=== PATIENT | male | born 1960 | race Asian ===

== ENCOUNTER 2020-01-01 06:07 | Inpatient (IN) | payer SELFPAY ==
[~2020-01-01] VITALS: Ht 177.8 cm; Wt 88.9 kg
[2020-01-01] MEDS ORDERED: cloNIDine HCL 0.1 MG TAB PO ONE (07:15)
[2020-01-01 07:32] LABS: Basophils # (auto) 0 10 ^3/uL (0-0.2); Basophils % (auto) 0.4 % (0.0-2.0); Eosinophils # (auto) 0.1 10 ^3/uL (0-0.8); Eosinophils % (auto) 0.5 % (0.0-7.0); Hematocrit 33.2 % (41.0-53.0); Hemoglobin 10.7 g/dL (13.5-17.5); Lymphocytes # (auto) 0.9 10 ^3/uL (0.4-5.4); Lymphocytes % (auto) 8.6 % (10.0-50.0); Mean Corpuscular Hemoglobin 28.6 pg (28.0-32.0); Mean Corpuscular Hgb Conc. 32.2 g/dL (32.0-36.0); Mean Corpuscular Volume 88.9 fL (80.0-100.0); Monocytes # (auto) 0.8 10 ^3/uL (0-1.3); Monocytes % (auto) 7.6 % (0.0-12.0); Neutrophils # (auto) 8.8 10 ^3/uL (1.6-8.6); Neutrophils % (auto) 82.9 % (37.0-80.0); Nucleated Red Blood Cells % 0.1 %; Platelet Count (auto) 272 10^3/uL (140-450); Red Blood Cells 3.73 10^6/uL (4.5-5.90); Red Cell Distribution Width 14.5 % (11.8-14.3); White Blood Cell 10.6 10^3/uL (4.4-10.8)
[2020-01-01 07:45] LABS: Urine Bacteria FEW /hpf (None Seen); Urine Blood 3+ /uL (Negative); Urine Specific Gravity 1.009 (1.001-1.035); Urine WBC 34 /hpf (0 - 3)
[2020-01-01 07:54] LABS: Albumin 2.9 g/dL (3.4-5.0); BUN/Creatinine Ratio 10.6; Potassium 5.5 mmol/L (3.5-5.1)
[2020-01-01 07:58] LABS: Bilirubin, Total 0.3 mg/dL (0.2-1.0); Total Protein 7.1 g/dL (6.4-8.2)
[2020-01-01] MEDS ORDERED: SODIUM BICARBONATE 8.4% INJ 50ML SYRINGE IV ONE (09:30)
[2020-01-01] MEDS ORDERED: SODIUM ZIRCONIUM CYCL 10 GM PAK PO ONE (09:30)
[2020-01-01] MEDS ORDERED: CALCIUM GLUC 4.65meq/50ml D5AE 50 ML IV ONE (09:30)
[2020-01-01] MEDS ORDERED: InsuLIN REG 1unit/0.01ml Soln (100units/ml) IV ONE (09:30)
[2020-01-01] MEDS ORDERED: DEXTROSE (50%) 50ML SYRG IV ONE (09:30)
[2020-01-01] MEDS ORDERED: FUROSEMIDE 40 MG/4 ML VIAL IV ONE (09:30)
[2020-01-01] MEDS ORDERED: ALBUTEROL SULF 2.5 MG/0.5ML(0.5%) NEB SOLN NEB ONE (09:30)
[2020-01-01] MEDS ORDERED: cefTRIAXone 1GM/50ML D5W 50 ML IV ONE (09:45)
[2020-01-01] MEDS ORDERED: HYDROcodone-ACET 5/325MG TAB PO PRN (14:00)
[2020-01-01] MEDS ORDERED: ONDANSETRON HCL 4 MG/2 ML VIAL IV PRN (14:00)
[2020-01-01] MEDS ORDERED: SODIUM CHLORIDE 0.9% 1,000 ML IV SCH (14:00)
[2020-01-01] MEDS ORDERED: MORPHINE SULF INJ 2 MG/ML SYRINGE 1ML IV PRN ×2 (14:00)
[2020-01-01] MEDS ORDERED: NITROGLYCERIN 0.4 MG SL TAB SL PRN (14:00)
[2020-01-01] MEDS ORDERED: hydrALAZINE HCL 20 MG/ML VL IV PRN (14:00)
[2020-01-01] MEDS ORDERED: BUMETANIDE 2.5mg/10ml (0.25 mg/ml) INJ IV ONE (14:00)
[2020-01-01] MEDS ORDERED: ACETAMINOPHEN 500 MG TAB PO PRN (14:00)
[2020-01-01] MEDS ORDERED: DEXTROSE (50%) 50ML SYRG IV PRN (14:00)
--- NOTE | 2020-01-01 15:28 | NUR ---
Telemetry admit from ER LATANYATIMO admitted to Telemetry unit after SBAR received. Patient oriented to KRISTINA SPANNRN primary RN, unit, room, bed, and unit policies regarding patient care and visiting hours. Patient now on continuous telemetry monitoring, tele box # 80 and telemetry reading on arrival to unit is sr 80's. Patient placed on 2lnc bedside oxygen, weighed by bedscale and encouraged to call if they need something. All questions and concerns addressed, patient verbalized understanding. Note:
[2020-01-01 15:33] VITALS: BP 144/86
[2020-01-01] MEDS ORDERED: AMLO5TAB15 PO (15:58)
[2020-01-01] MEDS ORDERED: LABE100T39 PO (16:03)
[2020-01-01] MEDS: SODIUM BICARBONATE 50ML VIAL 50 ML in SOD CHL 0.45% 1,000 ML IV SCH (16:44)
[2020-01-01] MEDS: InsuLIN REG 1unit/0.01ml Soln (100units/ml) SC SCH ×2 (16:50→21:48)
[2020-01-01] MEDS: ACCU-CHEK COMFORT CURVE STRIP VI SCH ×2 (16:50→21:40)
[2020-01-01 17:00] VITALS: BP 144/86
[2020-01-01] MEDS ORDERED: METF-372 PO (18:35)
--- NOTE | 2020-01-01 19:30 | NUR ---
Opening Shift Note Assumed care of patient, awake and alert. No S/S of distress/SOB or pain noted. Instructed on POC and to call for assist PRN. Bed is in lowest locked position with bed rails up x2 and call light is within reach of the patient.
--- NOTE | 2020-01-01 20:55 | NUR ---
Steve order: Accidently discontinued steve order via interventions. Reinputed steve order as ordered by stella.
[2020-01-01 21:33] LABS: Calcium 8.1 mg/dL (8.5-10.1); Potassium 4.3 mmol/L (3.5-5.1)
[2020-01-01 21:38] VITALS: BP 149/87
[2020-01-01 21:38] LABS: BUN/Creatinine Ratio 11.1
[2020-01-01] MEDS: DOCUSATE SOD 100 MG CAP PO SCH (21:40)
[2020-01-02] VITALS (8 sets, daily range): BP systolic 151–196; BP diastolic 78–98
--- NOTE | 2020-01-02 00:46 | NUR ---
Navas: Education patient about the use of Navas catheter and purpose of Navas catheter placement. Patient verbalized understanding. Navas catheter inserted via sterile technique. Patient tolerated well. Navas catheter is patent and draining hung below the bedside. Continue care.
[2020-01-02] MEDS: SODIUM BICARBONATE 50ML VIAL 50 ML in SOD CHL 0.45% 1,000 ML IV SCH ×3 (02:39→21:18)
--- NOTE | 2020-01-02 04:42 | NUR ---
TRANSFER Received patient from [facility] unit into room 273B via wheelchair. No distress noted during transfer. Will continue to monitor
--- NOTE | 2020-01-02 04:44 | NUR ---
Patient transferred rooms, report given to RN: Report given to Elda RN, all questions answered. Patient transferred via wheel chair with all of his belongings. Patient tolerated well. No S/S of distress SOB or pain noted.
[2020-01-02] MEDS: InsuLIN REG 1unit/0.01ml Soln (100units/ml) SC SCH ×4 (06:19→21:29)
[2020-01-02] MEDS: ACCU-CHEK COMFORT CURVE STRIP VI SCH ×4 (06:19→21:25)
[2020-01-02] MEDS: cefTRIAXone 1GM/50ML D5W 50 ML IV SCH (08:06)
[2020-01-02] MEDS: DOCUSATE SOD 100 MG CAP PO SCH ×2 (08:06→21:45)
[2020-01-02] MEDS: FAMOTIDINE 20 MG TAB PO SCH (08:06)
[2020-01-02 08:31] LABS: Hematocrit 33.5 % (41.0-53.0); Hemoglobin 11.1 g/dL (13.5-17.5); Mean Corpuscular Hgb Conc. 33.2 g/dL (32.0-36.0); Mean Corpuscular Volume 87.3 fL (80.0-100.0); Platelet Count (auto) 268 10^3/uL (140-450); Red Blood Cells 3.83 10^6/uL (4.5-5.90); Red Cell Distribution Width 14.3 % (11.8-14.3); White Blood Cell 9.7 10^3/uL (4.4-10.8)
[2020-01-02 08:47] LABS: BUN/Creatinine Ratio 10.2; Basophils % (manual) 0 (0.0-2.0); Blast Cells 0; Calcium 8.1 mg/dL (8.5-10.1); Metamyelocytes % 0; Myelocytes % 0; Potassium 4.4 mmol/L (3.5-5.1); Promyelocytes % 0; Reactive Lymphocytes 0
[2020-01-02 10:00] LABS: Band Neutrophils % (manual) 2; Eosinophils % (manual) 18 (0-7); Lymphocytes % (manual) 7 (10.0-50.0); Monocytes % (manual) 5 (0-12)
[2020-01-02] MEDS ORDERED: amLODIPine BESYLATE 5 MG TAB PO SCH (10:00)
[2020-01-02] MEDS: cloNIDine HCL 0.1 MG TAB PO PRN ×2 (11:25→17:40)
[2020-01-02] MEDS ORDERED: amLODIPine BESYLATE 5 MG TAB PO ONE (11:30)
[2020-01-02] MEDS ORDERED: AZITHROMYCIN 250 MG TAB PO ONE (11:30)
[2020-01-02] MEDS ORDERED: ALBUTEROL SULF 2.5 MG/0.5ML(0.5%) NEB SOLN NEB PRN (11:30)
--- NOTE | 2020-01-02 11:58 | NUR ---
Urologist Phone call received from Dr. Garo Hernández regarding patient. Orders received to do CT abdomen/pelvis without contrast followed by a Radiology consult with Dr. Andre for left nephrostomy tube placement.
--- NOTE | 2020-01-02 14:50 | NUR ---
Urologist Paged Left voice message for Dr. Hernández to call RN. Radiologist is not on until Thursday 01/04.
--- NOTE | 2020-01-02 19:30 | NUR ---
Opening Shift Note Assumed care of patient, awake and alert. No S/S of distress/SOB or pain. Insructed on POC and to callfor assist PRN, will continue to monitor for changes Q1hr and PRN. Fall and safety precautions in place. Call light within reach.
[2020-01-02] MEDS: METOPROLOL TARTRATE 50 MG TAB PO SCH (21:46)
--- NOTE | 2020-01-02 22:00 | NUR ---
Erica Brito at bedside for cardio consult. New orders received and verified. Will input.
[2020-01-03] MEDS: cloNIDine HCL 0.1 MG TAB PO PRN ×2 (04:27→18:54)
[2020-01-03 05:00] VITALS: BP 158/82
[2020-01-03] MEDS: ACCU-CHEK COMFORT CURVE STRIP VI SCH ×4 (06:24→22:11)
[2020-01-03] MEDS: InsuLIN REG 1unit/0.01ml Soln (100units/ml) SC SCH ×4 (06:25→22:15)
[2020-01-03] MEDS: cefTRIAXone 1GM/50ML D5W 50 ML IV SCH (08:51)
[2020-01-03] MEDS: AZITHROMYCIN 250 MG TAB PO SCH (08:52)
[2020-01-03] MEDS: amLODIPine BESYLATE 5 MG TAB PO SCH (08:52)
[2020-01-03] MEDS: FAMOTIDINE 20 MG TAB PO SCH (08:52)
[2020-01-03] MEDS: DOCUSATE SOD 100 MG CAP PO SCH ×2 (08:53→22:06)
[2020-01-03] MEDS: METOPROLOL TARTRATE 50 MG TAB PO SCH ×2 (08:53→22:06)
[2020-01-03] MEDS: SODIUM BICARBONATE 50ML VIAL 50 ML in SOD CHL 0.45% 1,000 ML IV SCH ×2 (08:54→18:30)
--- NOTE | 2020-01-03 08:59 | NUR ---
Opening Shift Note Assumed care of patient, awake and alert. No S/S of distress/SOB or pain. Instructed on POC and to call for assist PRN, will continue to monitor for changes Q1hr and PRN. Fall and safety precautions in place. Call light within reach.
[2020-01-03 09:00] VITALS: BP 156/83
[2020-01-03 11:18] LABS: BUN/Creatinine Ratio 10.5; Potassium 4.2 mmol/L (3.5-5.1)
[2020-01-03 13:00] VITALS: BP 169/87
[2020-01-03 16:36] VITALS: BP 162/91
--- NOTE | 2020-01-03 19:21 | NUR ---
Respiratory note: PT ASSESSED FOR PRN MED NEB TX. HR 78, RR 18, SPO2 94% ON RA. NO S/S OF ANY RESPIRATORY DISTRESS NOTED. ADVISED PT TO CALL IF TX IS NEEDED.
[2020-01-03 21:28] VITALS: BP 159/54
[2020-01-03] MEDS ORDERED: SOD CHL 0.45% 1,000 ML IV ONE (21:45)
[2020-01-04] MEDS: cloNIDine HCL 0.1 MG TAB PO PRN (01:33)
[2020-01-04 05:18] VITALS: BP 153/78
[2020-01-04 05:18] LABS: Hematocrit 30.2 % (41.0-53.0); Hemoglobin 9.9 g/dL (13.5-17.5); Mean Corpuscular Hemoglobin 28.8 pg (28.0-32.0); Mean Corpuscular Hgb Conc. 32.8 g/dL (32.0-36.0); Mean Corpuscular Volume 87.9 fL (80.0-100.0); Platelet Count (auto) 247 10^3/uL (140-450); Red Blood Cells 3.44 10^6/uL (4.5-5.90); Red Cell Distribution Width 14.3 % (11.8-14.3); White Blood Cell 8.5 10^3/uL (4.4-10.8)
[2020-01-04 05:22] LABS: Basophils % (manual) 0 (0.0-2.0); Blast Cells 0; Metamyelocytes % 0; Myelocytes % 0; Promyelocytes % 0; Reactive Lymphocytes 0
[2020-01-04] MEDS: ACCU-CHEK COMFORT CURVE STRIP VI SCH (05:38)
[2020-01-04] MEDS: InsuLIN REG 1unit/0.01ml Soln (100units/ml) SC SCH (05:38)
[2020-01-04 05:39] LABS: Albumin 2.2 g/dL (3.4-5.0); BUN/Creatinine Ratio 11.6; Calcium 8.1 mg/dL (8.5-10.1); Potassium 3.8 mmol/L (3.5-5.1)
[2020-01-04 05:42] LABS: Bilirubin, Total 0.3 mg/dL (0.2-1.0); Total Protein 5.7 g/dL (6.4-8.2)
[2020-01-04 06:05] LABS: Band Neutrophils % (manual) 8; Eosinophils % (manual) 23 (0-7); Lymphocytes % (manual) 11 (10.0-50.0); Monocytes % (manual) 5 (0-12)
--- NOTE | 2020-01-04 07:00 | NUR ---
Respiratory note: PT RESTING COMFORTABLY. NO RESPIRATORY DISTRESS NOTED. SPO2 95% ON RA, HR 60, RR 18, BS CLEAR/DIMINISHED BILATERALLY. PRN MEDNEB TX NOT INDICATED AT THIS TIME. WILL CONTINUE TO MONITOR PT.
--- NOTE | 2020-01-04 07:30 | NUR ---
Opening Shift Note Assumed care of patient, awake and alert. No S/S of distress/SOB or pain on room air. Instructed on POC and to call for assist PRN, will continue to monitor for changes Q1hr and PRN. Bed in low and locked position, rails up x2, no-slip socks on. Navas draining to gravity.
--- NOTE | 2020-01-04 08:15 | NUR ---
DR Linsey STEVENS AT BEDSIDE ORDERS OK TO D/C NELSON ON DISCHARGE, FOLLOW UP WITH DR CLARKE OUTPATIENT.
--- NOTE | 2020-01-04 08:25 | NUR ---
Steve catheter dc'd Order to discontinue steve catheter. Steve dc'd with clean technique following deflation of balloon. Patient tolerated well with no complaints of pain. Continue care. Out put charted in I&O.
[2020-01-04 08:30] VITALS: BP 155/85
[2020-01-04] MEDS: cefTRIAXone 1GM/50ML D5W 50 ML IV SCH (09:00)
--- NOTE | 2020-01-04 09:30 | NUR ---
PATIENT POST NELSON REMOVAL VOID PER PATIENT HE VOIDED IN THE BATHROOM ALREADY POST CATHETER REMOVAL.
[2020-01-04] MEDS: FAMOTIDINE 20 MG TAB PO SCH (09:32)
[2020-01-04] MEDS: DOCUSATE SOD 100 MG CAP PO SCH (09:33)
[2020-01-04] MEDS: amLODIPine BESYLATE 5 MG TAB PO SCH (09:33)
[2020-01-04] MEDS: AZITHROMYCIN 250 MG TAB PO SCH (09:33)
[2020-01-04] MEDS: METOPROLOL TARTRATE 50 MG TAB PO SCH (09:33)
--- NOTE | 2020-01-04 09:45 | NUR ---
DISCHARGE Discharge instructions given as ordered. Encourage to follow up with PMD as instructed. All questions and concerns addressed. Patient verbalized understanding. Medication reconciliation form completed and copy given to patient. IV removed with catheter intact, pressure dressing applied, steve catheter removed as previously charted. Telemetry unit returned to ICU. Patient taken downstairs with all personal belongings, accompanied by staff to greet family member. No distress noted at time of departure.
== END 2020-01-04 09:45 | disposition home or self-care (01) | DRG 682 ==
LOC: EDBD 06:07 → ER 06:07 → TELE 06:08 → TELE-CENTR 15:25 → TELE-WESTW 01-02 04:39
PROVIDERS: ADMIT Nurse Practitioner Acute Care; ATTEND Nurse Practitioner Acute Care
DX: N17.0 Acute kidney failure with tubular necrosis (principal); I50.43 Acute on chronic combined systolic (congestive) and diastolic (congestive) heart failure; J18.9 Pneumonia, unspecified organism; I13.0 Hypertensive heart and chronic kidney disease with heart failure and stage 1 through stage 4 chronic kidney disease, or unspecified chronic kidney disease; E11.22 Type 2 diabetes mellitus with diabetic chronic kidney disease; N13.6 Pyonephrosis; E87.5 Hyperkalemia; F17.200 Nicotine dependence, unspecified, uncomplicated; I16.0 Hypertensive urgency; K57.30 Diverticulosis of large intestine without perforation or abscess without bleeding; R06.03 Acute respiratory distress; N18.9 Chronic kidney disease, unspecified; R09.02 Hypoxemia; Z20.828 Contact with and (suspected) exposure to other viral communicable diseases; Z79.84 Long term (current) use of oral hypoglycemic drugs; Z82.49 Family history of ischemic heart disease and other diseases of the circulatory system; Z83.3 Family history of diabetes mellitus; Z87.442 Personal history of urinary calculi
CPT/HCPCS: 36415; 71045; 74176; 76775; 78582; 80048; 80053; 81001; 82962; 83036; 83880; 84484; 85007; 85025; 85027; 85379; 87086; 87426; 93306; 93970; 94644; 96365; 96368; 96375; G0378; J0610; J0696; J1815

== ENCOUNTER 2020-10-16 22:19 | Emergency (ER) | payer MEDICARE, BC ==
[~2020-10-16] VITALS: Ht 172.7 cm; Wt 90.7 kg
[~2020-10-16 22:19] MED LIST: AMLO-489 PO; LABE100T39 PO; METF-372 PO
[2020-10-16 23:05] VITALS: BP 176/86
== END 2020-10-16 23:50 | disposition left against medical advice (07) ==
LOC: EDBD 22:19 → ER 22:22
DX: R53.1 Weakness (principal); R06.02 Shortness of breath; Z53.21 Procedure and treatment not carried out due to patient leaving prior to being seen by health care provider
CPT/HCPCS: 93005

== ENCOUNTER 2022-12-03 22:02 | Inpatient (IN) | payer MEDICARE, MEDICAID ==
[~2022-12-03] VITALS: Ht 188 cm; Wt 86.3 kg
[~2022-12-03 22:02] MED LIST changes: -AMLO-489 PO; +AMLO1TAB22 PO; -LABE100T39 PO; +LABE100T5 PO
[2022-12-03 22:43] LABS: Basophils # (auto) 0.1 10 ^3/uL (0-0.2); Basophils % (auto) 0.8 % (0.0-2.0); Eosinophils # (auto) 0.5 10 ^3/uL (0-0.8); Eosinophils % (auto) 4.4 % (0.0-7.0); Hematocrit 26.4 % (41.0-53.0); Hemoglobin 8.8 g/dL (13.5-17.5); Lymphocytes # (auto) 0.8 10 ^3/uL (0.4-5.4); Lymphocytes % (auto) 7.6 % (10.0-50.0); Mean Corpuscular Hemoglobin 29.8 pg (28.0-32.0); Mean Corpuscular Hgb Conc. 33.2 g/dL (32.0-36.0); Mean Corpuscular Volume 89.7 fL (80.0-100.0); Monocytes # (auto) 0.5 10 ^3/uL (0-1.3); Neutrophils # (auto) 8.6 10 ^3/uL (1.6-8.6); Neutrophils % (auto) 82.2 % (37.0-80.0); Red Blood Cells 2.94 10^6/uL (4.5-5.90); Red Cell Distribution Width 17.1 % (11.8-14.3); White Blood Cell 10.5 10^3/uL (4.4-10.8)
[2022-12-03 22:57] LABS: INR 1.09 (0.9-1.15); Partial Thromboplastin Time 27.3 SEC (24.5-34.5); Prothrombin Time 11.4 sec (9.3-11.8)
[2022-12-03 23:07] LABS: Alanine Aminotransferase 25 U/L (7-40); Albumin 4.3 g/dL (3.2-4.8); Alkaline Phosphatase 55 U/L (46-116); Anion Gap 9 (5-15); Aspartate Aminotransferase 30 U/L (13-40); Bilirubin, Total 0.4 mg/dL (0.2-1.0); Blood Urea Nitrogen 73 mg/dL (9-23); Calcium 8.9 mg/dL (8.5-10.1); Carbon Dioxide 27 mmol/L (20-30); Chloride 96 mmol/L (98-107); Glucose 266 mg/dL (74-106); Sodium 132 mmol/L (136-145); Total Protein 7.1 g/dL (5.7-8.2)
[2022-12-03 23:19] LABS: Potassium 6.7 mmol/L (3.5-5.1)
[2022-12-03] MEDS ORDERED: ALBUTEROL MEDNEB 2.5 mg/3ml NEB ONE (23:41)
[2022-12-03] MEDS ORDERED: SODIUM BICARBONATE 8.4 % INJ 50ML VIAL IV ONE (23:45)
[2022-12-03] MEDS ORDERED: InsuLIN REG 1unit/0.01ml Soln (100units/ml) IV ONE (23:45)
[2022-12-03] MEDS ORDERED: ALBUTEROL SULF 2.5 MG/0.5ML(0.5%) NEB SOLN NEB ONE (23:45)
[2022-12-03] MEDS ORDERED: CALCIUM GLUC 1,000mg/50ml-NS 50 ML IV ONE (23:45)
[2022-12-04] VITALS: PULSE 76; RESP 21; O2SAT 100
[2022-12-04] MEDS ORDERED: DEXTROSE (50%) 50ML SYRG IV PRN
[2022-12-04] MEDS ORDERED: ONDANSETRON HCL 4 MG/2 ML VIAL IV PRN
[2022-12-04] MEDS ORDERED: MORPHINE SULFATE INJ 2 MG/ml SYRG IV PRN
[2022-12-04] MEDS ORDERED: NITROGLYCERIN 0.4 MG SL TAB SL PRN
[2022-12-04] MEDS ORDERED: ACETAMINOPHEN 325 MG TAB PO PRN
[2022-12-04] MEDS: ACCU-CHEK COMFORT CURVE STRIP VI SCH ×4 (06:41→22:00)
[2022-12-04] MEDS: InsuLIN REG 1unit/0.01ml Soln (100units/ml) SC SCH ×4 (06:41→23:25)
[2022-12-04 06:42] LABS: Basophils # (auto) 0.1 10 ^3/uL (0-0.2); Basophils % (auto) 0.6 % (0.0-2.0); Eosinophils # (auto) 0.5 10 ^3/uL (0-0.8); Hemoglobin 7.8 g/dL (13.5-17.5)
[2022-12-04 06:45] LABS: Eosinophils % (auto) 5.7 % (0.0-7.0); Hematocrit 23.6 % (41.0-53.0); Lymphocytes # (auto) 0.7 10 ^3/uL (0.4-5.4); Lymphocytes % (auto) 7.5 % (10.0-50.0); Mean Corpuscular Hemoglobin 29.6 pg (28.0-32.0); Mean Corpuscular Hgb Conc. 33.3 g/dL (32.0-36.0); Mean Corpuscular Volume 89.1 fL (80.0-100.0); Monocytes # (auto) 0.5 10 ^3/uL (0-1.3); Monocytes % (auto) 5.9 % (0.0-12.0); Neutrophils # (auto) 7.1 10 ^3/uL (1.6-8.6); Neutrophils % (auto) 80.3 % (37.0-80.0); Red Blood Cells 2.65 10^6/uL (4.5-5.90); Red Cell Distribution Width 17.2 % (11.8-14.3); White Blood Cell 8.9 10^3/uL (4.4-10.8)
[2022-12-04 07:08] LABS: Alanine Aminotransferase 22 U/L (7-40); Alkaline Phosphatase 54 U/L (46-116); Anion Gap 11 (5-15); BUN/Creatinine Ratio 8.4 (10.0-20.0); Blood Urea Nitrogen 78 mg/dL (9-23); Calcium 9.2 mg/dL (8.5-10.1); Carbon Dioxide 27 mmol/L (20-30); Chloride 97 mmol/L (98-107); Sodium 135 mmol/L (136-145)
[2022-12-04 07:10] LABS: Albumin 4.2 g/dL (3.2-4.8); Aspartate Aminotransferase 23 U/L (13-40); Bilirubin, Total 0.5 mg/dL (0.2-1.0)
[2022-12-04 07:11] LABS: Total Protein 6.9 g/dL (5.7-8.2)
[2022-12-04 07:42] LABS: Glucose 69 mg/dL (74-106)
[2022-12-04 07:46] LABS: Potassium 5.6 mmol/L (3.5-5.1)
[2022-12-04] MEDS: CALCIUM ACETATE 667 MG CAP PO SCH ×3 (08:00→18:20)
[2022-12-04] MEDS: LABETALOL HCL 200 MG TAB PO SCH ×2 (09:25→23:17)
[2022-12-04] MEDS: BUMETANIDE 1 MG TAB PO SCH (09:26)
[2022-12-04] MEDS: LOSARTAN POTASSIUM 50 MG TAB PO SCH (09:27)
[2022-12-04] MEDS: amLODIPine BESYLATE 5 MG TAB PO SCH (09:28)
[2022-12-04] MEDS ORDERED: CLOPIDOGREL BISULFATE 75 MG TAB PO SCH (10:00)
[2022-12-04 12:39] VITALS: BP 156/80; PULSE 71; RESP 20; TEMP 98.2; O2SAT 94
[2022-12-04 12:40] VITALS: BP 156/80; PULSE 71; RESP 20; TEMP 98.2; O2SAT 96
[2022-12-04 16:00] VITALS: BP 143/66; PULSE 72; RESP 20; TEMP 98.2; O2SAT 99
[2022-12-04 16:17] LABS: Triglycerides 38 mg/dL (< 150)
[2022-12-04 16:18] LABS: LDL Cholesterol 32 mg/dL (< 100)
[2022-12-04 16:19] LABS: Cholesterol 92 mg/dL (< 200); HDL Cholesterol 46 mg/dL (40-59)
[2022-12-04] MEDS ORDERED: ASPI-498 OR (16:53)
[2022-12-04] MEDS ORDERED: CLOP75TA70 PO (16:53)
[2022-12-04] MEDS ORDERED: SODIUM ZIRCONIUM CYCL 10 GM PAK PO ONE ×2 (18:45)
[2022-12-04 20:00] VITALS: PULSE 79
[2022-12-04 22:00] VITALS: BP 153/78; PULSE 78; RESP 18; TEMP 98.7; O2SAT 100
[2022-12-04] MEDS: ATORVASTATIN 20 MG TAB PO SCH (23:17)
[2022-12-05] VITALS (8 sets, daily range): BP systolic 138–155; BP diastolic 62–71; PULSE 68–83; RESP 16–18; TEMP 97.5–98.6; O2SAT 94–100
[2022-12-05] MEDS ORDERED: TEMAZEPAM 15 MG CAP PO ONE (00:45)
[2022-12-05] MEDS: InsuLIN REG 1unit/0.01ml Soln (100units/ml) SC SCH ×4 (06:00→22:00)
[2022-12-05] MEDS: ACCU-CHEK COMFORT CURVE STRIP VI SCH ×4 (06:01→22:00)
[2022-12-05 06:31] LABS: Chloride 97 mmol/L (98-107); Sodium 134 mmol/L (136-145)
[2022-12-05 06:32] LABS: Anion Gap 12 (5-15); Calcium 8.7 mg/dL (8.7-10.4); Carbon Dioxide 25 mmol/L (20-30)
[2022-12-05 06:37] LABS: BUN/Creatinine Ratio 8.8 (10.0-20.0); Glucose 62 mg/dL (74-106)
[2022-12-05 06:45] LABS: Blood Urea Nitrogen 97 mg/dL (9-23); Potassium 5.9 mmol/L (3.5-5.1)
[2022-12-05] MEDS ORDERED: SODIUM CHL 0.9% 1000 ML BAG XX ONE (07:00)
[2022-12-05 07:04] LABS: Eosinophils # (auto) 0.4 10 ^3/uL (0-0.8); Hemoglobin 7.4 g/dL (13.5-17.5); Lymphocytes # (auto) 0.5 10 ^3/uL (0.4-5.4); Neutrophils # (auto) 7.7 10 ^3/uL (1.6-8.6); Red Blood Cells 2.45 10^6/uL (4.5-5.90)
[2022-12-05 07:06] LABS: Basophils # (auto) 0.1 10 ^3/uL (0-0.2); Basophils % (auto) 0.6 % (0.0-2.0); Eosinophils % (auto) 4.4 % (0.0-7.0); Hematocrit 21.9 % (41.0-53.0); Lymphocytes % (auto) 5.6 % (10.0-50.0); Mean Corpuscular Hemoglobin 30.3 pg (28.0-32.0); Mean Corpuscular Hgb Conc. 33.8 g/dL (32.0-36.0); Mean Corpuscular Volume 89.6 fL (80.0-100.0); Monocytes # (auto) 0.6 10 ^3/uL (0-1.3); Monocytes % (auto) 6.1 % (0.0-12.0); Neutrophils % (auto) 83.3 % (37.0-80.0); Red Cell Distribution Width 16.9 % (11.8-14.3); White Blood Cell 9.2 10^3/uL (4.4-10.8)
[2022-12-05] MEDS ORDERED: SODIUM ZIRCONIUM CYCL 10 GM PAK PO ONE (07:30)
[2022-12-05] MEDS: LABETALOL HCL 200 MG TAB PO SCH ×2 (11:00→22:32)
[2022-12-05] MEDS: CALCIUM ACETATE 667 MG CAP PO SCH ×3 (11:00→17:18)
[2022-12-05] MEDS: LOSARTAN POTASSIUM 50 MG TAB PO SCH (11:00)
[2022-12-05] MEDS: amLODIPine BESYLATE 5 MG TAB PO SCH (11:00)
[2022-12-05] MEDS: BUMETANIDE 1 MG TAB PO SCH ×2 (11:00→22:35)
[2022-12-05 12:35] LABS: Chloride 99 mmol/L (98-107); Potassium 4.2 mmol/L (3.5-5.1); Sodium 140 mmol/L (136-145)
[2022-12-05 12:36] LABS: Anion Gap 9 (5-15); Carbon Dioxide 32 mmol/L (20-30)
[2022-12-05 12:37] LABS: Calcium 9.1 mg/dL (8.5-10.1)
[2022-12-05 12:41] LABS: BUN/Creatinine Ratio 7.9 (10.0-20.0); Blood Urea Nitrogen 47 mg/dL (9-23); Glucose 140 mg/dL (74-106)
[2022-12-05] MEDS ORDERED: MELATONIN 5 MG TAB PO ONE (22:00)
[2022-12-05] MEDS: ATORVASTATIN 20 MG TAB PO SCH (22:31)
[2022-12-06] VITALS (7 sets, daily range): BP systolic 131–153; BP diastolic 47–69; PULSE 69–88; RESP 17–18; TEMP 97.9–98.3; O2SAT 95–100
[2022-12-06 05:52] LABS: Basophils # (auto) 0 10 ^3/uL (0-0.2); Eosinophils # (auto) 0.5 10 ^3/uL (0-0.8); Lymphocytes # (auto) 0.9 10 ^3/uL (0.4-5.4); Monocytes # (auto) 0.5 10 ^3/uL (0-1.3); White Blood Cell 5.9 10^3/uL (4.4-10.8)
[2022-12-06 05:55] LABS: Basophils % (auto) 0.6 % (0.0-2.0); Eosinophils % (auto) 8.4 % (0.0-7.0); Hematocrit 20.3 % (41.0-53.0); Lymphocytes % (auto) 15.2 % (10.0-50.0); Mean Corpuscular Hemoglobin 30.4 pg (28.0-32.0); Mean Corpuscular Hgb Conc. 34.1 g/dL (32.0-36.0); Mean Corpuscular Volume 89.1 fL (80.0-100.0); Monocytes % (auto) 7.9 % (0.0-12.0); Neutrophils % (auto) 67.9 % (37.0-80.0); Red Blood Cells 2.29 10^6/uL (4.5-5.90); Red Cell Distribution Width 16.1 % (11.8-14.3)
[2022-12-06 06:03] LABS: Anion Gap 10 (5-15); Carbon Dioxide 28 mmol/L (20-30); Chloride 99 mmol/L (98-107); Potassium 4.7 mmol/L (3.5-5.1); Sodium 137 mmol/L (136-145)
[2022-12-06 06:04] LABS: Calcium 8.3 mg/dL (8.7-10.4)
[2022-12-06 06:09] LABS: Glucose 91 mg/dL (74-106); Hemoglobin 6.9 g/dL (13.5-17.5); Magnesium 2.3 mg/dL (1.6-2.6)
[2022-12-06 06:11] LABS: Phosphorus 7.1 mg/dL (2.4-5.1)
[2022-12-06 06:25] LABS: Blood Urea Nitrogen 66 mg/dL (9-23)
[2022-12-06] MEDS: InsuLIN REG 1unit/0.01ml Soln (100units/ml) SC SCH ×4 (06:28→22:00)
[2022-12-06] MEDS: ACCU-CHEK COMFORT CURVE STRIP VI SCH ×4 (06:28→22:10)
[2022-12-06] MEDS: CALCIUM ACETATE 667 MG CAP PO SCH ×3 (09:10→16:57)
[2022-12-06] MEDS: BUMETANIDE 1 MG TAB PO SCH ×2 (09:11→22:08)
[2022-12-06] MEDS: LOSARTAN POTASSIUM 50 MG TAB PO SCH (09:11)
[2022-12-06] MEDS: LABETALOL HCL 200 MG TAB PO SCH ×2 (09:12→22:09)
[2022-12-06] MEDS: amLODIPine BESYLATE 5 MG TAB PO SCH (09:13)
[2022-12-06] MEDS ORDERED: VANCOMYCIN PER PHARMACY 0 MG IV SCH (11:45)
[2022-12-06] MEDS ORDERED: VANCOMYCIN 1GM/250ML 250 ML IV ONE (12:30)
[2022-12-06 18:37] LABS: % Iron Saturation 25.4 % (20-55)
[2022-12-06 18:40] LABS: Folate (Folic Acid) > 24.00 ng/mL (>5.38)
[2022-12-06] MEDS: ATORVASTATIN 20 MG TAB PO SCH (22:08)
[2022-12-07] VITALS (12 sets, daily range): BP systolic 136–188; BP diastolic 62–83; PULSE 64–80; RESP 12–21; TEMP 97.7–98.3; O2SAT 95–100
[2022-12-07] MEDS: ACCU-CHEK COMFORT CURVE STRIP VI SCH ×4 (06:21→22:03)
[2022-12-07] MEDS: InsuLIN REG 1unit/0.01ml Soln (100units/ml) SC SCH ×4 (06:22→22:08)
[2022-12-07] MEDS ORDERED: SODIUM CHL 0.9% 1000 ML BAG XX ONE (07:00)
[2022-12-07 07:55] LABS: Basophils # (auto) 0 10 ^3/uL (0-0.2); Basophils % (auto) 0.7 % (0.0-2.0); Eosinophils # (auto) 0.6 10 ^3/uL (0-0.8); Hematocrit 21.1 % (41.0-53.0); Lymphocytes # (auto) 0.8 10 ^3/uL (0.4-5.4); Lymphocytes % (auto) 13.1 % (10.0-50.0); Mean Corpuscular Hemoglobin 29.7 pg (28.0-32.0); Mean Corpuscular Volume 89.9 fL (80.0-100.0); Monocytes # (auto) 0.4 10 ^3/uL (0-1.3); Monocytes % (auto) 7.5 % (0.0-12.0); Neutrophils % (auto) 68.7 % (37.0-80.0); Red Blood Cells 2.34 10^6/uL (4.5-5.90); Red Cell Distribution Width 16.5 % (11.8-14.3); White Blood Cell 5.8 10^3/uL (4.4-10.8)
[2022-12-07 07:57] LABS: Chloride 97 mmol/L (98-107); Sodium 135 mmol/L (136-145)
[2022-12-07 07:58] LABS: Anion Gap 14 (5-15); Carbon Dioxide 24 mmol/L (20-30)
[2022-12-07 07:59] LABS: Calcium 8.4 mg/dL (8.5-10.1)
[2022-12-07] MEDS: CALCIUM ACETATE 667 MG CAP PO SCH ×3 (08:00→18:17)
[2022-12-07 08:03] LABS: BUN/Creatinine Ratio 8.5 (10.0-20.0); Glucose 94 mg/dL (74-106)
[2022-12-07 08:16] LABS: Blood Urea Nitrogen 80 mg/dL (9-23)
[2022-12-07] MEDS ORDERED: SODIUM ZIRCONIUM CYCL 10 GM PAK PO ONE (08:45)
[2022-12-07] MEDS ORDERED: CEFEPIME 1GM/ 50ML 50 ML IV SCH (10:00)
[2022-12-07] MEDS: LABETALOL HCL 200 MG TAB PO SCH ×2 (10:00→22:03)
[2022-12-07] MEDS: LOSARTAN POTASSIUM 50 MG TAB PO SCH (10:00)
[2022-12-07] MEDS: BUMETANIDE 1 MG TAB PO SCH ×2 (10:00→22:02)
[2022-12-07] MEDS: amLODIPine BESYLATE 5 MG TAB PO SCH (10:14)
[2022-12-07] MEDS: hydrALAZINE HCL 20 MG/ML VL IV PRN ×2 (13:30→23:35)
[2022-12-07] MEDS ORDERED: fentaNYL CITRATE 100 MCG/2 ML VL ONE (14:25)
[2022-12-07] MEDS ORDERED: MIDAZOLAM HCL 2MG/2ML 2ml VIAL (1mg/ml) ONE (14:25)
[2022-12-07] MEDS ORDERED: LIDOCAINE VISCOUS 2% 15ML UD ONE (14:25)
[2022-12-07] MEDS ORDERED: LIDOCAINE VISCOUS 2% 15ML UD PO ONE (15:00)
[2022-12-07] MEDS ORDERED: fentaNYL CITRATE 100 MCG/2 ML VL IV ONE (15:00)
[2022-12-07] MEDS ORDERED: MIDAZOLAM HCL 2MG/2ML 2ml VIAL (1mg/ml) IV ONE (15:00)
[2022-12-07 19:49] LABS: Hemoglobin 8.1 g/dL (13.5-17.5); Lymphocytes # (auto) 0.4 10 ^3/uL (0.4-5.4); Nucleated Red Blood Cells % 0.1 %
[2022-12-07 19:51] LABS: Basophils # (auto) 0 10 ^3/uL (0-0.2); Basophils % (auto) 0.5 % (0.0-2.0); Eosinophils # (auto) 0.6 10 ^3/uL (0-0.8); Eosinophils % (auto) 10.1 % (0.0-7.0); Hematocrit 24.5 % (41.0-53.0); Lymphocytes % (auto) 6.6 % (10.0-50.0); Mean Corpuscular Hemoglobin 29.5 pg (28.0-32.0); Mean Corpuscular Hgb Conc. 33.1 g/dL (32.0-36.0); Mean Corpuscular Volume 89.2 fL (80.0-100.0); Monocytes # (auto) 0.5 10 ^3/uL (0-1.3); Monocytes % (auto) 8.3 % (0.0-12.0); Neutrophils # (auto) 4.1 10 ^3/uL (1.6-8.6); Neutrophils % (auto) 74.5 % (37.0-80.0); Red Blood Cells 2.74 10^6/uL (4.5-5.90); Red Cell Distribution Width 16.4 % (11.8-14.3); White Blood Cell 5.5 10^3/uL (4.4-10.8)
[2022-12-07 19:55] LABS: Chloride 98 mmol/L (98-107); Potassium 5.1 mmol/L (3.5-5.1); Sodium 136 mmol/L (136-145)
[2022-12-07 19:56] LABS: Anion Gap 8 (5-15); Calcium 8.7 mg/dL (8.7-10.4); Carbon Dioxide 30 mmol/L (20-30)
[2022-12-07 20:01] LABS: BUN/Creatinine Ratio 6.3 (10.0-20.0)
[2022-12-07 20:03] LABS: Blood Urea Nitrogen 45 mg/dL (9-23); Glucose 232 mg/dL (74-106)
[2022-12-07] MEDS ORDERED: EPOETIN ALFA-EPBX 10,000 UNIT/1ML VIAL SC ONE (21:00)
[2022-12-07] MEDS: ATORVASTATIN 20 MG TAB PO SCH (22:02)
[2022-12-08 05:04] VITALS: BP 137/65; PULSE 74; RESP 18; TEMP 97.8; O2SAT 98
[2022-12-08] MEDS: ACCU-CHEK COMFORT CURVE STRIP VI SCH ×4 (06:26→22:05)
[2022-12-08] MEDS: InsuLIN REG 1unit/0.01ml Soln (100units/ml) SC SCH ×4 (06:27→22:06)
[2022-12-08 06:30] LABS: Chloride 100 mmol/L (98-107); Potassium 5.2 mmol/L (3.5-5.1); Sodium 136 mmol/L (136-145)
[2022-12-08 06:31] LABS: Anion Gap 10 (5-15); Carbon Dioxide 26 mmol/L (20-30)
[2022-12-08 06:32] LABS: Calcium 8.5 mg/dL (8.7-10.4)
[2022-12-08 06:33] LABS: Basophils # (auto) 0 10 ^3/uL (0-0.2); Eosinophils # (auto) 0.6 10 ^3/uL (0-0.8); Hemoglobin 7.6 g/dL (13.5-17.5); Lymphocytes # (auto) 0.6 10 ^3/uL (0.4-5.4); Monocytes # (auto) 0.4 10 ^3/uL (0-1.3); Monocytes % (auto) 6.9 % (0.0-12.0); Red Cell Distribution Width 16.2 % (11.8-14.3)
[2022-12-08 06:36] LABS: Basophils % (auto) 0.6 % (0.0-2.0); Eosinophils % (auto) 10.1 % (0.0-7.0); Glucose 87 mg/dL (74-106); Hematocrit 22.5 % (41.0-53.0); Lymphocytes % (auto) 10.4 % (10.0-50.0); Mean Corpuscular Hemoglobin 30.2 pg (28.0-32.0); Mean Corpuscular Hgb Conc. 33.9 g/dL (32.0-36.0); Neutrophils # (auto) 4.3 10 ^3/uL (1.6-8.6); Nucleated Red Blood Cells % 0.1 %; Red Blood Cells 2.53 10^6/uL (4.5-5.90)
[2022-12-08 06:37] LABS: BUN/Creatinine Ratio 6.5 (10.0-20.0); Blood Urea Nitrogen 52 mg/dL (9-23); Magnesium 2.5 mg/dL (1.6-2.6)
[2022-12-08] MEDS ORDERED: SODIUM ZIRCONIUM CYCL 10 GM PAK PO ONE (07:45)
[2022-12-08] MEDS ORDERED: ADENOSINE 72 MG in GIVE UN-DILUTED 0 ML IV ONE (07:45)
[2022-12-08 08:00] VITALS: PULSE 83; PULSE 85; RESP 22; O2SAT 97
[2022-12-08] MEDS: CALCIUM ACETATE 667 MG CAP PO SCH ×3 (08:00→18:12)
[2022-12-08 09:00] VITALS: BP 138/65; PULSE 83; RESP 22; TEMP 97.6; O2SAT 90
[2022-12-08] MEDS: amLODIPine BESYLATE 5 MG TAB PO SCH (10:22)
[2022-12-08] MEDS: BUMETANIDE 1 MG TAB PO SCH ×2 (10:23→22:01)
[2022-12-08] MEDS: LOSARTAN POTASSIUM 50 MG TAB PO SCH (10:23)
[2022-12-08] MEDS: LABETALOL HCL 200 MG TAB PO SCH ×2 (12:00→22:01)
[2022-12-08 17:00] VITALS: BP 153/78; PULSE 85; RESP 17; TEMP 98.4; O2SAT 93
[2022-12-08 20:00] VITALS: PULSE 76; PULSE 85; RESP 18; O2SAT 94
[2022-12-08] MEDS: ATORVASTATIN 20 MG TAB PO SCH (22:01)
[2022-12-09 05:00] VITALS: BP 158/79; PULSE 73; RESP 18; TEMP 98.5; O2SAT 98
[2022-12-09] MEDS: hydrALAZINE HCL 20 MG/ML VL IV PRN (05:15)
[2022-12-09] MEDS: InsuLIN REG 1unit/0.01ml Soln (100units/ml) SC SCH (06:11)
[2022-12-09] MEDS: ACCU-CHEK COMFORT CURVE STRIP VI SCH (06:11)
[2022-12-09 06:12] LABS: Basophils # (auto) 0 10 ^3/uL (0-0.2); Basophils % (auto) 0.5 % (0.0-2.0); Eosinophils # (auto) 0.7 10 ^3/uL (0-0.8); Lymphocytes # (auto) 0.8 10 ^3/uL (0.4-5.4); Monocytes # (auto) 0.4 10 ^3/uL (0-1.3)
[2022-12-09 06:14] LABS: Eosinophils % (auto) 10.9 % (0.0-7.0); Hematocrit 23.2 % (41.0-53.0); Hemoglobin 7.8 g/dL (13.5-17.5); Mean Corpuscular Hemoglobin 30.2 pg (28.0-32.0); Mean Corpuscular Hgb Conc. 33.5 g/dL (32.0-36.0); Monocytes % (auto) 5.6 % (0.0-12.0); Neutrophils # (auto) 4.7 10 ^3/uL (1.6-8.6); Red Blood Cells 2.57 10^6/uL (4.5-5.90); Red Cell Distribution Width 15.9 % (11.8-14.3); White Blood Cell 6.6 10^3/uL (4.4-10.8)
[2022-12-09 06:24] LABS: Chloride 98 mmol/L (98-107); Potassium 4.9 mmol/L (3.5-5.1); Sodium 136 mmol/L (136-145)
[2022-12-09 06:25] LABS: Calcium 8.7 mg/dL (8.5-10.1)
[2022-12-09 06:30] LABS: BUN/Creatinine Ratio 7.8 (10.0-20.0); Glucose 116 mg/dL (74-106)
[2022-12-09] MEDS ORDERED: SODIUM CHL 0.9% 1000 ML BAG XX ONE (07:00)
[2022-12-09 07:12] LABS: Blood Urea Nitrogen 75 mg/dL (9-23)
[2022-12-09 07:21] LABS: Anion Gap 16 (5-15); Carbon Dioxide 22 mmol/L (20-30)
[2022-12-09 08:00] VITALS: PULSE 103; PULSE 78; RESP 14; O2SAT 95
[2022-12-09] MEDS ORDERED: VANCOMYCIN 1GM/250ML 250 ML IV ONE (08:45)
[2022-12-09 09:00] VITALS: BP 149/77; PULSE 76; RESP 14; TEMP 98.4; O2SAT 97
[2022-12-09] MEDS: CALCIUM ACETATE 667 MG CAP PO SCH (10:24)
[2022-12-09 13:00] VITALS: BP 133/89; PULSE 77; RESP 14; TEMP 98.7; O2SAT 98
[2022-12-09] MEDS ORDERED: DOXY1CAP57 PO (15:56)
[2022-12-09] MEDS ORDERED: CLIN300C70 PO (15:56)
[2022-12-09 16:04] VITALS: BP 158/79; PULSE 81; TEMP 37.1
[2022-12-09 16:30] VITALS: BP 156/71; PULSE 79; RESP 14; TEMP 97.7; O2SAT 98
[2022-12-09] MEDS ORDERED: EPOETIN ALFA-EPBX 10,000 UNIT/1ML VIAL SC ONE (21:00)
== END 2022-12-09 17:53 | disposition home or self-care (01) | DRG 280 ==
LOC: ER 22:02 → EDBD 22:02 → TELE 12-04 00:03 → TELE-EAST 12-04 12:21
PROVIDERS: ADMIT Internal Medicine Geriatric Medicine; ATTEND Student in an Organized Health Care Education/Training Program
PROC: 5A1D70Z Performance of Urinary Filtration, Intermittent, Less than 6 Hours Per Day (ICD-10-PCS; 2022-12-05)
PROC: 5A1D70Z Performance of Urinary Filtration, Intermittent, Less than 6 Hours Per Day (ICD-10-PCS; 2022-12-06)
PROC: B24BZZ4 Ultrasonography of Heart with Aorta, Transesophageal (ICD-10-PCS; principal; 2022-12-07)
PROC: 5A1D70Z Performance of Urinary Filtration, Intermittent, Less than 6 Hours Per Day (ICD-10-PCS; 2022-12-08)
DX: I13.2 Hypertensive heart and chronic kidney disease with heart failure and with stage 5 chronic kidney disease, or end stage renal disease (principal); N18.6 End stage renal disease; I21.A1 Myocardial infarction type 2; K61.0 Anal abscess; I50.30 Unspecified diastolic (congestive) heart failure; E87.5 Hyperkalemia; D63.8 Anemia in other chronic diseases classified elsewhere; E11.22 Type 2 diabetes mellitus with diabetic chronic kidney disease; R09.02 Hypoxemia; I08.1 Rheumatic disorders of both mitral and tricuspid valves; E78.5 Hyperlipidemia, unspecified; I25.10 Atherosclerotic heart disease of native coronary artery without angina pectoris; Z82.49 Family history of ischemic heart disease and other diseases of the circulatory system; Z83.3 Family history of diabetes mellitus; Z88.0 Allergy status to penicillin; Z99.2 Dependence on renal dialysis; Z91.040 Latex allergy status
CPT/HCPCS: 36415; 71045; 76881; 78452; 80048; 80053; 80061; 80202; 82607; 82728; 82746; 82962; 83036; 83540; 83550; 83605; 83615; 83735; 83880; 84100; 84443; 84484; 85025; 85045; 85610; 85730; 86850; 86900; 86901; 87081; 87205; 87340; 90935; 93005; 93017; 93306; 93312; 94640; 99152; 99291; G0378; J0153; J1815; J2250; J2405

== ENCOUNTER 2023-09-16 20:22 | Inpatient (IN) | payer OTHER, MEDICAID ==
[~2023-09-16] VITALS: Ht 177.8 cm; Wt 85.6 kg
[~2023-09-16 20:22] MED LIST changes: +ASPI-498 OR; +CLIN1CAP70 PO; +CLOP75TA70 PO; +DOXY1CAP57 PO; -LABE100T5 PO; +LABE100T8 PO
[2023-09-16 21:01] LABS: Basophils # (auto) 0.1 10 ^3/uL (0-0.2); Basophils % (auto) 0.8 % (0.0-2.0); Eosinophils # (auto) 0.2 10 ^3/uL (0-0.8); Eosinophils % (auto) 2.4 % (0.0-7.0); Hematocrit 30.8 % (41.0-53.0); Hemoglobin 10.1 g/dL (13.5-17.5); Lymphocytes # (auto) 0.4 10 ^3/uL (0.4-5.4); Lymphocytes % (auto) 6.1 % (10.0-50.0); Mean Corpuscular Hemoglobin 31.8 pg (28.0-32.0); Mean Corpuscular Hgb Conc. 32.8 g/dL (32.0-36.0); Mean Corpuscular Volume 96.7 fL (80.0-100.0); Monocytes # (auto) 0.7 10 ^3/uL (0-1.3); Monocytes % (auto) 9.9 % (0.0-12.0); Neutrophils # (auto) 5.5 10 ^3/uL (1.6-8.6); Neutrophils % (auto) 80.8 % (37.0-80.0); Platelet Count (auto) 172 10^3/uL (140-450); Red Blood Cells 3.18 10^6/uL (4.5-5.90); White Blood Cell 6.9 10^3/uL (4.4-10.8)
[2023-09-16 21:10] LABS: Chloride 95 mmol/L (98-107); Sodium 131 mmol/L (136-145)
[2023-09-16 21:12] LABS: Anion Gap 10 (5-15); Calcium 8.9 mg/dL (8.7-10.4); Carbon Dioxide 26 mmol/L (20-30)
[2023-09-16 21:17] LABS: BUN/Creatinine Ratio 6.8 (10.0-20.0); Blood Urea Nitrogen 79 mg/dL (9-23); Glucose 266 mg/dL (74-106)
[2023-09-16 21:29] LABS: Potassium 7.2 mmol/L (3.5-5.1)
[2023-09-17] VITALS (8 sets, daily range): BP systolic 168–203; BP diastolic 80–94; PULSE 85–144; RESP 16–29; TEMP 98.6; O2SAT 90–100
[2023-09-17] MEDS: SODIUM ZIRCONIUM CYCL 10 GM PAK PO ONE ×3 (00:05→17:30)
[2023-09-17] MEDS: DEXTROSE (50%) 50ML SYRG IV ONE ×2 (00:07→04:39)
[2023-09-17] MEDS: SODIUM BICARB 8.4% 50Meq/50ml SYR INJ IV ONE ×2 (00:09→04:40)
[2023-09-17] MEDS: InsuLIN REG 1unit/0.01ml Soln (100units/ml) IV ONE ×2 (00:09→04:44)
[2023-09-17] MEDS: CALCIUM GLUC 1,000mg/50ml-NS 50 ML IV ONE ×2 (00:17→05:12)
[2023-09-17] MEDS: LORazepam 2MG/ML-1ML VIAL IV ONE (00:38)
[2023-09-17] MEDS: ALBUTEROL SULF 2.5 MG/0.5ML(0.5%) NEB SOLN NEB ONE (00:47)
[2023-09-17] MEDS ORDERED: DEXTROSE (50%) 50ML SYRG IV PRN (03:45)
[2023-09-17] MEDS ORDERED: ACETAMINOPHEN 325 MG TAB PO PRN ×2 (03:45→04:15)
[2023-09-17] MEDS ORDERED: ALBUTEROL SULF 2.5 MG/0.5ML(0.5%) NEB SOLN NEB PRN (03:45)
[2023-09-17] MEDS ORDERED: ONDANSETRON HCL 4 MG/2 ML VIAL IV PRN (03:45)
[2023-09-17] MEDS ORDERED: MORPHINE SULFATE INJ 2 MG/ml SYRG IV PRN (03:45)
[2023-09-17] MEDS ORDERED: NITROGLYCERIN 0.4 MG SL TAB SL PRN (03:45)
[2023-09-17] MEDS: hydrALAZINE HCL 20 MG/ML VL IV PRN ×2 (04:40→22:59)
[2023-09-17] MEDS: FUROSEMIDE 100 MG/10ML VIAL IV ONE (04:42)
[2023-09-17] MEDS: hydrALAZINE HCL 20 MG/ML VL ONE (04:42)
[2023-09-17] MEDS: FUROSEMIDE 40 MG/4 ML VIAL ONE (04:43)
[2023-09-17] MEDS: levoFLOXacin 250MG 50 ML IV SCH (05:35)
[2023-09-17] MEDS: levoFLOXacin 250MG 50 ML IV ONE (06:16)
[2023-09-17] MEDS: ACCU-CHEK COMFORT CURVE STRIP VI SCH (06:41)
[2023-09-17] MEDS: InsuLIN REG 1unit/0.01ml Soln (100units/ml) SC SCH ×2 (06:42→22:58)
[2023-09-17] MEDS: SEVELAMER 800 MG TAB PO SCH (08:00)
[2023-09-17] MEDS: ASPirin 81 mg TAB PO SCH (10:00)
[2023-09-17] MEDS: CLOPIDOGREL BISULFATE 75 MG TAB PO SCH (10:00)
[2023-09-17] MEDS: SODIUM CHL 0.9% 1000 ML BAG XX ONE (10:00)
[2023-09-17 11:12] LABS: Basophils # (auto) 0 10 ^3/uL (0-0.2); Basophils % (auto) 0.6 % (0.0-2.0); Eosinophils # (auto) 0 10 ^3/uL (0-0.8); Eosinophils % (auto) 0.3 % (0.0-7.0); Hematocrit 31.6 % (41.0-53.0); Hemoglobin 10.9 g/dL (13.5-17.5); Lymphocytes # (auto) 0.4 10 ^3/uL (0.4-5.4); Lymphocytes % (auto) 5.5 % (10.0-50.0); Mean Corpuscular Hemoglobin 32.7 pg (28.0-32.0); Mean Corpuscular Hgb Conc. 34.5 g/dL (32.0-36.0); Mean Corpuscular Volume 94.9 fL (80.0-100.0); Monocytes # (auto) 0.4 10 ^3/uL (0-1.3); Monocytes % (auto) 5.6 % (0.0-12.0); Neutrophils # (auto) 6.3 10 ^3/uL (1.6-8.6); Platelet Count (auto) 156 10^3/uL (140-450); Red Blood Cells 3.33 10^6/uL (4.5-5.90); Red Cell Distribution Width 16.8 % (11.8-14.3); White Blood Cell 7.1 10^3/uL (4.4-10.8)
[2023-09-17 11:34] LABS: % Iron Saturation 10.6 % (20-55)
[2023-09-17] MEDS: hydrALAZINE HCL 20 MG/ML VL IV ONE (12:31)
[2023-09-17 15:39] LABS: Alanine Aminotransferase 32 U/L (7-40); Alkaline Phosphatase 80 U/L (46-116); Calcium 9.9 mg/dL (8.7-10.4); Carbon Dioxide 32 mmol/L (20-30); Chloride 94 mmol/L (98-107); Potassium 5.4 mmol/L (3.5-5.1)
[2023-09-17 15:40] LABS: Albumin 4.8 g/dL (3.2-4.8); Anion Gap 8 (5-15); Aspartate Aminotransferase 29 U/L (13-40); Bilirubin, Total 0.8 mg/dL (0.2-1.0); Magnesium 2.4 mg/dL (1.6-2.6); Sodium 134 mmol/L (136-145); Total Protein 7.6 g/dL (5.7-8.2)
[2023-09-17 15:41] LABS: Blood Urea Nitrogen 51 mg/dL (9-23); Glucose 132 mg/dL (74-106)
[2023-09-17] MEDS: CARVEDILOL 3.125 MG TAB PO ONE (15:44)
[2023-09-17] MEDS: NIFEdipine ER 30 MG TAB PO ONE (15:44)
[2023-09-17] MEDS: FUROSEMIDE 40 MG/4 ML VIAL IV SCH (18:10)
[2023-09-17 19:04] LABS: Rapid Influenza A Negative (Negative); Rapid Influenza B Negative (Negative)
[2023-09-17 19:05] LABS: COVID19 ANTIGEN SOFIA FIA NEGATIVE (NEGATIVE)
[2023-09-17] MEDS ORDERED: InsuLIN REG 1unit/0.01ml Soln (100units/ml) SC SCH (22:00)
[2023-09-17] MEDS ORDERED: ATORVASTATIN 20 MG TAB PO SCH (22:00)
[2023-09-17] MEDS: ATORVASTATIN 20 MG TAB PO SCH (22:57)
[2023-09-17] MEDS: CARVEDILOL 3.125 MG TAB PO SCH (22:57)
[2023-09-18 06:01] LABS: Alanine Aminotransferase 30 U/L (7-40); Albumin 4.2 g/dL (3.2-4.8); Alkaline Phosphatase 68 U/L (46-116); Anion Gap 11 (5-15); Aspartate Aminotransferase 25 U/L (13-40); Calcium 9.2 mg/dL (8.7-10.4); Carbon Dioxide 30 mmol/L (20-30); Chloride 93 mmol/L (98-107); Glucose 118 mg/dL (74-106); Sodium 134 mmol/L (136-145)
[2023-09-18 06:02] LABS: Bilirubin, Total 0.7 mg/dL (0.2-1.0)
[2023-09-18 06:08] LABS: Basophils # (auto) 0 10 ^3/uL (0-0.2); Basophils % (auto) 0.8 % (0.0-2.0); Eosinophils # (auto) 0 10 ^3/uL (0-0.8); Eosinophils % (auto) 0.1 % (0.0-7.0); Hematocrit 30.4 % (41.0-53.0); Hemoglobin 10.4 g/dL (13.5-17.5); Lymphocytes # (auto) 0.6 10 ^3/uL (0.4-5.4); Mean Corpuscular Hemoglobin 32.4 pg (28.0-32.0); Mean Corpuscular Hgb Conc. 34.1 g/dL (32.0-36.0); Mean Corpuscular Volume 95.1 fL (80.0-100.0); Monocytes # (auto) 0.6 10 ^3/uL (0-1.3); Monocytes % (auto) 15.2 % (0.0-12.0); Neutrophils # (auto) 2.8 10 ^3/uL (1.6-8.6); Neutrophils % (auto) 69.9 % (37.0-80.0); Nucleated Red Blood Cells % 0.1 %; Platelet Count (auto) 153 10^3/uL (140-450); Red Cell Distribution Width 16.7 % (11.8-14.3); White Blood Cell 3.9 10^3/uL (4.4-10.8)
[2023-09-18 06:15] VITALS: O2SAT 99
[2023-09-18 06:19] LABS: Blood Urea Nitrogen 66 mg/dL (9-23)
[2023-09-18] MEDS: InsuLIN REG 1unit/0.01ml Soln (100units/ml) SC SCH (06:53)
[2023-09-18] MEDS: hydrALAZINE HCL 10 MG TAB PO ONE (07:07)
[2023-09-18 07:30] VITALS: O2SAT 97
[2023-09-18 10:13] VITALS: BP 154/78; PULSE 79; RESP 16; TEMP 98.3; O2SAT 94
[2023-09-18] MEDS: ENOXAPARIN SOD 30 MG/0.3 ML SYRINGE SC SCH (10:29)
[2023-09-18] MEDS: NIFEdipine ER 30 MG TAB PO SCH (10:31)
[2023-09-18 12:37] VITALS: BP 166/67; PULSE 74; RESP 16; TEMP 98.3; O2SAT 97
[2023-09-18] MEDS: hydrALAZINE HCL 10 MG TAB PO SCH (13:05)
[2023-09-18 16:27] VITALS: BP 132/60; PULSE 75; RESP 16; TEMP 97.9; O2SAT 97
[2023-09-18] MEDS ORDERED: NIFE1TAB31 PO (18:12)
[2023-09-18] MEDS ORDERED: CARV-214 PO (18:12)
[2023-09-18] MEDS ORDERED: HYDR-2792 PO (18:12)
[2023-09-20 15:47] LABS: Hepatitis B Surface Antigen Negative (Negative)
[2023-09-20 16:07] LABS: Hepatitis A Ab IgM Negative
[2023-09-20 16:08] LABS: Hepatitis B Core IgM Negative
[2023-09-20 16:09] LABS: Hepatitis C Antibody Negative (Negative)
== END 2023-09-18 18:48 | disposition home or self-care (01) | DRG 640 ==
LOC: EDBD 20:22 → ER 20:22 → TELE 09-17 03:38 → TELE-EAST 09-18 10:02
PROVIDERS: ADMIT Internal Medicine Pulmonary Disease; ATTEND Internal Medicine Pulmonary Disease
PROC: 5A09357 Assistance with Respiratory Ventilation, Less than 24 Consecutive Hours, Continuous Positive Airway Pressure (ICD-10-PCS; principal; 2023-09-17)
PROC: 05H933Z Insertion of Infusion Device into Right Brachial Vein, Percutaneous Approach (ICD-10-PCS; 2023-09-17)
PROC: B54MZZA Ultrasonography of Right Upper Extremity Veins, Guidance (ICD-10-PCS; 2023-09-17)
PROC: 5A1D70Z Performance of Urinary Filtration, Intermittent, Less than 6 Hours Per Day (ICD-10-PCS; 2023-09-17)
DX: E87.70 Fluid overload, unspecified (principal); I21.A1 Myocardial infarction type 2; J96.01 Acute respiratory failure with hypoxia; N18.6 End stage renal disease; I12.0 Hypertensive chronic kidney disease with stage 5 chronic kidney disease or end stage renal disease; N25.81 Secondary hyperparathyroidism of renal origin; E87.1 Hypo-osmolality and hyponatremia; D63.1 Anemia in chronic kidney disease; E11.22 Type 2 diabetes mellitus with diabetic chronic kidney disease; E87.5 Hyperkalemia; I16.0 Hypertensive urgency; Z99.2 Dependence on renal dialysis; Z88.0 Allergy status to penicillin; Z82.49 Family history of ischemic heart disease and other diseases of the circulatory system; Z83.3 Family history of diabetes mellitus; Z79.899 Other long term (current) drug therapy; Z79.4 Long term (current) use of insulin
CPT/HCPCS: 36415; 36600; 71045; 80048; 80053; 80074; 82805; 82962; 83036; 83540; 83550; 83735; 83880; 84132; 84484; 85025; 87081; 87340; 87426; 87804; 90935; 93005; 93306; 94640; 94660; G0378; J1815

== ENCOUNTER 2024-06-03 18:09 | Inpatient (IN) | payer OTHER, MEDICAID, MEDICARE ==
[~2024-06-03] VITALS: Ht 177.8 cm; Wt 73.0 kg
[~2024-06-03 18:09] MED LIST changes: -AMLO1TAB22 PO; +CARV-214 PO; -CLIN1CAP70 PO; -DOXY1CAP57 PO; +HYDR-2792 PO; -LABE100T8 PO; +NIFE1TAB31 PO; +SODI650T PO
[2024-06-03 19:08] LABS: Basophils # (auto) 0 10 ^3/uL (0-0.2); Basophils % (auto) 0.7 % (0.0-2.0); Eosinophils # (auto) 0.1 10 ^3/uL (0-0.8); Eosinophils % (auto) 1.9 % (0.0-7.0); Hematocrit 30.1 % (41.0-53.0); Hemoglobin 9.9 g/dL (13.5-17.5); Lymphocytes # (auto) 1.2 10 ^3/uL (0.4-5.4); Lymphocytes % (auto) 16.6 % (10.0-50.0); Mean Corpuscular Hemoglobin 31.5 pg (28.0-32.0); Mean Corpuscular Hgb Conc. 32.9 g/dL (32.0-36.0); Mean Corpuscular Volume 95.5 fL (80.0-100.0); Monocytes # (auto) 0.4 10 ^3/uL (0-1.3); Monocytes % (auto) 5.6 % (0.0-12.0); Neutrophils # (auto) 5.5 10 ^3/uL (1.6-8.6); Neutrophils % (auto) 75.2 % (37.0-80.0); Platelet Count (auto) 300 10^3/uL (140-450); Red Blood Cells 3.15 10^6/uL (4.5-5.90); Red Cell Distribution Width 16.9 % (11.8-14.3); White Blood Cell 7.3 10^3/uL (4.4-10.8)
[2024-06-03 19:11] LABS: Anion Gap 20 (5-15)
[2024-06-03 19:16] LABS: BUN/Creatinine Ratio 11.6 (10.0-20.0); Glucose 105 mg/dL (74-106)
[2024-06-03 19:30] VITALS: PULSE 80; RESP 26; O2SAT 95
--- NOTE | 2024-06-03 19:32 | ED.PDOC ---
History of Present Illness HPI Comments 63-year-old male brought in by EMS presents with a chief compliant of chest pain x 1 month. Patient also appears to be SOB. Patient is currently on 3L [place] which is patients home O2. Patient is a dialysis patient as well (M, W, F). Fistula noted to his left arm. Patient mentions that he has been compliant with his medical treatments. Chief Complaint: Chest Pain Time Seen by MD: 19:19 Primary Care Provider: Jona / Hanane Rose Reviewed Notes: Medications, Allergies Allergies: Coded Allergies: Latex (Verified Allergy, Unknown, 01/01/20) Penicillins (Verified Allergy, Unknown, 01/01/20) Sulfa Antibiotics (Verified Allergy, Unknown, 09/16/23) Home Meds Active Scripts Nifedipine (Nifedipine Er) 30 Mg Tab, 60 MG PO DAILY for 30 Days, #60 TAB Prov:PATO UNGER [facility] 09/18/23 Hydralazine Hcl (Hydralazine Hcl) 10 Mg Tab, 10 MG PO Q6HR for 30 Days, #120 TAB Prov:PATO UNGER [facility] 09/18/23 Carvedilol (COREG) 3.125 Mg Tab, 6.25 MG PO Q12HR for 30 Days, #120 TAB Prov:PATO UNGER RESIDENT 09/18/23 Reported Medications Clopidogrel Bisulfate (CLOPIDOGREL) 75 Mg Tab, 1 TAB PO DAILY, #90 TAB 1 Refill 12/04/22 Aspirin (ASPIRIN 81) 81 Mg Tab, 81 MG OR, TAB 12/04/22 Metformin Hydrochloride (Metformin Hcl) 1,000 Mg Tab, 1 TAB PO BID, #60 TAB 5 Refills 01/01/20 Information Source: Patient, Emergency Med Personnel Mode of Arrival: EMS Severity: Moderate Timing: Weeks Duration: Since onset Prehospital treatment: 12 Lead EKG, Database Report Writer, Oxygen Past Medical History PAST MEDICAL HISTORY: DM, ESRD, HTN Family History Family History: Reviewed,noncontributory to illness Social History Smoker: Non-Smoker Alcohol: Denies ETOH Use Drugs: Denies Drug Use Lives In: Home Constitutional: denies: chills, diaphoresis, fatigue, fever, malaise, sweats, weakness, others EENTM: denies: blurred vision, double vision, ear bleeding, ear discharge, ear drainage, ear pain, ear ringing, eye pain, eye redness, hearing loss, mouth pain, mouth swelling, nasal discharge, nose bleeding, nose congestion, nose pain, photophobia, tearing, throat pain, throat swelling, voice changes, others Respiratory: reports: shortness of breath; denies: cough, hemoptysis, orthopnea, SOB at rest, SOB with excertion, stridor, wheezing, others Cardiovascular: reports: chest pain; denies: dizzy spells, diaphoresis, Dyspnea on exertion, edema, irregular heart beat, left arm pain, lightheadedness, palpitations, PND, syncope, others Gastrointestinal: denies: abdomen distended, abdominal pain, blood streaked bowels, constipated, diarrhea, dysphagia, difficulty swallowing, hematemesis, melena, nausea, poor appetite, poor fluid intake, rectal bleeding, rectal pain, vomiting, others Genitourinary: denies: burning, dysuria, flank pain, frequency, hematuria, incontinence, penile discharge, penile sore, pain, testicle pain, testicle swelling, urgency, others Neurological: denies: dizziness, fainting, headache, left sided numbness, left sided weakness, numbness, paresthesia, pre-existing deficit, right sided nu mbness, right sided weakness, seizure, speech problems, tingling, tremors, weakness, others Musculoskeletal: denies: back pain, gout, joint pain, joint swelling, muscle pain, muscle stiffness, neck pain, others Integumetry: denies: bruises, change in color, change in hair/nails, dryness, laceration, lesions, lumps, rash, wounds, others Allergic/Immunocompromised: denies: Difficulty Healing, Frequent Infections, Hives, Itching, others Hematologic/Lymphatic: denies: anemia, blood clots, easy bleeding, easy bruising, swollen glands, others Endocrine: denies: excessive hunger, excessive sweating, excessive thirst, excessive urination, flushing, intolerance to cold, intolerance to heat, unexplained weight gain, unexplained weight loss, others Psychiatric: denies: anxiety, bipolar disorder, depression, hopeless, panic disorder, schizophrenia, sleepless, suicidal, others All Other Systems: Reviewed and Negative Physical Exam General Appearance: No Apparent Distress, Normal, Other (Chronically Ill Appearing) HEENT: Normal ENT Inspection, Pharynx Normal, TMs Normal Neck: Full Range of Motion, Non-Tender, Normal, Normal Inspection Respiratory: Chest Non-Tender, Lungs Clear, No Accessory Muscle Use, No Respiratory Distress, Normal Breath Sounds Cardiovascular: No Edema, No JVD, No Murmur, No Gallop, Normal Peripheral Pulses, Regular Rate/Rhythm Breast Exam: Deferred Gastrointestinal: No Organomegaly, Non Tender, No Pulsatile Mass, Normal Bowel Sounds, Soft Genitalia: Deferred Pelvic: Deferred Rectal: Deferred Extremities: No calf tenderness, Normal capillary refill, Normal inspection, Normal range of motion, Non-tender, No pedal edema Musculoskeletal : Apperance: Normal Neurologic: Alert, mailing section clerk II-XII nml as Tested, No Motor Deficits, Normal Affect, Normal Mood, No Sensory Deficits Cerebellar Function: Normal Reflexes: Normal Skin: Dry, Normal Color, Warm Lymphatic: No Adenopathy Was a procedure done? Was a procedure done?: No Differential Dx Considerations may include: ACS, CVA, electrolyte abnormality X-Ray, Labs, Meds, VS Vital Signs Date Time Temp Pulse Resp B/P (MAP) Pulse Ox O2 Delivery O2 Flow Rate FiO2 06/03/24 20:51 76 27 169/80 06/03/24 19:30 80 26 95 Nasal Cannula* 2 28 06/03/24 19:30 97.9 80 26 167/75 (105) 95 97.9 06/03/24 19:14 77 06/03/24 18:15 98.4 73 24 181/84 (116) 96 98.4 06/03/24 18:12 72 Lab Test 06/03/24 19:22 06/03/24 18:38 Range/Units Troponin I High Sensitivity 133 *H 150 *H </=54 ng/L White Blood Count 7.3 4.4-10.8 10^3/uL Red Blood Count 3.15 L 4.5-5.90 10^6/uL Hemoglobin 9.9 L 13.5-17.5 g/dL Hematocrit 30.1 L 41.0-53.0 % Mean Corpuscular Volume 95.5 80.0-100.0 fL Mean Corpuscular Hemoglobin 31.5 28.0-32.0 pg Mean Corpuscular Hemoglobin Concent 32.9 32.0-36.0 g/dL Red Cell Distribution Width 16.9 H 11.8-14.3 % Platelet Count 300 140-450 10^3/uL Mean Platelet Volume 8.1 6.9-10.8 fL Neutrophils (%) (Auto) 75.2 37.0-80.0 % Lymphocytes (%) (Auto) 16.6 10.0-50.0 % Monocytes (%) (Auto) 5.6 0.0-12.0 % Eosinophils (%) (Auto) 1.9 0.0-7.0 % Basophils (%) (Auto) 0.7 0.0-2.0 % Neutrophils # (Auto) 5.5 1.6-8.6 10 ^3/uL Lymphocytes # (Auto) 1.2 0.4-5.4 10 ^3/uL Monocytes # (Auto) 0.4 0-1.3 10 ^3/uL Eosinophils # (Auto) 0.1 0-0.8 10 ^3/uL Basophils # (Auto) 0 0-0.2 10 ^3/uL Nucleated Red Blood Cells 0.0 % Sodium Level 133 L 136-145 mmol/L Potassium Level 6.2 *H 3.5-5.1 mmol/L Chloride Level 94 L 98-107 mmol/L Carbon Dioxide Level 19 L 20-31 mmol/L Anion Gap 20 H 5-15 Blood Urea Nitrogen 85 *H 9-23 mg/dL Creatinine 7.31 H 0.700-1.30 mg/dL Glomerular Filtration Rate Calc 8 >90 mL/min BUN/Creatinine Ratio 11.6 10.0-20.0 Serum Glucose 105 74-106 mg/dL Calcium Level 11.0 H 8.7-10.4 mg/dL Current Medications Medications (Trade) Dose Ordered Sig/Herson Route Start Time Stop Time Status Last Admin Morphine Sulfate 4 mg ONCE ONCE IV 06/03/24 20:30 06/03/24 20:40 DC 06/03/24 20:51 Ondansetron HCl (Zofran) 4 mg ONCE ONCE IV 06/03/24 20:30 06/03/24 20:40 DC 06/03/24 20:50 Time of 1ST Reevaluation: 19:49 Reevaluation 1ST: Unchanged Patient Education/Counseling: Diagnosis, Treatment Family Education/Counseling: Diagnosis, Treatment Departure 1 Departure Time of Disposition: 20:56 (Patient presented with chest pain that was concerning for possible STEMI, ACS, PE, Pneumonia, Muscle Strain, COPD, Dissection. Data: 1. I ordered and reviewed the result of at least 3 labs including a CBC, BMP, and Troponin. 2. I independently interpreted the following tests: EKG which shows sinus arrhythmia and Chest X-ray which shows vascular congestion.Risk:This patient has a high risk of morbidity due to further diagnostic testing or treatment and may suffer from an acute cardiac or respiratory disorder. Workup reveals acute chest pain hyperkalemia and patient should be admitted for further workup and possible expert consultation. ) Impression: Primary Impression: Acute chest pain Additional Impressions: Hyperkalemia ESRD on dialysis Disposition: ADMITTED INPATIENT Admit to: Tele Condition: Guarded Critical Care Note Critical Care Time?: Yes Critical care comment: Acute chest pain Authorized and Performed by: Chele Head MD Total critical care time: Approximately 53 minutes Due to a high probability of clinically significant, life threatening deteriorat ion, the patient required my highest level of preparedness to intervene emergently and I personally spent this critical care time directly and personally managing the patient. This critical care time included obtaining a history; examining the patient; pulse oximetry; ordering and review of studies; arranging urgent treatment with development of a management plan; evaluation of patient's response to treatment; frequent reassessment; and, discussions with other providers. This critical care time was performed to assess and manage the high probability of imminent, life-threatening deterioration that could result in multi-organ failure. It was exclusive of separately billable procedures and treating other patients and teaching time. Please see my other sections and the rest of the note for further information on patient assessment and treatment. Stability Stability form required: No Heart Score Heart Score: Heart Score Response (Comments) Value History Moderate Suspicious 1 EKG Repolarization Disturb 1 Age 45-64 1 Risk Factors >3 or Hx ASHD 2 Troponin >3 x's Normal limit 2 Total 7 I personally scribed for CHELE HEAD MD ([email or web address]) on 06/03/24 at 19:32. Electronically submitted by Trevin Gonzalez ([email or web address]). CHELE HEAD MD Jun 03, 2024 19:32
[2024-06-03 19:35] LABS: Carbon Dioxide 19 mmol/L (20-31); Chloride 94 mmol/L (98-107); Sodium 133 mmol/L (136-145)
[2024-06-03 19:40] LABS: Blood Urea Nitrogen 85 mg/dL (9-23); Potassium 6.2 mmol/L (3.5-5.1)
[2024-06-03 20:00] VITALS: PULSE 69; RESP 18; O2SAT 99
--- NOTE | 2024-06-03 20:01 | DVH ---
CHEST RADIOGRAPH Indication: chest pain Technique: Single frontal view of the chest was obtained Comparison: XY CHEST PORTABLE on DOS: 09/16/23, XY CHEST PORTABLE on DOS: 12/03/22, CHEST PORTABLE on DOS: 01/01/20 FINDINGS: Lines and Tubes: None Lungs: Diffuse interstitial prominence with perihilar fullness. Pleura: No effusion. No pneumothorax. Cardiomediastinal contours: Mild cardiomegaly with mild atherosclerotic calcification and uncoiling o f the aorta. Bones: No acute osseous abnormality. IMPRESSION: Mild cardiomegaly with suggestive of mild congestive heart failure. Underlying infectious process ca n not be excluded.
[2024-06-03] MEDS: ONDANSETRON HCL 4 MG/2 ML VIAL IV ONE (20:50)
[2024-06-03] MEDS: MORPHINE SULFATE 4 MG/ML SYR/VIAL IV ONE (20:51)
[2024-06-03] MEDS: SODIUM BICARB 8.4% 50Meq/50ml SYR Vial IV ONE (21:06)
[2024-06-03] MEDS: DEXTROSE (50%) 50ML SYRG IV ONE (21:12)
[2024-06-03] MEDS: InsuLIN REG 1unit/0.01ml Soln (100units/ml) IV ONE (21:19)
[2024-06-03] MEDS: CALCIUM GLUC 1,000mg/50ml-NS 50 ML IV SCH (22:00)
[2024-06-03] MEDS: SODIUM ZIRCONIUM CYCL 10 GM PAK PO ONE (22:07)
[2024-06-03] MEDS ORDERED: NITROGLYCERIN 0.4 MG SL TAB SL PRN (22:15)
[2024-06-03] MEDS ORDERED: MORPHINE SULFATE INJ 2 MG/ml SYRG IV PRN (22:15)
[2024-06-03] MEDS ORDERED: DEXTROSE (50%) 50ML SYRG IV PRN (22:15)
[2024-06-03] MEDS ORDERED: ONDANSETRON HCL 4 MG/2 ML VIAL IV PRN (22:15)
[2024-06-03] MEDS ORDERED: ACETAMINOPHEN 325 MG TAB PO PRN (22:15)
[2024-06-03] MEDS: FUROSEMIDE 40 MG/4 ML VIAL IV ONE (22:48)
--- NOTE | 2024-06-04 02:03 | ECG ---
[facility] Test Date: 2024-06-03 Test Time: 19:14:08 Pat Name: TIMO PELAEZ Department: ED Room: [address] [place] [address] Gender: M [employer] Curer: YVONNE : 1960 Requested By: HEIDI CHASE Order Number: [id number] Reading MD: Andrew Ring Measurements Intervals [place] Rate: 77 P: 17 NE: 149 QRS: -15 QRSD: 102 T: 163 QT: 432 QTc: 489 Interpretive Statements Sinus rhythm Left atrial enlargement LVH with secondary repolarization abnormality Borderline prolonged QT interval Electronically Signed On 06-04-2024 17:10:14 PDT by Andrew Ring Please click the below link to view image of tracing.
--- NOTE | 2024-06-04 02:04 | ECG ---
[facility] Test Date: 2024-06-03 Test Time: 21:19:34 Pat Name: TIMO PELAEZ Department: ED Room: [address] [place] [address] A Gender: M Property Officer: YVONNE : 1960 Requested By: HEIDI CHASE Order Number: [id number] Reading MD: Andrew Ring Measurements Intervals [place] Rate: 75 P: 31 [place]: 150 QRS: -21 QRSD: 107 T: 188 QT: 451 QTc: 504 Interpretive Statements Sinus rhythm Probable left atrial enlargement LVH with secondary repolarization abnormality Prolonged QT interval Electronically Signed On 06-04-2024 17:10:40 PDT by Andrew Ring Please click the below link to view image of tracing.
--- NOTE | 2024-06-04 03:15 | DVHHP2 ---
History of Present Illness Reason for Visit: Shortness for breath History of Present Illness 63-year-old male presents for evaluation of shortness for breath. Patient presents with complaints of worsening shortness for breath. He also reports having substernal chest pain. Patient is dialysis dependent and was last dialyzed two days ago. He also uses oxygen at home currently at 3 L per nasal cannula. Denies cough or fever. No abdominal pain. No other acute complaints reported. Past Medical History Hypertension, end-stage renal disease, diabetes mellitus Past Surgical History AV fistula Family History noncontributory Smoke: No ALCOHOL: none Drugs: None Lives: with Family Review of Systems Review of Systems Review of systems are currently negative otherwise addressed in HPI. Allergies: Coded Allergies: Latex (Verified Allergy, Unknown, 01/01/20) Penicillins (Verified Allergy, Unknown, 01/01/20) Sulfa Antibiotics (Verified Allergy, Unknown, 09/16/23) Medications Current Medications Medications Dose Ordered Sig/Herson Route Start Time Stop Time Status Last Admin Dose Admin Empaglifozin 10 mg DAILY PO 06/04/24 10:00 Aspirin 162 mg DAILY PO 06/04/24 10:00 Carvedilol 6.25 mg Q12HR PO 06/04/24 10:00 Clopidogrel Bisulfate 75 mg DAILY PO 06/04/24 10:00 Nifedipine 60 mg DAILY PO 06/04/24 10:00 Multivit/Ca Carb/ B Cmplx/FA/Prenat 1 tab DAILY PO 06/04/24 10:00 Atorvastatin Calcium 40 mg HS PO 06/04/24 22:00 Diagnostic Test (Pha) 1 strip ACHS 06/04/24 07:00 Insulin Human Regular ACHS SC 06/04/24 07:00 Dextrose 50 ml UD PRN IV 06/03/24 22:15 Ondansetron HCl 4 mg Q4HP PRN IV 06/03/24 22:15 Acetaminophen 650 mg Q6HP PRN PO 06/03/24 22:15 Nitroglycerin 0.4 mg Q5MINP PRN SL 06/03/24 22:15 Morphine Sulfate 2 mg Q30M PRN IV 06/03/24 22:15 Exam Vital Signs Vital Signs Date Time Temp Pulse Resp B/P (MAP) Pulse Ox O2 Delivery O2 Flow Rate FiO2 06/04/24 02:00 71 16 118/54 (75) 95 06/03/24 23:15 97.9 97.9 06/03/24 19:30 Nasal Cannula* 2 28 Exam Gen: 63-year-old male in moderate distress Skin: Warm, dry, normal color and texture, no rash. HEENT: Normocephalic atraumatic, mucous membranes moist and pink. Neck: Cervical and supraclavicular nodes normal without enlargement, trachea is midline, thyroid gland is normal without masses. Pulmonary: diminished breath sounds bilat Cardiac: Regular rate and rhythm. No murmur Abdomen: Soft, nontender, nondistended, bowel sounds present all 4 quadrants, no guarding, no rigidity, no organomegaly. Extremities: No cyanosis, clubbing, no edema Neuro: Cranial nerves II through XII grossly intact, normal affect and speech, no focal motor deficits. Labs/Xrays ORDERING PHYSICIAN: JHONNIE LYNN NP PROCEDURE(s): ECIDC - ECHO 2D MODE CARDIAC DOP REASON: ef ORDER NUMBER(s): [id number], ACCESSION NUMBER(s): [id number] APPROVED REPORT EXAM: LIMITED Two-dimensional and M-mode echocardiogram with Doppler and color Doppler. Blood Pressure: 199/81 mmHg INDICATION EF RISK FACTORS Height: 5'10, Weight: 185 DIMENSIONS LVDd 5.9 (3.8-5.7cm) LA (2D) 4.3 (1.9-4.0cm) Aortic Root 3.6 (2.0- 3.7cm) LVDs 3.9 (2.5-4.0cm) LA (MM) (1.9-4.0cm) Aortic Cusp Exc 1.2 (1.5- 2.0cm) EF (%) 60.0 (55-70%) Rt. Atrium 3.7 (1.9-4.0cm) Asc. Aorta cm IVSd 1.2 (0.7-1.1cm) RV (D) (1.8-2.4cm) PWd 1.3 (0.7-1.1cm) Mitral Valve Mitral Mitral Stenosis E wave 1.08m/s MV Mean GR. mmHg A wave 1.65m/s MV Peak GR. 88mmHg E/A ratio 0.7 2D MVA cm2 DECEL Time 180ms PRESS 1/2 Time ms Aortic Valve Aortic Valve Aortic Stenosis V1 1.23m/s AO Mean GR. 6mmHg V2 1.73m/s AO Peak GR. 12mmHg LVOT Diameter 2.2 (1.8-2.4cm) Doppler CHRISTOPHER 2.70cm2 Other Information Quality : Limited Rhythm : Technically limited study due to Pt had beast implants, patient position.body habitus. Conclusion Normal left ventricular size and dimension. Normal left ventricular systolic function estimated ejection fraction 55%. There is a grade 1 diastolic dysfunction. Normal right ventricular size and dimension. Normal right ventricular systolic function. Normal biatrial size and dimension. Normal aortic valve structure and function. Normal mitral valve structure and function. Normal tricuspid valve structure and function. The pulmonary valve is grossly normal. No pericardial effusion. New SIGNED BY: VIVIANE PRAKASH MD SIGNED DATE/TIME: 09/18/23 1322 CC: ORDERING PHYSICIAN: CHELE SARAH MD PROCEDURE(s): CXRP - CHEST PORTABLE REASON: chest pain ORDER NUMBER(s): [id number], ACCESSION NUMBER(s): [id number] CHEST RADIOGRAPH Indication: chest pain Technique: Single frontal view of the chest was obtained Comparison: XY CHEST PORTABLE on DOS: 09/16/23, XY CHEST PORTABLE on DOS: 12/03/22, CHEST PORTABLE on DOS: 01/01/20 FINDINGS: Lines and Tubes: None Lungs: Diffuse interstitial prominence with perihilar fullness. Pleura: No effusion. No pneumothorax. Cardiomediastinal contours: Mild cardiomegaly with mild atherosclerotic calcification and uncoiling of the aorta. Bones: No acute osseous abnormality. IMPRESSION: Mild cardiomegaly with suggestive of mild congestive heart failure. Underlying infectious process can not be excluded. Labs Test 06/03/24 23:05 06/03/24 21:15 06/03/24 21:05 06/03/24 18:38 Range/Units Potassium Level 5.2 H 3.5-5.1 mmol/L D-Dimer, Quantitative 0.32 0.0-0.49 mg/L FEU Troponin I High Sensitivity 132 *H </=54 ng/L POC Glucose 98 70-106 mg/dl White Blood Count 7.3 4.4-10.8 10^3/uL Red Blood Count 3.15 L 4.5-5.90 10^6/uL Hemoglobin 9.9 L 13.5-17.5 g/dL Hematocrit 30.1 L 41.0-53.0 % Mean Corpuscular Volume 95.5 80.0-100.0 fL Mean Corpuscular Hemoglobin 31.5 28.0-32.0 pg Mean Corpuscular Hemoglobin Concent 32.9 32.0-36.0 g/dL Red Cell Distribution Width 16.9 H 11.8-14.3 % Platelet Count 300 140-450 10^3/uL Mean Platelet Volume 8.1 6.9-10.8 fL Neutrophils (%) (Auto) 75.2 37.0-80.0 % Lymphocytes (%) (Auto) 16.6 10.0-50.0 % Monocytes (%) (Auto) 5.6 0.0-12.0 % Eosinophils (%) (Auto) 1.9 0.0-7.0 % Basophils (%) (Auto) 0.7 0.0-2.0 % Neutrophils # (Auto) 5.5 1.6-8.6 10 ^3/uL Lymphocytes # (Auto) 1.2 0.4-5.4 10 ^3/uL Monocytes # (Auto) 0.4 0-1.3 10 ^3/uL Eosinophils # (Auto) 0.1 0-0.8 10 ^3/uL Basophils # (Auto) 0 0-0.2 10 ^3/uL Nucleated Red Blood Cells 0.0 % Sodium Level 133 L 136-145 mmol/L Chloride Level 94 L 98-107 mmol/L Carbon Dioxide Level 19 L 20-31 mmol/L Anion Gap 20 H 5-15 Blood Urea Nitrogen 85 *H 9-23 mg/dL Creatinine 7.31 H 0.700-1.30 mg/dL Glomerular Filtration Rate Calc 8 >90 mL/min BUN/Creatinine Ratio 11.6 10.0-20.0 Serum Glucose 105 74-106 mg/dL Calcium Level 11.0 H 8.7-10.4 mg/dL B-Type Natriuretic Peptide > 5000.00 0-100 pg/mL Assessment/Plan Assessment/Plan Assessment Acute on chronic congestive heart failure Elevated troponin, possible demand ischemia Possible fluid overload Diabetes mellitus End-stage renal disease, dialysis dependent Plan Admit the patient to telemetry to the hospitalist Nephrology consultation Resume home medications Continue treatment per orders Plan discussed with: Patient My Orders Orders - JOHNNIE LYNN AGACNP Procedure Category Date Status Time Empagliflozin PHA 06/04/24 In Process (Jardiance) 10:00 Aspirin Tablet PHA 06/04/24 In Process 10:00 Carvedilol Tablet PHA 06/04/24 In Process (Coreg Tablet) 10:00 Clopidogrel Bisulfate PHA 06/04/24 In Process (Plavix) 10:00 Nifedipine Er PHA 06/04/24 In Process (Procardia Xl 10:00 B-Complex W/ C & PHA 06/04/24 In Process Folic Tablet 10:00 *Dr. Rose Campos -Da CONS 06/03/24 Transmitted Jessi 22:01 Atorvastatin (Lipitor) PHA 06/04/24 In Process 22:00 Glucose Blood PHA 06/04/24 In Process (Accu-Chek Comfort 07:00 Insulin R (Human) PHA 06/04/24 In Process (Insulin R) 07:00 Dextrose 50% Syringe PHA 06/03/24 In Process 22:15 Admit ADMIT 06/03/24 Transmitted 22:01 Renal DIET 06/04/24 Transmitted Standard(2gna,3gk,Lopho) Breakfast Ondansetron Hcl PHA 06/03/24 In Process (Zofran) 22:15 Condition: Fair ABELARDO 06/03/24 In Process 22:01 Acetaminophen Tablet PHA 06/03/24 In Process (Tylenol Tablet) 22:15 Bedrest With Bathroom ABELARDO 06/03/24 In Process Privileg 22:01 Nitroglycerin PHA 06/03/24 In Process Sublingual (Ntrostat 22:15 Morphine Sulfate PHA 06/03/24 In Process Injection 22:15 Stat Ekg For Chest ABELARDO 06/03/24 In Process Pain 22:01 Notify Of Changes ABELARDO 06/03/24 In Process From Base 22:01 Line Closer For ABELARDO 06/03/24 In Process 24 Hours 22:01 Emergency Dysrhythmia ABELARDO 06/03/24 In Process Protocol 22:01 Rhythm Strips Once ABELARDO 06/03/24 In Process Every Shift 22:01 Oxygen By Nasal RT 06/03/24 Transmitted Cannula 22:01 Date of Service: Jun 03, 2024 Billing Provider: JOHNNIE LYNN Common Visit Codes: [id number] INP/OBS CARE (HIGH) JOHNNIE LYNN Jun 04, 2024 03:15
[2024-06-04] MEDS: ACCU-CHEK COMFORT CURVE STRIP VI SCH (06:40)
[2024-06-04] MEDS: InsuLIN REG 1unit/0.01ml Soln (100units/ml) SC SCH (06:41)
--- NOTE | 2024-06-04 07:28 | ECG ---
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
[2024-06-04 07:30] VITALS: PULSE 65; RESP 15; O2SAT 94
[2024-06-04 08:34] LABS: Basophils # (auto) 0 10 ^3/uL (0-0.2); Basophils % (auto) 0.7 % (0.0-2.0); Eosinophils # (auto) 0 10 ^3/uL (0-0.8); Eosinophils % (auto) 0.6 % (0.0-7.0); Hematocrit 27.4 % (41.0-53.0); Hemoglobin 9.3 g/dL (13.5-17.5); Lymphocytes # (auto) 1.1 10 ^3/uL (0.4-5.4); Lymphocytes % (auto) 15.8 % (10.0-50.0); Mean Corpuscular Hemoglobin 32.4 pg (28.0-32.0); Mean Corpuscular Volume 95.2 fL (80.0-100.0); Monocytes # (auto) 0.5 10 ^3/uL (0-1.3); Neutrophils # (auto) 5.1 10 ^3/uL (1.6-8.6); Neutrophils % (auto) 74.9 % (37.0-80.0); Platelet Count (auto) 243 10^3/uL (140-450); Red Blood Cells 2.88 10^6/uL (4.5-5.90); Red Cell Distribution Width 16.8 % (11.8-14.3); White Blood Cell 6.8 10^3/uL (4.4-10.8)
[2024-06-04 08:58] LABS: Anion Gap 19 (5-15); Carbon Dioxide 21 mmol/L (20-31)
[2024-06-04 09:03] LABS: BUN/Creatinine Ratio 12.9 (10.0-20.0)
[2024-06-04] MEDS: SODIUM BICARB 8.4% 50Meq/50ml SYR INJ IV ONE (09:05)
[2024-06-04] MEDS: DEXTROSE (50%) 50ML SYRG IV ONE (09:06)
[2024-06-04] MEDS: FUROSEMIDE 20 MG/2 ML VIAL IV ONE (09:07)
[2024-06-04] MEDS: InsuLIN REG 1unit/0.01ml Soln (100units/ml) IV ONE (09:08)
[2024-06-04 09:15] LABS: Chloride 95 mmol/L (98-107); Glucose 68 mg/dL (74-106); Sodium 135 mmol/L (136-145)
[2024-06-04 09:16] LABS: Calcium 10.7 mg/dL (8.7-10.4)
[2024-06-04 09:17] LABS: Blood Urea Nitrogen 107 mg/dL (9-23); Potassium 6.1 mmol/L (3.5-5.1)
[2024-06-04 09:24] LABS: % Iron Saturation 28.1 % (20-55)
--- NOTE | 2024-06-04 09:59 | DVHPNRES ---
Progress Note Date Seen: Jun 04, 2024 Resident Creating Document: ONELIA ROBERTSON RESIDENT Has the PT tested + for MRSA If YES, has PT been informed?: No Medical Necessity Reason Pt with a Central, PICC or Fol: No Subjective Review of Systems This is a 63-year-old male with past medical history of hypertension, type 2 diabetes mellitus, end-stage renal disease on hemodialysis (Sunday, Sunday, Sunday) in [place]. The patient presented to the ED with chief complaint of shortness of breaths associated with chest tightness. Patient described the chest discomfort in the substernal area with no specific pattern of radiation associated with shortness of breaths. Last dialysis was performed on Sunday of this week (two days ago). Patient is currently on 3 L of oxygen through nasal cannula which is currently his baseline. The patient denies fever/chills, abdominal tenderness, lower extremity swelling, or any other symptoms. Upon admission, CBC showed a hemoglobin of 9.9, BNP showed a hyperkalemia at 6.2 for which he received hyperkalemia protocol treatment and initially went to 5.7 and then back to 6.1. Creatinine was 7.31 and BUN 85. Troponins also came back elevated and BNP was significantly elevated at more than 5000. Calcium is also elevated at 11.0. Upon my examination the patient is having might shortness of breath with mild chest discomfort. EKG was reviewed showing sinus rhythm with a slight ST-depression in V4-V6 and nonspecific T-wave abnormalities. There are bilateral crackles on both lung robbins but no lower extremity swelling. Nephrology was consulted due to possible need of dialysis. Patient was admitted for further assessment and management. Patient seen and examined at bedside. Patient is alert and oriented in person, place and time. Patient is a non pechanga Austrian-speaking so need to speaks low for him to understand. Patient has mild respiratory distress on 3 L of oxygen through nasal cannula. There is no lower extremity or peripheral edema but chest x-ray is showing pulmonary vascular congestion and BNP significantly elevated greater than 5000. In the setting of a previous normal echocardiogram performed in 2023, might be more due to volume overload and needing hemodialysis. Patient is currently on atorvastatin, nifedipine 60 mg daily, clopidogrel 75 mg daily, empagliflozin 10 mg daily. Nephrology was consulted. ROS: Constitutional: Denies weight loss, fever and chills. HEENT: Denies changes in vision and hearing. Respiratory: Denies shortness of breath and cough Cardiovascular: Denies chest discomfort or palpitations GI: Denies abdominal pain, nausea, vomiting and diarrhea. : Denies dysuria and urinary frequency. Musculoskeletal: Denies myalgias and joint pain Skin: Denies rash and pruritus. Neurological: Denies dizziness, headache, vision or hearing problems Objective vital signs Vital Sign Date Time Temp Pulse Resp B/P (MAP) Pulse Ox O2 Delivery O2 Flow Rate FiO2 06/04/24 08:01 67 06/04/24 07:30 97.8 15 142/66 (91) 94 97.8 06/04/24 07:30 Nasal Cannula* 2 28 Total Intake and Output 06/03/24 06/03/24 06/04/24 15:00 23:00 07:00 Intake Total 50 ml 50 ml Balance 50 ml 50 ml medications Current Medications Medications Dose Ordered Sig/Herson Route Start Time Stop Time Status Last Admin Dose Admin Empaglifozin 10 mg DAILY PO 06/04/24 10:00 Carvedilol 6.25 mg Q12HR PO 06/04/24 10:00 Clopidogrel Bisulfate 75 mg DAILY PO 06/04/24 10:00 Nifedipine 60 mg DAILY PO 06/04/24 10:00 Multivit/Ca Carb/ B Cmplx/FA/Prenat 1 tab DAILY PO 06/04/24 10:00 Atorvastatin Calcium 40 mg HS PO 06/04/24 22:00 Diagnostic Test (Pha) 1 strip ACHS 06/04/24 07:00 06/04/24 06:40 1 STRIP Insulin Human Regular ACHS SC 06/04/24 07:00 Dextrose 50 ml UD PRN IV 06/03/24 22:15 Ondansetron HCl 4 mg Q4HP PRN IV 06/03/24 22:15 Acetaminophen 650 mg Q6HP PRN PO 06/03/24 22:15 Nitroglycerin 0.4 mg Q5MINP PRN SL 06/03/24 22:15 Morphine Sulfate 2 mg Q30M PRN IV 06/03/24 22:15 Aspirin 81 mg DAILY PO 06/04/24 10:00 Examination Physical Examination General: Patient alert and oriented in person, place and time. Patient following commands. HEENT: Normocephalic, atraumatic, moist mucous membranes Respiratory/pulmonary: There are bilateral lung crackles on both lung robbins, no wheezes at this time. Cardiovascular: Normal heart sounds S1 and S2 with no associated murmurs Abdomen: Abdomen nondistended, there is no pain to palpation in any of the abdominal quadrants, no palpable masses. Extremities: There is no peripheral edema present at the lower extremities. Left upper extremity AV fistula with good bruit/thrill Peripheral Pulses: 3+ Radial (R). 3+ Radial (L). 3+ Dorsalis pedis (R). 3+ Dorsalis pedis(L) Skin: No rashes or pruritus, there is no sacral edema present at this time. Neurological: Intact cranial nerves with no focal neurologic deficits laboratory and microbiology Laboratory Tests 06/04/24 08:26 Test 06/04/24 08:26 Range/Units Serum Glucose 68 L 74-106 mg/dL Labs and/or images reviewed: Labs reviewed by me, Image(s) reviewed by me Problem List/Assessment/Plan Problem List/Assessment/Plan Assessment/plan Acute hypoxic respiratory failure likely due to volume overload in the setting of end-stage renal disease End-stage renal disease requiring hemodialysis (Sun/Sun/Sun) R/O Acute diastolic/systolic heart failure -Patient is currently requiring 3 L/min of oxygen through nasal cannula -initial chest x-ray showed pulmonary vascular congestion diffusely in bilateral lungs, no evidence of consolidations at this time -BNP was significantly elevated greater than 5000 -troponins came back elevated 150-133 -EKG showed sinus rhythm with a slight ST-depression in V4-V6 with nonspecific T-waves abnormalities -ordered echocardiogram -consulted nephrology for hemodialysis -last creatinine was 7.31 and BUN 85 Acute hyperkalemia in the setting of end-stage renal disease -initial potassium was 6.2 -hyperkalemia protocol including 10 units of insulin, sodium bicarb, furosemide 20, calcium gluconate and dextrose were given -potassium went down to 5.2 and went back up to 6.1 -patient needs hemodialysis Hypercalcemia likely in the setting of end-stage renal disease -calcium 11.0 -repeat calcium levels and order PTH, vitamin-D levels Primary hypertension -start carvedilol 6.25 b.i.d. -start nifedipine 60 mg daily -monitor blood pressure Type 2 diabetes mellitus -order hemoglobin A1c -monitor blood glucose Goals of care discussed with the patient and at bedside for 20min, FULL CODE Plan discussed with Dr. Flores Plan discussed with: Patient, Spouse, Other (Nurse) My Orders My Orders Orders - ONELIA ROBERTSON RESIDENT Procedure Category Date Status Time Ferritin LAB 06/04/24 In Process 08:13 Stool Occult Blood LAB 06/04/24 Logged 08:13 Aspirin Tablet PHA 06/04/24 In Process 10:00 Addendum Addendum Addendum I was physically present for the jara portions of the service provided to patient by THE RESIDENT. I have reviewed the documentation, discussed the case with resident and agree with the resident's documentation except as noted. Also the patient's clinical case was discussed with the patient's nurse. This medical document was created using an electronic medical record system with computerized dictation system. Although this document has been carefully reviewed, there might still be some phonetic and typographical errors. These areas are purely typographical due to imperfections of the software programs, and do not reflect any compromise in the patient's medical care. Late signature. Date of Service: Jun 04, 2024 Billing Provider: JAQUELINE FLORES MD Common Visit Codes: [id number] INP/OBS CARE(HIGH) Secondary Visit Codes: [id number] CARE PLAN 30 MINUTES (20 minutes) ONELIA ROBERTSON RESIDENT Jun 04, 2024 09:59 JAQUELINE FLORES MD June 06, 2024 04:19
[2024-06-04] MEDS ORDERED: ASPirin 81 mg TAB PO SCH (10:00)
[2024-06-04] MEDS: CLOPIDOGREL BISULFATE 75 MG TAB PO SCH (10:29)
[2024-06-04] MEDS: NIFEdipine ER 30 MG TAB PO SCH (10:30)
[2024-06-04] MEDS: EMPAGLIFLOZIN 10 MG TAB PO SCH (10:30)
[2024-06-04] MEDS: B-COMPLEX W/ C & FOLIC ACID(NEPHROVITE TAB) PO SCH (10:31)
[2024-06-04] MEDS: CARVEDILOL 3.125 MG TAB PO SCH (10:31)
[2024-06-04] MEDS: ASPirin 81 mg TAB PO SCH (10:32)
[2024-06-04 10:53] LABS: Triglycerides 106 mg/dL (< 150)
[2024-06-04 10:54] LABS: LDL Cholesterol 48 mg/dL (< 100)
[2024-06-04 10:55] LABS: Cholesterol 119 mg/dL (< 200); HDL Cholesterol 46 mg/dL (40-59)
--- NOTE | 2024-06-04 13:26 | DVHINCON2 ---
Date Seen: Jun 04, 2024 Referring Physician MD Anna Reason for Consultation NSTEMI History of Present Illness This is a 63-year-old male patient who presents to the emergency room with chief complaint of shortness of breath and chest pain. The patient reports symptoms began yesterday at approximately 10:00 a.m.. The patient is primarily English speaking and a poor historian. Patient's two sons at bedside able to assist with past medical history. He describes the chest pain as unprovoked, intermittent, "heavy" in nature, right-sided and nonradiating. Associated symptoms include shortness of breath. Initial twelve lead electrocardiogram reveals sinus rhythm with PAC, nonspecific ST segment changes to lateral leads and left ventricular hypertrophy. Initial troponin level of 150ng/L with down trend thereafter. Significant past medical history includes hypertension, dyslipidemia, end-stage renal disease on hemodialysis, type 2 diabetes mellitus, home oxygen use as needed, and previous tobacco use. Patient sees product responsibility liaison in the outpatient setting. He reports having a recent coronary angiogram approximately 3-[address] Moya and states that no stents were placed. Medication reconciliation reviewed and noted that patient takes Plavix. Patient denies any history of stroke but also denies any previous coronary artery disease with stent placement. Patient was a poor historian, patient's sons at bedside also not sure why patient is on Plavix. Past Medical History Past medical history reviewed. No other significant than mentioned above. Past Surgical History Denies all previous surgeries Family History: Cervical cancer G8 MOTHER, Onset:50's - 60 Diabetes mellitus G8 MOTHER G8 FATHER Hypertension G8 MOTHER Family History Family history reviewed. Social History Patient has a 40 pack-year history, quit smoking approximately two years ago Patient denies any alcohol use Patient denies any drug use Allergies: Coded Allergies: Latex (Verified Allergy, Unknown, 01/01/20) Penicillins (Verified Allergy, Unknown, 01/01/20) Sulfa Antibiotics (Verified Allergy, Unknown, 09/16/23) Home Meds Active Scripts Nifedipine (Nifedipine Er) 30 Mg Tab, 60 MG PO DAILY for 30 Days, #60 TAB Prov:PATO UNGER RESIDENT 09/18/23 Hydralazine Hcl (Hydralazine Hcl) 10 Mg Tab, 10 MG PO Q6HR for 30 Days, #120 TAB Prov:PATO UNGER RESIDENT 09/18/23 Carvedilol (COREG) 3.125 Mg Tab, 6.25 MG PO Q12HR for 30 Days, #120 TAB Prov:PATO UNGER RESIDENT 09/18/23 Reported Medications Atorvastatin Calcium (ATORVASTATIN CALCIUM) 40 Mg Tab, 1 TAB PO DAILY 06/04/24 Bumetanide (Bumetanide) 2 Mg Tab, 1 TAB PO BID 06/04/24 Losartan Potassium (Losartan Potassium) 100 Mg Tab, 1 TAB PO DAILY 06/04/24 Amlodipine Besylate (Amlodipine Besylate) 10 Mg Tab, 1 TAB PO DAILY 06/04/24 Metformin Hydrochloride (Metformin Hcl) 500 Mg Tab, 1 TAB PO BID 06/04/24 Metoprolol Succinate (Metoprolol Succinate Er) 100 Mg Tab, 1 TAB PO BID 06/04/24 Ergocalciferol (Vitamin D) 50,000 Unit Cap, 1 CAP PO QWEEKLY 06/04/24 B-Complex W/ C & Folic Acid (Ani-Jaxson Rx) Tab, 1 TAB PO DAILY 06/04/24 Patiromer Sorbitex Calcium (Veltassa) 8.4 Gm Pow, 1 PKT PO DAILY 06/04/24 Sodium Bicarbonate (Sodium Bicarbonate) 650 Mg Tab, PO 06/04/24 Empagliflozin (Jardiance) 10 Mg Tab, 1 TAB PO DAILY 06/04/24 Clopidogrel Bisulfate (CLOPIDOGREL) 75 Mg Tab, 1 TAB PO DAILY, #90 TAB 1 Refill 12/04/22 Aspirin (ASPIRIN 81) 81 Mg Tab, 81 MG OR, TAB 12/04/22 Home Meds Home medications reviewed. Current Medications Current Medications Medications (Trade) Dose Ordered Sig/Herson Route PRN Reason Start Time Stop Time Status Last Admin Calcium Gluconate/ Sodium Chloride 50 ml @ 100 mls/hr Q30M IV 06/03/24 20:30 06/03/24 21:29 DC 06/03/24 22:51 Empaglifozin (Jardiance) 10 mg DAILY PO 06/04/24 10:00 06/04/24 10:30 Aspirin 162 mg DAILY PO 06/04/24 10:00 06/04/24 08:18 DC Carvedilol (Coreg Tablet) 6.25 mg Q12HR PO 06/04/24 10:00 06/04/24 10:31 Clopidogrel Bisulfate (Plavix) 75 mg DAILY PO 06/04/24 10:00 06/04/24 10:29 Nifedipine (Procardia Xl (Time-Release)) 60 mg DAILY PO 06/04/24 10:00 06/04/24 10:30 Multivit/Ca Carb/ B Cmplx/FA/Prenat (Nephro-Jaxson Tablet) 1 tab DAILY PO 06/04/24 10:00 06/04/24 10:31 Atorvastatin Calcium (Lipitor) 40 mg HS PO 06/04/24 22:00 Diagnostic Test (Pha) (Accu-Chek Comfort Curve T) 1 strip ACHS 06/04/24 07:00 06/04/24 11:30 Insulin Human Regular (InsuLIN R) ACHS SC 06/04/24 07:00 Dextrose 50 ml UD PRN IV Blood Sugar LESS THAN 60 06/03/24 22:15 Ondansetron HCl (Zofran) 4 mg Q4HP PRN IV NAUSEA / VOMITING 06/03/24 22:15 Acetaminophen (Tylenol Tablet) 650 mg Q6HP PRN PO PAIN SCALE 1-3 OR TEMP>100.4 06/03/24 22:15 Nitroglycerin (Ntrostat Sublingual) 0.4 mg Q5MINP PRN SL FOR CHEST PAIN 06/03/24 22:15 Morphine Sulfate 2 mg Q30M PRN IV FOR CHEST PAIN 06/03/24 22:15 Aspirin 81 mg DAILY PO 06/04/24 10:00 06/04/24 10:32 Review of Systems Constitutional: No symptom reported Ears, Nose, & Throat: No symptom reported Eyes: No symptom reported Neurological: No symptoms reported Pulmonary/Respiratory: Shortness of breath Cardiovascular: Chest pain Gastrointestinal: No symptom reported Genitourinary: No symptom reported Musculoskeletal: No symptom reported Skin: No symptom reported Psychiatric: No symptom reported Endocrine: No symptom reported Hematologic/Lymphatic: No symptom reported Vital Signs Vital Signs Date Time Temp Pulse Resp B/P (MAP) Pulse Ox O2 Delivery O2 Flow Rate FiO2 06/04/24 11:30 70 137/62 06/04/24 11:00 16 94 06/04/24 07:30 97.8 97.8 06/04/24 07:30 Nasal Cannula* 2 28 Physical Exam General Appearance: Cooperative. Well-developed. Well-nourished. No acute distress. Pulmonary/Respiratory: Diminished bilateral lower lobes Cardiovascular/Chest: Regular rate and rhythm. Peripheral Pulses: 2+ Radial (R). 2+ Radial (L). 2+ Pedal (R). 2+ Pedal (L) Abdominal Exam: Normal bowel sounds. Ankle Exam: Trace ankle edema Lower extremities: Negative lower extremity edema Neuro/Mental Status: A/OX4, coherent. Thoughts/Psych: Normal thought pattern. Appropriate mood and affect. Good ju dgment and insight. Appearance: No acute distress. Skin Exam: Normal inspection. Normal color. Warm and dry. Labs/Diagnostic Data Labs Test 06/04/24 11:30 06/04/24 10:47 06/04/24 10:03 06/04/24 08:26 Range/Units POC Glucose 94 70-106 mg/dl Calcium Level 10.9 H 8.7-10.4 mg/dL Parathyroid Hormone (Intact) 21.6 18.4-80.1 pg/mL White Blood Count 6.8 4.4-10.8 10^3/uL Red Blood Count 2.88 L 4.5-5.90 10^6/uL Hemoglobin 9.3 L 13.5-17.5 g/dL Hematocrit 27.4 L 41.0-53.0 % Mean Corpuscular Volume 95.2 80.0-100.0 fL Mean Corpuscular Hemoglobin 32.4 H 28.0-32.0 pg Mean Corpuscular Hemoglobin Concent 34.0 32.0-36.0 g/dL Red Cell Distribution Width 16.8 H 11.8-14.3 % Platelet Count 243 140-450 10^3/uL Mean Platelet Volume 7.7 6.9-10.8 fL Neutrophils (%) (Auto) 74.9 37.0-80.0 % Lymphocytes (%) (Auto) 15.8 10.0-50.0 % Monocytes (%) (Auto) 8.0 0.0-12.0 % Eosinophils (%) (Auto) 0.6 0.0-7.0 % Basophils (%) (Auto) 0.7 0.0-2.0 % Neutrophils # (Auto) 5.1 1.6-8.6 10 ^3/uL Lymphocytes # (Auto) 1.1 0.4-5.4 10 ^3/uL Monocytes # (Auto) 0.5 0-1.3 10 ^3/uL Eosinophils # (Auto) 0 0-0.8 10 ^3/uL Basophils # (Auto) 0 0-0.2 10 ^3/uL Nucleated Red Blood Cells 0.0 % Sodium Level 135 L 136-145 mmol/L Potassium Level 6.1 *H 3.5-5.1 mmol/L Chloride Level 95 L 98-107 mmol/L Carbon Dioxide Level 21 20-31 mmol/L Anion Gap 19 H 5-15 Blood Urea Nitrogen 107 #*H 9-23 mg/dL Creatinine 8.29 H 0.700-1.30 mg/dL Glomerular Filtration Rate Calc 7 >90 mL/min BUN/Creatinine Ratio 12.9 10.0-20.0 Serum Glucose 68 L 74-106 mg/dL Hemoglobin A1c 6.1 H <5.7 % A1C Iron Level 66 65-175 ug/dL Total Iron Binding Capacity 235 L 250-425 ug/dL Percent Iron Saturation 28.1 20-55 % Ferritin 1193.6 H 22-322 ng/mL Triglycerides Level 106 < 150 mg/dL Cholesterol Level 119 < 200 mg/dL LDL Cholesterol 48 < 100 mg/dL HDL Cholesterol 46 40-59 mg/dL Vitamin D 25-Hydroxy 113.5 H 30.0-100 ng/mL Test 06/03/24 21:15 06/03/24 18:38 Range/Units D-Dimer, Quantitative 0.32 0.0-0.49 mg/L FEU Troponin I High Sensitivity 132 *H </=54 ng/L B-Type Natriuretic Peptide > 5000.00 0-100 pg/mL Assessment Hypertensive urgency Hyperkalemia Acute hypoxic respiratory failure secondary to fluid volume overload NSTEMI, likely type II secondary to above Rule out structural heart disease Dyslipidemia Moderate mitral valve regurgitation End-stage renal disease on hemodialysis Acute on chronic anemia Type 2 diabetes mellitus History of tobacco use Plan/Recommendation We will continue with the following plan/recommendations (Dr. Ring): * Transthoracic echocardiogram to evaluate cardiac function * Chest pain protocol * HEART score: 5 points * GREGORIA score: 2 points * Continue single antiplatelet therapy and lipid-lowering agent * Aggressive blood pressure control as tolerated * Nephrology consult and recommendations * Close Cardiac surveillance Case discussed with . At this time, patient will need to be treated medically given hyperkalemia and fluid overload. Nephrology consult pending for dialysis. NSTEMI, possibly type II in the setting of fluid volume overload and hyperkalemia. Patient reports a recent coronary angiogram without catheter based intervention with his primary product responsibility liaison Dr. Moya. It was noted that the mental health social worker spoke with the patient regarding hospice care. If patient will be going home on hospice care, we will continue with conservative medical management. Thank you for allowing us to care for this patient. Please call with any questions or concerns. Critical care time spent: 44 minutes This medical document was created using an electronic medical record system with voice recognition software and computerized dictation system. Although this document has been carefully reviewed, there might still be some phonetic and typographical errors. Occasional wrong-word or ``sound-alike�� substitutions may have occurred due to the inherent limitations of voice recognition software. These areas are purely typographical due to imperfections of the software programs and do not reflect any compromise in the patient's medical care. Please read the chart carefully and recognize, using context, where these substitutions have occurred. Plan discussed with: Patient NYHA Physical activity limitations: NA Date of Service: Jun 04, 2024 Billing Provider: BRUCE LAFLEUR Cardiology Common Codes: [id number] INP/OBS CARE (High) Cardiology Consultation Codes: [id number] CONSULT <45MIN BRUCE LAFLEUR Jun 04, 2024 13:26
[2024-06-04] MEDS ORDERED: SODIUM CHL 0.9% 1000 ML BAG XX ONE (13:30)
--- NOTE | 2024-06-04 16:45 | DVHINCON2 ---
Date of service: Jun 04, [address] Smith Reason for Consultation Dialysis History of Present Illness 63 Y/O M with history of ESRD on HD via AVF,DM,HTN, and anemia presented with chief complaint of chest pain, non-radiating. He is admitted for NSTEMI. labs showed K: 6.2 mmol/l. CXR shows pulmonary congestion. Nephrology consulted for dialysis Past Medical History ESRD,DM,HTN, and anemia Past Surgical History AVF Creation Allergies: Coded Allergies: Latex (Verified Allergy, Unknown, 01/01/20) Penicillins (Verified Allergy, Unknown, 01/01/20) Sulfa Antibiotics (Verified Allergy, Unknown, 09/16/23) Home Meds Active Scripts Nifedipine (Nifedipine Er) 30 Mg Tab, 60 MG PO DAILY for 30 Days, #60 TAB Prov:PATO UNGER RESIDENT 09/18/23 Hydralazine Hcl (Hydralazine Hcl) 10 Mg Tab, 10 MG PO Q6HR for 30 Days, #120 TAB Prov:PATO UNGER RESIDENT 09/18/23 Carvedilol (COREG) 3.125 Mg Tab, 6.25 MG PO Q12HR for 30 Days, #120 TAB Prov:PATO UNGER RESIDENT 09/18/23 Reported Medications Clopidogrel Bisulfate (CLOPIDOGREL) 75 Mg Tab, 1 TAB PO DAILY, #90 TAB 1 Refill 12/04/22 Aspirin (ASPIRIN 81) 81 Mg Tab, 81 MG OR, TAB 12/04/22 Metformin Hydrochloride (Metformin Hcl) 1,000 Mg Tab, 1 TAB PO BID, #60 TAB 5 Refills 01/01/20 Current Medications Current Medications Medications (Trade) Dose Ordered Sig/Herson Route PRN Reason Start Time Stop Time Status Last Admin Calcium Gluconate/ Sodium Chloride 50 ml @ 100 mls/hr Q30M IV 06/03/24 20:30 06/03/24 21:29 DC 06/03/24 22:51 Empaglifozin (Jardiance) 10 mg DAILY PO 06/04/24 10:00 06/04/24 10:30 Aspirin 162 mg DAILY PO 06/04/24 10:00 06/04/24 08:18 DC Carvedilol (Coreg Tablet) 6.25 mg Q12HR PO 06/04/24 10:00 06/04/24 10:31 Clopidogrel Bisulfate (Plavix) 75 mg DAILY PO 06/04/24 10:00 06/04/24 10:29 Nifedipine (Procardia Xl (Time-Release)) 60 mg DAILY PO 06/04/24 10:00 06/04/24 10:30 Multivit/Ca Carb/ B Cmplx/FA/Prenat (Nephro-Jaxson Tablet) 1 tab DAILY PO 06/04/24 10:00 06/04/24 10:31 Atorvastatin Calcium (Lipitor) 40 mg HS PO 06/04/24 22:00 Diagnostic Test (Pha) (Accu-Chek Comfort Curve T) 1 strip ACHS 06/04/24 07:00 06/04/24 11:30 Insulin Human Regular (InsuLIN R) ACHS SC 06/04/24 07:00 Dextrose 50 ml UD PRN IV Blood Sugar LESS THAN 60 06/03/24 22:15 Ondansetron HCl (Zofran) 4 mg Q4HP PRN IV NAUSEA / VOMITING 06/03/24 22:15 Acetaminophen (Tylenol Tablet) 650 mg Q6HP PRN PO PAIN SCALE 1-3 OR TEMP>100.4 06/03/24 22:15 Nitroglycerin (Ntrostat Sublingual) 0.4 mg Q5MINP PRN SL FOR CHEST PAIN 06/03/24 22:15 Morphine Sulfate 2 mg Q30M PRN IV FOR CHEST PAIN 06/03/24 22:15 Aspirin 81 mg DAILY PO 06/04/24 10:00 06/04/24 10:32 Family History: Cervical cancer G8 MOTHER, Onset:50's - 60 Diabetes mellitus G8 MOTHER G8 FATHER Hypertension G8 MOTHER Review of Systems as per HPI, all other systems were reviewed and are negative H&P Exam Vital Signs/I&O Vital Sign Date Time Temp Pulse Resp B/P (MAP) Pulse Ox O2 Delivery O2 Flow Rate FiO2 06/04/24 14:15 68 13 145/62 (89) 97 06/04/24 13:00 98.1 98.1 06/04/24 07:30 Nasal Cannula* 2 28 Intake and Output 06/03/24 06/04/24 19:00 07:00 Intake Total 100 ml Balance 100 ml Intake IV Total 100 ml Physical Exam Gen: NAD HEENT: NC,AT Lungs: crackles lung bases Cardiac: RRR, no murmur Abd: soft, no tenderness Ext: no edema + AVF Labs/Diagnostic Data Labs/Diagnostic Data Laboratory Tests Test 06/04/24 11:30 06/04/24 10:47 06/04/24 10:03 06/04/24 09:01 Range/Units POC Glucose 94 77 70-106 mg/dl Calcium Level 10.9 H 8.7-10.4 mg/dL Parathyroid Hormone (Intact) 21.6 18.4-80.1 pg/mL Test 06/04/24 08:26 06/04/24 06:27 06/03/24 23:05 06/03/24 21:15 Range/Units White Blood Count 6.8 4.4-10.8 10^3/uL Red Blood Count 2.88 L 4.5-5.90 10^6/uL Hemoglobin 9.3 L 13.5-17.5 g/dL Hematocrit 27.4 L 41.0-53.0 % Mean Corpuscular Volume 95.2 80.0-100.0 fL Mean Corpuscular Hemoglobin 32.4 H 28.0-32.0 pg Mean Corpuscular Hemoglobin Concent 34.0 32.0-36.0 g/dL Red Cell Distribution Width 16.8 H 11.8-14.3 % Platelet Count 243 140-450 10^3/uL Mean Platelet Volume 7.7 6.9-10.8 fL Neutrophils (%) (Auto) 74.9 37.0-80.0 % Lymphocytes (%) (Auto) 15.8 10.0-50.0 % Monocytes (%) (Auto) 8.0 0.0-12.0 % Eosinophils (%) (Auto) 0.6 0.0-7.0 % Basophils (%) (Auto) 0.7 0.0-2.0 % Neutrophils # (Auto) 5.1 1.6-8.6 10 ^3/uL Lymphocytes # (Auto) 1.1 0.4-5.4 10 ^3/uL Monocytes # (Auto) 0.5 0-1.3 10 ^3/uL Eosinophils # (Auto) 0 0-0.8 10 ^3/uL Basophils # (Auto) 0 0-0.2 10 ^3/uL Nucleated Red Blood Cells 0.0 % Sodium Level 135 L 136-145 mmol/L Potassium Level 6.1 *H 5.2 H 3.5-5.1 mmol/L Chloride Level 95 L 98-107 mmol/L Carbon Dioxide Level 21 20-31 mmol/L Anion Gap 19 H 5-15 Blood Urea Nitrogen 107 #*H 9-23 mg/dL Creatinine 8.29 H 0.700-1.30 mg/dL Glomerular Filtration Rate Calc 7 >90 mL/min BUN/Creatinine Ratio 12.9 10.0-20.0 Serum Glucose 68 L 74-106 mg/dL Hemoglobin A1c 6.1 H <5.7 % A1C Calcium Level 10.7 H 8.7-10.4 mg/dL Iron Level 66 65-175 ug/dL Total Iron Binding Capacity 235 L 250-425 ug/dL Percent Iron Saturation 28.1 20-55 % Ferritin 1193.6 H 22-322 ng/mL Triglycerides Level 106 < 150 mg/dL Cholesterol Level 119 < 200 mg/dL LDL Cholesterol 48 < 100 mg/dL HDL Cholesterol 46 40-59 mg/dL Vitamin D 25-Hydroxy 113.5 H 30.0-100 ng/mL POC Glucose 69 L 70-106 mg/dl D-Dimer, Quantitative 0.32 0.0-0.49 mg/L FEU Troponin I High Sensitivity 132 *H </=54 ng/L Test 06/03/24 21:05 06/03/24 19:22 06/03/24 18:38 Range/Units POC Glucose 98 70-106 mg/dl Troponin I High Sensitivity 133 *H 150 *H </=54 ng/L White Blood Count 7.3 4.4-10.8 10^3/uL Red Blood Count 3.15 L 4.5-5.90 10^6/uL Hemoglobin 9.9 L 13.5-17.5 g/dL Hematocrit 30.1 L 41.0-53.0 % Mean Corpuscular Volume 95.5 80.0-100.0 fL Mean Corpuscular Hemoglobin 31.5 28.0-32.0 pg Mean Corpuscular Hemoglobin Concent 32.9 32.0-36.0 g/dL Red Cell Distribution Width 16.9 H 11.8-14.3 % Platelet Count 300 140-450 10^3/uL Mean Platelet Volume 8.1 6.9-10.8 fL Neutrophils (%) (Auto) 75.2 37.0-80.0 % Lymphocytes (%) (Auto) 16.6 10.0-50.0 % Monocytes (%) (Auto) 5.6 0.0-12.0 % Eosinophils (%) (Auto) 1.9 0.0-7.0 % Basophils (%) (Auto) 0.7 0.0-2.0 % Neutrophils # (Auto) 5.5 1.6-8.6 10 ^3/uL Lymphocytes # (Auto) 1.2 0.4-5.4 10 ^3/uL Monocytes # (Auto) 0.4 0-1.3 10 ^3/uL Eosinophils # (Auto) 0.1 0-0.8 10 ^3/uL Basophils # (Auto) 0 0-0.2 10 ^3/uL Nucleated Red Blood Cells 0.0 % Sodium Level 133 L 136-145 mmol/L Potassium Level 6.2 *H 3.5-5.1 mmol/L Chloride Level 94 L 98-107 mmol/L Carbon Dioxide Level 19 L 20-31 mmol/L Anion Gap 20 H 5-15 Blood Urea Nitrogen 85 *H 9-23 mg/dL Creatinine 7.31 H 0.700-1.30 mg/dL Glomerular Filtration Rate Calc 8 >90 mL/min BUN/Creatinine Ratio 11.6 10.0-20.0 Serum Glucose 105 74-106 mg/dL Calcium Level 11.0 H 8.7-10.4 mg/dL B-Type Natriuretic Peptide > 5000.00 0-100 pg/mL Assessment Assessment: ESRD on HD via AVF Hyperkalemia NSTEMI DM HTN anemia Hypercalcemia, from high vitamin D intake Secondary hyperparathyroidism Hyperphosphatemia Metabolic acidosis Plan: stat HD. 1 K bath, 2.5 L UF BECKY post HD as needed. goal Hb: 10-11 g/dl aspirin , lipitor Coreg and Nifedipine Echo pending Cardiology consult Plan discussed with: Patient ABDELRAHMAN STATON MD Jun 04, 2024 16:45
[2024-06-04] MEDS ORDERED: ERGO1CAP12 PO (17:57)
[2024-06-04] MEDS ORDERED: PATI1POW PO (17:57)
[2024-06-04] MEDS ORDERED: BUME2TAB5 PO (17:57)
[2024-06-04] MEDS ORDERED: ATOR40TA52 PO (17:57)
[2024-06-04] MEDS ORDERED: METF-370 PO (17:57)
[2024-06-04] MEDS ORDERED: EMPA1TAB PO (17:57)
[2024-06-04] MEDS ORDERED: LOSA-535 PO (17:57)
[2024-06-04] MEDS ORDERED: AMLO1TAB23 PO (17:57)
[2024-06-04] MEDS ORDERED: METO1TAB9 PO (17:57)
[2024-06-04 20:00] VITALS: PULSE 69; PULSE 73; RESP 18; O2SAT 99
[2024-06-04 21:00] VITALS: BP 119/74; PULSE 69; RESP 18; TEMP 98.2; O2SAT 99
[2024-06-04] MEDS: ATORVASTATIN 20 MG TAB PO SCH (22:11)
[2024-06-05] VITALS (8 sets, daily range): BP systolic 114–146; BP diastolic 53–73; PULSE 64–91; RESP 16–18; TEMP 97.3–98.5; O2SAT 95–100
[2024-06-05] MEDS: MELATONIN 5 MG TAB PO ONE (04:13)
--- NOTE | 2024-06-05 07:40 | DVHPNRES ---
Progress Note Date Seen: June 05, 2024 Resident Creating Document: ONELIA ROBERTSON RESIDENT Has the PT tested + for MRSA If YES, has PT been informed?: No Medical Necessity Reason Pt with a Central, PICC or Fol: No Subjective Review of Systems This is a 63-year-old male with past medical history of hypertension, type 2 diabetes mellitus, end-stage renal disease on hemodialysis (Sunday, Sunday, Sunday) in [place]. The patient presented to the ED with chief complaint of shortness of breaths associated with chest tightness. Patient described the chest discomfort in the substernal area with no specific pattern of radiation associated with shortness of breaths. Last dialysis was performed on Sunday of this week (two days ago). Patient is currently on 3 L of oxygen through nasal cannula which is currently his baseline. The patient denies fever/chills, abdominal tenderness, lower extremity swelling, or any other symptoms. Upon admission, CBC showed a hemoglobin of 9.9, BNP showed a hyperkalemia at 6.2 for which he received hyperkalemia protocol treatment and initially went to 5.7 and then back to 6.1. Creatinine was 7.31 and BUN 85. Troponins also came back elevated and BNP was significantly elevated at more than 5000. Calcium is also elevated at 11.0. Upon my examination the patient is having might shortness of breath with mild chest discomfort. EKG was reviewed showing sinus rhythm with a slight ST-depression in V4-V6 and nonspecific T-wave abnormalities. There are bilateral crackles on both lung robbins but no lower extremity swelling. Nephrology was consulted due to possible need of dialysis. Patient was admitted for further assessment and management. Patient seen and examined at bedside. Patient is alert and oriented in person, place and time. Patient is ambulating with help of the . Patient still feels weak but states that feels better compared to admission. Yesterday, patient underwent hemodialysis and 2.5 L of fluids were removed. We will continue current medical management, patient might benefit of hemodialysis tomorrow once again. Patient has no significant complaints or symptoms at this time. ROS: Constitutional: Reports generalized weakness and fatigue. fever and chills. HEENT: Denies changes in vision and hearing. Respiratory: Denies shortness of breath and cough Cardiovascular: Denies chest discomfort or palpitations GI: Denies abdominal pain, nausea, vomiting and diarrhea. : Denies dysuria and urinary frequency. Musculoskeletal: Denies myalgias and joint pain Skin: Denies rash and pruritus. Neurological: Denies dizziness, headache, vision or hearing problems Objective vital signs Vital Sign Date Time Temp Pulse Resp B/P (MAP) Pulse Ox O2 Delivery O2 Flow Rate FiO2 06/05/24 05:00 98.5 70 18 128/61 (83) 96 98.5 06/04/24 20:00 Nasal Cannula* 2 28 Total Intake and Output 06/04/24 06/04/24 06/05/24 15:00 23:00 07:00 Intake Total 300 ml Balance 300 ml medications Current Medications Medications Dose Ordered Sig/Herson Route Start Time Stop Time Status Last Admin Dose Admin Empaglifozin 10 mg DAILY PO 06/04/24 10:00 06/04/24 10:30 10 MG Carvedilol 6.25 mg Q12HR PO 06/04/24 10:00 06/04/24 22:12 6.25 MG Clopidogrel Bisulfate 75 mg DAILY PO 06/04/24 10:00 06/04/24 10:29 75 MG Nifedipine 60 mg DAILY PO 06/04/24 10:00 06/04/24 10:30 60 MG Multivit/Ca Carb/ B Cmplx/FA/Prenat 1 tab DAILY PO 06/04/24 10:00 06/04/24 10:31 1 TAB Atorvastatin Calcium 40 mg HS PO 06/04/24 22:00 06/04/24 22:11 40 MG Diagnostic Test (Pha) 1 strip ACHS 06/04/24 07:00 06/05/24 06:14 1 STRIP Insulin Human Regular ACHS SC 06/04/24 07:00 06/04/24 22:29 6 UNITS Dextrose 50 ml UD PRN IV 06/03/24 22:15 Ondansetron HCl 4 mg Q4HP PRN IV 06/03/24 22:15 Acetaminophen 650 mg Q6HP PRN PO 06/03/24 22:15 Nitroglycerin 0.4 mg Q5MINP PRN SL 06/03/24 22:15 Morphine Sulfate 2 mg Q30M PRN IV 06/03/24 22:15 Aspirin 81 mg DAILY PO 06/04/24 10:00 06/04/24 10:32 81 MG Examination Physical Examination General: Patient alert and oriented in person, place and time. Patient following commands. HEENT: Normocephalic, atraumatic, moist mucous membranes Respiratory/pulmonary: There are bilateral lung crackles on both lung robbins, no wheezes at this time. Cardiovascular: Normal heart sounds S1 and S2 with no associated murmurs Abdomen: Abdomen nondistended, there is no pain to palpation in any of the abdominal quadrants, no palpable masses. Extremities: There is no peripheral edema present at the lower extremities. Left upper extremity AV fistula with good thrill/bruit Peripheral Pulses: 3+ Radial (R). 3+ Radial (L). 3+ Dorsalis pedis (R). 3+ Dorsalis pedis(L) Skin: No rashes or pruritus, there is no sacral edema present at this time. Neurological: Intact cranial nerves with no focal neurologic deficits laboratory and microbiology Laboratory Tests 06/04/24 08:26 Test 06/04/24 08:26 Range/Units Serum Glucose 68 L 74-106 mg/dL Labs and/or images reviewed: Labs reviewed by me, Image(s) reviewed by me Problem List/Assessment/Plan Problem List/Assessment/Plan Assessment/plan Acute hypoxic respiratory failure likely due to volume overload in the setting of end-stage renal disease End-stage renal disease requiring hemodialysis (Sun/Sun/Sun) R/O Acute diastolic/systolic heart failure -Patient is currently requiring 3 L of oxygen through nasal cannula -initial chest x-ray showed pulmonary vascular congestion diffusely in bilateral lungs, no evidence of consolidations at this time -BNP was significantly elevated greater than 5000 -troponins came back elevated 150-133 -EKG showed sinus rhythm with a slight ST-depression in V4-V6 with nonspecific T-waves abnormalities -ordered echocardiogram -consulted nephrology for hemodialysis -last creatinine was 7.31 and BUN 85 -hemodialysis was performed yesterday and 2.5 L of fluid were removed, patient states he is feeling much better Acute hyperkalemia in the setting of end-stage renal disease -initial potassium was 6.2 -hyperkalemia protocol including 10 units of insulin, sodium bicarb, furosemide 20, calcium gluconate and dextrose were given -potassium went down to 5.2 and went back up to 6.1 -patient underwent hemodialysis yesterday and 2.5 L of fluid were removed. Hypercalcemia likely in the setting of end-stage renal disease -calcium 11.0 -repeat calcium levels and order PTH, vitamin-D levels Primary hypertension -continue carvedilol 6.25 b.i.d. -continue nifedipine 60 mg daily -monitor blood pressure Type 2 diabetes mellitus in prediabetes range -order hemoglobin A1c 6.1% -monitor blood glucose Plan discussed with Dr. Flores Plan discussed with: Patient, Spouse, Other (RN) My Orders My Orders Orders - ONELIA ROBERTSON Procedure Category Date Status Time Stool Occult Blood LAB 06/04/24 Logged 08:13 Aspirin Tablet PHA 06/04/24 In Process 10:00 * Cardiology Consult CONS 06/04/24 Transmitted 11:04 Initiate Vte ABELARDO 06/05/24 In Process Prophylaxis 01:02 Complete Blood Count LAB 06/05/24 Logged 05:33 Basic Metabolic Panel LAB 06/05/24 Logged 05:33 Addendum Addendum Addendum I was physically present for the jara portions of the service provided to patient by THE RESIDENT. I have reviewed the documentation, discussed the case with resident and agree with the resident's documentation except as noted. Also the patient's clinical case was discussed with the patient's nurse. This medical document was created using an electronic medical record system with computerized dictation system. Although this document has been carefully reviewed, there might still be some phonetic and typographical errors. These areas are purely typographical due to imperfections of the software programs, and do not reflect any compromise in the patient's medical care. Late signature. Date of Service: June 05, 2024 Billing Provider: JAQUELINE FLORES MD Common Visit Codes: [id number] INP/OBS CARE(HIGH) ONELIA ROBERTSON RESIDENT June 05, 2024 07:40 JAQUELINE FLORES MD June 06, 2024 04:21
[2024-06-05] MEDS: Ensure HIGH Protein Chocolate 8oz Bottle PO SCH (08:00)
--- NOTE | 2024-06-05 11:23 | DVHPN2 ---
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 Patient denies any cardiac symptoms at time of assessment Objective vital signs Vital Sign Date Time Temp Pulse Resp B/P (MAP) Pulse Ox O2 Delivery O2 Flow Rate FiO2 06/05/24 09:20 138/64 06/05/24 09:20 77 06/05/24 09:16 97.5 17 95 97.5 06/04/24 20:00 Nasal Cannula* 2 28 Total Intake and Output 06/04/24 06/04/24 06/05/24 15:00 23:00 07:00 Intake Total 300 ml Balance 300 ml medications Current Medications Medications Dose Ordered Sig/Herson Route Start Time Stop Time Status Last Admin Dose Admin Empaglifozin 10 mg DAILY PO 06/04/24 10:00 06/05/24 09:19 10 MG Carvedilol 6.25 mg Q12HR PO 06/04/24 10:00 06/05/24 09:20 6.25 MG Clopidogrel Bisulfate 75 mg DAILY PO 06/04/24 10:00 06/05/24 09:22 75 MG Nifedipine 60 mg DAILY PO 06/04/24 10:00 06/05/24 09:20 60 MG Multivit/Ca Carb/ B Cmplx/FA/Prenat 1 tab DAILY PO 06/04/24 10:00 06/05/24 09:18 1 TAB Atorvastatin Calcium 40 mg HS PO 06/04/24 22:00 06/04/24 22:11 40 MG Diagnostic Test (Pha) 1 strip ACHS 06/04/24 07:00 06/05/24 06:14 1 STRIP Insulin Human Regular ACHS SC 06/04/24 07:00 06/04/24 22:29 6 UNITS Dextrose 50 ml UD PRN IV 06/03/24 22:15 Ondansetron HCl 4 mg Q4HP PRN IV 06/03/24 22:15 Acetaminophen 650 mg Q6HP PRN PO 06/03/24 22:15 Nitroglycerin 0.4 mg Q5MINP PRN SL 06/03/24 22:15 Morphine Sulfate 2 mg Q30M PRN IV 06/03/24 22:15 Aspirin 81 mg DAILY PO 06/04/24 10:00 06/05/24 09:19 81 MG Enteral Nutritional Formula 240 ml TIDWM PO 06/05/24 08:00 06/05/24 08:00 240 ML Examination: GENERAL:Normal, LUNGS:Normal, CVS:Normal, NEURO:Normal laboratory and microbiology Laboratory Tests 06/04/24 08:26 Test 06/04/24 08:26 Range/Units Serum Glucose 68 L 74-106 mg/dL Problem List/Assessment/Plan Problem List/Assessment/Plan Hypertensive urgency, resolved Hyperkalemia, resolved Acute hypoxic respiratory failure secondary to fluid volume overload NSTEMI, likely type II secondary to above Chronic HFmerEF, NYHA class III Dyslipidemia Moderate mitral valve regurgitation End-stage renal disease on hemodialysis Acute on chronic anemia Type 2 diabetes mellitus History of tobacco use Plan/Recommendations (Dr. Ring): * Transthoracic echocardiogram reveals EF 45-50% with global hypokinesis * Initiate guideline directed medical therapy for CHF as tolerated as per renal function * Continue single antiplatelet therapy and lipid-lowering agent * Aggressive blood pressure control as tolerated * Nephrology consult and recommendations * Close Cardiac surveillance Case discussed with . NSTEMI, possibly type II in the setting of fluid volume overload and hyperkalemia. Patient reports a recent coronary angiogram without catheter based intervention with his primary planting material carrier Dr. Moya. It was noted that the licensed master social worker spoke with the patient regarding hospice care. We will proceed with treating with conservative medical management. There is no further inpatient cardiac workup indicated at this time. Patient states he will follow up with his primary planting material carrier in the outpatient setting. Thank you for allowing us to care for this patient. Please call with any questions or concerns. This medical document was created using an electronic medical record system with voice recognition software and computerized dictation system. Although this document has been carefully reviewed, there might still be some phonetic and typographical errors. Occasional wrong-word or ``sound-alike�� substitutions may have occurred due to the inherent limitations of voice recognition software. These areas are purely typographical due to imperfections of the software programs and do not reflect any compromise in the patient's medical care. Please read the chart carefully and recognize, using context, where these substitutions have occurred. Plan discussed with: Patient Date of Service: June 05, 2024 Billing Provider: BRUCE LAFLEUR Common Visit Codes: [id number] INP/OBS CARE(HIGH) BRUCE LAFLEUR June 05, 2024 11:23
[2024-06-05 11:33] LABS: Basophils # (auto) 0 10 ^3/uL (0-0.2); Eosinophils # (auto) 0.1 10 ^3/uL (0-0.8); Lymphocytes # (auto) 0.5 10 ^3/uL (0.4-5.4); Monocytes # (auto) 0.4 10 ^3/uL (0-1.3); Platelet Count (auto) 208 10^3/uL (140-450)
[2024-06-05 11:35] LABS: Basophils % (auto) 0.6 % (0.0-2.0); Eosinophils % (auto) 1.8 % (0.0-7.0); Hematocrit 23.4 % (41.0-53.0); Lymphocytes % (auto) 10.6 % (10.0-50.0); Mean Corpuscular Hemoglobin 31.8 pg (28.0-32.0); Mean Corpuscular Hgb Conc. 34.1 g/dL (32.0-36.0); Mean Corpuscular Volume 93.2 fL (80.0-100.0); Monocytes % (auto) 8.5 % (0.0-12.0); Neutrophils # (auto) 3.6 10 ^3/uL (1.6-8.6); Neutrophils % (auto) 78.5 % (37.0-80.0); Red Blood Cells 2.51 10^6/uL (4.5-5.90); Red Cell Distribution Width 16.1 % (11.8-14.3); White Blood Cell 4.6 10^3/uL (4.4-10.8)
[2024-06-05 11:39] LABS: Potassium 4.8 mmol/L (3.5-5.1)
[2024-06-05 11:40] LABS: Chloride 96 mmol/L (98-107); Sodium 135 mmol/L (136-145)
[2024-06-05 11:41] LABS: Anion Gap 11 (5-15); Calcium 10.2 mg/dL (8.7-10.4); Carbon Dioxide 28 mmol/L (20-31)
[2024-06-05 11:46] LABS: BUN/Creatinine Ratio 9.5 (10.0-20.0); Blood Urea Nitrogen 67 mg/dL (9-23); Glucose 264 mg/dL (74-106)
[2024-06-05] MEDS: POLYETHYLENE GLYCOL 17 GM PWDR PO ONE (12:12)
--- NOTE | 2024-06-05 13:13 | DVHSR ---
APPROVED REPORT EXAM: Two-dimensional and M-mode echocardiogram with Doppler and color Doppler. Blood Pressure: 145/62 mmHg INDICATION Pulmonary Edema RISK FACTORS Height: 5'10", Weight: 165 DIMENSIONS LVDd5.5 (3.8-5.7cm)LA (2D)4.2 (1.9-4.0cm)Aortic Root3.5 (2.0-3.7cm) LVDs3.8 (2.5-4.0cm)LA (MM) (1.9-4.0cm)Aortic Cusp Exc1.8 (1.5-2.0cm) EF (%) 58.0 (55-70%)Rt. Atrium4.0 (1.9-4.0cm)Asc. Aorta cm IVSd1.4 (0.7-1.1cm)RV (D) (1.8-2.4cm) PWd1.4 (0.7-1.1cm) Mitral Valve MitralMitral Stenosis E wave1.60m/sMV Mean GR.mmHg A wave0.80m/sMV Peak GR.mmHg E/A ratio2.02D MVAcm2 Aortic Valve Aortic ValveAortic Stenosis V11.00m/Tristen Mean GR.5mmHg V21.60m/Tristen Peak GR.10mmHg LVOT Diameter2.2 (1.8-2.4cm)Doppler AVA2.37cm2 Pulmonic Valve V20.80m/s Conclusion Sinus rhythm. Concentric LVH. Left atrial enlargement. Right atrial enlargement. Mild mitral annular calcification. Mild aortic sclerosis. Left ventricular systolic performance is mildly diminished. EF is about 45-50% with global hypokines is and significantly impaired diastolic relaxation secondary to significant hypertrophy. Right ventricular function is preserved. There is impaired diastolic relaxation on Doppler. Trace mitral and tricuspid regurgitation. No pericardial effusion masses or vegetations discernible.
--- NOTE | 2024-06-05 16:19 | DVHPN2 ---
Progress Note - Dictate Date Seen: June 05, 2024 Has the PT tested + for MRSA If YES, has PT been informed?: No Medical Necessity Reason Pt with a Central, PICC or Fol: No Subjective no new symptoms vital signs Vital Sign Date Time Temp Pulse Resp B/P (MAP) Pulse Ox O2 Delivery O2 Flow Rate FiO2 06/05/24 13:22 97.3 67 17 146/73 (97) 100 97.3 06/05/24 07:30 Nasal Cannula* 2 28 Total Intake and Output 06/04/24 06/04/24 06/05/24 15:00 23:00 07:00 Intake Total 300 ml Balance 300 ml medications Current Medications Medications Dose Ordered Sig/Herson Route Start Time Stop Time Status Last Admin Dose Admin Empaglifozin 10 mg DAILY PO 06/04/24 10:00 06/05/24 09:19 10 MG Carvedilol 6.25 mg Q12HR PO 06/04/24 10:00 06/05/24 09:20 6.25 MG Clopidogrel Bisulfate 75 mg DAILY PO 06/04/24 10:00 06/05/24 09:22 75 MG Nifedipine 60 mg DAILY PO 06/04/24 10:00 06/05/24 09:20 60 MG Multivit/Ca Carb/ B Cmplx/FA/Prenat 1 tab DAILY PO 06/04/24 10:00 06/05/24 09:18 1 TAB Atorvastatin Calcium 40 mg HS PO 06/04/24 22:00 06/04/24 22:11 40 MG Diagnostic Test (Pha) 1 strip ACHS 06/04/24 07:00 06/05/24 12:17 1 STRIP Insulin Human Regular ACHS SC 06/04/24 07:00 06/05/24 12:17 6 UNITS Dextrose 50 ml UD PRN IV 06/03/24 22:15 Ondansetron HCl 4 mg Q4HP PRN IV 06/03/24 22:15 Acetaminophen 650 mg Q6HP PRN PO 06/03/24 22:15 Nitroglycerin 0.4 mg Q5MINP PRN SL 06/03/24 22:15 Morphine Sulfate 2 mg Q30M PRN IV 06/03/24 22:15 Aspirin 81 mg DAILY PO 06/04/24 10:00 06/05/24 09:19 81 MG Enteral Nutritional Formula 240 ml TIDWM PO 06/05/24 08:00 06/05/24 12:08 240 ML Docusate Sodium 100 mg BID PO 06/05/24 22:00 objective Gen: NAD HEENT: NC,AT Lungs: crackles lung bases Cardiac: RRR, no murmur Abd: soft, no tenderness Ext: no edema + AVF laboratory and microbiology Laboratory Tests 06/05/24 11:16 Test 06/05/24 11:16 Range/Units Serum Glucose 264 #H 74-106 mg/dL Assessment/Plan Assessment: ESRD on HD via AVF Hyperkalemia, resolved post HD NSTEMI DM HTN anemia Hypercalcemia, from high vitamin D intake Secondary hyperparathyroidism Hyperphosphatemia Metabolic acidosis Plan: s/p HD yesterday HD again today will continue HD on TTS schedule while in house BECKY post HD as needed. goal Hb: 10-11 g/dl aspirin , lipitor Coreg and Nifedipine Echo pending Cardiology consult Plan discussed with: Patient ABDELRAHMAN STATON MD June 05, 2024 16:19
[2024-06-05] MEDS ORDERED: SODIUM CHL 0.9% 1000 ML BAG XX ONE (17:45)
[2024-06-05] MEDS ORDERED: EPOETIN ALFA-EPBX 10,000 UNIT/1ML VIAL SC ONE (21:00)
[2024-06-05] MEDS: DOCUSATE SOD 100 MG CAP PO SCH (22:39)
[2024-06-06 01:00] VITALS: BP 115/57; PULSE 72; RESP 18; TEMP 97.7; O2SAT 99
[2024-06-06 05:00] VITALS: BP 136/71; PULSE 78; RESP 18; TEMP 99.8; O2SAT 100
[2024-06-06 06:16] LABS: Basophils # (auto) 0 10 ^3/uL (0-0.2); Eosinophils # (auto) 0.2 10 ^3/uL (0-0.8); Lymphocytes # (auto) 0.7 10 ^3/uL (0.4-5.4); Lymphocytes % (auto) 14.7 % (10.0-50.0); Monocytes # (auto) 0.4 10 ^3/uL (0-1.3); Red Cell Distribution Width 16.6 % (11.8-14.3)
[2024-06-06 06:18] LABS: Basophils % (auto) 0.3 % (0.0-2.0); Eosinophils % (auto) 4.6 % (0.0-7.0); Hematocrit 22.1 % (41.0-53.0); Hemoglobin 7.6 g/dL (13.5-17.5); Mean Corpuscular Hgb Conc. 34.5 g/dL (32.0-36.0); Mean Corpuscular Volume 92.8 fL (80.0-100.0); Monocytes % (auto) 8.9 % (0.0-12.0); Neutrophils # (auto) 3.4 10 ^3/uL (1.6-8.6); Neutrophils % (auto) 71.5 % (37.0-80.0); Platelet Count (auto) 195 10^3/uL (140-450); Red Blood Cells 2.38 10^6/uL (4.5-5.90); White Blood Cell 4.8 10^3/uL (4.4-10.8)
[2024-06-06 06:27] LABS: Anion Gap 9 (5-15); Carbon Dioxide 30 mmol/L (20-31); Chloride 99 mmol/L (98-107); Potassium 4.3 mmol/L (3.5-5.1); Sodium 138 mmol/L (136-145)
[2024-06-06 06:29] LABS: Calcium 9.8 mg/dL (8.7-10.4)
[2024-06-06 06:33] LABS: BUN/Creatinine Ratio 8.4 (10.0-20.0)
[2024-06-06 06:40] LABS: Blood Urea Nitrogen 42 mg/dL (9-23); Glucose 160 mg/dL (74-106)
--- NOTE | 2024-06-06 06:44 | DVHPN2 ---
Progress Note - Dictate Date Seen: June 06, 2024 Has the PT tested + for MRSA If YES, has PT been informed?: No Medical Necessity Reason Pt with a Central, PICC or Fol: No Subjective no new symptoms vital signs Vital Sign Date Time Temp Pulse Resp B/P (MAP) Pulse Ox O2 Delivery O2 Flow Rate FiO2 06/06/24 05:00 99.8 78 18 136/71 (92) 100 99.8 06/05/24 20:00 Nasal Cannula* 2 28 Total Intake and Output 06/05/24 06/05/24 06/06/24 15:00 23:00 07:00 Intake Total 400 ml 400 ml Balance 400 ml 400 ml medications Current Medications Medications Dose Ordered Sig/Herson Route Start Time Stop Time Status Last Admin Dose Admin Carvedilol 6.25 mg Q12HR PO 06/04/24 10:00 06/05/24 22:40 6.25 MG Clopidogrel Bisulfate 75 mg DAILY PO 06/04/24 10:00 06/05/24 09:22 75 MG Nifedipine 60 mg DAILY PO 06/04/24 10:00 06/05/24 09:20 60 MG Multivit/Ca Carb/ B Cmplx/FA/Prenat 1 tab DAILY PO 06/04/24 10:00 06/05/24 09:18 1 TAB Atorvastatin Calcium 40 mg HS PO 06/04/24 22:00 06/05/24 22:40 40 MG Diagnostic Test (Pha) 1 strip ACHS 06/04/24 07:00 06/06/24 06:19 1 STRIP Insulin Human Regular ACHS SC 06/04/24 07:00 06/06/24 06:19 2 UNITS Dextrose 50 ml UD PRN IV 06/03/24 22:15 Ondansetron HCl 4 mg Q4HP PRN IV 06/03/24 22:15 Acetaminophen 650 mg Q6HP PRN PO 06/03/24 22:15 Nitroglycerin 0.4 mg Q5MINP PRN SL 06/03/24 22:15 Morphine Sulfate 2 mg Q30M PRN IV 06/03/24 22:15 Aspirin 81 mg DAILY PO 06/04/24 10:00 06/05/24 09:19 81 MG Enteral Nutritional Formula 240 ml TIDWM PO 06/05/24 08:00 06/05/24 12:08 240 ML Docusate Sodium 100 mg BID PO 06/05/24 22:00 06/05/24 22:39 100 MG objective Gen: NAD HEENT: NC,AT Lungs: crackles lung bases Cardiac: RRR, no murmur Abd: soft, no tenderness Ext: no edema + AVF laboratory and microbiology Laboratory Tests 06/06/24 04:54 Test 06/06/24 04:54 Range/Units Serum Glucose 160 #H 74-106 mg/dL Assessment/Plan Assessment: ESRD on HD via AVF Hyperkalemia, resolved post HD NSTEMI DM HTN anemia Hypercalcemia, from high vitamin D intake Secondary hyperparathyroidism Hyperphosphatemia Metabolic acidosis Plan: s/p HD and Sunday Next HD on Sunday BECKY post HD as needed. goal Hb: 10-11 g/dl aspirin , lipitor Coreg and Nifedipine Echo pending Cardiology consult Plan discussed with: Patient ABDELRAHMAN STATON MD June 06, 2024 06:44
[2024-06-06 08:00] VITALS: PULSE 73
[2024-06-06] MEDS ORDERED: NIFE1TAB30 PO (08:26)
[2024-06-06] MEDS ORDERED: CARV6.2551 PO (08:26)
--- NOTE | 2024-06-06 08:35 | DVHDSRES ---
Discharge Summary Date of Admission Resident Creating Document: ONELIA ROBERTSON RESIDENT Jun 03, 2024 at 22:01 Date of Discharge: June 06, 2024 Admitting Diagnosis Shortness of breath associated with chest tightness so was diagnosed as Acute hypoxic respiratory failure Wounds: No wounds present at this time. Labs/Diagnostic Data: Laboratory Results Test 06/06/24 04:54 06/05/24 22:28 06/05/24 11:16 06/04/24 10:03 White Blood Count 4.8 10^3/uL (4.4-10.8) Red Blood Count 2.38 10^6/uL (4.5-5.90) Hemoglobin 7.6 g/dL (13.5-17.5) Hematocrit 22.1 % (41.0-53.0) Mean Corpuscular Volume 92.8 fL (80.0-100.0) Mean Corpuscular Hemoglobin 32.0 pg (28.0-32.0) Mean Corpuscular Hemoglobin Concent 34.5 g/dL (32.0-36.0) Red Cell Distribution Width 16.6 % (11.8-14.3) Platelet Count 195 10^3/uL (140-450) Mean Platelet Volume 7.7 fL (6.9-10.8) Neutrophils (%) (Auto) 71.5 % (37.0-80.0) Lymphocytes (%) (Auto) 14.7 % (10.0-50.0) Monocytes (%) (Auto) 8.9 % (0.0-12.0) Eosinophils (%) (Auto) 4.6 % (0.0-7.0) Basophils (%) (Auto) 0.3 % (0.0-2.0) Neutrophils # (Auto) 3.4 10 ^3/uL (1.6-8.6) Lymphocytes # (Auto) 0.7 10 ^3/uL (0.4-5.4) Monocytes # (Auto) 0.4 10 ^3/uL (0-1.3) Eosinophils # (Auto) 0.2 10 ^3/uL (0-0.8) Basophils # (Auto) 0 10 ^3/uL (0-0.2) Nucleated Red Blood Cells 0.0 % Sodium Level 138 mmol/L (136-145) Potassium Level 4.3 mmol/L (3.5-5.1) Chloride Level 99 mmol/L (98-107) Carbon Dioxide Level 30 mmol/L (20-31) Anion Gap 9 (5-15) Blood Urea Nitrogen 42 mg/dL (9-23) Creatinine 5.02 mg/dL (0.700-1.30) Glomerular Filtration Rate Calc 12 mL/min (>90) BUN/Creatinine Ratio 8.4 (10.0-20.0) Serum Glucose 160 mg/dL (74-106) Calcium Level 9.8 mg/dL (8.7-10.4) POC Glucose 234 mg/dl (70-106) Parathyroid Hormone (Intact) 21.6 pg/mL (18.4-80.1) Test 06/04/24 08:26 06/03/24 21:15 06/03/24 18:38 Hemoglobin A1c 6.1 % A1C (<5.7) Iron Level 66 ug/dL (65-175) Total Iron Binding Capacity 235 ug/dL (250-425) Percent Iron Saturation 28.1 % (20-55) Ferritin 1193.6 ng/mL (22-322) Triglycerides Level 106 mg/dL (< 150) Cholesterol Level 119 mg/dL (< 200) LDL Cholesterol 48 mg/dL (< 100) HDL Cholesterol 46 mg/dL (40-59) Vitamin D 25-Hydroxy 113.5 ng/mL (30.0-100) D-Dimer, Quantitative 0.32 mg/L FEU (0.0-0.49) Troponin I High Sensitivity 132 ng/L (</=54) B-Type Natriuretic Peptide > 5000.00 pg/mL (0-100) Other Laboratory Tests 06/06/24 04:54 Brief Hx & Hospital Course: This is a 63-year-old male with past medical history of hypertension, type 2 diabetes mellitus, end-stage renal disease on hemodialysis (Sunday, Sunday, Sunday) in [place]. The patient presented to the ED with chief complaint of shortness of breath associated with chest tightness. Patient described the chest discomfort in the substernal area with no specific pattern of radiation associated with shortness of breaths. Last dialysis was performed on Sunday of this week (two days ago). Patient is currently on 3 L of oxygen through nasal cannula which is currently his baseline. The patient denies fever/chills, abdominal tenderness, lower extremity swelling, or any other symptoms. Upon admission, CBC showed a hemoglobin of 9.9, BNP showed a hyperkalemia at 6.2 for which he received hyperkalemia protocol treatment and initially went to 5.7 and then back to 6.1. Creatinine was 7.31 and BUN 85. Troponins also came back elevated and BNP was significantly elevated at more than 5000. Calcium is also elevated at 11.0. Upon my examination the patient is having might shortness of breath with mild chest discomfort. EKG was reviewed showing sinus rhythm with a slight ST-depression in V4-V6 and nonspecific T-wave abnormalities. There are bilateral crackles on both lung robbins but no lower extremity swelling. Nephrology was consulted due to possible need of dialysis. Patient underwent hemodialysis on Sunday and 2.5 L of fluid were removed then on patient had 2nd session of hemodialysis as well. Today, patient was seen and examined at bedside. Patient is currently on 3 L of oxygen through nasal cannula which is currently his baseline. Patient states that he is feeling well overall and is able to ambulate without difficulties. We explained to the patient and the importance of Ativan two hemodialysis sessions and preventions keep any session at this point. Patient and family agrees with the plan. We will discontinue losartan due to increased risk of hyperkalemia in the setting of end-stage renal disease and we will start the patient on nifedipine 60 mg daily. We will also continue the patient on carvedilol 6.25 mg b.i.d. we sent new prescriptions to the pharmacy and indicated which medications to stopped to the patient. Patient and family agrees and understands the plan. Patient will be discharged home. ROS: Constitutional: Denies weight loss, fever and chills. HEENT: Denies changes in vision and hearing. Respiratory: Denies shortness of breath and cough Cardiovascular: Denies chest discomfort or palpitations GI: Denies abdominal pain, nausea, vomiting and diarrhea. : Denies dysuria and urinary frequency. Musculoskeletal: Denies myalgias and joint pain Skin: Denies rash and pruritus. Neurological: Denies dizziness, headache, vision or hearing problems Physical Examination on discharge: General: Patient alert and oriented in person, place and time. Patient following commands. HEENT: Normocephalic, atraumatic, moist mucous membranes Respiratory/pulmonary: Clear lungs bilaterally, no associated crackles or wheezes. Cardiovascular: Normal heart sounds S1 and S2 with no associated murmurs Abdomen: Abdomen nondistended, there is no pain to palpation in any of the abdominal quadrants, no palpable masses. Extremities: There is no peripheral edema present at the lower extremities. Left upper extremity AV fistula with good thrill/bruit Peripheral Pulses: 3+ Radial (R). 3+ Radial (L). 3+ Dorsalis pedis (R). 3+ Dorsalis pedis(L) Skin: No rashes or pruritus, there is no sacral edema present at this time. Neurological: Intact cranial nerves with no focal neurologic deficits Discussed with Dr. Flores Consults/Reason for consult Nephrology for HD; cardiology for chest tightness Operations or Procedures CHEST RADIOGRAPH Indication: chest pain Technique: Single frontal view of the chest was obtained Comparison: XY CHEST PORTABLE on DOS: 09/16/23, XY CHEST PORTABLE on DOS: 12/03/22, CHEST PORTABLE on DOS: 01/01/20 FINDINGS: Lines and Tubes: None Lungs: Diffuse interstitial prominence with perihilar fullness. Pleura: No effusion. No pneumothorax. Cardiomediastinal contours: Mild cardiomegaly with mild atherosclerotic calcification and uncoiling of the aorta. Bones: No acute osseous abnormality. IMPRESSION: Mild cardiomegaly with suggestive of mild congestive heart failure. Underlying infectious process can not be excluded. Condition at Discharge: Stable Final Diagnosis/Problems List Acute hypoxic respiratory failure likely due to volume overload in the setting of end-stage renal disease End-stage renal disease requiring hemodialysis (Sun/Sun/Sun) R/O Acute diastolic/systolic heart failure Acute hyperkalemia in the setting of end-stage renal disease Hypercalcemia likely in the setting of end-stage renal disease Primary hypertension Type 2 diabetes mellitus in prediabetes range Discharge Disposition: Home Discharge Instruct/Medications Diet: Renal Activity: No Restrictions, As Tolerated Follow Up/Referral: F/U with his PCP/discharge clinic in 1 week; to do hemodialysis as scheduled Medications: Stopped amlodipine 10 mg daily, stopped empagliflozin 10 mg daily, stopped losartan 100 mg daily, stopped metoprolol succinate 100 mg daily. Start carvedilol 6.25 mg be p.o. b.i.d., start nifedipine 60 mg daily Discharge Statement: "Patient was advised to return to the ER or call 911 if any headaches, dizziness, shortness of breath, chest pain, abdominal pain, bleeding, fevers, or worsening of medical condition. Patient was counseled about treatment plan, medications, possible side effects, patient�verbalized understanding. All questions were answered to the best of my ability. This discharge took greater then 30 minutes in planning, reviewing documentation, counseling the patient, and discussing with other team members." ASSESSMENT ASSESSMENT Assessment Acute hypoxic respiratory failure likely due to volume overload in the setting of end-stage renal disease End-stage renal disease requiring hemodialysis (Sun/Sun/Sun) R/O Acute diastolic/systolic heart failure Acute hyperkalemia in the setting of end-stage renal disease Hypercalcemia likely in the setting of end-stage renal disease Primary hypertension Type 2 diabetes mellitus in prediabetes range Addendum Addendum Addendum I was physically present for the jara portions of the service provided to patient by THE RESIDENT. I have reviewed the documentation, discussed the case with resident and agree with the resident's documentation except as noted. Also the patient's clinical case was discussed with the patient's nurse. This medical document was created using an electronic medical record system with computerized dictation system. Although this document has been carefully reviewed, there might still be some phonetic and typographical errors. These areas are purely typographical due to imperfections of the software programs, and do not reflect any compromise in the patient's medical care. Late signature. Date of Service: June 06, 2024 Billing Provider: JAQUELINE FLORES MD Common Visit Codes: 62368-ZPJ/OBS DISCH DAY >30min ONELIA ROBERTSON RESIDENT June 06, 2024 08:35 JAQUELINE FLORES MD June 07, 2024 04:37
[2024-06-06 09:30] VITALS: BP 136/65; PULSE 76; RESP 16; TEMP 98.2; O2SAT 100
[2024-06-06 09:37] VITALS: BP 136/65; PULSE 83; RESP 16; TEMP 98.2; O2SAT 100
[2024-06-06 10:11] LABS: Hepatitis B Surface Antigen Negative (Negative)
[2024-06-06 10:35] LABS: Hepatitis A Ab IgM Negative; Hepatitis B Core IgM Negative (Negative); Hepatitis C Antibody Negative (Negative)
[2024-06-07] MEDS ORDERED: B-CO-6 PO (17:57)
== END 2024-06-06 10:33 | disposition home or self-care (01) | DRG 280 ==
LOC: EDBD 18:09 → ER 18:18 → OVERFLOW 22:01 → TELE-CENTR 06-04 17:21
PROVIDERS: ADMIT Internal Medicine; ATTEND Emergency Medicine
PROC: 5A1D70Z Performance of Urinary Filtration, Intermittent, Less than 6 Hours Per Day (ICD-10-PCS; principal; 2024-06-04)
PROC: 5A1D70Z Performance of Urinary Filtration, Intermittent, Less than 6 Hours Per Day (ICD-10-PCS; 2024-06-05)
DX: I13.2 Hypertensive heart and chronic kidney disease with heart failure and with stage 5 chronic kidney disease, or end stage renal disease (principal); I50.43 Acute on chronic combined systolic (congestive) and diastolic (congestive) heart failure; I21.A1 Myocardial infarction type 2; J96.01 Acute respiratory failure with hypoxia; N18.6 End stage renal disease; E87.20 Acidosis, unspecified; E11.22 Type 2 diabetes mellitus with diabetic chronic kidney disease; I34.0 Nonrheumatic mitral (valve) insufficiency; I16.0 Hypertensive urgency; E87.5 Hyperkalemia; E83.52 Hypercalcemia; E78.5 Hyperlipidemia, unspecified; D64.9 Anemia, unspecified; E83.39 Other disorders of phosphorus metabolism; Z99.2 Dependence on renal dialysis; Z88.0 Allergy status to penicillin; Z88.2 Allergy status to sulfonamides; Z91.040 Latex allergy status; Z79.899 Other long term (current) drug therapy; Z79.82 Long term (current) use of aspirin; Z79.84 Long term (current) use of oral hypoglycemic drugs; Z79.02 Long term (current) use of antithrombotics/antiplatelets; Z87.891 Personal history of nicotine dependence; Z83.3 Family history of diabetes mellitus; Z82.49 Family history of ischemic heart disease and other diseases of the circulatory system; Z51.5 Encounter for palliative care
CPT/HCPCS: 36415; 71045; 80048; 80061; 80074; 82306; 82310; 82728; 82962; 83036; 83540; 83550; 83880; 83970; 84132; 84484; 85025; 85379; 90935; 93005; 93306; 96374; 96375; 97163; 99291; G0378; J1815; J2405

== ENCOUNTER 2024-06-07 01:02 | Inpatient (IN) | payer MEDICARE, MEDICAID ==
[~2024-06-07] VITALS: Ht 177.8 cm; Wt 71.6 kg
[~2024-06-07 01:02] MED LIST changes: +ATOR40TA52 PO; +BUME2TAB5 PO; -CARV-214 PO; +CARV6.2551 PO; +ERGO1CAP12 PO; +METF-370 PO; -METF-372 PO; +NIFE1TAB30 PO; -NIFE1TAB31 PO; +PATI1POW PO
--- NOTE | 2024-06-07 01:38 | ED.PDOC ---
SOB-HPI HPI Comments 63-year-old male who came to emergency room via EMS for shortness of breath. Patient discharged here yesterday, diagnosed with hypertension, diabetes, congestive heart failure, end-stage renal disease dialysis every Sunday. Patient was at home, sitting on the couch, when he started coughing with chest discomfort and became short of breath with wheezing. Patient is saturating 81% at 2 L/min. Patient given breathing paramedics while EN route to the ER. Chief Complaint: Shortness of Breath Time Seen by MD: 01:37 Primary Care Provider: Jona Rose Reviewed notes: Nurses Notes Information Source: Patient Mode of Arrival: EMS Severity: Moderate Timing: Hours Duration: Since onset Context: At Rest History of: CHF Prehospital treatment: Breathing Tx, Oxygen Associated Signs and Symptoms: Wheeze, Cough, Chest Pain Quality: Aching Radiation: No Radiation If cough with SOB: Non-Productive Past Medical History PAST MEDICAL HISTORY: CHF, DM, ESRD, HTN Surgical History: Denies all surgeries Surgical History (Other): Dialysis Sunday Family History Family History: Reviewed,noncontributory to illness Social History Smoker: Non-Smoker Alcohol: Denies ETOH Use Drugs: Denies Drug Use Lives In: Home Constitutional: denies: chills, diaphoresis, fatigue, fever, malaise, sweats, weakness, others EENTM: denies: blurred vision, double vision, ear bleeding, ear discharge, ear drainage, ear pain, ear ringing, eye pain, eye redness, hearing loss, mouth pain, mouth swelling, nasal discharge, nose bleeding, nose congestion, nose pain, photophobia, tearing, throat pain, throat swelling, voice changes, others Respiratory: reports: cough, SOB at rest, shortness of breath, SOB with excertion, wheezing; denies: hemoptysis, orthopnea, stridor, others Cardiovascular: reports: chest pain; denies: dizzy spells, diaphoresis, Dyspnea on exertion, edema, irregular heart beat, left arm pain, lightheadedness, palpitations, PND, syncope, others Gastrointestinal: denies: abdomen distended, abdominal pain, blood streaked bowels, constipated, diarrhea, dysphagia, difficulty swallowing, hematemesis, melena, nausea, poor appetite, poor fluid intake, rectal bleeding, rectal pain, vomiting, others Genitourinary: denies: burning, dysuria, flank pain, frequency, hematuria, incontinence, penile discharge, penile sore, pain, testicle pain, testicle swelling, urgency, others Neurological: denies: dizziness, fainting, headache, left sided numbness, left sided weakness, numbness, paresthesia, pre-existing deficit, right sided numbness, right sided weakness, seizure, speech problems, tingling, tremors, weakness, others Musculoskeletal: denies: back pain, gout, joint pain, joint swelling, muscle pain, muscle stiffness, neck pain, others Integumetry: denies: bruises, change in color, change in hair/nails, dryness, laceration, lesions, lumps, rash, wounds, others Allergic/Immunocompromised: denies: Difficulty Healing, Frequent Infections, Hives, Itching, others Hematologic/Lymphatic: denies: anemia, blood clots, easy bleeding, easy bruising, swollen glands, others Endocrine: denies: excessive hunger, excessive sweating, excessive thirst, excessive urination, flushing, intolerance to cold, intolerance to heat, unexplained weight gain, unexplained weight loss, others Psychiatric: denies: anxiety, bipolar disorder, depression, hopeless, panic disorder, schizophrenia, sleepless, suicidal, others Physical Exam General Appearance: No Apparent Distress, Normal HEENT: Normal ENT Inspection, Pharynx Normal, TMs Normal Neck: Full Range of Motion, Non-Tender, Normal, Normal Inspection Respiratory: Chest Non-Tender, No Accessory Muscle Use, Respiratory Distress, Wheezing Cardiovascular: No Edema, No JVD, No Murmur, No Gallop, Normal Peripheral Pulses, Regular Rate/Rhythm Breast Exam: Deferred Gastrointestinal: No Organomegaly, Non Tender, No Pulsatile Mass, Normal Bowel Sounds, Soft Genitalia: Deferred Pelvic: Deferred Rectal: Deferred Extremities: No calf tenderness, Normal capillary refill, Normal inspection, Normal range of motion, Non-tender, No pedal edema Musculoskeletal : Apperance: Normal Neurologic: Alert, integrated logistics support manager II-XII nml as Tested, No Motor Deficits, Normal Affect, Normal Mood, No Sensory Deficits Cerebellar Function: Normal Reflexes: Normal Skin: Dry, Normal Color, Warm Lymphatic: No Adenopathy EKG EKG : Pulse Rate (adult): 105 Cardiac Rhythm: ST Hypertrophy: LAE, LVH Was a procedure done? Was a procedure done?: No Differential Dx Differential Diagnosis: Asthma, Bronchitis, CHF, COPD, Myocardial infarction, Pneumonia, Respiratory Distress X-Ray, Labs, Meds, VS Vital Signs Date Time Temp Pulse Resp B/P (MAP) Pulse Ox O2 Delivery O2 Flow Rate FiO2 06/07/24 02:17 104 95 Bi-Pap+ 30 30 06/07/24 02:14 98.2 104 23 176/87 (116) 95 98.2 06/07/24 02:11 123 199/95 Facial BiPAP Mask 30 06/07/24 01:40 98.2 136 29 199/95 (129) 93 98.2 06/07/24 01:38 105 06/07/24 01:02 98.4 105 24 178/81 (113) 89 98.4 Lab Test 06/07/24 01:47 Range/Units White Blood Count 8.2 # 4.4-10.8 10^3/uL Red Blood Count 3.10 L 4.5-5.90 10^6/uL Hemoglobin 9.8 #L 13.5-17.5 g/dL Hematocrit 29.3 #L 41.0-53.0 % Mean Corpuscular Volume 94.5 80.0-100.0 fL Mean Corpuscular Hemoglobin 31.5 28.0-32.0 pg Mean Corpuscular Hemoglobin Concent 33.3 32.0-36.0 g/dL Red Cell Distribution Width 16.7 H 11.8-14.3 % Platelet Count 287 140-450 10^3/uL Mean Platelet Volume 7.8 6.9-10.8 fL Neutrophils (%) (Auto) 64.9 37.0-80.0 % Lymphocytes (%) (Auto) 23.7 10.0-50.0 % Monocytes (%) (Auto) 6.4 0.0-12.0 % Eosinophils (%) (Auto) 4.3 0.0-7.0 % Basophils (%) (Auto) 0.7 0.0-2.0 % Neutrophils # (Auto) 5.3 1.6-8.6 10 ^3/uL Lymphocytes # (Auto) 1.9 0.4-5.4 10 ^3/uL Monocytes # (Auto) 0.5 0-1.3 10 ^3/uL Eosinophils # (Auto) 0.4 0-0.8 10 ^3/uL Basophils # (Auto) 0.1 0-0.2 10 ^3/uL Nucleated Red Blood Cells 0.0 % Sodium Level 137 136-145 mmol/L Potassium Level 4.8 3.5-5.1 mmol/L Chloride Level 98 98-107 mmol/L Carbon Dioxide Level 26 20-31 mmol/L Anion Gap 13 5-15 Blood Urea Nitrogen 61 #H 9-23 mg/dL Creatinine 7.29 #H 0.700-1.30 mg/dL Glomerular Filtration Rate Calc 8 >90 mL/min BUN/Creatinine Ratio 8.4 L 10.0-20.0 Serum Glucose 245 H 74-106 mg/dL Calcium Level 11.2 H 8.7-10.4 mg/dL Troponin I High Sensitivity 143 *H </=54 ng/L B-Type Natriuretic Peptide 4689.90 0-100 pg/mL Time of 1ST Reevaluation: 01:29 Reevaluation 1ST: Unchanged Patient Education/Counseling: Diagnosis, Treatment Family Education/Counseling: No Family Present Departure 1 Departure Time of Disposition: 02:39 (Patient with a worsening shortness of breath. We will admit patient for further workup) Impression: Primary Impression: Acute dyspnea Additional Impression: Generalized weakness Disposition: 09 ADMITTED INPATIENT Admit to: Med Surg Condition: Serious Critical Care Note Critical Care Time?: Yes (45 min-critical care time only) Critical care comment: Shortness of breath Authorized and Performed by: Chele Sarah MD Total critical care time: Approximately 38 minutes Due to a high probability of clinically significant, life threatening deterioration, the patient required my highest level of preparedness to intervene emergently and I personally spent this critical care time directly and personally managing the patient. This critical care time included obtaining a history; examining the patient; pulse oximetry; ordering and review of studies; arranging urgent treatment with development of a management plan; evaluation of patient's response to treatment; frequent reassessment; and, discussions with ot her providers. This critical care time was performed to assess and manage the high probability of imminent, life-threatening deterioration that could result in multi-organ failure. It was exclusive of separately billable procedures and treating other patients and teaching time. Please see my other sections and the rest of the note for further information on patient assessment and treatment. Stability Stability form required: No Heart Score Heart Score: Heart Score Response (Comments) Value History Moderate Suspicious 1 EKG Repolarization Disturb 1 Age 45-64 1 Risk Factors >3 or Hx ASHD 2 Troponin Normal limit 0 Total 5 I personally scribed for CHELE SARAH MD ([email or web address]) on 06/07/24 at 01:38. Electronically submitted by Lane Raza ([email or web address]). CHELE SARAH MD June 07, 2024 01:38
[2024-06-07 02:02] LABS: Basophils # (auto) 0.1 10 ^3/uL (0-0.2); Basophils % (auto) 0.7 % (0.0-2.0); Eosinophils # (auto) 0.4 10 ^3/uL (0-0.8); Eosinophils % (auto) 4.3 % (0.0-7.0); Hematocrit 29.3 % (41.0-53.0); Hemoglobin 9.8 g/dL (13.5-17.5); Lymphocytes # (auto) 1.9 10 ^3/uL (0.4-5.4); Lymphocytes % (auto) 23.7 % (10.0-50.0); Mean Corpuscular Hemoglobin 31.5 pg (28.0-32.0); Mean Corpuscular Hgb Conc. 33.3 g/dL (32.0-36.0); Mean Corpuscular Volume 94.5 fL (80.0-100.0); Monocytes # (auto) 0.5 10 ^3/uL (0-1.3); Monocytes % (auto) 6.4 % (0.0-12.0); Neutrophils # (auto) 5.3 10 ^3/uL (1.6-8.6); Neutrophils % (auto) 64.9 % (37.0-80.0); Platelet Count (auto) 287 10^3/uL (140-450); Red Cell Distribution Width 16.7 % (11.8-14.3); White Blood Cell 8.2 10^3/uL (4.4-10.8)
--- NOTE | 2024-06-07 02:07 | DVH ---
CHEST RADIOGRAPH Indication: sob Technique: Single frontal view of the chest was obtained COMPARISON: XY CHEST PORTABLE on DOS: 06/03/24, XY CHEST PORTABLE on DOS: 09/16/23, XY CHEST PORTABLE o n DOS: 12/03/22, CHEST PORTABLE on DOS: 01/01/20 FINDINGS: Lines and Tubes: None Lungs: No evidence of focal consolidation. Chronic appearing bilateral interstitial pulmonary markin gs noted throughout all lung zones. Pleura: No effusion. No pneumothorax. Cardiomediastinal contours: Unremarkable Bones: Unremarkable IMPRESSION: 1. No acute disease. Chronic appearing bilateral interstitial pulmonary markings.
[2024-06-07 02:09] LABS: Potassium 4.8 mmol/L (3.5-5.1); Sodium 137 mmol/L (136-145)
[2024-06-07 02:10] LABS: Anion Gap 13 (5-15); Carbon Dioxide 26 mmol/L (20-31)
[2024-06-07 02:12] LABS: Calcium 11.2 mg/dL (8.7-10.4); Chloride 98 mmol/L (98-107)
[2024-06-07 02:16] LABS: BUN/Creatinine Ratio 8.4 (10.0-20.0); Blood Urea Nitrogen 61 mg/dL (9-23); Glucose 245 mg/dL (74-106)
[2024-06-07 02:17] VITALS: PULSE 104; O2SAT 95
[2024-06-07] MEDS ORDERED: ONDANSETRON HCL 4 MG/2 ML VIAL IV PRN (03:00)
[2024-06-07] MEDS ORDERED: DEXTROSE (50%) 50ML SYRG IV PRN (03:00)
[2024-06-07] MEDS: amLODIPine BESYLATE 5 MG TAB PO ONE (03:00)
[2024-06-07] MEDS ORDERED: ACETAMINOPHEN 325 MG TAB PO PRN (03:00)
[2024-06-07] MEDS ORDERED: HYDROcodone-ACET 5/325MG TAB PO PRN (03:00)
--- NOTE | 2024-06-07 03:27 | DVHHP2 ---
History of Present Illness Reason for Visit: Acute exacerbation of congestive heart failure History of Present Illness The patient is a 63-year-old male with past medical history of DM, CHF, end- stage renal disease on hemodialysis, and hypertension who presented to [facility] ED with complaint of shortness of breaths. Patient reports symptoms progressively get worse with cough, wheezing, chest discomfort, increased work of breathing, desaturating on oxygen 2 L/min at 81%, getting worse that prompted this visit. Patient was seen and evaluated in the ED, la boratory data shows WBC 8.2, hemoglobin 9.8, hematocrit 29.3, platelets 287, sodium 137, potassium 4.8, BUN 61, creatinine 7.29, glucose 245, troponin 143, BNP 4689.90, blood pressure 199/95 trending down to 176/87, heart rate 104, temperature 98.2� F, O2 saturation 95% on BiPAP. Please see medication orders section in the computer. On my assessment, patient denied chest pain, no h eadache, no dizziness, no diaphoresis, currently on oxygen, no nausea, no vomiting, no fever, no chills. Patient was admitted for further evaluation and medical management. Past Medical History CHF, DM, ESRD, HTN Past Surgical History Dialysis access; Dialysis Sunday Family History Reviewed, noncontributory to the management of this case. Past Social History The patient lives at home, denies smoking, alcohol or illicit drugs abuse. Review of Systems Constitutional: No: Fever, Chills, Sweats, Weakness, Malaise, Other Eyes: No: Pain, Vision change, Conjunctivae inflammation, Eyelid inflammation, Other, Redness ENT: No: Ear pain, Ear discharge, Nose pain, Nose discharge, Nose congestion, Mouth pain, Mouth swelling, Throat pain, Throat swelling, Other Respiratory: Cough, Shortness of breath, SOB with excertion, Wheezing; No: Dry, Hemoptysis, Pleuritic Pain, Sputum, Wheezing, Other Cardiovascular: Chest Pain; No: Palpitations, Orthopnea, Paroxysmal Noc. Dyspnea, Edema, Lt Headedness, Other Gastrointestinal: No: Nausea, Vomiting, Abdominal Pain, Diarrhea, Constipation, Melena, Hematochezia, Other Genitourinary: No Dysuria, No Frequency, No Incontinence, No Hematuria, No Retention, No Other Musculoskeletal: No: other, neck pain, shoulder pain, arm pain, back pain, hand pain, leg pain, foot pain Skin: No: Rash, Lesions, Jaundice, Bruising, Other Neurological: No: Weakness, Numbness, Incoordination, Change in speech, Confusion, Seizures, Other Allergies: Coded Allergies: Latex (Verified Allergy, Unknown, 01/01/20) Penicillins (Verified Allergy, Unknown, 01/01/20) Sulfa Antibiotics (Verified Allergy, Unknown, 09/16/23) Medications Current Medications Medications Dose Ordered Sig/Herson Route Start Time Stop Time Status Last Admin Dose Admin Aspirin 81 mg DAILY PO 06/07/24 10:00 Atorvastatin Calcium 20 mg HS PO 06/07/24 22:00 Hydralazine HCl 10 mg Q6HP PRN IV 06/07/24 03:00 Carvedilol 12.5 mg Q12HR PO 06/07/24 10:00 Amlodipine Besylate 5 mg DAILY PO 06/07/24 10:00 Diagnostic Test (Pha) 1 strip ACHS 06/07/24 07:00 Insulin Human Regular HS SC 06/07/24 22:00 Insulin Human Regular AC SC 06/07/24 07:00 Dextrose 50 ml UD PRN IV 06/07/24 03:00 Sodium Chloride 10 ml Q8HR IV 06/07/24 06:00 Acetaminophen/ Hydrocodone Bitart 1 tab Q4HP PRN PO 06/07/24 03:00 Ondansetron HCl 4 mg Q4HP PRN IV 06/07/24 03:00 Docusate Sodium 100 mg BIDPRN PRN PO 06/07/24 03:00 Acetaminophen 650 mg Q6HP PRN PO 06/07/24 03:00 Exam Vital Signs Vital Signs Date Time Temp Pulse Resp B/P (MAP) Pulse Ox O2 Delivery O2 Flow Rate FiO2 06/07/24 02:17 104 95 Bi-Pap+ 30 30 06/07/24 02:14 98.2 23 176/87 (116) 98.2 General Appearance: Alert, Oriented X3, Cooperative, No acute distress HEENT: Atraumatic, PERRLA, EOMI, Mucous membr. moist/pink Respiratory: Normal air movement, Other (Diminished breath sounds) Cardiovascular: Regular rate, Normal S1, Normal S2, No murmurs Abdominal: Normal bowel sounds, Soft, No tenderness, No hepatospenomegaly, No masses Extremities: No clubbing, No cyanosis, No edema, Normal pulses, No tenderness/swelling Skin: No rashes, No breakdown, No significant lesion Neuro: Normal gait, Normal speech, Strength at 5/5 X4 ext, Normal tone, Sensation intact, Cranial nerves 3-12 NL, Reflexes 2+ Psych/Mental Status: Mental status NL, Mood NL Labs/Xrays Labs Test 06/07/24 02:46 06/07/24 01:47 Range/Units White Blood Count 8.2 # 4.4-10.8 10^3/uL Red Blood Count 3.10 L 4.5-5.90 10^6/uL Hemoglobin 9.8 #L 13.5-17.5 g/dL Hematocrit 29.3 #L 41.0-53.0 % Mean Corpuscular Volume 94.5 80.0-100.0 fL Mean Corpuscular Hemoglobin 31.5 28.0-32.0 pg Mean Corpuscular Hemoglobin Concent 33.3 32.0-36.0 g/dL Red Cell Distribution Width 16.7 H 11.8-14.3 % Platelet Count 287 140-450 10^3/uL Mean Platelet Volume 7.8 6.9-10.8 fL Neutrophils (%) (Auto) 64.9 37.0-80.0 % Lymphocytes (%) (Auto) 23.7 10.0-50.0 % Monocytes (%) (Auto) 6.4 0.0-12.0 % Eosinophils (%) (Auto) 4.3 0.0-7.0 % Basophils (%) (Auto) 0.7 0.0-2.0 % Neutrophils # (Auto) 5.3 1.6-8.6 10 ^3/uL Lymphocytes # (Auto) 1.9 0.4-5.4 10 ^3/uL Monocytes # (Auto) 0.5 0-1.3 10 ^3/uL Eosinophils # (Auto) 0.4 0-0.8 10 ^3/uL Basophils # (Auto) 0.1 0-0.2 10 ^3/uL Nucleated Red Blood Cells 0.0 % Sodium Level 137 136-145 mmol/L Potassium Level 4.8 3.5-5.1 mmol/L Chloride Level 98 98-107 mmol/L Carbon Dioxide Level 26 20-31 mmol/L Anion Gap 13 5-15 Blood Urea Nitrogen 61 #H 9-23 mg/dL Creatinine 7.29 #H 0.700-1.30 mg/dL Glomerular Filtration Rate Calc 8 >90 mL/min BUN/Creatinine Ratio 8.4 L 10.0-20.0 Serum Glucose 245 H 74-106 mg/dL Calcium Level 11.2 H 8.7-10.4 mg/dL B-Type Natriuretic Peptide 4689.90 0-100 pg/mL PATIENT: TIMO PELAEZ ACCT: [id number] UNIT: [id number] : 1960 LOC: ER ROOM / BED: / AGE / SEX: 63 / M ADM STATUS: REG ER SERVICE 0131 ORDERING PHYSICIAN: CHELE SARAH MD PROCEDURE(s): CXRP - CHEST PORTABLE REASON: sob ORDER NUMBER(s): [id number], ACCESSION NUMBER(s): [id number] CHEST RADIOGRAPH Indication: sob Technique: Single frontal view of the chest was obtained COMPARISON: XY CHEST PORTABLE on DOS: 06/03/24, XY CHEST PORTABLE on DOS: 09/16/23, XY CHEST PORTABLE on DOS: 12/03/22, CHEST PORTABLE on DOS: 01/01/20 FINDINGS: Lines and Tubes: None Lungs: No evidence of focal consolidation. Chronic appearing bilateral interstitial pulmonary markings noted throughout all lung zones. Pleura: No effusion. No pneumothorax. Cardiomediastinal contours: Unremarkable Bones: Unremarkable IMPRESSION: 1. No acute disease. Chronic appearing bilateral interstitial pulmonary markings. Assessment/Plan Assessment/Plan Generalized weakness Acute dyspnea Hypertensive urgency End-stage renal disease on hemodialysis Acute exacerbation of congestive heart failure Plan 1. Admit to telemetry unit 2. Breathing treatment 3. Pain control management 4. Management of fluids and electrolytes 5. Consultation for nephrology 6. Diagnostic tests chest x-ray 7. DVT prophylaxis-on aspirin 8. Repeat labs CBC, CMP in a.m. 9. Continue with current medical management 10. Treatment plan discussed with patient and RN. Patient verbalized understanding. Plan discussed with: Patient, Other (RN) My Orders Orders - VINITA MOHAMUD DNP Procedure Category Date Status Time Complete Blood Count LAB 06/07/24 Logged 04:00 Comprehensive LAB 06/07/24 Logged Metabolic Panel 04:00 Aspirin Tablet PHA 06/07/24 In Process 10:00 Atorvastatin (Lipitor) PHA 06/07/24 In Process 22:00 Hydralazine Injection PHA 06/07/24 In Process (Apresoline Inject 03:00 Carvedilol Tablet PHA 06/07/24 In Process (Coreg Tablet) 10:00 *Dr. Izquierdo [facility] CONS 06/07/24 Transmitted -[place] 02:52 Consistent DIET 06/07/24 Transmitted Carb(Ccho)Diabetes Breakfast Amlodipine Tablet PHA 06/07/24 In Process (Norvasc Tablet) 10:00 Glucose Blood PHA 06/07/24 In Process (Accu-Chek Comfort 07:00 Insulin R (Human) PHA 06/07/24 In Process (Insulin R) 22:00 Insulin R (Human) PHA 06/07/24 In Process (Insulin R) 07:00 Dextrose 50% Syringe PHA 06/07/24 In Process 03:00 Allergies ABELARDO 06/07/24 In Process 02:52 Code Status CODE 06/07/24 Transmitted 02:52 Renal DIET 06/07/24 Transmitted Standard(2gna,3gk,Lopho) Breakfast Sodium Chloride Lock PHA 06/07/24 In Process (Saline Lock Ns) 06:00 Oxygen Per Hour RT 06/07/24 Transmitted 02:52 Hydrocodone-Acet PHA 06/07/24 In Process 5/325mg Tab ([place] 03:00 Ondansetron Hcl PHA 06/07/24 In Process (Zofran) 03:00 Docusate Sodium PHA 06/07/24 In Process Capsule (Colace 03:00 Complete Blood Count LAB 06/08/24 Verified 04:00 Comprehensive LAB 06/08/24 Verified Metabolic Panel 04:00 Condition: Serious ABELARDO 06/07/24 In Process 02:52 Acetaminophen Tablet PHA 06/07/24 In Process (Tylenol Tablet) 03:00 Bedrest With Bathroom ABELARDO 06/07/24 In Process Privileg 02:52 Sequential ABELARDO 06/07/24 In Process Compression Device Admit ADMIT 06/07/24 Transmitted 03:26 Nitroglycerin PHA 06/07/24 Transmitted Sublingual (Ntrostat 03:30 Morphine Sulfate PHA 06/07/24 Transmitted Injection 03:30 Notify Of Changes ABELARDO 06/07/24 Transmitted From Base 03:26 [employer] Shoe [employer] For ABELARDO 06/07/24 Transmitted 24 Hours 03:26 Emergency Dysrhythmia ABELARDO 06/07/24 Transmitted Protocol 03:26 Rhythm Strips Once [facility] 06/07/24 Transmitted Every Shift 03:26 Oxygen By Nasal RT 06/07/24 Transmitted Cannula 03:26 Problem List: (1) Generalized weakness (2) Acute dyspnea (3) ESRD (end stage renal disease) (4) Hypertensive urgency (5) Acute exacerbation of congestive heart failure Date of Service: June 07, 2024 Billing Provider: VINITA MOHAMUD DNP Common Visit Codes: [id number] INP/OBS CARE (HIGH) VINITA MOHAMUD DNP June 07, 2024 03:27
[2024-06-07] MEDS ORDERED: NITROGLYCERIN 0.4 MG SL TAB SL PRN (03:30)
[2024-06-07] MEDS ORDERED: MORPHINE SULFATE INJ 2 MG/ml SYRG IV PRN (03:30)
[2024-06-07 04:40] VITALS: BP 165/82; PULSE 104; RESP 23; TEMP 98.2; O2SAT 95
[2024-06-07 04:55] LABS: Basophils # (auto) 0 10 ^3/uL (0-0.2); Basophils % (auto) 0.3 % (0.0-2.0); Eosinophils # (auto) 0.2 10 ^3/uL (0-0.8); Eosinophils % (auto) 2.1 % (0.0-7.0); Hematocrit 25.4 % (41.0-53.0); Hemoglobin 8.5 g/dL (13.5-17.5); Lymphocytes # (auto) 0.4 10 ^3/uL (0.4-5.4); Mean Corpuscular Hemoglobin 31.6 pg (28.0-32.0); Mean Corpuscular Hgb Conc. 33.5 g/dL (32.0-36.0); Mean Corpuscular Volume 94.3 fL (80.0-100.0); Monocytes # (auto) 0.4 10 ^3/uL (0-1.3); Monocytes % (auto) 5.7 % (0.0-12.0); Neutrophils # (auto) 6.3 10 ^3/uL (1.6-8.6); Neutrophils % (auto) 85.9 % (37.0-80.0); Nucleated Red Blood Cells % 0.1 %; Platelet Count (auto) 223 10^3/uL (140-450); Red Blood Cells 2.69 10^6/uL (4.5-5.90); Red Cell Distribution Width 16.5 % (11.8-14.3); White Blood Cell 7.4 10^3/uL (4.4-10.8)
[2024-06-07 05:14] LABS: Alanine Aminotransferase 37 U/L (7-40); Albumin 4.3 g/dL (3.2-4.8); Alkaline Phosphatase 56 U/L (46-116); Anion Gap 12 (5-15); Aspartate Aminotransferase 35 U/L (13-40); BUN/Creatinine Ratio 8.9 (10.0-20.0); Carbon Dioxide 27 mmol/L (20-31); Chloride 98 mmol/L (98-107); Sodium 137 mmol/L (136-145); Total Protein 6.9 g/dL (5.7-8.2)
[2024-06-07 05:15] LABS: Bilirubin, Total 0.4 mg/dL (0.2-1.0); Blood Urea Nitrogen 66 mg/dL (9-23); Calcium 10.6 mg/dL (8.7-10.4); Glucose 246 mg/dL (74-106)
[2024-06-07] MEDS: SODIUM CHLOR 0.9% PF (SALINE LOCK) 10ML VIAL/SYR IV SCH (05:27)
[2024-06-07 06:55] VITALS: BP 161/80; PULSE 106; O2SAT 99
[2024-06-07] MEDS: ACCU-CHEK COMFORT CURVE STRIP VI SCH (07:08)
[2024-06-07] MEDS: InsuLIN REG 1unit/0.01ml Soln (100units/ml) SC SCH ×2 (07:08→22:00)
--- NOTE | 2024-06-07 07:12 | ECG ---
[facility] Test Date: 2024-06-07 Test Time: 01:23:21 Pat Name: TIMO PELAEZ Department: ED Room: 0207T Gender: M Prospecting Observer: : 1960 Requested By: CHELE SARAH Order Number: [id number] Reading MD: Andrew Ring Measurements Intervals [place] Rate: 105 P: 49 [place]: 142 QRS: 31 QRSD: 97 T: 193 QT: 360 QTc: 476 Interpretive Statements Sinus tachycardia Probable left atrial enlargement RSR' in V1 or V2, probably normal variant LVH with secondary repolarization abnormality Borderline prolonged QT interval Electronically Signed On 06-12-2024 20:26:22 PDT by Andrew Ring Please click the below link to view image of tracing.
[2024-06-07 07:36] LABS: Base Excess 2.6 mmol/L (-2.0-3.0)
[2024-06-07] MEDS: ASPirin 81 mg TAB PO SCH (10:16)
[2024-06-07] MEDS: amLODIPine BESYLATE 5 MG TAB PO SCH (10:18)
[2024-06-07] MEDS: CARVEDILOL 12.5 MG TAB PO SCH (10:18)
--- NOTE | 2024-06-07 14:29 | DVHINCON2 ---
Date of service: June 07, 2024 Referring Physician Isidro Cruz Reason for Consultation Dialysis History of Present Illness 63 Y/O M with history of ESRD on HD via AVF,DM,HTN, and anemia presented with chief complaint of SOB. He was recently hospitalized here for chest pain and discharged yesterday. He had dialysis done in house and Sunday. labs showed K: 5.0 mmol/l. CXR shows pulmonary congestion. Nephrology consulted for dialysis Past Medical History ESRD,DM,HTN, and anemia Past Surgical History AVF creation Allergies: Coded Allergies: Latex (Verified Allergy, Unknown, 01/01/20) Penicillins (Verified Allergy, Unknown, 01/01/20) Sulfa Antibiotics (Verified Allergy, Unknown, 09/16/23) Home Meds Active Scripts Nifedipine (Nifedipine Er) 60 Mg Tab, 1 TAB PO DAILY for 30 Days, #30 TAB 5 Refills Prov:ONELIA ROBERTSON RESIDENT 06/06/24 Carvedilol (Carvedilol) 6.25 Mg Tab, 1 TAB PO BID for 30 Days, #60 TAB 1 Refill Prov:ONELIA ORBERTSON RESIDENT 06/06/24 Hydralazine Hcl (Hydralazine Hcl) 10 Mg Tab, 10 MG PO Q6HR for 30 Days, #120 TAB Prov:PATO UNGER RESIDENT 09/18/23 Reported Medications Atorvastatin Calcium (ATORVASTATIN CALCIUM) 40 Mg Tab, 1 TAB PO DAILY 06/04/24 Bumetanide (Bumetanide) 2 Mg Tab, 1 TAB PO BID 06/04/24 Metformin Hydrochloride (Metformin Hcl) 500 Mg Tab, 1 TAB PO BID 06/04/24 Ergocalciferol (Vitamin D) 50,000 Unit Cap, 1 CAP PO QWEEKLY 06/04/24 B-Complex W/ C & Folic Acid (Ani-Jaxson Rx) Tab, 1 TAB PO DAILY 06/04/24 Patiromer Sorbitex Calcium ([place]) 8.4 Gm Pow, 1 PKT PO DAILY 06/04/24 Sodium Bicarbonate (Sodium Bicarbonate) 650 Mg Tab, 1 TAB PO TID for 30 Days, #90 06/04/24 Clopidogrel Bisulfate (CLOPIDOGREL) 75 Mg Tab, 1 TAB PO DAILY for 90 Days, #90 12/04/22 Aspirin (ASPIRIN 81) 81 Mg Tab, 81 MG OR, TAB 10/30/23 Discontinued Reported Medications Losartan Potassium (Losartan Potassium) 100 Mg Tab, 1 TAB PO DAILY 06/04/24 Amlodipine Besylate (Amlodipine Besylate) 10 Mg Tab, 1 TAB PO DAILY 06/04/24 Metoprolol Succinate (Metoprolol Succinate Er) 100 Mg Tab, 1 TAB PO BID 06/04/24 Empagliflozin (Jardiance) 10 Mg Tab, 1 TAB PO DAILY 06/04/24 Discontinued Scripts Nifedipine (Nifedipine Er) 30 Mg Tab, 60 MG PO DAILY for 30 Days, #60 TAB Prov:PATO UNGER RESIDENT 09/18/23 Carvedilol (COREG) 3.125 Mg Tab, 6.25 MG PO Q12HR for 30 Days, #120 TAB Prov:PATO UNGER RESIDENT 09/18/23 Current Medications Current Medications Medications (Trade) Dose Ordered Sig/Herson Route PRN Reason Start Time Stop Time Status Last Admin Aspirin 81 mg DAILY PO 06/07/24 10:00 06/07/24 10:16 Atorvastatin Calcium (Lipitor) 20 mg HS PO 06/07/24 22:00 Hydralazine HCl (Apresoline Injection) 10 mg Q6HP PRN IV SBP>150 06/07/24 03:00 06/07/24 14:55 Carvedilol (Coreg Tablet) 12.5 mg Q12HR PO 06/07/24 10:00 06/07/24 10:18 Amlodipine Besylate (Norvasc Tablet) 5 mg DAILY PO 06/07/24 10:00 06/07/24 10:18 Diagnostic Test (Pha) (Accu-Chek Comfort Curve T) 1 strip ACHS 06/07/24 07:00 06/07/24 11:51 Insulin Human Regular (InsuLIN R) HS SC 06/07/24 22:00 Insulin Human Regular (InsuLIN R) AC SC 06/07/24 07:00 06/07/24 07:08 Dextrose 50 ml UD PRN IV Blood Sugar LESS THAN 60 06/07/24 03:00 Sodium Chloride (Saline Lock Ns) 10 ml Q8HR IV 06/07/24 06:00 06/07/24 14:24 Acetaminophen/ Hydrocodone Bitart ([place] 5/325MG Tab) 1 tab Q4HP PRN PO MODERATE PAIN (4-6 PAIN SCALE) 06/07/24 03:00 Ondansetron HCl (Zofran) 4 mg Q4HP PRN IV NAUSEA / VOMITING 06/07/24 03:00 Docusate Sodium (Colace Capsule) 100 mg BIDPRN PRN PO FOR CONSTIPATION 06/07/24 03:00 Acetaminophen (Tylenol Tablet) 650 mg Q6HP PRN PO PAIN SCALE 1-3 OR TEMP>100.4 06/07/24 03:00 Nitroglycerin (Ntrostat Sublingual) 0.4 mg Q5MINP PRN SL FOR CHEST PAIN 06/07/24 03:30 Morphine Sulfate 2 mg Q30M PRN IV FOR CHEST PAIN 06/07/24 03:30 Family History: Cervical cancer G8 MOTHER, Onset:50's - 60 Diabetes mellitus G8 MOTHER G8 FATHER Hypertension G8 MOTHER Review of Systems as per HPI, all other systems were reviewed and are negative H&P Exam Vital Signs/I&O Vital Sign Date Time Temp Pulse Resp B/P (MAP) Pulse Ox O2 Delivery O2 Flow Rate FiO2 06/07/24 14:55 206/62 06/07/24 12:00 79 13 98 06/07/24 07:37 Bi-Pap+ 30 30 06/07/24 07:37 97.7 97.7 Physical Exam Gen: NAD, AAOx3 HEENT: NC,AT Lungs: Crackles lung bases Cardiac: RRR, no murmur Abd: soft, no tenderness Ext: no edema + AVF Labs/Diagnostic Data Labs/Diagnostic Data Laboratory Tests Test 06/07/24 11:38 06/07/24 07:30 06/07/24 07:07 06/07/24 04:11 Range/Units POC Glucose 80 189 H 70-106 mg/dl Blood Gas Specimen Type Arterial Blood Gas Sample Site Right radial Blood Gas Patient Temperature 37.0 Arterial Blood Date Drawn [id number] Arterial Blood pH 7.492 H 7.350-7.450 Arterial Blood Partial Pressure CO2 34.7 L 35.0-48.0 mmHg Arterial Blood Partial Pressure O2 104.9 83.0-108.0 mmHg Arterial Blood HCO3 26.0 21.0-28.0 mmol/L Arterial Blood Oxygen Saturation 96.8 94.0-98.0 % Arterial Blood Base Excess 2.6 -2.0-3.0 mmol/L Arterial Blood Oxyhemoglobin 95.5 94.0-98.0 % Arterial Blood Carboxyhemoglobin 1.0 0.5-1.5 % Arterial Blood Methemoglobin 0.3 0.0-1.5 % Pablo Test Yes Blood Gas Total Hemoglobin 7.80 L 13.5-17.5 g/dL Blood Gas Modality Mask - bipap FiO2 % 30.0 White Blood Count 7.4 4.4-10.8 10^3/uL Red Blood Count 2.69 L 4.5-5.90 10^6/uL Hemoglobin 8.5 L 13.5-17.5 g/dL Hematocrit 25.4 #L 41.0-53.0 % Mean Corpuscular Volume 94.3 80.0-100.0 fL Mean Corpuscular Hemoglobin 31.6 28.0-32.0 pg Mean Corpuscular Hemoglobin Concent 33.5 32.0-36.0 g/dL Red Cell Distribution Width 16.5 H 11.8-14.3 % Platelet Count 223 140-450 10^3/uL Mean Platelet Volume 7.7 6.9-10.8 fL Neutrophils (%) (Auto) 85.9 H 37.0-80.0 % Lymphocytes (%) (Auto) 6.0 L 10.0-50.0 % Monocytes (%) (Auto) 5.7 0.0-12.0 % Eosinophils (%) (Auto) 2.1 0.0-7.0 % Basophils (%) (Auto) 0.3 0.0-2.0 % Neutrophils # (Auto) 6.3 1.6-8.6 10 ^3/uL Lymphocytes # (Auto) 0.4 0.4-5.4 10 ^3/uL Monocytes # (Auto) 0.4 0-1.3 10 ^3/uL Eosinophils # (Auto) 0.2 0-0.8 10 ^3/uL Basophils # (Auto) 0 0-0.2 10 ^3/uL Nucleated Red Blood Cells 0.1 % Sodium Level 137 136-145 mmol/L Potassium Level 5.0 3.5-5.1 mmol/L Chloride Level 98 98-107 mmol/L Carbon Dioxide Level 27 20-31 mmol/L Anion Gap 12 5-15 Blood Urea Nitrogen 66 H 9-23 mg/dL Creatinine 7.45 H 0.700-1.30 mg/dL Glomerular Filtration Rate Calc 8 >90 mL/min BUN/Creatinine Ratio 8.9 L 10.0-20.0 Serum Glucose 246 H 74-106 mg/dL Calcium Level 10.6 H 8.7-10.4 mg/dL Total Bilirubin 0.4 0.2-1.0 mg/dL Aspartate Amino Transferase (AST) 35 13-40 U/L Alanine Aminotransferase (ALT) 37 7-40 U/L Alkaline Phosphatase 56 46-116 U/L Troponin I High Sensitivity 151 *H </=54 ng/L Total Protein 6.9 5.7-8.2 g/dL Albumin 4.3 3.2-4.8 g/dL Test 06/07/24 02:46 06/07/24 01:47 Range/Units Troponin I High Sensitivity 118 *H 143 *H </=54 ng/L White Blood Count 8.2 # 4.4-10.8 10^3/uL Red Blood Count 3.10 L 4.5-5.90 10^6/uL Hemoglobin 9.8 #L 13.5-17.5 g/dL Hematocrit 29.3 #L 41.0-53.0 % Mean Corpuscular Volume 94.5 80.0-100.0 fL Mean Corpuscular Hemoglobin 31.5 28.0-32.0 pg Mean Corpuscular Hemoglobin Concent 33.3 32.0-36.0 g/dL Red Cell Distribution Width 16.7 H 11.8-14.3 % Platelet Count 287 140-450 10^3/uL Mean Platelet Volume 7.8 6.9-10.8 fL Neutrophils (%) (Auto) 64.9 37.0-80.0 % Lymphocytes (%) (Auto) 23.7 10.0-50.0 % Monocytes (%) (Auto) 6.4 0.0-12.0 % Eosinophils (%) (Auto) 4.3 0.0-7.0 % Basophils (%) (Auto) 0.7 0.0-2.0 % Neutrophils # (Auto) 5.3 1.6-8.6 10 ^3/uL Lymphocytes # (Auto) 1.9 0.4-5.4 10 ^3/uL Monocytes # (Auto) 0.5 0-1.3 10 ^3/uL Eosinophils # (Auto) 0.4 0-0.8 10 ^3/uL Basophils # (Auto) 0.1 0-0.2 10 ^3/uL Nucleated Red Blood Cells 0.0 % Sodium Level 137 136-145 mmol/L Potassium Level 4.8 3.5-5.1 mmol/L Chloride Level 98 98-107 mmol/L Carbon Dioxide Level 26 20-31 mmol/L Anion Gap 13 5-15 Blood Urea Nitrogen 61 #H 9-23 mg/dL Creatinine 7.29 #H 0.700-1.30 mg/dL Glomerular Filtration Rate Calc 8 >90 mL/min BUN/Creatinine Ratio 8.4 L 10.0-20.0 Serum Glucose 245 H 74-106 mg/dL Calcium Level 11.2 H 8.7-10.4 mg/dL B-Type Natriuretic Peptide 4689.90 0-100 pg/mL Assessment ESRD on HD via AVF Acute on chronic diastolic CHF DM HTN anemia of CKD CAD Hyperphosphatemia Secondary hyperparathyroidism Metabolic acidosis Plan: s/p Hd and Sunday (here at [facility]) Next HD tomorrow (Sunday) fluid restriction BECKY post HD as needed; goal Hb: 10-11 g/dl continue phosphate binders with meals continue coreg and Amlodipine Plan discussed with: Patient ABDELRAHMAN STATON MD June 07, 2024 14:29
--- NOTE | 2024-06-07 14:33 | DVHPN2 ---
Reviewed: Care Plan, H&P, Labs, Medications, Previous Orders, Radiology Changes from previous H/P or p: No Changes Eyes: No Pain, No Vision change, No Conjunctivae inflammation, No Eyelid inflammation, No Other, No Redness ENT: No Ear pain, No Ear discharge, No Nose pain, No Nose discharge, No Nose congestion, No Mouth pain, No Mouth swelling, No Throat pain, No Throat swelling, No Other Cardiovascular: Chest Pain; No Palpitations, No Orthopnea, No Paroxysmal Noc. Dyspnea, No Edema, No Lt Headedness, No Other Respiratory: Cough; No Dry; Shortness of breath, SOB with excertion, Wheezing; No Hemoptysis, No Pleuritic Pain, No Sputum, No Other Gastrointestinal: No Nausea, No Vomiting, No Abdominal Pain, No Diarrhea, No Constipation, No Melena, No Hematochezia, No Other Genitourinary: No Dysuria, No Frequency, No Incontinence, No Hematuria, No Retention, No Other Musculoskeletal: No other, No neck pain, No shoulder pain, No arm pain, No back pain, No hand pain, No leg pain, No foot pain Skin: No Rash, No Lesions, No Jaundice, No Bruising, No Other Objective Vitals Vital Signs Date Time Temp Pulse Resp B/P (MAP) Pulse Ox O2 Delivery O2 Flow Rate FiO2 06/07/24 12:00 79 13 187/95 (125) 98 06/07/24 07:37 Bi-Pap+ 30 30 06/07/24 07:37 97.7 97.7 Medications Current Medications Medications Dose Ordered Sig/Herson Route Start Time Stop Time Status Last Admin Dose Admin Aspirin 81 mg DAILY PO 06/07/24 10:00 06/07/24 10:16 81 MG Atorvastatin Calcium 20 mg HS PO 06/07/24 22:00 Hydralazine HCl 10 mg Q6HP PRN IV 06/07/24 03:00 Carvedilol 12.5 mg Q12HR PO 06/07/24 10:00 06/07/24 10:18 12.5 MG Amlodipine Besylate 5 mg DAILY PO 06/07/24 10:00 06/07/24 10:18 5 MG Diagnostic Test (Pha) 1 strip ACHS 06/07/24 07:00 06/07/24 11:51 1 STRIP Insulin Human Regular HS SC 06/07/24 22:00 Insulin Human Regular AC SC 06/07/24 07:00 06/07/24 07:08 3 UNITS Dextrose 50 ml UD PRN IV 06/07/24 03:00 Sodium Chloride 10 ml Q8HR IV 06/07/24 06:00 06/07/24 14:24 10 ML Acetaminophen/ Hydrocodone Bitart 1 tab Q4HP PRN PO 06/07/24 03:00 Ondansetron HCl 4 mg Q4HP PRN IV 06/07/24 03:00 Docusate Sodium 100 mg BIDPRN PRN PO 06/07/24 03:00 Acetaminophen 650 mg Q6HP PRN PO 06/07/24 03:00 Nitroglycerin 0.4 mg Q5MINP PRN SL 06/07/24 03:30 Morphine Sulfate 2 mg Q30M PRN IV 06/07/24 03:30 Laboratory Results Laboratory Tests 06/07/24 04:11 Chemistry Test 06/07/24 01:47 06/07/24 04:11 Calcium Level 11.2 mg/dL (8.7-10.4) H 10.6 mg/dL (8.7-10.4) H Albumin 4.3 g/dL (3.2-4.8) Total Protein 6.9 g/dL (5.7-8.2) Cardiac Markers Test 06/07/24 01:47 B-Type Natriuretic Peptide 4689.90 pg/mL (0-100) LFT Test 06/07/24 04:11 Alanine Aminotransferase (ALT) 37 U/L (7-40) Alkaline Phosphatase 56 U/L (46-116) Aspartate Amino Transferase (AST) 35 U/L (13-40) Total Bilirubin 0.4 mg/dL (0.2-1.0) Blood Gas Results Test 06/07/24 07:30 Arterial Blood pH 7.492 (7.350-7.450) FiO2 % 30.0 Labs and/or images reviewed: Labs reviewed by me, Image(s) reviewed by me Assessment/Plan Assessment/Plan Acute hypoxic respiratory failure likely due to volume overload in the setting of end-stage renal disease, consult for Dr. Rodrigues on 30 % by BiPAP End-stage renal disease requiring hemodialysis (Mon/Wed/Fri): Consult by Dr. Rose R/O Acute diastolic/systolic heart failure: Consult for Dr. Moya Acute hyperkalemia in the setting of end-stage renal disease Hypercalcemia likely in the setting of end-stage renal disease Hypotension Pre Diabetes Time Spent 70 minutes Advanced care planning time 20 minutes Patient is full code Patient was Discharged from this hospital yesterday 06/06/2024 Plan discussed with: Patient Date of Service: June 07, 2024 Billing Provider: JUANITO STEVENS MD Common Visit Codes: [id number] CARE 30-74 MIN JUANITO STEVENS MD June 07, 2024 14:33
[2024-06-07] MEDS: hydrALAZINE HCL 20 MG/ML VL IV PRN (14:55)
--- NOTE | 2024-06-07 15:15 | DVHINCON2 ---
Date of service: June 07, [address] Linsey Rucker Reason for Consultation Acute respiratory failure History of Present Illness History Source: Patient Exam Limitations: No limitations HPI Patient is a 63-year old gentleman with a history of diabetes, hypertension, ESRD on HD and home oxygen who presented with shortness of breath and cough. Was seen in the emergency room chest x0ray demonstrated pulmonary edema and the patient was admitted for IV diuresis. Pulmonology was consulted to assist in management. Home Meds Active Scripts Nifedipine (Nifedipine Er) 60 Mg Tab, 1 TAB PO DAILY for 30 Days, #30 TAB 5 Refills Prov:ONELIA ROBERTSON RESIDENT 06/06/24 Carvedilol (Carvedilol) 6.25 Mg Tab, 1 TAB PO BID for 30 Days, #60 TAB 1 Refill Prov:ONELIA ROBERTSON RESIDENT 06/06/24 Hydralazine Hcl (Hydralazine Hcl) 10 Mg Tab, 10 MG PO Q6HR for 30 Days, #120 TAB Prov:PATO UNGER RESIDENT 09/18/23 Reported Medications Atorvastatin Calcium (ATORVASTATIN CALCIUM) 40 Mg Tab, 1 TAB PO DAILY 06/04/24 Bumetanide (Bumetanide) 2 Mg Tab, 1 TAB PO BID 06/04/24 Metformin Hydrochloride (Metformin Hcl) 500 Mg Tab, 1 TAB PO BID 06/04/24 Ergocalciferol (Vitamin D) 50,000 Unit Cap, 1 CAP PO QWEEKLY 06/04/24 B-Complex W/ C & Folic Acid (Ani-Jaxson Rx) Tab, 1 TAB PO DAILY 06/04/24 Patiromer Sorbitex Calcium (Veltassa) 8.4 Gm Pow, 1 PKT PO DAILY 06/04/24 Sodium Bicarbonate (Sodium Bicarbonate) 650 Mg Tab, 1 TAB PO TID for 30 Days, #90 06/04/24 Clopidogrel Bisulfate (CLOPIDOGREL) 75 Mg Tab, 1 TAB PO DAILY for 90 Days, #90 12/04/22 Aspirin (ASPIRIN 81) 81 Mg Tab, 81 MG OR, TAB 12/04/22 Discontinued Reported Medications Losartan Potassium (Losartan Potassium) 100 Mg Tab, 1 TAB PO DAILY 06/04/24 Amlodipine Besylate (Amlodipine Besylate) 10 Mg Tab, 1 TAB PO DAILY 06/04/24 Metoprolol Succinate (Metoprolol Succinate Er) 100 Mg Tab, 1 TAB PO BID 06/04/24 Empagliflozin (Jardiance) 10 Mg Tab, 1 TAB PO DAILY 06/04/24 Discontinued Scripts Nifedipine (Nifedipine Er) 30 Mg Tab, 60 MG PO DAILY for 30 Days, #60 TAB Prov:PATO UNGER RESIDENT 09/18/23 Carvedilol (COREG) 3.125 Mg Tab, 6.25 MG PO Q12HR for 30 Days, #120 TAB Prov:PATO UNGER RESIDENT 09/18/23 Past Medical History Cardiac: HTN Pulmonary: No pertinent Hx Central Nervous System: No pertinent Hx GI: No pertinent Hx Hemotology/Oncology: No pertinent Hx Hepatobiliary: No pertinent Hx Psychiatric: No pertinent Hx Musculoskeletal: No pertinent Hx Rheumotologic: No pertinent Hx Infectious Disease: No peritnent Hx ENT: No pertinent Hx Renal/: ESRD HD/PD Endocrine: NIDDM Dermatology: No pertinent Hx Past Surgical History: No pertinent Hx Family History: Cancer, DM, Hypertension Patient Family History: Cervical cancer G8 MOTHER, Onset:50's - 60 Diabetes mellitus G8 MOTHER G8 FATHER Hypertension G8 MOTHER Smoker: No Hx (Negative) Alocohol: None Drugs: None Lives with: With family Domestic Violence: Neg Review of Systems Constitutional: No symptom reported Ears, Nose, & Throat: No symptom reported Eyes: No symptom reported Pulmonary/Respiratory: Dyspnea, Cough Cardiovascular: No symptom reported Gastrointestinal: No symptom reported Genitourinary: No symptom reported Musculoskeletal: No symptom reported Skin: No symptom reported Psychiatric: No symptom reported Endocrine: No symptom reported Hemotologic/Lymphatic: No symptom reported H&P Exam Vital Signs Vital Signs Date Time Temp Pulse Resp B/P (MAP) Pulse Ox O2 Delivery O2 Flow Rate FiO2 06/07/24 14:55 206/62 06/07/24 12:00 79 13 98 06/07/24 07:37 Bi-Pap+ 30 30 06/07/24 07:37 97.7 97.7 General Appeara: Well developed, Well nourished, Normal Appearance Head Exam: Normal inspection Neck Exam: Normal inspection, Non-tender, Normal alignment Eye Exam: bilateral eye Normal inspection, bilateral eye PERRL, bilateral eye EOMI Ear Exam: bilateral ear Auricle normal, bilateral ear Canal normal, bilateral ear TM normal Nasal Exam: Normal inspection Mouth: Normal Inspection Pulmonary/Respiratory: Decreased breath sounds Cardiovascular/Chest: Normal inspection Peripheral Pulses: 4+ Radial (R), 4+ Radial (L), 4+ Brachial (R), 4+ Brachial (L) Abdominal Exam: Normal bowel sounds Labs/Xrays Labs Test 06/07/24 11:38 06/07/24 07:30 06/07/24 04:11 06/07/24 01:47 Range/Units POC Glucose 80 70-106 mg/dl Blood Gas Specimen Type Arterial Blood Gas Sample Site Right radial Blood Gas Patient Temperature 37.0 Arterial Blood Date Drawn [id number] Arterial Blood pH 7.492 H 7.350-7.450 Arterial Blood Partial Pressure CO2 34.7 L 35.0-48.0 mmHg Arterial Blood Partial Pressure O2 104.9 83.0-108.0 mmHg Arterial Blood HCO3 26.0 21.0-28.0 mmol/L Arterial Blood Oxygen Saturation 96.8 94.0-98.0 % Arterial Blood Base Excess 2.6 -2.0-3.0 mmol/L Arterial Blood Oxyhemoglobin 95.5 94.0-98.0 % Arterial Blood Carboxyhemoglobin 1.0 0.5-1.5 % Arterial Blood Methemoglobin 0.3 0.0-1.5 % Pablo Test Yes Blood Gas Total Hemoglobin 7.80 L 13.5-17.5 g/dL Blood Gas Modality Mask - bipap FiO2 % 30.0 White Blood Count 7.4 4.4-10.8 10^3/uL Red Blood Count 2.69 L 4.5-5.90 10^6/uL Hemoglobin 8.5 L 13.5-17.5 g/dL Hematocrit 25.4 #L 41.0-53.0 % Mean Corpuscular Volume 94.3 80.0-100.0 fL Mean Corpuscular Hemoglobin 31.6 28.0-32.0 pg Mean Corpuscular Hemoglobin Concent 33.5 32.0-36.0 g/dL Red Cell Distribution Width 16.5 H 11.8-14.3 % Platelet Count 223 140-450 10^3/uL Mean Platelet Volume 7.7 6.9-10.8 fL Neutrophils (%) (Auto) 85.9 H 37.0-80.0 % Lymphocytes (%) (Auto) 6.0 L 10.0-50.0 % Monocytes (%) (Auto) 5.7 0.0-12.0 % Eosinophils (%) (Auto) 2.1 0.0-7.0 % Basophils (%) (Auto) 0.3 0.0-2.0 % Neutrophils # (Auto) 6.3 1.6-8.6 10 ^3/uL Lymphocytes # (Auto) 0.4 0.4-5.4 10 ^3/uL Monocytes # (Auto) 0.4 0-1.3 10 ^3/uL Eosinophils # (Auto) 0.2 0-0.8 10 ^3/uL Basophils # (Auto) 0 0-0.2 10 ^3/uL Nucleated Red Blood Cells 0.1 % Sodium Level 137 136-145 mmol/L Potassium Level 5.0 3.5-5.1 mmol/L Chloride Level 98 98-107 mmol/L Carbon Dioxide Level 27 20-31 mmol/L Anion Gap 12 5-15 Blood Urea Nitrogen 66 H 9-23 mg/dL Creatinine 7.45 H 0.700-1.30 mg/dL Glomerular Filtration Rate Calc 8 >90 mL/min BUN/Creatinine Ratio 8.9 L 10.0-20.0 Serum Glucose 246 H 74-106 mg/dL Calcium Level 10.6 H 8.7-10.4 mg/dL Total Bilirubin 0.4 0.2-1.0 mg/dL Aspartate Amino Transferase (AST) 35 13-40 U/L Alanine Aminotransferase (ALT) 37 7-40 U/L Alkaline Phosphatase 56 46-116 U/L Troponin I High Sensitivity 151 *H </=54 ng/L Total Protein 6.9 5.7-8.2 g/dL Albumin 4.3 3.2-4.8 g/dL B-Type Natriuretic Peptide 4689.90 0-100 pg/mL Assessment/Plan Plan Impression Acute on chronic respiratory failure Pulmonary edema ESRD on HD Fluid overload Patient seen and examined Events Low oxygen requirements On 2 liters nasal cannula Vital signs stable Labs and imaging reviewed Management Supplemental oxygen Titrate to maintain sats 90% or above Incentive spirometry Okay to withhold antibiotics Bronchodilators Diurese Monitor renal function HD as per nephrology Management deferred Monitor electrolytes Supplement as needed DVT prophylaxis Plan discussed with: Patient HIRAL DASILVA MD June 07, 2024 15:15
[2024-06-07] MEDS ORDERED: B-CO-6 PO (17:57)
[2024-06-07 19:30] VITALS: PULSE 91; RESP 24; O2SAT 97
[2024-06-07 22:14] VITALS: BP 157/70; PULSE 86; RESP 17; TEMP 97.5; O2SAT 97
[2024-06-07] MEDS: ATORVASTATIN 20 MG TAB PO SCH (23:04)
[2024-06-07 23:09] VITALS: PULSE 81; RESP 18; O2SAT 96
[2024-06-08] VITALS (10 sets, daily range): BP systolic 148–164; BP diastolic 70–79; PULSE 67–86; RESP 17–20; TEMP 97.2–98.4; O2SAT 92–100
[2024-06-08 06:05] LABS: Basophils # (auto) 0.1 10 ^3/uL (0-0.2); Basophils % (auto) 0.7 % (0.0-2.0); Eosinophils # (auto) 0.2 10 ^3/uL (0-0.8); Eosinophils % (auto) 2.6 % (0.0-7.0); Hematocrit 24.8 % (41.0-53.0); Hemoglobin 8.5 g/dL (13.5-17.5); Lymphocytes # (auto) 0.9 10 ^3/uL (0.4-5.4); Lymphocytes % (auto) 11.6 % (10.0-50.0); Mean Corpuscular Hemoglobin 31.7 pg (28.0-32.0); Mean Corpuscular Hgb Conc. 34.4 g/dL (32.0-36.0); Mean Corpuscular Volume 91.9 fL (80.0-100.0); Monocytes # (auto) 0.5 10 ^3/uL (0-1.3); Monocytes % (auto) 6.9 % (0.0-12.0); Neutrophils # (auto) 5.8 10 ^3/uL (1.6-8.6); Neutrophils % (auto) 78.2 % (37.0-80.0); Nucleated Red Blood Cells % 0.1 %; Platelet Count (auto) 220 10^3/uL (140-450); Red Cell Distribution Width 16.6 % (11.8-14.3); White Blood Cell 7.4 10^3/uL (4.4-10.8)
[2024-06-08 06:18] LABS: Alanine Aminotransferase 28 U/L (7-40); Alkaline Phosphatase 49 U/L (46-116); Anion Gap 15 (5-15); Aspartate Aminotransferase 36 U/L (13-40); BUN/Creatinine Ratio 8.8 (10.0-20.0); Bilirubin, Total 0.4 mg/dL (0.2-1.0); Calcium 10.3 mg/dL (8.7-10.4); Carbon Dioxide 22 mmol/L (20-31); Chloride 99 mmol/L (98-107); Total Protein 6.5 g/dL (5.7-8.2)
[2024-06-08 06:33] LABS: Blood Urea Nitrogen 78 mg/dL (9-23); Glucose 114 mg/dL (74-106); Sodium 136 mmol/L (136-145)
[2024-06-08 06:38] LABS: Potassium 5.6 mmol/L (3.5-5.1)
[2024-06-08] MEDS ORDERED: SODIUM CHL 0.9% 1000 ML BAG XX ONE (07:00)
--- NOTE | 2024-06-08 08:37 | DVHINCON2 ---
[facility] 06/08/24 0837: Date Seen: June 08, [address] Linsey Rucker Reason for Consultation Elevated troponin History of Present Illness This 63-year-old male presents in the ED via EMS with a chief complaint of shortness of breath with hypoxemia. Upon assessment, the patient reports was just discharged from this facility when shortness of breath and hypoxemia prompted him to return to the hospital. 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 In the emergency department the patient undergone a 12 lead ECG revealing normal sinus rhythm with probable left atrial enlargement, and borderline prolonged QT interval, serial troponins flat in 100s. Upon reviewing medical record, noted to the patient undergone a left heart catheterization with no catheter based intervention. The patient is currently on dual antiplatelet aspirin and Plavix. The patient denies dizziness, diaphoresis, chest pain, dyspnea, or edema. Other past medical history includes hypertension, dyslipidemia, end-stage renal disease on hemodialysis, type 2 diabetes, and ex tobacco use Past Medical History As stated in HPI Past Surgical History PCI Family History: Cervical cancer G8 MOTHER, Onset:50's - 60 Diabetes mellitus G8 MOTHER G8 FATHER Hypertension G8 MOTHER Family History Reviewed, non-contributory to the management of this case. Social History The patient lives at home, denies smoking, alcohol or illicit drugs abuse. Allergies: Coded Allergies: Latex (Verified Allergy, Unknown, 01/01/20) Penicillins (Verified Allergy, Unknown, 01/01/20) Sulfa Antibiotics (Verified Allergy, Unknown, 09/16/23) Home Meds Active Scripts Nifedipine (Nifedipine Er) 60 Mg Tab, 1 TAB PO DAILY for 30 Days, #30 TAB 5 Refills Prov:ONELIA ROBERTSON RESIDENT 06/06/24 Carvedilol (Carvedilol) 6.25 Mg Tab, 1 TAB PO BID for 30 Days, #60 TAB 1 Refill Prov:ONELIA ROBERTSON RESIDENT 06/06/24 Hydralazine Hcl (Hydralazine Hcl) 10 Mg Tab, 10 MG PO Q6HR for 30 Days, #120 TAB Prov:PATO UNGER RESIDENT 09/18/23 Reported Medications Atorvastatin Calcium (ATORVASTATIN CALCIUM) 40 Mg Tab, 1 TAB PO DAILY 06/04/24 Bumetanide (Bumetanide) 2 Mg Tab, 1 TAB PO BID 06/04/24 Metformin Hydrochloride (Metformin Hcl) 500 Mg Tab, 1 TAB PO BID 06/04/24 Ergocalciferol (Vitamin D) 50,000 Unit Cap, 1 CAP PO QWEEKLY 06/04/24 B-Complex W/ C & Folic Acid (Ani-Jaxson Rx) Tab, 1 TAB PO DAILY 06/04/24 Patiromer Sorbitex Calcium (Veltassa) 8.4 Gm Pow, 1 PKT PO DAILY 06/04/24 Sodium Bicarbonate (Sodium Bicarbonate) 650 Mg Tab, 1 TAB PO TID for 30 Days, #90 06/04/24 Clopidogrel Bisulfate (CLOPIDOGREL) 75 Mg Tab, 1 TAB PO DAILY for 90 Days, #90 12/04/22 Aspirin (ASPIRIN 81) 81 Mg Tab, 81 MG OR, TAB 12/04/22 Discontinued Reported Medications Losartan Potassium (Losartan Potassium) 100 Mg Tab, 1 TAB PO DAILY 06/04/24 Amlodipine Besylate (Amlodipine Besylate) 10 Mg Tab, 1 TAB PO DAILY 06/04/24 Metoprolol Succinate (Metoprolol Succinate Er) 100 Mg Tab, 1 TAB PO BID 06/04/24 Empagliflozin (Jardiance) 10 Mg Tab, 1 TAB PO DAILY 06/04/24 Discontinued Scripts Nifedipine (Nifedipine Er) 30 Mg Tab, 60 MG PO DAILY for 30 Days, #60 TAB Prov:PATO UNGER RESIDENT 09/18/23 Carvedilol (COREG) 3.125 Mg Tab, 6.25 MG PO Q12HR for 30 Days, #120 TAB Prov:PATO UNGER RESIDENT 09/18/23 Current Medications Current Medications Medications (Trade) Dose Ordered Sig/Herson Route PRN Reason Start Time Stop Time Status Last Admin Aspirin 81 mg DAILY PO 06/07/24 10:00 06/08/24 08:16 Atorvastatin Calcium (Lipitor) 20 mg HS PO 06/07/24 22:00 06/07/24 23:04 Carvedilol (Coreg Tablet) 12.5 mg Q12HR PO 06/07/24 10:00 06/08/24 08:17 Amlodipine Besylate (Norvasc Tablet) 5 mg DAILY PO 06/07/24 10:00 06/08/24 08:17 Insulin Human Regular (InsuLIN R) HS SC 06/07/24 22:00 Review of Systems Constitutional: No symptom reported Ears, Nose, & Throat: No symptom reported Eyes: No symptom reported Neurological: No symptoms reported Pulmonary/Respiratory: Shortness of breath Cardiovascular: No symptom reported Gastrointestinal: No symptom reported Genitourinary: No symptom reported Musculoskeletal: No symptom reported Skin: No symptom reported Psychiatric: No symptom reported Endocrine: No symptom reported Hematologic/Lymphatic: No symptom Vital Signs Vital Signs Date Time Temp Pulse Resp B/P (MAP) Pulse Ox O2 Delivery O2 Flow Rate FiO2 06/08/24 08:17 155/70 06/08/24 08:17 82 06/08/24 05:00 97.4 17 92 97.4 06/07/24 23:09 Nasal Cannula* 3 32 Physical Exam INITIAL VITAL SIGNS: Reviewed by me GENERAL: Alert and interactive. No acute distress. HEAD: Head is normocephalic and atraumatic. EYES: EOMI, PERRL. No scleral icterus. No conjunctival injection. ENT: Moist mucous membranes. NECK: Supple, No masses, Full range of motion. RESPIRATORY: Clear lung sounds. O2 supplement CV: Regular rate and rhythm. No dyspnea. No edema. GI/: Active bowel sounds, soft, nondistended, nontender. No guarding. No rebound. No masses. No CVA tenderness. INTEGUMENTARY: Warm and dry. No obvious rashes. NEUROLOGIC: Alert and oriented. Face is symmetric. Speech is normal. Moves all extremities equally. Labs/Diagnostic Data Labs Test 06/08/24 06:05 06/08/24 04:40 06/07/24 07:30 06/07/24 04:11 Range/Units POC Glucose 128 H 70-106 mg/dl White Blood Count 7.4 4.4-10.8 10^3/uL Red Blood Count 2.70 L 4.5-5.90 10^6/uL Hemoglobin 8.5 L 13.5-17.5 g/dL Hematocrit 24.8 L 41.0-53.0 % Mean Corpuscular Volume 91.9 80.0-100.0 fL Mean Corpuscular Hemoglobin 31.7 28.0-32.0 pg Mean Corpuscular Hemoglobin Concent 34.4 32.0-36.0 g/dL Red Cell Distribution Width 16.6 H 11.8-14.3 % Platelet Count 220 140-450 10^3/uL Mean Platelet Volume 8.4 6.9-10.8 fL Neutrophils (%) (Auto) 78.2 37.0-80.0 % Lymphocytes (%) (Auto) 11.6 10.0-50.0 % Monocytes (%) (Auto) 6.9 0.0-12.0 % Eosinophils (%) (Auto) 2.6 0.0-7.0 % Basophils (%) (Auto) 0.7 0.0-2.0 % Neutrophils # (Auto) 5.8 1.6-8.6 10 ^3/uL Lymphocytes # (Auto) 0.9 0.4-5.4 10 ^3/uL Monocytes # (Auto) 0.5 0-1.3 10 ^3/uL Eosinophils # (Auto) 0.2 0-0.8 10 ^3/uL Basophils # (Auto) 0.1 0-0.2 10 ^3/uL Nucleated Red Blood Cells 0.1 % Sodium Level 136 136-145 mmol/L Potassium Level 5.6 *H 3.5-5.1 mmol/L Chloride Level 99 98-107 mmol/L Carbon Dioxide Level 22 20-31 mmol/L Anion Gap 15 5-15 Blood Urea Nitrogen 78 #H 9-23 mg/dL Creatinine 8.85 H 0.700-1.30 mg/dL Glomerular Filtration Rate Calc 6 >90 mL/min BUN/Creatinine Ratio 8.8 L 10.0-20.0 Serum Glucose 114 #H 74-106 mg/dL Calcium Level 10.3 8.7-10.4 mg/dL Total Bilirubin 0.4 0.2-1.0 mg/dL Aspartate Amino Transferase (AST) 36 13-40 U/L Alanine Aminotransferase (ALT) 28 7-40 U/L Alkaline Phosphatase 49 46-116 U/L Total Protein 6.5 5.7-8.2 g/dL Albumin 4.0 3.2-4.8 g/dL Blood Gas Specimen Type Arterial Blood Gas Sample Site Right radial Blood Gas Patient Temperature 37.0 Arterial Blood Date Drawn [id number] Arterial Blood pH 7.492 H 7.350-7.450 Arterial Blood Partial Pressure CO2 34.7 L 35.0-48.0 mmHg Arterial Blood Partial Pressure O2 104.9 83.0-108.0 mmHg Arterial Blood HCO3 26.0 21.0-28.0 mmol/L Arterial Blood Oxygen Saturation 96.8 94.0-98.0 % Arterial Blood Base Excess 2.6 -2.0-3.0 mmol/L Arterial Blood Oxyhemoglobin 95.5 94.0-98.0 % Arterial Blood Carboxyhemoglobin 1.0 0.5-1.5 % Arterial Blood Methemoglobin 0.3 0.0-1.5 % Pablo Test Yes Blood Gas Total Hemoglobin 7.80 L 13.5-17.5 g/dL Blood Gas Modality Mask - bipap FiO2 % 30.0 Troponin I High Sensitivity 151 *H </=54 ng/L Test 06/07/24 01:47 Range/Units B-Type Natriuretic Peptide 4689.90 0-100 pg/mL PROCEDURE(s): CXRP - CHEST PORTABLE REASON: sob ORDER NUMBER(s): [id number], ACCESSION NUMBER(s): [id number] CHEST RADIOGRAPH Indication: sob Technique: Single frontal view of the chest was obtained COMPARISON: XY CHEST PORTABLE on DOS: 06/03/24, XY CHEST PORTABLE on DOS: 09/16/23, XY CHEST PORTABLE on DOS: 12/03/22, CHEST PORTABLE on DOS: 01/01/20 FINDINGS: Lines and Tubes: None Lungs: No evidence of focal consolidation. Chronic appearing bilateral interstitial pulmonary markings noted throughout all lung zones. Pleura: No effusion. No pneumothorax. Cardiomediastinal contours: Unremarkable Bones: Unremarkable IMPRESSION: 1. No acute disease. Chronic appearing bilateral interstitial pulmonary markings. 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 Ring): Elevated troponin likely secondary to fluid overload due to ESRD. Recent coronary angiogram without catheter based intervention. Echocardiogram revealed EF 45-50%. Continue with current treatment. Recommends medical management and follow-up with his Cardiology in outpatient setting. Plan discussed with: Patient NYHA Physical activity limitations: Class2(Slight)fatigue,sob Date of Service: June 08, 2024 Billing Provider: SOLANGE MESSINA MD Cardiology Common Codes: NOT BILLABLE Cardiology Consultation Codes: [id number] CONSULT <45MIN SOLANGE MESSINA MD 06/08/24 1038: Family History: Cervical cancer G8 MOTHER, Onset:50's - 60 Diabetes mellitus G8 MOTHER G8 FATHER Hypertension G8 MOTHER Allergies: Coded Allergies: Latex (Verified Allergy, Unknown, 01/01/20) Penicillins (Verified Allergy, Unknown, 01/01/20) Sulfa Antibiotics (Verified Allergy, Unknown, 09/16/23) Home Meds Active Scripts Nifedipine (Nifedipine Er) 60 Mg Tab, 1 TAB PO DAILY for 30 Days, #30 TAB 5 Refills Prov:ONELIA ROBERTSON RESIDENT 06/06/24 Carvedilol (Carvedilol) 6.25 Mg Tab, 1 TAB PO BID for 30 Days, #60 TAB 1 Refill Prov:ONELIA ROBERTSON RESIDENT 06/06/24 Hydralazine Hcl (Hydralazine Hcl) 10 Mg Tab, 10 MG PO Q6HR for 30 Days, #120 TAB Prov:PATO UNGER RESIDENT 09/18/23 Reported Medications Atorvastatin Calcium (ATORVASTATIN CALCIUM) 40 Mg Tab, 1 TAB PO DAILY 06/04/24 Bumetanide (Bumetanide) 2 Mg Tab, 1 TAB PO BID 06/04/24 Metformin Hydrochloride (Metformin Hcl) 500 Mg Tab, 1 TAB PO BID 06/04/24 Ergocalciferol (Vitamin D) 50,000 Unit Cap, 1 CAP PO QWEEKLY 06/04/24 B-Complex W/ C & Folic Acid (Ani-Jaxson Rx) Tab, 1 TAB PO DAILY 06/04/24 Patiromer Sorbitex Calcium (Veltassa) 8.4 Gm Pow, 1 PKT PO DAILY 06/04/24 Sodium Bicarbonate (Sodium Bicarbonate) 650 Mg Tab, 1 TAB PO TID for 30 Days, #90 06/04/24 Clopidogrel Bisulfate (CLOPIDOGREL) 75 Mg Tab, 1 TAB PO DAILY for 90 Days, #90 12/04/22 Aspirin (ASPIRIN 81) 81 Mg Tab, 81 MG OR, TAB 12/04/22 Discontinued Reported Medications Losartan Potassium (Losartan Potassium) 100 Mg Tab, 1 TAB PO DAILY 06/04/24 Amlodipine Besylate (Amlodipine Besylate) 10 Mg Tab, 1 TAB PO DAILY 06/04/24 Metoprolol Succinate (Metoprolol Succinate Er) 100 Mg Tab, 1 TAB PO BID 06/04/24 Empagliflozin (Jardiance) 10 Mg Tab, 1 TAB PO DAILY 06/04/24 Discontinued Scripts Nifedipine (Nifedipine Er) 30 Mg Tab, 60 MG PO DAILY for 30 Days, #60 TAB Prov:PATO UNGER RESIDENT 09/18/23 Carvedilol (COREG) 3.125 Mg Tab, 6.25 MG PO Q12HR for 30 Days, #120 TAB Prov:PATO UNGER RESIDENT 09/18/23 Plan/Recommendation ongoing sob stress mpi on sunday pt sees me in [facility] Plan discussed with: Patient MARIO URENA June 08, 2024 08:37 SOLANGE MESSINA MD June 08, 2024 10:38
--- NOTE | 2024-06-08 09:15 | DVHPN2 ---
Reviewed: Care Plan, H&P, Labs, Medications, Previous Orders, Radiology Changes from previous H/P or p: No Changes Eyes: No Pain, No Vision change, No Conjunctivae inflammation, No Eyelid inflammation, No Other, No Redness ENT: No Ear pain, No Ear discharge, No Nose pain, No Nose discharge, No Nose congestion, No Mouth pain, No Mouth swelling, No Throat pain, No Throat swelling, No Other Cardiovascular: Chest Pain; No Palpitations, No Orthopnea, No Paroxysmal Noc. Dyspnea, No Edema, No Lt Headedness, No Other Respiratory: Cough; No Dry; Shortness of breath, SOB with excertion, Wheezing; No Hemoptysis, No Pleuritic Pain, No Sputum, No Other Gastrointestinal: No Nausea, No Vomiting, No Abdominal Pain, No Diarrhea, No Constipation, No Melena, No Hematochezia, No Other Genitourinary: No Dysuria, No Frequency, No Incontinence, No Hematuria, No Retention, No Other Musculoskeletal: No other, No neck pain, No shoulder pain, No arm pain, No back pain, No hand pain, No leg pain, No foot pain Skin: No Rash, No Lesions, No Jaundice, No Bruising, No Other Objective Vitals Vital Signs Date Time Temp Pulse Resp B/P (MAP) Pulse Ox O2 Delivery O2 Flow Rate FiO2 06/08/24 08:17 155/70 06/08/24 08:17 82 06/08/24 05:00 97.4 17 92 97.4 06/07/24 23:09 Nasal Cannula* 3 32 Intake/Output Intake and Output 06/08/24 07:00 Intake Total 280 ml Balance 280 ml Intake Oral 280 ml # Voids 1 # Bowel Movements 1 Medications Current Medications Medications Dose Ordered Sig/Herson Route Start Time Stop Time Status Last Admin Dose Admin Aspirin 81 mg DAILY PO 06/07/24 10:00 06/08/24 08:16 81 MG Atorvastatin Calcium 20 mg HS PO 06/07/24 22:00 06/07/24 23:04 20 MG Hydralazine HCl 10 mg Q6HP PRN IV 06/07/24 03:00 06/08/24 06:11 10 MG Carvedilol 12.5 mg Q12HR PO 06/07/24 10:00 06/08/24 08:17 12.5 MG Amlodipine Besylate 5 mg DAILY PO 06/07/24 10:00 06/08/24 08:17 5 MG Diagnostic Test (Pha) 1 strip ACHS 06/07/24 07:00 06/08/24 06:03 1 STRIP Insulin Human Regular HS SC 06/07/24 22:00 Insulin Human Regular AC SC 06/07/24 07:00 06/07/24 17:25 6 UNITS Dextrose 50 ml UD PRN IV 06/07/24 03:00 Sodium Chloride 10 ml Q8HR IV 06/07/24 06:00 06/08/24 05:58 10 ML Acetaminophen/ Hydrocodone Bitart 1 tab Q4HP PRN PO 06/07/24 03:00 Ondansetron HCl 4 mg Q4HP PRN IV 06/07/24 03:00 Docusate Sodium 100 mg BIDPRN PRN PO 06/07/24 03:00 Acetaminophen 650 mg Q6HP PRN PO 06/07/24 03:00 Nitroglycerin 0.4 mg Q5MINP PRN SL 06/07/24 03:30 Morphine Sulfate 2 mg Q30M PRN IV 06/07/24 03:30 Laboratory Results Laboratory Tests 06/08/24 04:40 Chemistry Test 06/08/24 04:40 Albumin 4.0 g/dL (3.2-4.8) Calcium Level 10.3 mg/dL (8.7-10.4) Total Protein 6.5 g/dL (5.7-8.2) LFT Test 06/08/24 04:40 Alanine Aminotransferase (ALT) 28 U/L (7-40) Alkaline Phosphatase 49 U/L (46-116) Aspartate Amino Transferase (AST) 36 U/L (13-40) Total Bilirubin 0.4 mg/dL (0.2-1.0) Labs and/or images reviewed: Labs reviewed by me, Image(s) reviewed by me Assessment/Plan Assessment/Plan Acute hypoxic respiratory failure likely due to volume overload in the setting of end-stage renal disease, consult for Dr. Rodrigues appreciated, patient is now on 2 L of oxygen by nasal cannula End-stage renal disease requiring hemodialysis (Mon/Wed/Fri): Consult by Dr. Rose R/O Acute diastolic/systolic heart failure: Consult for Dr. Moya appreciated, patient getting dialysis today Recent left heart catheterization normal Acute hyperkalemia in the setting of end-stage renal disease Hypercalcemia likely in the setting of end-stage renal disease Hypertension NSTEMI type 2 Hypercholesterolemia Anemia of chronic disease Type 2 diabetes Pre Diabetes Time Spent 50 minutes Advanced care planning time 20 minutes Patient is full code Patient was Discharged from this hospital on 06/06/2024 Plan discussed with: Patient My Orders Orders - JUANITO STEVENS MD Procedure Category Date Status Time *Consult CONS 06/07/24 Transmitted / 14:33 * Cardiology Consult CONS 06/07/24 Transmitted 14:34 Cleanse Wound With ABELARDO 06/07/24 In Process Mild Soap A 16:56 Date of Service: June 08, 2024 Billing Provider: JUANITO STEVENS MD Common Visit Codes: [id number] INP/OBS CARE(HIGH) JUANITO STEVENS MD June 08, 2024 09:15
--- NOTE | 2024-06-08 12:58 | DVHPN2 ---
Progress Note - Dictate Date Seen: June 08, 2024 Medical Necessity Reason Pt with a Central, PICC or Fol: No Subjective no new symptoms vital signs Vital Sign Date Time Temp Pulse Resp B/P (MAP) Pulse Ox O2 Delivery O2 Flow Rate FiO2 06/08/24 10:28 97 Nasal Cannula* 2 28 06/08/24 09:17 74 151/74 06/08/24 09:00 97.3 20 97.3 Total Intake and Output 06/07/24 06/07/24 06/08/24 15:00 23:00 07:00 Intake Total 280 ml Balance 280 ml medications Current Medications Medications Dose Ordered Sig/Herson Route Start Time Stop Time Status Last Admin Dose Admin Aspirin 81 mg DAILY PO 06/07/24 10:00 06/08/24 08:16 81 MG Atorvastatin Calcium 20 mg HS PO 06/07/24 22:00 06/07/24 23:04 20 MG Hydralazine HCl 10 mg Q6HP PRN IV 06/07/24 03:00 06/08/24 06:11 10 MG Carvedilol 12.5 mg Q12HR PO 06/07/24 10:00 06/08/24 08:17 12.5 MG Amlodipine Besylate 5 mg DAILY PO 06/07/24 10:00 06/08/24 08:17 5 MG Diagnostic Test (Pha) 1 strip ACHS 06/07/24 07:00 06/08/24 11:30 1 STRIP Insulin Human Regular HS SC 06/07/24 22:00 Insulin Human Regular AC SC 06/07/24 07:00 06/08/24 11:30 2 UNITS Dextrose 50 ml UD PRN IV 06/07/24 03:00 Sodium Chloride 10 ml Q8HR IV 06/07/24 06:00 06/08/24 05:58 10 ML Acetaminophen/ Hydrocodone Bitart 1 tab Q4HP PRN PO 06/07/24 03:00 Ondansetron HCl 4 mg Q4HP PRN IV 06/07/24 03:00 Docusate Sodium 100 mg BIDPRN PRN PO 06/07/24 03:00 Acetaminophen 650 mg Q6HP PRN PO 06/07/24 03:00 Nitroglycerin 0.4 mg Q5MINP PRN SL 06/07/24 03:30 Morphine Sulfate 2 mg Q30M PRN IV 06/07/24 03:30 objective Gen: NAD, AAOx3 HEENT: NC,AT Lungs: Crackles lung bases Cardiac: RRR, no murmur Abd: soft, no tenderness Ext: no edema + AVF laboratory and microbiology Laboratory Tests 06/08/24 04:40 Test 06/08/24 04:40 Range/Units Serum Glucose 114 #H 74-106 mg/dL Assessment/Plan ESRD on HD via AVF Hyperkalemia, mild Acute on chronic diastolic CHF DM HTN anemia of CKD CAD Hyperphosphatemia Secondary hyperparathyroidism Metabolic acidosis Plan: Scheduled for HD today (Sunday) s/p Hd and Sunday (here at [facility] prior to getting discharged) fluid restriction BECKY post HD as needed; goal Hb: 10-11 g/dl continue phosphate binders with meals low K diet continue coreg and Amlodipine Dietary Evaluation Review Comments: 1) Encourage optimal PO intake. If < 50%, initiate Nepro bid 2) Consider Nephro-Jaxson @ 1 tb qd 3) Collect renal panel and HbA1c 4) Follow-up with cardiology and nephrology 5) Continue to monitor I&O, labs, and skin integrity Expected Outcomes/Goals: 1) appetite and labs to improve 2) wound to improve 2) f/u in 3-5 days Plan discussed with: Patient ABDELRAHMAN STATON MD June 08, 2024 12:57
--- NOTE | 2024-06-08 15:39 | DVHPN2 ---
Progress Note - Dictate Date Seen: June 08, 2024 Medical Necessity Reason Pt with a Central, PICC or Fol: No vital signs Vital Sign Date Time Temp Pulse Resp B/P (MAP) Pulse Ox O2 Delivery O2 Flow Rate FiO2 06/08/24 12:30 98.3 82 18 150/71 (97) 99 98.3 06/08/24 10:28 Nasal Cannula* 2 28 Total Intake and Output 06/07/24 06/07/24 06/08/24 15:00 23:00 07:00 Intake Total 280 ml Balance 280 ml medications Current Medications Medications Dose Ordered Sig/Herson Route Start Time Stop Time Status Last Admin Dose Admin Aspirin 81 mg DAILY PO 06/07/24 10:00 06/08/24 08:16 81 MG Atorvastatin Calcium 20 mg HS PO 06/07/24 22:00 06/07/24 23:04 20 MG Hydralazine HCl 10 mg Q6HP PRN IV 06/07/24 03:00 06/08/24 06:11 10 MG Carvedilol 12.5 mg Q12HR PO 06/07/24 10:00 06/08/24 08:17 12.5 MG Amlodipine Besylate 5 mg DAILY PO 06/07/24 10:00 06/08/24 08:17 5 MG Diagnostic Test (Pha) 1 strip ACHS 06/07/24 07:00 06/08/24 11:30 1 STRIP Insulin Human Regular HS SC 06/07/24 22:00 Insulin Human Regular AC SC 06/07/24 07:00 06/08/24 11:30 2 UNITS Dextrose 50 ml UD PRN IV 06/07/24 03:00 Sodium Chloride 10 ml Q8HR IV 06/07/24 06:00 06/08/24 14:00 10 ML Acetaminophen/ Hydrocodone Bitart 1 tab Q4HP PRN PO 06/07/24 03:00 Ondansetron HCl 4 mg Q4HP PRN IV 06/07/24 03:00 Docusate Sodium 100 mg BIDPRN PRN PO 06/07/24 03:00 Acetaminophen 650 mg Q6HP PRN PO 06/07/24 03:00 Nitroglycerin 0.4 mg Q5MINP PRN SL 06/07/24 03:30 Morphine Sulfate 2 mg Q30M PRN IV 06/07/24 03:30 laboratory and microbiology Laboratory Tests 06/08/24 04:40 Test 06/08/24 04:40 Range/Units Serum Glucose 114 #H 74-106 mg/dL Assessment/Plan Impression Acute on chronic respiratory failure Pulmonary edema ESRD on HD Fluid overload Patient seen and examined Events Low oxygen requirements On 2 liters nasal cannula No acute events Labs and imaging reviewed Management Supplemental oxygen Titrate to maintain sats 90% or above Incentive spirometry Okay to withhold antibiotics Bronchodilators Diurese Monitor renal function HD as per nephrology Management deferred Monitor electrolytes Supplement as needed DVT prophylaxis Dietary Evaluation Review Comments: 1) Encourage optimal PO intake. If < 50%, initiate Nepro bid 2) Consider Nephro-Jaxson @ 1 tb qd 3) Collect renal panel and HbA1c 4) Follow-up with cardiology and nephrology 5) Continue to monitor I&O, labs, and skin integrity Expected Outcomes/Goals: 1) appetite and labs to improve 2) wound to improve 2) f/u in 3-5 days Plan discussed with: Patient HIRAL DASILVA MD June 08, 2024 15:39
[2024-06-09] VITALS (9 sets, daily range): BP systolic 142–181; BP diastolic 58–75; PULSE 72–88; RESP 17–20; TEMP 97.4–98.4; O2SAT 94–100
[2024-06-09 06:29] LABS: Chloride 101 mmol/L (98-107); Potassium 4.6 mmol/L (3.5-5.1); Sodium 142 mmol/L (136-145)
[2024-06-09 06:30] LABS: Anion Gap 12 (5-15); Carbon Dioxide 29 mmol/L (20-31)
[2024-06-09 06:31] LABS: Calcium 10.1 mg/dL (8.7-10.4)
[2024-06-09 06:36] LABS: BUN/Creatinine Ratio 7.8 (10.0-20.0)
[2024-06-09 06:37] LABS: Blood Urea Nitrogen 47 mg/dL (9-23); Glucose 134 mg/dL (74-106)
--- NOTE | 2024-06-09 08:45 | DVHPN2 ---
Reviewed: Care Plan, H&P, Labs, Medications, Previous Orders, Radiology Changes from previous H/P or p: No Changes Eyes: No Pain, No Vision change, No Conjunctivae inflammation, No Eyelid inflammation, No Other, No Redness ENT: No Ear pain, No Ear discharge, No Nose pain, No Nose discharge, No Nose congestion, No Mouth pain, No Mouth swelling, No Throat pain, No Throat swelling, No Other Cardiovascular: Chest Pain; No Palpitations, No Orthopnea, No Paroxysmal Noc. Dyspnea, No Edema, No Lt Headedness, No Other Respiratory: Cough; No Dry; Shortness of breath, SOB with excertion, Wheezing; No Hemoptysis, No Pleuritic Pain, No Sputum, No Other Gastrointestinal: No Nausea, No Vomiting, No Abdominal Pain, No Diarrhea, No Constipation, No Melena, No Hematochezia, No Other Genitourinary: No Dysuria, No Frequency, No Incontinence, No Hematuria, No Retention, No Other Musculoskeletal: No other, No neck pain, No shoulder pain, No arm pain, No back pain, No hand pain, No leg pain, No foot pain Skin: No Rash, No Lesions, No Jaundice, No Bruising, No Other Objective Vitals Vital Signs Date Time Temp Pulse Resp B/P (MAP) Pulse Ox O2 Delivery O2 Flow Rate FiO2 06/09/24 05:00 98.3 81 17 142/70 (94) 97 98.3 06/08/24 20:00 Nasal Cannula* 2 28 Intake/Output Intake and Output 06/09/24 07:00 Intake Total 1118 ml Balance 1118 ml Intake Oral 1118 ml # Voids 2 # Bowel Movements 1 Medications Current Medications Medications Dose Ordered Sig/Herson Route Start Time Stop Time Status Last Admin Dose Admin Aspirin 81 mg DAILY PO 06/07/24 10:00 06/08/24 08:16 81 MG Atorvastatin Calcium 20 mg HS PO 06/07/24 22:00 06/07/24 23:04 20 MG Hydralazine HCl 10 mg Q6HP PRN IV 06/07/24 03:00 06/08/24 22:14 10 MG Carvedilol 12.5 mg Q12HR PO 06/07/24 10:00 06/08/24 08:17 12.5 MG Amlodipine Besylate 5 mg DAILY PO 06/07/24 10:00 06/08/24 08:17 5 MG Diagnostic Test (Pha) 1 strip ACHS 06/07/24 07:00 06/09/24 06:07 1 STRIP Insulin Human Regular HS SC 06/07/24 22:00 Insulin Human Regular AC SC 06/07/24 07:00 06/09/24 06:20 2 UNITS Dextrose 50 ml UD PRN IV 06/07/24 03:00 Sodium Chloride 10 ml Q8HR IV 06/07/24 06:00 06/09/24 06:06 10 ML Acetaminophen/ Hydrocodone Bitart 1 tab Q4HP PRN PO 06/07/24 03:00 Ondansetron HCl 4 mg Q4HP PRN IV 06/07/24 03:00 Docusate Sodium 100 mg BIDPRN PRN PO 06/07/24 03:00 Acetaminophen 650 mg Q6HP PRN PO 06/07/24 03:00 Nitroglycerin 0.4 mg Q5MINP PRN SL 06/07/24 03:30 Morphine Sulfate 2 mg Q30M PRN IV 06/07/24 03:30 Mupirocin 1 applic BID EACHNOSTRI 06/09/24 10:00 06/14/24 09:59 UNV Laboratory Results Laboratory Tests 06/08/24 04:40 06/09/24 05:20 Chemistry Test 06/09/24 05:20 Calcium Level 10.1 mg/dL (8.7-10.4) Microbiology Microbiology Date/Time Source Procedure Growth Status 06/08/24 00:10 Nose MRSA Screen - Final Methicillin Resistant S.aureus Complete Labs and/or images reviewed: Labs reviewed by me, Image(s) reviewed by me Assessment/Plan Assessment/Plan Acute hypoxic respiratory failure likely due to volume overload in the setting of end-stage renal disease, consult for Dr. Rodrigues appreciated, patient is now on 2 L of oxygen by nasal cannula End-stage renal disease requiring hemodialysis (Sun/Sun/Sun): Consult by Dr. Rose appreciated R/O Acute diastolic/systolic heart failure: Consult for Dr. Moya appreciated, patient getting dialysis Recent left heart catheterization normal, cardiology consult appreciated Acute hyperkalemia in the setting of end-stage renal disease Hypercalcemia likely in the setting of end-stage renal disease Hypertension NSTEMI type 2 Hypercholesterolemia Anemia of chronic disease Type 2 diabetes Time Spent 50 minutes Had family conference with the patient's and son at bed side [facility] [phone] Plan discussed with: Patient My Orders Orders - JUANITO STEVENS MD Procedure Category Date Status Time Communication Order ORDERS 06/08/24 Transmitted 09:48 Mupirocin 2% Oint PHA 06/09/24 Logged Mrsa Nares (Bactroban 10:00 Date of Service: June 09, 2024 Billing Provider: JUANITO STEVENS MD Common Visit Codes: [id number] INP/OBS CARE(HIGH) JUANITO STEVENS MD June 09, 2024 08:45
--- NOTE | 2024-06-09 09:17 | DVHPN2 ---
Progress Note Date Seen: June 09, 2024 Medical Necessity Reason Pt with a Central, PICC or Fol: No Subjective Other Systems: getting HD done over weekend Objective vital signs Vital Sign Date Time Temp Pulse Resp B/P (MAP) Pulse Ox O2 Delivery O2 Flow Rate FiO2 06/09/24 05:00 98.3 81 17 142/70 (94) 97 98.3 06/08/24 20:00 Nasal Cannula* 2 28 Total Intake and Output 06/08/24 06/08/24 06/09/24 15:00 23:00 07:00 Intake Total 118 ml 800 ml 200 ml Balance 118 ml 800 ml 200 ml medications Current Medications Medications Dose Ordered Sig/Herson Route Start Time Stop Time Status Last Admin Dose Admin Aspirin 81 mg DAILY PO 06/07/24 10:00 06/08/24 08:16 81 MG Atorvastatin Calcium 20 mg HS PO 06/07/24 22:00 06/07/24 23:04 20 MG Hydralazine HCl 10 mg Q6HP PRN IV 06/07/24 03:00 06/08/24 22:14 10 MG Carvedilol 12.5 mg Q12HR PO 06/07/24 10:00 06/08/24 08:17 12.5 MG Amlodipine Besylate 5 mg DAILY PO 06/07/24 10:00 06/08/24 08:17 5 MG Diagnostic Test (Pha) 1 strip ACHS 06/07/24 07:00 06/09/24 06:07 1 STRIP Insulin Human Regular HS SC 06/07/24 22:00 Insulin Human Regular AC SC 06/07/24 07:00 06/09/24 06:20 2 UNITS Dextrose 50 ml UD PRN IV 06/07/24 03:00 Sodium Chloride 10 ml Q8HR IV 06/07/24 06:00 06/09/24 06:06 10 ML Acetaminophen/ Hydrocodone Bitart 1 tab Q4HP PRN PO 06/07/24 03:00 Ondansetron HCl 4 mg Q4HP PRN IV 06/07/24 03:00 Docusate Sodium 100 mg BIDPRN PRN PO 06/07/24 03:00 Acetaminophen 650 mg Q6HP PRN PO 06/07/24 03:00 Nitroglycerin 0.4 mg Q5MINP PRN SL 06/07/24 03:30 Morphine Sulfate 2 mg Q30M PRN IV 06/07/24 03:30 Mupirocin 1 applic BID EACHNOSTRI 06/09/24 10:00 06/14/24 09:59 Bumetanide 2 mg DAILY PO 06/09/24 10:00 UNV Hydralazine HCl 50 mg Q12HR PO 06/09/24 10:00 UNV Clopidogrel Bisulfate 75 mg DAILY PO 06/09/24 10:00 UNV Sevelamer HCl 800 mg TIDWM PO 06/09/24 12:00 UNV Nifedipine 60 mg DAILY PO 06/09/24 10:00 UNV Examination: GENERAL:Abnormal, HEENT:Abnormal, LUNGS:Abnormal, CVS:Abnormal, ABDOMEN:Abnormal laboratory and microbiology Laboratory Tests 06/09/24 05:20 06/08/24 04:40 Test 06/09/24 05:20 Range/Units Serum Glucose 134 H 74-106 mg/dL Microbiology Date/Time Source Procedure Growth Status 06/08/24 00:10 Nose MRSA Screen - Final Methicillin Resistant S.aureus Complete Problem List/Assessment/Plan Problem List/Assessment/Plan mild LV dysfunction esrd on hd htn elevated bnp anemia chronic outpt fu and stress as stress test broken today if ongoing symptoms, will need to consider LHC( reviewed his results at [facility] and here no cath done ) fluid management per renal severe diastolic HF---cont BB, CCB, Plan discussed with: Patient My Orders My Orders Orders - SOLANGE MESSINA MD Procedure Category Date Status Time Cardiolite Multiple NM 06/08/24 Logged 10:41 Dietary Evaluation Review Comments: 1) Encourage optimal PO intake. If < 50%, initiate Nepro bid 2) Consider Nephro-Jaxson @ 1 tb qd 3) Collect renal panel and HbA1c 4) Follow-up with cardiology and nephrology 5) Continue to monitor I&O, labs, and skin integrity Expected Outcomes/Goals: 1) appetite and labs to improve 2) wound to improve 2) f/u in 3-5 days Date of Service: June 09, 2024 Billing Provider: SOLANGE MESSINA MD Common Visit Codes: NOT BILLABLE SOLANGE MESSINA MD June 09, 2024 09:17
[2024-06-09] MEDS: MUPIROCIN 2% OINT 15gm or 22gm FOR MRSA NARES EACHNOSTRI SCH (10:00)
[2024-06-09] MEDS: SEVELAMER 800 MG TAB PO SCH (11:19)
[2024-06-09] MEDS: hydrALAZINE HCL 25 MG TAB PO SCH (11:20)
[2024-06-09] MEDS: CLOPIDOGREL BISULFATE 75 MG TAB PO SCH (11:21)
[2024-06-09] MEDS ORDERED: REGADENOSON 0.4 MG/5 ML SYRG IV ONE (13:10)
[2024-06-09] MEDS: REGADENOSON 0.4 MG/5 ML SYRG IV ONE (13:43)
[2024-06-09] MEDS: BUMETANIDE 1 MG TAB PO SCH (14:52)
[2024-06-09] MEDS: NIFEdipine ER 30 MG TAB PO SCH (14:52)
--- NOTE | 2024-06-09 15:24 | DVHPN2 ---
Progress Note - Dictate Date Seen: June 09, 2024 Medical Necessity Reason Pt with a Central, PICC or Fol: No Subjective Patient feeling tired, short of breath and leg edema vital signs Vital Sign Date Time Temp Pulse Resp B/P (MAP) Pulse Ox O2 Delivery O2 Flow Rate FiO2 06/09/24 14:52 151/65 06/09/24 13:00 98.3 87 18 97 98.3 06/09/24 08:00 Nasal Cannula* 2 28 Total Intake and Output 06/08/24 06/08/24 06/09/24 15:00 23:00 07:00 Intake Total 118 ml 800 ml 200 ml Balance 118 ml 800 ml 200 ml medications Current Medications Medications Dose Ordered Sig/Herson Route Start Time Stop Time Status Last Admin Dose Admin Aspirin 81 mg DAILY PO 06/07/24 10:00 06/09/24 11:21 81 MG Atorvastatin Calcium 20 mg HS PO 06/07/24 22:00 06/07/24 23:04 20 MG Hydralazine HCl 10 mg Q6HP PRN IV 06/07/24 03:00 06/08/24 22:14 10 MG Carvedilol 12.5 mg Q12HR PO 06/07/24 10:00 06/09/24 11:20 12.5 MG Amlodipine Besylate 5 mg DAILY PO 06/07/24 10:00 Hold 06/09/24 11:21 5 MG Diagnostic Test (Pha) 1 strip ACHS 06/07/24 07:00 06/09/24 11:22 1 STRIP Insulin Human Regular HS SC 06/07/24 22:00 Insulin Human Regular AC SC 06/07/24 07:00 06/09/24 15:02 9 UNITS Dextrose 50 ml UD PRN IV 06/07/24 03:00 Sodium Chloride 10 ml Q8HR IV 06/07/24 06:00 06/09/24 14:00 10 ML Acetaminophen/ Hydrocodone Bitart 1 tab Q4HP PRN PO 06/07/24 03:00 Ondansetron HCl 4 mg Q4HP PRN IV 06/07/24 03:00 Docusate Sodium 100 mg BIDPRN PRN PO 06/07/24 03:00 Acetaminophen 650 mg Q6HP PRN PO 06/07/24 03:00 Nitroglycerin 0.4 mg Q5MINP PRN SL 06/07/24 03:30 Morphine Sulfate 2 mg Q30M PRN IV 06/07/24 03:30 Mupirocin 1 applic BID EACHNOSTRI 06/09/24 10:00 06/14/24 09:59 06/09/24 10:00 1 APPLIC Bumetanide 2 mg DAILY PO 06/09/24 10:00 06/09/24 14:52 2 MG Hydralazine HCl 50 mg Q12HR PO 06/09/24 10:00 06/09/24 11:20 50 MG Clopidogrel Bisulfate 75 mg DAILY PO 06/09/24 10:00 06/09/24 11:21 75 MG Sevelamer HCl 800 mg TIDWM PO 06/09/24 12:00 06/09/24 11:19 800 MG Nifedipine 60 mg DAILY PO 06/09/24 10:00 06/09/24 14:52 60 MG objective HEENT: No evidence of JVD, no oral ulcers. Pulmonary: Crackles bibasilarly on auscultation bilaterally Cardiovascular S1-S2, no S3 or S4 Abdomen: Bowel sounds positive, soft no rebound tenderness Extremities: 1+ pitting edema in the ankles and feet Skin: No rash Neurological: Alert, oriented, no focal weakness Hemodialysis access positive bruit and thrill laboratory and microbiology Laboratory Tests 06/09/24 05:20 06/08/24 04:40 Test 06/09/24 05:20 Range/Units Serum Glucose 134 H 74-106 mg/dL Assessment/Plan Assessment: ESRD on HD via AVF Hyperkalemia, mild Fluid overload Acute on chronic diastolic CHF DM HTN anemia of CKD CAD Hyperphosphatemia Secondary hyperparathyroidism Metabolic acidosis Plan: Hemodialysis yesterday's, Sunday. We will attempt to do extra session today then TTS inpatient Fluid restriction less than 1 L per day Continue phosphate binders BECKY post HD as needed; goal Hb: 10-11 g/dl Continue antihypertensive meds Renal diet Thank you very much for allowing us to participate in the care of this patient Dietary Evaluation Review Comments: 1) Encourage optimal PO intake. If < 50%, initiate Nepro bid 2) Consider Nephro-Jaxson @ 1 tb qd 3) Collect renal panel and HbA1c 4) Follow-up with cardiology and nephrology 5) Continue to monitor I&O, labs, and skin integrity Expected Outcomes/Goals: 1) appetite and labs to improve 2) wound to improve 2) f/u in 3-5 days Plan discussed with: Patient, Spouse MONAE MAGAÑA MD June 09, 2024 15:24
[2024-06-09] MEDS ORDERED: SODIUM CHL 0.9% 1000 ML BAG XX ONE (15:30)
[2024-06-09] MEDS ORDERED: EPOETIN ALFA-EPBX 4,000 UNIT/ML VIAL SC ONE (21:00)
--- NOTE | 2024-06-09 22:53 | DVHPN2 ---
Progress Note - Dictate Date Seen: June 09, 2024 Medical Necessity Reason Pt with a Central, PICC or Fol: No Subjective Patient seen and examined at bedside. Remains on supplemental oxygen Overnight events reviewed. vital signs Vital Sign Date Time Temp Pulse Resp B/P (MAP) Pulse Ox O2 Delivery O2 Flow Rate FiO2 06/09/24 21:26 152/70 06/09/24 21:26 85 06/09/24 21:00 98.3 18 94 98.3 06/09/24 08:00 Nasal Cannula* 2 28 Total Intake and Output 06/08/24 06/08/24 06/09/24 15:00 23:00 07:00 Intake Total 118 ml 800 ml 200 ml Balance 118 ml 800 ml 200 ml medications Current Medications Medications Dose Ordered Sig/Herson Route Start Time Stop Time Status Last Admin Dose Admin Aspirin 81 mg DAILY PO 06/07/24 10:00 06/09/24 11:21 81 MG Atorvastatin Calcium 20 mg HS PO 06/07/24 22:00 06/09/24 21:25 20 MG Hydralazine HCl 10 mg Q6HP PRN IV 06/07/24 03:00 06/08/24 22:14 10 MG Carvedilol 12.5 mg Q12HR PO 06/07/24 10:00 06/09/24 21:26 12.5 MG Amlodipine Besylate 5 mg DAILY PO 06/07/24 10:00 Hold 06/09/24 11:21 5 MG Diagnostic Test (Pha) 1 strip ACHS 06/07/24 07:00 06/09/24 21:13 1 STRIP Insulin Human Regular HS SC 06/07/24 22:00 06/09/24 21:34 3 UNITS Insulin Human Regular AC SC 06/07/24 07:00 06/09/24 15:02 9 UNITS Dextrose 50 ml UD PRN IV 06/07/24 03:00 Sodium Chloride 10 ml Q8HR IV 06/07/24 06:00 06/09/24 21:12 10 ML Acetaminophen/ Hydrocodone Bitart 1 tab Q4HP PRN PO 06/07/24 03:00 Ondansetron HCl 4 mg Q4HP PRN IV 06/07/24 03:00 Docusate Sodium 100 mg BIDPRN PRN PO 06/07/24 03:00 Acetaminophen 650 mg Q6HP PRN PO 06/07/24 03:00 Nitroglycerin 0.4 mg Q5MINP PRN SL 06/07/24 03:30 Morphine Sulfate 2 mg Q30M PRN IV 06/07/24 03:30 Mupirocin 1 applic BID EACHNOSTRI 06/09/24 10:00 06/14/24 09:59 06/09/24 21:27 1 APPLIC Bumetanide 2 mg DAILY PO 06/09/24 10:00 06/09/24 14:52 2 MG Hydralazine HCl 50 mg Q12HR PO 06/09/24 10:00 06/09/24 21:26 50 MG Clopidogrel Bisulfate 75 mg DAILY PO 06/09/24 10:00 06/09/24 11:21 75 MG Sevelamer HCl 800 mg TIDWM PO 06/09/24 12:00 06/09/24 18:44 800 MG Nifedipine 60 mg DAILY PO 06/09/24 10:00 06/09/24 14:52 60 MG objective Gen.: Patient lying in bed in no apparent distress. On supplemental oxygen. Head: Normocephalic, atraumatic. Eyes: EOMI/PERRLA. Ears: Normal hearing. Normal anatomy. Neck/trachea: Trachea midline, supple. Nose: Normal external anatomy. Mouth: Moist mucous membranes. Chest: Decreased air entry bilaterally. No wheezing or rhonchi. Cardiovascular: Positive S1, positive S2. Regular rate and rhythm. Abdomen: Positive bowel sounds in all 4 quadrants. Soft, non-tender, non- distended. : Deferred. Rectal: Deferred. Skin: Warm, dry. Intact. Extremities: 2+ radial pulses bilaterally. No lower extremity edema. Neuro: Awake, alert, oriented x3. No gross motor or sensory deficits. Cranial nerves II through XII intact. Gait not assessed. laboratory and microbiology Laboratory Tests 06/09/24 05:20 06/08/24 04:40 Test 06/09/24 05:20 Range/Units Serum Glucose 134 H 74-106 mg/dL Assessment/Plan Impression Acute on chronic respiratory failure Dependence on supplemental oxygen Pulmonary edema ESRD on HD Fluid overload Events: Low oxygen requirements On 2 liters nasal cannula Taper O2 as tolerated No acute events Accu-Cheks, ISS Bumex for diuresis HD per Nephrology Nephrology recs appreciated. Monitor renal function Monitor electrolytes. Supplement as needed Monitor ins and outs CXR shows no acute opacities, significant for chronic interstitial opacities. Labs and imaging reviewed Plan: Supplemental oxygen Titrate to maintain sats 90% or above Incentive spirometry Okay to withhold antibiotics Bronchodilators Diurese Monitor renal function HD as per nephrology Management deferred Monitor electrolytes Supplement as needed DVT prophylaxis Prognosis: Poor given patient's multiple co-morbidities. Rest of plan per hospitalist and other consultants. Thank you Dr. Rucker for allowing me to participate in this patient's care. Further recommendations will depend on the patient's clinical course. Please do not hesitate to contact me if you have any questions or concerns. This medical document was created using an electronic medical record system with [employer] dictation system. Although these documentations are being carefully reviewed, there may still be some phonetic and typographical changes. The errors are purely typographical, due to imperfection on the software program, and do not reflect any compromise in the patient's medical care. Dietary Evaluation Review Comments: 1) Encourage optimal PO intake. If < 50%, initiate Nepro bid 2) Consider Nephro-Jaxson @ 1 tb qd 3) Collect renal panel and HbA1c 4) Follow-up with cardiology and nephrology 5) Continue to monitor I&O, labs, and skin integrity Expected Outcomes/Goals: 1) appetite and labs to improve 2) wound to improve 2) f/u in 3-5 days Is there a minimum of two crit: Yes Plan discussed with: Patient, Other (DEREK Gonzalez) VERÓNICA ROBISON MD June 09, 2024 22:53
[2024-06-10] VITALS (8 sets, daily range): BP systolic 142–163; BP diastolic 60–79; PULSE 71–100; RESP 17–22; TEMP 97.4–98; O2SAT 96–100
[2024-06-10] MEDS ORDERED: SODIUM CHL 0.9% 1000 ML BAG XX ONE (07:00)
--- NOTE | 2024-06-10 07:42 | DVHSR ---
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 Reason for pharmacologic stress test: CAD, NTEMI II R/T ESRD W/ FLUID OVERLOAD. HR Resting HR: 74 bpmMax Heart Rate (APMHR): 156.034630 bpm Max HR Achieved: 90 bpmTarget HR (85% APMHR): 132.093014 bpm % of APMHR: 57.69 Recovery HR: 84 bpm BP Resting BP: 142/61 mmHg Recovery BP: 121/55 mmHg ECG Resting ECG: SEE BASELINE EKG Clinical Reason for Termination: Completed protocol Nurse Comments Received patient from Nuclear Medicine. Patient is A&O x4 and on RA. FOR VS please refer back to st ress test assessment documentation. Patient is connected to head of data. See cardio-neuro proce dural notes for addtional details. PIV flushes well. Reviewed POC and patient verbalizes understand ing and consents to test. Lexiscan stress test performed per protocol. picking tech administered the Cardiolite. Pat ient tolerated well and vitals returned to baseline. Transferred to Nuclear Medicine via wheelchair with tech in stable condition. Stress ECG Conclusion ecg shows SR, LVh with repol changes and diffuse TWI lvef 40% c/w moderate systolic HF no severe ischemia noted homeogenous perfusion noted NM EXAM: Myocardial Perfusion REST/STRESS Imaging Protocol: Rest Tc-99m/Stress Tc-99m 1 day Resting Data Rest SPECT myocardial perfusion imaging was performed in supine position 60 minutes following the int ravenous injection of 10 mCi of Tc-99m Sestamibi. Time of rest injection: 09:00 Date: 06/09/2024 Time of rest imagin:00 Date: 06/09/2024 Administration Route: IV Administration Site: Right Arm Pharmacologic Stress Pharmacologic stress test was performed by injecting Regadenoson 0.4 mg IV push followed by the intra venous injection of 32.5 mCi of Tc-99m Sestamibi. Time of stress injection: 1350 Date: 06/09/2024 Time of stress imagin Date: 06/09/2024 Administration Route: IV Administration Site: Right Arm Gated Stress SPECT was performed 45 minutes after stress injection. The images were gated to evaluate regional wall motion and calculate left ventricular ejection fracti on. Stress only was performed in the Supine position. Nuclear Conclusion Nuclear Findings: negative for ischemia ecg shows SR, LVh with repol changes and diffuse TWI lvef 40% c/w moderate systolic HF no severe ischemia noted homeogenous perfusion noted
--- NOTE | 2024-06-10 07:49 | DVHPN2 ---
Reviewed: Care Plan, H&P, Labs, Medications, Previous Orders, Radiology Changes from previous H/P or p: No Changes Eyes: No Pain, No Vision change, No Conjunctivae inflammation, No Eyelid inflammation, No Other, No Redness ENT: No Ear pain, No Ear discharge, No Nose pain, No Nose discharge, No Nose congestion, No Mouth pain, No Mouth swelling, No Throat pain, No Throat swelling, No Other Cardiovascular: Chest Pain; No Palpitations, No Orthopnea, No Paroxysmal Noc. Dyspnea, No Edema, No Lt Headedness, No Other Respiratory: Cough; No Dry; Shortness of breath, SOB with excertion, Wheezing; No Hemoptysis, No Pleuritic Pain, No Sputum, No Other Gastrointestinal: No Nausea, No Vomiting, No Abdominal Pain, No Diarrhea, No Constipation, No Melena, No Hematochezia, No Other Genitourinary: No Dysuria, No Frequency, No Incontinence, No Hematuria, No Retention, No Other Musculoskeletal: No other, No neck pain, No shoulder pain, No arm pain, No back pain, No hand pain, No leg pain, No foot pain Skin: No Rash, No Lesions, No Jaundice, No Bruising, No Other Objective Vitals Vital Signs Date Time Temp Pulse Resp B/P (MAP) Pulse Ox O2 Delivery O2 Flow Rate FiO2 06/10/24 05:00 97.7 97 19 163/75 (104) 99 97.7 06/09/24 20:00 Nasal Cannula* 2 28 Intake/Output Intake and Output 06/10/24 07:00 Intake Total 1360 ml Balance 1360 ml Intake Oral 1360 ml # Voids 4 Medications Current Medications Medications Dose Ordered Sig/Herson Route Start Time Stop Time Status Last Admin Dose Admin Aspirin 81 mg DAILY PO 06/07/24 10:00 06/09/24 11:21 81 MG Atorvastatin Calcium 20 mg HS PO 06/07/24 22:00 06/09/24 21:25 20 MG Hydralazine HCl 10 mg Q6HP PRN IV 06/07/24 03:00 06/08/24 22:14 10 MG Carvedilol 12.5 mg Q12HR PO 06/07/24 10:00 06/09/24 21:26 12.5 MG Amlodipine Besylate 5 mg DAILY PO 06/07/24 10:00 Hold 06/09/24 11:21 5 MG Diagnostic Test (Pha) 1 strip ACHS 06/07/24 07:00 06/10/24 06:01 1 STRIP Insulin Human Regular HS SC 06/07/24 22:00 06/09/24 21:34 3 UNITS Insulin Human Regular AC SC 06/07/24 07:00 06/09/24 15:02 9 UNITS Dextrose 50 ml UD PRN IV 06/07/24 03:00 Sodium Chloride 10 ml Q8HR IV 06/07/24 06:00 06/10/24 06:02 10 ML Acetaminophen/ Hydrocodone Bitart 1 tab Q4HP PRN PO 06/07/24 03:00 Ondansetron HCl 4 mg Q4HP PRN IV 06/07/24 03:00 Docusate Sodium 100 mg BIDPRN PRN PO 06/07/24 03:00 Acetaminophen 650 mg Q6HP PRN PO 06/07/24 03:00 Nitroglycerin 0.4 mg Q5MINP PRN SL 06/07/24 03:30 Morphine Sulfate 2 mg Q30M PRN IV 06/07/24 03:30 Mupirocin 1 applic BID EACHNOSTRI 06/09/24 10:00 06/14/24 09:59 06/09/24 21:27 1 APPLIC Bumetanide 2 mg DAILY PO 06/09/24 10:00 06/09/24 14:52 2 MG Hydralazine HCl 50 mg Q12HR PO 06/09/24 10:00 06/09/24 21:26 50 MG Clopidogrel Bisulfate 75 mg DAILY PO 06/09/24 10:00 06/09/24 11:21 75 MG Sevelamer HCl 800 mg TIDWM PO 06/09/24 12:00 06/09/24 18:44 800 MG Nifedipine 60 mg DAILY PO 06/09/24 10:00 06/09/24 14:52 60 MG Laboratory Results Laboratory Tests 06/08/24 04:40 06/09/24 05:20 Microbiology Microbiology Date/Time Source Procedure Growth Status 06/08/24 00:10 Nose MRSA Screen - Final Methicillin Resistant S.aureus Complete Labs and/or images reviewed: Labs reviewed by me, Image(s) reviewed by me Assessment/Plan Assessment/Plan Acute hypoxic respiratory failure likely due to volume overload in the setting of end-stage renal disease, consult for Dr. Rodrigues appreciated, patient is now on 2 L of oxygen by nasal cannula End-stage renal disease requiring hemodialysis (Sun/Sun/Sun): Consult by Dr. Rose appreciated Severe Acute diastolic heart failure: Consult for Dr. Moya appreciated, to continue calcium channel yanet and beta-yanet, echo 45% ejection fraction Recent left heart catheterization normal, cardiology consult appreciated Acute hyperkalemia in the setting of end-stage renal disease Hypercalcemia likely in the setting of end-stage renal disease Hypertension NSTEMI type 2 Hypercholesterolemia Anemia of chronic disease Type 2 diabetes Time Spent 50 minutes Had family conference with the patient's and son at bed side [facility] [phone] at bedside Plan discussed with: Patient My Orders Orders - JUANITO STEVENS MD Procedure Category Date Status Time Mupirocin 2% Oint PHA 06/09/24 In Process Mrsa Nares (Bactroban 10:00 Bumetanide Tablet PHA 06/09/24 In Process (Bumex Tablet) 10:00 Hydralazine Hcl PHA 06/09/24 In Process Tablet (Apresoline 10:00 Clopidogrel Bisulfate PHA 06/09/24 In Process (Plavix) 10:00 Sevelamer (Renagel) PHA 06/09/24 In Process 12:00 Nifedipine Er PHA 06/09/24 In Process (Procardia Xl 10:00 Date of Service: June 10, 2024 Billing Provider: JUANITO STEVENS MD Common Visit Codes: [id number] CARE 30-74 MIN JUANITO STEVENS MD June 10, 2024 07:49
--- NOTE | 2024-06-10 15:08 | DVHPN2 ---
Progress Note - Dictate Date Seen: June 10, 2024 Medical Necessity Reason Pt with a Central, PICC or Fol: No Subjective Patient feeling tired, short of breath and leg edema vital signs Vital Sign Date Time Temp Pulse Resp B/P (MAP) Pulse Ox O2 Delivery O2 Flow Rate FiO2 06/10/24 11:03 163/72 06/10/24 09:22 88 06/10/24 09:00 98.0 17 99 98.0 06/09/24 20:00 Nasal Cannula* 2 28 Total Intake and Output 06/09/24 06/09/24 06/10/24 15:00 23:00 07:00 Intake Total 460 ml 900 ml Balance 460 ml 900 ml medications Current Medications Medications Dose Ordered Sig/Herson Route Start Time Stop Time Status Last Admin Dose Admin Aspirin 81 mg DAILY PO 06/07/24 10:00 06/10/24 09:20 81 MG Atorvastatin Calcium 20 mg HS PO 06/07/24 22:00 06/09/24 21:25 20 MG Hydralazine HCl 10 mg Q6HP PRN IV 06/07/24 03:00 06/10/24 11:03 10 MG Carvedilol 12.5 mg Q12HR PO 06/07/24 10:00 06/10/24 09:22 12.5 MG Amlodipine Besylate 5 mg DAILY PO 06/07/24 10:00 Hold 06/09/24 11:21 5 MG Diagnostic Test (Pha) 1 strip ACHS 06/07/24 07:00 06/10/24 11:00 1 STRIP Insulin Human Regular HS SC 06/07/24 22:00 06/09/24 21:34 3 UNITS Insulin Human Regular AC SC 06/07/24 07:00 06/10/24 11:00 6 UNITS Dextrose 50 ml UD PRN IV 06/07/24 03:00 Sodium Chloride 10 ml Q8HR IV 06/07/24 06:00 06/10/24 11:01 10 ML Acetaminophen/ Hydrocodone Bitart 1 tab Q4HP PRN PO 06/07/24 03:00 Ondansetron HCl 4 mg Q4HP PRN IV 06/07/24 03:00 Docusate Sodium 100 mg BIDPRN PRN PO 06/07/24 03:00 Acetaminophen 650 mg Q6HP PRN PO 06/07/24 03:00 Nitroglycerin 0.4 mg Q5MINP PRN SL 06/07/24 03:30 Morphine Sulfate 2 mg Q30M PRN IV 06/07/24 03:30 Mupirocin 1 applic BID EACHNOSTRI 06/09/24 10:00 06/14/24 09:59 06/10/24 09:21 1 APPLIC Bumetanide 2 mg DAILY PO 06/09/24 10:00 06/10/24 09:24 2 MG Hydralazine HCl 50 mg Q12HR PO 06/09/24 10:00 06/10/24 09:21 50 MG Clopidogrel Bisulfate 75 mg DAILY PO 06/09/24 10:00 06/10/24 09:20 75 MG Sevelamer HCl 800 mg TIDWM PO 06/09/24 12:00 06/10/24 10:50 800 MG Nifedipine 60 mg DAILY PO 06/09/24 10:00 06/10/24 09:23 60 MG objective HEENT: No evidence of JVD, no oral ulcers. Pulmonary: Crackles bibasilarly on auscultation bilaterally Cardiovascular S1-S2, no S3 or S4 Abdomen: Bowel sounds positive, soft no rebound tenderness Extremities: 1+ pitting edema in the ankles and feet Skin: No rash Neurological: Alert, oriented, no focal weakness Hemodialysis access positive bruit and thrill laboratory and microbiology Laboratory Tests 06/09/24 05:20 06/08/24 04:40 Test 06/09/24 05:20 Range/Units Serum Glucose 134 H 74-106 mg/dL Assessment/Plan Assessment: ESRD on HD via AVF Hyperkalemia, mild Fluid overload Acute on chronic diastolic CHF DM HTN anemia of CKD CAD Hyperphosphatemia Secondary hyperparathyroidism Metabolic acidosis Plan: Hemodialysis Today aim for 3-4 L UF, repeat tomorrow for additional ultrafiltration Fluid restriction less than 1 L per day Continue phosphate binders BECKY post HD as needed; goal Hb: 10-11 g/dl Continue antihypertensive meds Renal diet hopefully discharge tomorrow post dialysis Thank you very much for allowing us to participate in the care of this patient Dietary Evaluation Review Comments: 1) Encourage optimal PO intake. If < 50%, initiate Nepro bid 2) Consider Nephro-Jaxson @ 1 tb qd 3) Collect renal panel and HbA1c 4) Follow-up with cardiology and nephrology 5) Continue to monitor I&O, labs, and skin integrity Expected Outcomes/Goals: 1) appetite and labs to improve 2) wound to improve 2) f/u in 3-5 days Is there a minimum of two crit: Yes Plan discussed with: Patient, Spouse MONAE MAGAÑA MD June 10, 2024 15:08
[2024-06-10] MEDS: DOCUSATE SOD 100 MG CAP PO PRN (20:08)
--- NOTE | 2024-06-10 22:27 | DVHPN2 ---
Progress Note - Dictate Date Seen: June 10, 2024 Medical Necessity Reason Pt with a Central, PICC or Fol: No Subjective Patient seen and examined at bedside. Remains on supplemental oxygen Overnight events reviewed. vital signs Vital Sign Date Time Temp Pulse Resp B/P (MAP) Pulse Ox O2 Delivery O2 Flow Rate FiO2 06/10/24 21:30 142/60 06/10/24 21:30 78 06/10/24 17:00 17 06/10/24 13:00 97.9 100 97.9 06/10/24 08:30 Nasal Cannula* 4 36 Total Intake and Output 06/09/24 06/09/24 06/10/24 15:00 23:00 07:00 Intake Total 460 ml 900 ml Balance 460 ml 900 ml medications Current Medications Medications Dose Ordered Sig/Herson Route Start Time Stop Time Status Last Admin Dose Admin Aspirin 81 mg DAILY PO 06/07/24 10:00 06/10/24 09:20 81 MG Atorvastatin Calcium 20 mg HS PO 06/07/24 22:00 06/10/24 21:30 20 MG Hydralazine HCl 10 mg Q6HP PRN IV 06/07/24 03:00 06/10/24 11:03 10 MG Carvedilol 12.5 mg Q12HR PO 06/07/24 10:00 06/10/24 21:30 12.5 MG Amlodipine Besylate 5 mg DAILY PO 06/07/24 10:00 Hold 06/09/24 11:21 5 MG Diagnostic Test (Pha) 1 strip ACHS 06/07/24 07:00 06/10/24 22:00 1 STRIP Insulin Human Regular HS SC 06/07/24 22:00 06/10/24 22:07 4 UNITS Insulin Human Regular AC SC 06/07/24 07:00 06/10/24 11:00 6 UNITS Dextrose 50 ml UD PRN IV 06/07/24 03:00 Sodium Chloride 10 ml Q8HR IV 06/07/24 06:00 06/10/24 22:00 10 ML Acetaminophen/ Hydrocodone Bitart 1 tab Q4HP PRN PO 06/07/24 03:00 Ondansetron HCl 4 mg Q4HP PRN IV 06/07/24 03:00 Docusate Sodium 100 mg BIDPRN PRN PO 06/07/24 03:00 06/10/24 20:08 100 MG Acetaminophen 650 mg Q6HP PRN PO 06/07/24 03:00 Nitroglycerin 0.4 mg Q5MINP PRN SL 06/07/24 03:30 Morphine Sulfate 2 mg Q30M PRN IV 06/07/24 03:30 Mupirocin 1 applic BID EACHNOSTRI 06/09/24 10:00 06/14/24 09:59 06/10/24 21:59 1 APPLIC Bumetanide 2 mg DAILY PO 06/09/24 10:00 06/10/24 09:24 2 MG Hydralazine HCl 50 mg Q12HR PO 06/09/24 10:00 06/10/24 21:30 50 MG Clopidogrel Bisulfate 75 mg DAILY PO 06/09/24 10:00 06/10/24 09:20 75 MG Sevelamer HCl 800 mg TIDWM PO 06/09/24 12:00 06/10/24 18:45 800 MG Nifedipine 60 mg DAILY PO 06/09/24 10:00 06/10/24 09:23 60 MG objective Gen.: Patient lying in bed in no apparent distress. On supplemental oxygen. Head: Normocephalic, atraumatic. Eyes: EOMI/PERRLA. Ears: Normal hearing. Normal anatomy. Neck/trachea: Trachea midline, supple. Nose: Normal external anatomy. Mouth: Moist mucous membranes. Chest: Decreased air entry bilaterally. No wheezing or rhonchi. Cardiovascular: Positive S1, positive S2. Regular rate and rhythm. Abdomen: Positive bowel sounds in all 4 quadrants. Soft, non-tender, non- distended. : Deferred. Rectal: Deferred. Skin: Warm, dry. Intact. Extremities: 2+ radial pulses bilaterally. No lower extremity edema. Neuro: Awake, alert, oriented x3. No gross motor or sensory deficits. Cranial nerves II through XII intact. Gait not assessed. laboratory and microbiology Laboratory Tests 06/09/24 05:20 06/08/24 04:40 Test 06/09/24 05:20 Range/Units Serum Glucose 134 H 74-106 mg/dL Assessment/Plan Impression Acute on chronic respiratory failure Dependence on supplemental oxygen Pulmonary edema ESRD on HD Fluid overload Events: Remains on supplemental oxygen On 4 liters nasal cannula Taper O2 as tolerated No acute events Accu-Cheks, ISS Bumex for diuresis HD per Nephrology Nephrology recs appreciated. Monitor renal function Monitor electrolytes. Supplement as needed Monitor ins and outs CXR shows no acute opacities, significant for chronic interstitial opacities. Labs and imaging reviewed Plan: Supplemental oxygen Titrate to keep O2 sats above 92%. Incentive spirometry Okay to withhold antibiotics Bronchodilators Diurese Monitor renal function HD as per nephrology Management deferred Monitor electrolytes Supplement as needed DVT prophylaxis Prognosis: Poor given patient's multiple co-morbidities. Rest of plan per hospitalist and other consultants. Thank you Dr. Rucker for allowing me to participate in this patient's care. Further recommendations will depend on the patient's clinical course. Please do not hesitate to contact me if you have any questions or concerns. This medical document was created using an electronic medical record system with [employer] dictation system. Although these documentations are being carefully reviewed, there may still be some phonetic and typographical changes. The errors are purely typographical, due to imperfection on the software program, and do not reflect any compromise in the patient's medical care. Dietary Evaluation Review Comments: 1) Encourage optimal PO intake. If < 50%, initiate Nepro bid 2) Consider Nephro-Jaxson @ 1 tb qd 3) Collect renal panel and HbA1c 4) Follow-up with cardiology and nephrology 5) Continue to monitor I&O, labs, and skin integrity Expected Outcomes/Goals: 1) appetite and labs to improve 2) wound to improve 2) f/u in 3-5 days Is there a minimum of two crit: Yes Plan discussed with: Patient, Other (DEREK Jessica) VERÓNICA ROBISON MD June 10, 2024 22:27
[2024-06-11] VITALS (8 sets, daily range): BP systolic 131–182; BP diastolic 58–82; PULSE 68–86; RESP 12–18; TEMP 97.8–99.6; O2SAT 94–100
[2024-06-11] MEDS ORDERED: SODIUM CHL 0.9% 1000 ML BAG XX ONE (07:00)
--- NOTE | 2024-06-11 08:13 | DVHPN2 ---
Reviewed: Care Plan, H&P, Labs, Medications, Previous Orders, Radiology Changes from previous H/P or p: No Changes Eyes: No Pain, No Vision change, No Conjunctivae inflammation, No Eyelid inflammation, No Other, No Redness ENT: No Ear pain, No Ear discharge, No Nose pain, No Nose discharge, No Nose congestion, No Mouth pain, No Mouth swelling, No Throat pain, No Throat swelling, No Other Cardiovascular: Chest Pain; No Palpitations, No Orthopnea, No Paroxysmal Noc. Dyspnea, No Edema, No Lt Headedness, No Other Respiratory: Cough; No Dry; Shortness of breath, SOB with excertion, Wheezing; No Hemoptysis, No Pleuritic Pain, No Sputum, No Other Gastrointestinal: No Nausea, No Vomiting, No Abdominal Pain, No Diarrhea, No Constipation, No Melena, No Hematochezia, No Other Genitourinary: No Dysuria, No Frequency, No Incontinence, No Hematuria, No Retention, No Other Musculoskeletal: No other, No neck pain, No shoulder pain, No arm pain, No back pain, No hand pain, No leg pain, No foot pain Skin: No Rash, No Lesions, No Jaundice, No Bruising, No Other Objective Vitals Vital Signs Date Time Temp Pulse Resp B/P (MAP) Pulse Ox O2 Delivery O2 Flow Rate FiO2 06/11/24 04:56 97.8 83 16 150/70 (96) 99 97.8 06/10/24 20:00 Nasal Cannula* 4 36 Intake/Output Intake and Output 06/11/24 07:00 Intake Total 1100 ml Balance 1100 ml Intake Oral 1100 ml # Voids 4 Medications Current Medications Medications Dose Ordered Sig/Herson Route Start Time Stop Time Status Last Admin Dose Admin Aspirin 81 mg DAILY PO 06/07/24 10:00 06/10/24 09:20 81 MG Atorvastatin Calcium 20 mg HS PO 06/07/24 22:00 06/10/24 21:30 20 MG Hydralazine HCl 10 mg Q6HP PRN IV 06/07/24 03:00 06/10/24 11:03 10 MG Carvedilol 12.5 mg Q12HR PO 06/07/24 10:00 06/10/24 21:30 12.5 MG Amlodipine Besylate 5 mg DAILY PO 06/07/24 10:00 Hold 06/09/24 11:21 5 MG Diagnostic Test (Pha) 1 strip ACHS 06/07/24 07:00 06/11/24 06:09 1 STRIP Insulin Human Regular HS SC 06/07/24 22:00 06/10/24 22:07 4 UNITS Insulin Human Regular AC SC 06/07/24 07:00 06/11/24 06:09 2 UNITS Dextrose 50 ml UD PRN IV 06/07/24 03:00 Sodium Chloride 10 ml Q8HR IV 06/07/24 06:00 06/11/24 06:09 10 ML Acetaminophen/ Hydrocodone Bitart 1 tab Q4HP PRN PO 06/07/24 03:00 Ondansetron HCl 4 mg Q4HP PRN IV 06/07/24 03:00 Docusate Sodium 100 mg BIDPRN PRN PO 06/07/24 03:00 06/10/24 20:08 100 MG Acetaminophen 650 mg Q6HP PRN PO 06/07/24 03:00 Nitroglycerin 0.4 mg Q5MINP PRN SL 06/07/24 03:30 Morphine Sulfate 2 mg Q30M PRN IV 06/07/24 03:30 Mupirocin 1 applic BID EACHNOSTRI 06/09/24 10:00 06/14/24 09:59 06/10/24 21:59 1 APPLIC Bumetanide 2 mg DAILY PO 06/09/24 10:00 06/10/24 09:24 2 MG Hydralazine HCl 50 mg Q12HR PO 06/09/24 10:00 06/10/24 21:30 50 MG Clopidogrel Bisulfate 75 mg DAILY PO 06/09/24 10:00 06/10/24 09:20 75 MG Sevelamer HCl 800 mg TIDWM PO 06/09/24 12:00 06/10/24 18:45 800 MG Nifedipine 60 mg DAILY PO 06/09/24 10:00 06/10/24 09:23 60 MG Laboratory Results Laboratory Tests 06/08/24 04:40 06/09/24 05:20 Microbiology Microbiology Date/Time Source Procedure Growth Status 06/08/24 00:10 Nose MRSA Screen - Final Methicillin Resistant S.aureus Complete Labs and/or images reviewed: Labs reviewed by me, Image(s) reviewed by me Assessment/Plan Assessment/Plan Acute hypoxic respiratory failure likely due to volume overload in the setting of end-stage renal disease, consult for Dr. Rodrigues appreciated, patient is now on 2 L of oxygen by nasal cannula End-stage renal disease requiring hemodialysis (Sun/Sun/Sun): Consult by Dr. Rose appreciated Severe Acute diastolic heart failure: Consult for Dr. Moya appreciated, to continue calcium channel yanet and beta-yanet, echo 45% ejection fraction Recent left heart catheterization normal, cardiology consult appreciated Acute hyperkalemia in the setting of end-stage renal disease Hypercalcemia likely in the setting of end-stage renal disease Hypertension Moderate bipedal edema secondary to CHF NSTEMI type 2, stress test negative ejection fraction 40 % Hypercholesterolemia Anemia of chronic disease Type 2 diabetes Time Spent 50 minutes Had family conference with the patient's and son at bed side [facility] [phone] at bedside Plan discussed with: Patient Date of Service: June 11, 2024 Billing Provider: JUANITO STEVENS MD Common Visit Codes: [id number] INP/OBS CARE(HIGH) JUANITO STEVENS MD June 11, 2024 08:13
[2024-06-11] MEDS: LACTULOSE 20Gm/30ML SOLN PO ONE (11:59)
--- NOTE | 2024-06-11 15:22 | DVHPN2 ---
Progress Note - Dictate Date Seen: June 11, 2024 Medical Necessity Reason Pt with a Central, PICC or Fol: No Subjective Mild shortness of breath and leg edema slightly improved vital signs Vital Sign Date Time Temp Pulse Resp B/P (MAP) Pulse Ox O2 Delivery O2 Flow Rate FiO2 06/11/24 13:00 98.1 68 14 167/74 (105) 98 98.1 06/11/24 08:30 Nasal Cannula* 4 36 Total Intake and Output 06/10/24 06/10/24 06/11/24 15:00 23:00 07:00 Intake Total 500 ml 600 ml Balance 500 ml 600 ml medications Current Medications Medications Dose Ordered Sig/Herson Route Start Time Stop Time Status Last Admin Dose Admin Aspirin 81 mg DAILY PO 06/07/24 10:00 06/11/24 12:01 81 MG Atorvastatin Calcium 20 mg HS PO 06/07/24 22:00 06/10/24 21:30 20 MG Hydralazine HCl 10 mg Q6HP PRN IV 06/07/24 03:00 06/10/24 11:03 10 MG Carvedilol 12.5 mg Q12HR PO 06/07/24 10:00 06/11/24 12:17 12.5 MG Amlodipine Besylate 5 mg DAILY PO 06/07/24 10:00 Hold 06/09/24 11:21 5 MG Diagnostic Test (Pha) 1 strip ACHS 06/07/24 07:00 06/11/24 11:30 1 STRIP Insulin Human Regular HS SC 06/07/24 22:00 06/10/24 22:07 4 UNITS Insulin Human Regular AC SC 06/07/24 07:00 06/11/24 11:30 2 UNITS Dextrose 50 ml UD PRN IV 06/07/24 03:00 Sodium Chloride 10 ml Q8HR IV 06/07/24 06:00 06/11/24 12:18 10 ML Acetaminophen/ Hydrocodone Bitart 1 tab Q4HP PRN PO 06/07/24 03:00 Ondansetron HCl 4 mg Q4HP PRN IV 06/07/24 03:00 Docusate Sodium 100 mg BIDPRN PRN PO 06/07/24 03:00 06/10/24 20:08 100 MG Acetaminophen 650 mg Q6HP PRN PO 06/07/24 03:00 Nitroglycerin 0.4 mg Q5MINP PRN SL 06/07/24 03:30 Morphine Sulfate 2 mg Q30M PRN IV 06/07/24 03:30 Mupirocin 1 applic BID EACHNOSTRI 06/09/24 10:00 06/14/24 09:59 06/11/24 12:02 1 APPLIC Bumetanide 2 mg DAILY PO 06/09/24 10:00 06/11/24 12:02 2 MG Hydralazine HCl 50 mg Q12HR PO 06/09/24 10:00 06/11/24 12:18 50 MG Clopidogrel Bisulfate 75 mg DAILY PO 06/09/24 10:00 06/11/24 12:00 75 MG Sevelamer HCl 800 mg TIDWM PO 06/09/24 12:00 06/11/24 12:00 800 MG Nifedipine 60 mg DAILY PO 06/09/24 10:00 06/11/24 12:00 60 MG objective HEENT: No evidence of JVD, no oral ulcers. Pulmonary: Crackles bibasilarly on auscultation bilaterally Cardiovascular S1-S2, no S3 or S4 Abdomen: Bowel sounds positive, soft no rebound tenderness Extremities: 1+ pitting edema in the ankles and feet Skin: No rash Neurological: Alert, oriented, no focal weakness Hemodialysis access positive bruit and thrill laboratory and microbiology Laboratory Tests 06/09/24 05:20 06/08/24 04:40 Test 06/09/24 05:20 Range/Units Serum Glucose 134 H 74-106 mg/dL Assessment/Plan Assessment: ESRD on HD via AVF Hyperkalemia, mild Fluid overload Acute on chronic diastolic CHF DM HTN anemia of CKD CAD Hyperphosphatemia Secondary hyperparathyroidism Metabolic acidosis Plan: Hemodialysis today Fluid restriction less than 1 L per day Continue phosphate binders BECKY post HD as needed; goal Hb: 10-11 g/dl Continue antihypertensive meds Renal diet Post dialysis today patient could be discharged home if he remains inpatient we will do HD if staffing allows Thank you very much for allowing us to participate in the care of this patient Dietary Evaluation Review Comments: 1) Encourage optimal PO intake. If < 50%, initiate Nepro bid 2) Consider Nephro-Jaxson @ 1 tb qd 3) Collect renal panel and HbA1c 4) Follow-up with cardiology and nephrology 5) Continue to monitor I&O, labs, and skin integrity Expected Outcomes/Goals: 1) appetite and labs to improve 2) wound to improve 2) f/u in 3-5 days Is there a minimum of two crit: Yes Plan discussed with: Patient, Spouse MONAE MAGAÑA MD June 11, 2024 15:22
[2024-06-11] MEDS: EPOETIN ALFA-EPBX 10,000 UNIT/1ML VIAL SC ONE (21:48)
--- NOTE | 2024-06-11 23:03 | DVHPN2 ---
Progress Note - Dictate Date Seen: June 11, 2024 Medical Necessity Reason Pt with a Central, PICC or Fol: No Subjective Patient seen and examined at bedside. Remains on supplemental oxygen Overnight events reviewed. vital signs Vital Sign Date Time Temp Pulse Resp B/P (MAP) Pulse Ox O2 Delivery O2 Flow Rate FiO2 06/11/24 21:45 80 131/58 06/11/24 17:00 98.1 12 98 98.1 06/11/24 08:30 Nasal Cannula* 4 36 Total Intake and Output 06/10/24 06/10/24 06/11/24 15:00 23:00 07:00 Intake Total 500 ml 600 ml Balance 500 ml 600 ml medications Current Medications Medications Dose Ordered Sig/Herson Route Start Time Stop Time Status Last Admin Dose Admin Aspirin 81 mg DAILY PO 06/07/24 10:00 06/11/24 12:01 81 MG Atorvastatin Calcium 20 mg HS PO 06/07/24 22:00 06/11/24 21:45 20 MG Hydralazine HCl 10 mg Q6HP PRN IV 06/07/24 03:00 06/11/24 19:01 10 MG Carvedilol 12.5 mg Q12HR PO 06/07/24 10:00 06/11/24 21:45 12.5 MG Amlodipine Besylate 5 mg DAILY PO 06/07/24 10:00 Hold 06/09/24 11:21 5 MG Diagnostic Test (Pha) 1 strip ACHS 06/07/24 07:00 06/11/24 11:30 1 STRIP Insulin Human Regular HS SC 06/07/24 22:00 06/10/24 22:07 4 UNITS Insulin Human Regular AC SC 06/07/24 07:00 06/11/24 11:30 2 UNITS Dextrose 50 ml UD PRN IV 06/07/24 03:00 Sodium Chloride 10 ml Q8HR IV 06/07/24 06:00 06/11/24 12:18 10 ML Acetaminophen/ Hydrocodone Bitart 1 tab Q4HP PRN PO 06/07/24 03:00 Ondansetron HCl 4 mg Q4HP PRN IV 06/07/24 03:00 Docusate Sodium 100 mg BIDPRN PRN PO 06/07/24 03:00 06/10/24 20:08 100 MG Acetaminophen 650 mg Q6HP PRN PO 06/07/24 03:00 Nitroglycerin 0.4 mg Q5MINP PRN SL 06/07/24 03:30 Morphine Sulfate 2 mg Q30M PRN IV 06/07/24 03:30 Mupirocin 1 applic BID EACHNOSTRI 06/09/24 10:00 06/14/24 09:59 06/11/24 12:02 1 APPLIC Bumetanide 2 mg DAILY PO 06/09/24 10:00 06/11/24 12:02 2 MG Hydralazine HCl 50 mg Q12HR PO 06/09/24 10:00 06/11/24 21:44 50 MG Clopidogrel Bisulfate 75 mg DAILY PO 06/09/24 10:00 06/11/24 12:00 75 MG Sevelamer HCl 800 mg TIDWM PO 06/09/24 12:00 06/11/24 19:00 800 MG Nifedipine 60 mg DAILY PO 06/09/24 10:00 06/11/24 12:00 60 MG objective Gen.: Patient lying in bed in no apparent distress. On supplemental oxygen. Head: Normocephalic, atraumatic. Eyes: EOMI/PERRLA. Ears: Normal hearing. Normal anatomy. Neck/trachea: Trachea midline, supple. Nose: Normal external anatomy. Mouth: Moist mucous membranes. Chest: Decreased air entry bilaterally. No wheezing or rhonchi. Cardiovascular: Positive S1, positive S2. Regular rate and rhythm. Abdomen: Positive bowel sounds in all 4 quadrants. Soft, non-tender, non- distended. : Deferred. Rectal: Deferred. Skin: Warm, dry. Intact. Extremities: 2+ radial pulses bilaterally. No lower extremity edema. Neuro: Awake, alert, oriented x3. No gross motor or sensory deficits. Cranial nerves II through XII intact. Gait not assessed. laboratory and microbiology Laboratory Tests 06/09/24 05:20 06/08/24 04:40 Test 06/09/24 05:20 Range/Units Serum Glucose 134 H 74-106 mg/dL Assessment/Plan Impression Acute on chronic respiratory failure Dependence on supplemental oxygen Pulmonary edema ESRD on HD Fluid overload Events: Remains on supplemental oxygen On 4 liters nasal cannula Taper O2 as tolerated Antihypertensive medication Accu-Cheks, ISS Bumex for diuresis HD per Nephrology Nephrology recs appreciated. Monitor renal function Monitor electrolytes. Supplement as needed Monitor ins and outs Monitor hemoglobin Check chest x-ray in AM to assess for interval changes. Labs and imaging reviewed Plan: Supplemental oxygen Titrate to keep O2 sats above 92%. Incentive spirometry Okay to withhold antibiotics Bronchodilators PRN Antihypertensives - monitor BP On Plavix Diurese Monitor renal function HD as per nephrology Management deferred Monitor electrolytes Supplement as needed DVT prophylaxis Prognosis: Poor given patient's multiple co-morbidities. Rest of plan per hospitalist and other consultants. Thank you Dr. Rucker for allowing me to participate in this patient's care. Further recommendations will depend on the patient's clinical course. Please do not hesitate to contact me if you have any questions or concerns. This medical document was created using an electronic medical record system with [employer] dictation system. Although these documentations are being carefully reviewed, there may still be some phonetic and typographical changes. The errors are purely typographical, due to imperfection on the software program, and do not reflect any compromise in the patient's medical care. Dietary Evaluation Review Comments: 1) Encourage optimal PO intake. If < 50%, initiate Nepro bid 2) Consider Nephro-Jaxson @ 1 tb qd 3) Collect renal panel and HbA1c 4) Follow-up with cardiology and nephrology 5) Continue to monitor I&O, labs, and skin integrity Expected Outcomes/Goals: 1) appetite and labs to improve 2) wound to improve 2) f/u in 3-5 days Is there a minimum of two crit: Yes Plan discussed with: Patient, Other (DEREK Jessica) VERÓNICA ROBISON MD June 11, 2024 23:03
[2024-06-12 00:44] LABS: COVID19 ANTIGEN SOFIA FIA NEGATIVE (NEGATIVE)
[2024-06-12 01:00] VITALS: BP 152/59; PULSE 76; RESP 18; TEMP 98.9; O2SAT 100
[2024-06-12 05:46] VITALS: BP 175/76; PULSE 73; RESP 18; TEMP 98.7; O2SAT 94
[2024-06-12] MEDS ORDERED: SODIUM CHL 0.9% 1000 ML BAG XX ONE (07:00)
[2024-06-12 08:00] VITALS: PULSE 67; PULSE 76; RESP 18; O2SAT 96
--- NOTE | 2024-06-12 08:42 | DVHPN2 ---
Reviewed: Care Plan, H&P, Labs, Medications, Previous Orders, Radiology Changes from previous H/P or p: No Changes Eyes: No Pain, No Vision change, No Conjunctivae inflammation, No Eyelid inflammation, No Other, No Redness ENT: No Ear pain, No Ear discharge, No Nose pain, No Nose discharge, No Nose congestion, No Mouth pain, No Mouth swelling, No Throat pain, No Throat swelling, No Other Cardiovascular: Chest Pain; No Palpitations, No Orthopnea, No Paroxysmal Noc. Dyspnea, No Edema, No Lt Headedness, No Other Respiratory: Cough; No Dry; Shortness of breath, SOB with excertion, Wheezing; No Hemoptysis, No Pleuritic Pain, No Sputum, No Other Gastrointestinal: No Nausea, No Vomiting, No Abdominal Pain, No Diarrhea, No Constipation, No Melena, No Hematochezia, No Other Genitourinary: No Dysuria, No Frequency, No Incontinence, No Hematuria, No Retention, No Other Musculoskeletal: No other, No neck pain, No shoulder pain, No arm pain, No back pain, No hand pain, No leg pain, No foot pain Skin: No Rash, No Lesions, No Jaundice, No Bruising, No Other Objective Vitals Vital Signs Date Time Temp Pulse Resp B/P (MAP) Pulse Ox O2 Delivery O2 Flow Rate FiO2 06/12/24 05:46 98.7 73 18 175/76 (109) 94 98.7 06/11/24 20:00 Room Air* 0 21 Intake/Output Intake and Output 06/12/24 07:00 Intake Total 840 ml Balance 840 ml Intake Oral 840 ml # Voids 4 # Bowel Movements 3 Medications Current Medications Medications Dose Ordered Sig/Herson Route Start Time Stop Time Status Last Admin Dose Admin Aspirin 81 mg DAILY PO 06/07/24 10:00 06/11/24 12:01 81 MG Atorvastatin Calcium 20 mg HS PO 06/07/24 22:00 06/11/24 21:45 20 MG Hydralazine HCl 10 mg Q6HP PRN IV 06/07/24 03:00 06/12/24 05:39 10 MG Carvedilol 12.5 mg Q12HR PO 06/07/24 10:00 06/11/24 21:45 12.5 MG Amlodipine Besylate 5 mg DAILY PO 06/07/24 10:00 Hold 06/09/24 11:21 5 MG Diagnostic Test (Pha) 1 strip ACHS 06/07/24 07:00 06/12/24 06:00 1 STRIP Insulin Human Regular HS SC 06/07/24 22:00 06/11/24 22:00 4 UNITS Insulin Human Regular AC SC 06/07/24 07:00 06/12/24 06:26 2 UNITS Dextrose 50 ml UD PRN IV 06/07/24 03:00 Sodium Chloride 10 ml Q8HR IV 06/07/24 06:00 06/12/24 06:00 10 ML Acetaminophen/ Hydrocodone Bitart 1 tab Q4HP PRN PO 06/07/24 03:00 Ondansetron HCl 4 mg Q4HP PRN IV 06/07/24 03:00 Docusate Sodium 100 mg BIDPRN PRN PO 06/07/24 03:00 06/10/24 20:08 100 MG Acetaminophen 650 mg Q6HP PRN PO 06/07/24 03:00 Nitroglycerin 0.4 mg Q5MINP PRN SL 06/07/24 03:30 Morphine Sulfate 2 mg Q30M PRN IV 06/07/24 03:30 Mupirocin 1 applic BID EACHNOSTRI 06/09/24 10:00 06/14/24 09:59 06/11/24 22:00 1 APPLIC Bumetanide 2 mg DAILY PO 06/09/24 10:00 06/11/24 12:02 2 MG Hydralazine HCl 50 mg Q12HR PO 06/09/24 10:00 06/11/24 21:44 50 MG Clopidogrel Bisulfate 75 mg DAILY PO 06/09/24 10:00 06/11/24 12:00 75 MG Sevelamer HCl 800 mg TIDWM PO 06/09/24 12:00 06/11/24 19:00 800 MG Nifedipine 60 mg DAILY PO 06/09/24 10:00 06/11/24 12:00 60 MG Laboratory Results Laboratory Tests 06/08/24 04:40 06/09/24 05:20 Microbiology Microbiology Date/Time Source Procedure Growth Status 06/08/24 00:10 Nose MRSA Screen - Final Methicillin Resistant S.aureus Complete Labs and/or images reviewed: Labs reviewed by me, Image(s) reviewed by me Assessment/Plan Assessment/Plan Acute hypoxic respiratory failure likely due to volume overload in the setting of end-stage renal disease, consult for Dr. Rodrigues appreciated, patient is now on 2 L of oxygen by nasal cannula End-stage renal disease requiring hemodialysis (Sun/Sun/Sun): Consult by Dr. Rose appreciated Severe Acute diastolic heart failure: Consult for Dr. Moya appreciated, to continue calcium channel yanet and beta-yanet, echo 45% ejection fraction Recent left heart catheterization normal, cardiology consult appreciated Acute hyperkalemia in the setting of end-stage renal disease Hypercalcemia likely in the setting of end-stage renal disease Hypertension Moderate bipedal edema secondary to CHF NSTEMI type 2, stress test negative ejection fraction 40 % Hypercholesterolemia Anemia of chronic disease Type 2 diabetes Time Spent 45 minutes Had family conference with the patient's and son at bed side [facility] [phone] Physical therapy recommended assisted facility placement for rehab Patient will be discharged today either home or group home Plan discussed with: Patient My Orders Orders - JUANITO STEVENS MD Procedure Category Date Status Time Comprehensive LAB 06/12/24 Logged Metabolic Panel 08:21 Date of Service: June 12, 2024 Billing Provider: JUANITO STEVENS MD Common Visit Codes: [id number] INP/OBS CARE(HIGH) JUANITO STEVENS MD June 12, 2024 08:42
--- NOTE | 2024-06-12 08:43 | DVH ---
INDICATION: SOB TECHNIQUE: Frontal view of the chest. COMPARISON: XY CHEST PORTABLE on DOS: 06/07/24, XY CHEST PORTABLE on DOS: 06/03/24, XY CHEST PORTABLE on DOS: 09/16/23, XY CHEST PORTABLE on DOS: 12/03/22, CHEST PORTABLE on DOS: 01/01/20 FINDINGS: The heart and mediastinal contours are grossly unremarkable. There is no evidence of pleural diseas e. The lungs are clear. The bony structures of the chest are intact without fracture. IMPRESSION: 1. No evidence of acute disease.
[2024-06-12 09:00] VITALS: BP 125/58; PULSE 73; RESP 20; TEMP 98.4; O2SAT 100
[2024-06-12 09:20] LABS: Basophils # (auto) 0 10 ^3/uL (0-0.2); Eosinophils # (auto) 0.2 10 ^3/uL (0-0.8); Monocytes # (auto) 0.5 10 ^3/uL (0-1.3)
[2024-06-12 09:21] LABS: Basophils % (auto) 0.8 % (0.0-2.0); Eosinophils % (auto) 3.6 % (0.0-7.0); Hematocrit 23.8 % (41.0-53.0); Hemoglobin 8.1 g/dL (13.5-17.5); Lymphocytes # (auto) 0.7 10 ^3/uL (0.4-5.4); Lymphocytes % (auto) 12.6 % (10.0-50.0); Mean Corpuscular Hemoglobin 31.7 pg (28.0-32.0); Mean Corpuscular Volume 93.2 fL (80.0-100.0); Monocytes % (auto) 8.4 % (0.0-12.0); Neutrophils % (auto) 74.6 % (37.0-80.0); Platelet Count (auto) 241 10^3/uL (140-450); Red Blood Cells 2.56 10^6/uL (4.5-5.90); Red Cell Distribution Width 16.5 % (11.8-14.3); White Blood Cell 5.4 10^3/uL (4.4-10.8)
[2024-06-12] MEDS ORDERED: AZIT500T66 PO (11:07)
--- NOTE | 2024-06-12 11:17 | DVHDS2 ---
Discharge Summary Date of Admission June 07, 2024 at 03:26 Date of Discharge: June 12, 2024 Admitting Diagnosis Shortness of breath Wounds: none Labs/Diagnostic Data: Laboratory Results Test 06/12/24 09:12 06/12/24 05:57 06/12/24 00:10 06/07/24 07:30 White Blood Count 5.4 10^3/uL (4.4-10.8) Red Blood Count 2.56 10^6/uL (4.5-5.90) Hemoglobin 8.1 g/dL (13.5-17.5) Hematocrit 23.8 % (41.0-53.0) Mean Corpuscular Volume 93.2 fL (80.0-100.0) Mean Corpuscular Hemoglobin 31.7 pg (28.0-32.0) Mean Corpuscular Hemoglobin Concent 34.0 g/dL (32.0-36.0) Red Cell Distribution Width 16.5 % (11.8-14.3) Platelet Count 241 10^3/uL (140-450) Mean Platelet Volume 6.9 fL (6.9-10.8) Neutrophils (%) (Auto) 74.6 % (37.0-80.0) Lymphocytes (%) (Auto) 12.6 % (10.0-50.0) Monocytes (%) (Auto) 8.4 % (0.0-12.0) Eosinophils (%) (Auto) 3.6 % (0.0-7.0) Basophils (%) (Auto) 0.8 % (0.0-2.0) Neutrophils # (Auto) 4.0 10 ^3/uL (1.6-8.6) Lymphocytes # (Auto) 0.7 10 ^3/uL (0.4-5.4) Monocytes # (Auto) 0.5 10 ^3/uL (0-1.3) Eosinophils # (Auto) 0.2 10 ^3/uL (0-0.8) Basophils # (Auto) 0 10 ^3/uL (0-0.2) Nucleated Red Blood Cells 0.0 % POC Glucose 143 mg/dl (70-106) SARS-CoV-2 Antigen (Rapid) Negative (NEGATIVE) Blood Gas Specimen Type Arterial Blood Gas Sample Site Right radial Blood Gas Patient Temperature 37.0 Arterial Blood Date Drawn [id number] Arterial Blood pH 7.492 (7.350-7.450) Arterial Blood Partial Pressure CO2 34.7 mmHg (35.0-48.0) Arterial Blood Partial Pressure O2 104.9 mmHg (83.0-108.0) Arterial Blood HCO3 26.0 mmol/L (21.0-28.0) Arterial Blood Oxygen Saturation 96.8 % (94.0-98.0) Arterial Blood Base Excess 2.6 mmol/L (-2.0-3.0) Arterial Blood Oxyhemoglobin 95.5 % (94.0-98.0) Arterial Blood Carboxyhemoglobin 1.0 % (0.5-1.5) Arterial Blood Methemoglobin 0.3 % (0.0-1.5) Pablo Test Yes Blood Gas Total Hemoglobin 7.80 g/dL (13.5-17.5) Blood Gas Modality Mask - bipap FiO2 % 30.0 Test 06/07/24 04:11 06/07/24 01:47 Troponin I High Sensitivity 151 ng/L (</=54) B-Type Natriuretic Peptide 4689.90 pg/mL (0-100) Other Laboratory Tests 06/12/24 09:12 Brief Hx & Hospital Course: Recently seen and discharged and the patient was brought back next day by the family for shortness of breath history of end-stage renal disease on hemodialysis diastolic heart failure hypotension and moderate bipedal edema hypercholesterolemia anemia of chronic disease and type 2 diabetes. Patient came in for shortness of breaths baby found to be secondary to fluid overload pulmonology Dr. Bailey and was consulted at the time of discharge patient is on 2 L of oxygen which is his usual home requirement patient received hemodialysis by Dr. Rose with which GI significantly improved acute diastolic heart failure exacerbation seen by Cardiology Dr. Moya 45 percent ejection fraction advised to continue calcium channel yanet and beta yanet recent heart catheterization was negative no further cardiac workup patient had hypercalcemia likely to secondary to ESRD which has improved Physical therapist recommended [facility] facility placement for rehab but the patient refused. Spoke with the patient's son Victorino on the phone and the at the bedside patient being discharged home on home health Azithromycin transmitted to the pharmacy for possible pneumonia He will continue all other home medications follow up with his primary Dr and jitney driver for dialysis Consults/Reason for consult Cardiology Dr. Moya Nephrology Dr. Rose Operations or Procedures Hemodialysis Condition at Discharge: Poor Final Diagnosis/Problems List Acute hypoxic respiratory failure likely due to volume overload in the setting of end-stage renal disease, consult for Dr. Rodrigues appreciated, patient is now on 2 L of oxygen by nasal cannula End-stage renal disease requiring hemodialysis (Sun/Sun/Sun): Consult by Dr. Rose appreciated Severe Acute diastolic heart failure: Consult for Dr. Moya appreciated, to continue calcium channel yanet and beta-yanet, echo 45% ejection fraction Recent left heart catheterization normal, cardiology consult appreciated Acute hyperkalemia in the setting of end-stage renal disease Hypercalcemia likely in the setting of end-stage renal disease Hypertension Moderate bipedal edema secondary to CHF NSTEMI type 2, stress test negative ejection fraction 40 % Hypercholesterolemia Anemia of chronic disease Type 2 diabetes Discharge Disposition: Home Discharge Instruct/Medications Diet: Renal Activity: Light activity Follow Up/Referral: Resume all previous home medications Follow up with your jitney driver for regular dialysis Follow up with the primary dr Medications: Azithromycin Transmitted to pharmacy 39 (Time taken for discharge summary 39 minutes) Discharge Statement: "Patient was advised to return to the ER or call 911 if any headaches, dizziness, shortness of breath, chest pain, abdominal pain, bleeding, fevers, or worsening of medical condition. Patient was counseled about treatment plan, medications, possible side effects, patient�verbalized understanding. All questions were answered to the best of my ability. This discharge took greater then 30 minutes in planning, reviewing documentation, counseling the patient, and discussing with other team members." ASSESSMENT ASSESSMENT Hospital Course Marginally improved Assessment Acute hypoxic respiratory failure likely due to volume overload in the setting of end-stage renal disease, consult for Dr. Rodrigues appreciated, patient is now on 2 L of oxygen by nasal cannula End-stage renal disease requiring hemodialysis (Sun/Sun/Sun): Consult by Dr. Rose appreciated Severe Acute diastolic heart failure: Consult for Dr. Moya appreciated, to continue calcium channel yanet and beta-yanet, echo 45% ejection fraction Recent left heart catheterization normal, cardiology consult appreciated Acute hyperkalemia in the setting of end-stage renal disease Hypercalcemia likely in the setting of end-stage renal disease Hypertension Moderate bipedal edema secondary to CHF NSTEMI type 2, stress test negative ejection fraction 40 % Hypercholesterolemia Anemia of chronic disease Type 2 diabetes Date of Service: June 12, 2024 Billing Provider: JUANITO STEVENS MD Common Visit Codes: 37798-BEI/OBS DISCH DAY >30min JUANITO STEVENS MD June 12, 2024 11:16
[2024-06-12 11:49] LABS: Alanine Aminotransferase 27 U/L (7-40); Albumin 4.2 g/dL (3.2-4.8); Alkaline Phosphatase 52 U/L (46-116); Anion Gap 11 (5-15); Aspartate Aminotransferase 21 U/L (13-40); BUN/Creatinine Ratio 7.4 (10.0-20.0); Calcium 10.2 mg/dL (8.7-10.4); Potassium 3.9 mmol/L (3.5-5.1); Sodium 138 mmol/L (136-145); Total Protein 6.6 g/dL (5.7-8.2)
[2024-06-12 11:50] LABS: Bilirubin, Total 0.5 mg/dL (0.2-1.0); Carbon Dioxide 31 mmol/L (20-31); Chloride 96 mmol/L (98-107)
[2024-06-12 11:51] LABS: Blood Urea Nitrogen 40 mg/dL (9-23); Glucose 205 mg/dL (74-106)
[2024-06-12 13:00] VITALS: BP 143/77; PULSE 64; RESP 18; TEMP 98.1; O2SAT 100
[2024-06-12] MEDS ORDERED: EPOETIN ALFA-EPBX 10,000 UNIT/1ML VIAL SC ONE (21:00)
--- NOTE | 2024-06-12 23:50 | DVHPN2 ---
Progress Note - Dictate Date Seen: June 12, 2024 Medical Necessity Reason Pt with a Central, PICC or Fol: No Subjective Patient seen and examined at bedside. Remains on supplemental oxygen Overnight events reviewed. vital signs Vital Sign Date Time Temp Pulse Resp B/P (MAP) Pulse Ox O2 Delivery O2 Flow Rate FiO2 06/12/24 13:00 98.1 64 18 143/77 (99) 100 98.1 06/12/24 08:00 Room Air* 0 21 Total Intake and Output 06/11/24 06/11/24 06/12/24 15:00 23:00 07:00 Intake Total 840 ml Balance 840 ml objective Gen.: Patient lying in bed in no apparent distress. On supplemental oxygen. Head: Normocephalic, atraumatic. Eyes: EOMI/PERRLA. Ears: Normal hearing. Normal anatomy. Neck/trachea: Trachea midline, supple. Nose: Normal external anatomy. Mouth: Moist mucous membranes. Chest: Decreased air entry bilaterally. No wheezing or rhonchi. Cardiovascular: Positive S1, positive S2. Regular rate and rhythm. Abdomen: Positive bowel sounds in all 4 quadrants. Soft, non-tender, non- distended. : Deferred. Rectal: Deferred. Skin: Warm, dry. Intact. Extremities: 2+ radial pulses bilaterally. No lower extremity edema. Neuro: Awake, alert, oriented x3. No gross motor or sensory deficits. Cranial nerves II through XII intact. Gait not assessed. laboratory and microbiology Laboratory Tests 06/12/24 09:12 Test 06/12/24 09:12 Range/Units Serum Glucose 205 H 74-106 mg/dL Assessment/Plan Impression Acute on chronic respiratory failure Dependence on supplemental oxygen Pulmonary edema ESRD on HD Fluid overload Events: Remains on supplemental oxygen On 3 liters nasal cannula Taper O2 as tolerated No new complaints Antihypertensive medication Accu-Cheks, ISS Bumex for diuresis HD per Nephrology Nephrology recs appreciated. Monitor renal function Monitor electrolytes. Supplement as needed Monitor ins and outs Monitor hemoglobin Chest x-ray shows no evidence of acute disease. Labs and imaging reviewed Plan: Supplemental oxygen Titrate to keep O2 sats above 92%. Incentive spirometry Okay to withhold antibiotics Bronchodilators PRN Antihypertensives - monitor BP On Plavix Diurese Monitor renal function HD as per nephrology Management deferred Monitor electrolytes Supplement as needed DVT prophylaxis Prognosis: Poor given patient's multiple co-morbidities. Rest of plan per hospitalist and other consultants. Thank you Dr. Rucker for allowing me to participate in this patient's care. Further recommendations will depend on the patient's clinical course. Please do not hesitate to contact me if you have any questions or concerns. This medical document was created using an electronic medical record system with [employer] dictation system. Although these documentations are being carefully reviewed, there may still be some phonetic and typographical changes. The errors are purely typographical, due to imperfection on the software program, and do not reflect any compromise in the patient's medical care. Dietary Evaluation Review Comments: 1) Encourage optimal PO intake. If < 50%, initiate Nepro bid 2) Consider Nephro-Jaxson @ 1 tb qd 3) Collect renal panel and HbA1c 4) Follow-up with cardiology and nephrology 5) Continue to monitor I&O, labs, and skin integrity Expected Outcomes/Goals: 1) appetite and labs to improve 2) wound to improve 2) f/u in 3-5 days Is there a minimum of two crit: Yes Plan discussed with: Patient, Other (RN) VERÓNICA ROBISON MD June 12, 2024 23:50
== END 2024-06-12 15:30 | disposition home health service (06) | DRG 280 ==
LOC: EDBD 01:02 → ER 01:02 → OVERFLOW 03:26 → TELE-CENTR 22:05
PROVIDERS: ADMIT Family Medicine; ATTEND Family Medicine
PROC: 5A09357 Assistance with Respiratory Ventilation, Less than 24 Consecutive Hours, Continuous Positive Airway Pressure (ICD-10-PCS; principal; 2024-06-07)
PROC: 5A1D70Z Performance of Urinary Filtration, Intermittent, Less than 6 Hours Per Day (ICD-10-PCS; 2024-06-08)
PROC: 5A1D70Z Performance of Urinary Filtration, Intermittent, Less than 6 Hours Per Day (ICD-10-PCS; 2024-06-10)
PROC: 5A1D70Z Performance of Urinary Filtration, Intermittent, Less than 6 Hours Per Day (ICD-10-PCS; 2024-06-11)
DX: I13.2 Hypertensive heart and chronic kidney disease with heart failure and with stage 5 chronic kidney disease, or end stage renal disease (principal); I50.33 Acute on chronic diastolic (congestive) heart failure; I21.A1 Myocardial infarction type 2; J96.21 Acute and chronic respiratory failure with hypoxia; N18.6 End stage renal disease; E87.20 Acidosis, unspecified; N25.81 Secondary hyperparathyroidism of renal origin; E11.22 Type 2 diabetes mellitus with diabetic chronic kidney disease; E87.5 Hyperkalemia; D63.1 Anemia in chronic kidney disease; E83.39 Other disorders of phosphorus metabolism; E78.00 Pure hypercholesterolemia, unspecified; I16.0 Hypertensive urgency; I25.10 Atherosclerotic heart disease of native coronary artery without angina pectoris; I34.0 Nonrheumatic mitral (valve) insufficiency; E83.52 Hypercalcemia; Z79.899 Other long term (current) drug therapy; Z88.0 Allergy status to penicillin; Z88.2 Allergy status to sulfonamides; Z91.040 Latex allergy status; Z79.82 Long term (current) use of aspirin; Z79.84 Long term (current) use of oral hypoglycemic drugs; Z99.81 Dependence on supplemental oxygen; Z79.02 Long term (current) use of antithrombotics/antiplatelets; Z82.49 Family history of ischemic heart disease and other diseases of the circulatory system; Z83.3 Family history of diabetes mellitus; Z87.891 Personal history of nicotine dependence; Z99.2 Dependence on renal dialysis
CPT/HCPCS: 36415; 36600; 71045; 78452; 80048; 80053; 82805; 82962; 83880; 84484; 85025; 87081; 87426; 90935; 93005; 93017; 94660; 97163; 99291; G0378; J1815

== ENCOUNTER 2024-07-30 13:37 | Inpatient (IN) | payer MEDICARE, MEDICAID ==
[~2024-07-30] VITALS: Ht 177.8 cm; Wt 70.4 kg
[~2024-07-30 13:37] MED LIST changes: +AZIT500T66 PO; +B-CO-6 PO
--- NOTE | 2024-07-30 13:47 | ED.PDOC ---
HPI Comments This is a 63 year old male JETHRO presenting to the ED with chief complaint of chest pain. EMS reports that the patient has been experiencing mid sternal 7/10 chest pain with associated SOB for the past 3 days. EMS relays that the patient was supposed to go to dialysis today, however, he was unable to due to his chest pain worsening and generally feeling unwell. EMS states that the patient's BP on scene was 93/59. EMS notes they provided the patient 324mg of ASA and kept the patient on 3L of O2 due to needing it for his COPD. Patient denies any syncope, nausea, vomiting, diarrhea, abdominal pain, fever, chills, or dizziness. Time Seen by MD: 13:43 Primary Care Provider: Jona / Hanane Rose Reviewed Notes: Nurses Notes, Director Of Curriculum Notes, Medications, Allergies Allergies: Coded Allergies: Penicillins (Verified Allergy, Unknown, 01/01/20) Sulfa Antibiotics (Verified Allergy, Unknown, 09/16/23) Home Meds Active Scripts Azithromycin (Azithromycin) 500 Mg Tab, 1 TAB PO DAILY, #7 TAB Prov:JUANITO STEVENS MD 06/12/24 Nifedipine (Nifedipine Er) 60 Mg Tab, 1 TAB PO DAILY for 30 Days, #30 TAB 5 Refi lls Prov:ONELIA ROBERTSON RESIDENT 06/06/24 Carvedilol (Carvedilol) 6.25 Mg Tab, 1 TAB PO BID for 30 Days, #60 TAB 1 Refill Prov:ONELIA ROBERTSON RESIDENT 06/06/24 Hydralazine Hcl (Hydralazine Hcl) 10 Mg Tab, 10 MG PO Q6HR for 30 Days, #120 TAB Prov:PATO UNGER RESIDENT 09/18/23 Reported Medications Atorvastatin Calcium (ATORVASTATIN CALCIUM) 40 Mg Tab, 1 TAB PO DAILY 06/04/24 Bumetanide (Bumetanide) 2 Mg Tab, 1 TAB PO BID 06/04/24 Metformin Hydrochloride (Metformin Hcl) 500 Mg Tab, 1 TAB PO BID 06/04/24 Ergocalciferol (Vitamin D) 50,000 Unit Cap, 1 CAP PO QWEEKLY for 28 Days, #4 06/04/24 B-Complex W/ C & Folic Acid (Ani-Jaxson Rx) Tab, 1 TAB PO DAILY for 30 Days, #30 06/04/24 Patiromer Sorbitex Calcium (Veltassa) 8.4 Gm Pow, 1 PKT PO DAILY 06/04/24 Sodium Bicarbonate (Sodium Bicarbonate) 650 Mg Tab, 1 TAB PO TID for 30 Days, #90 06/04/24 Clopidogrel Bisulfate (CLOPIDOGREL) 75 Mg Tab, 1 TAB PO DAILY for 90 Days, #90 12/04/22 Aspirin (ASPIRIN 81) 81 Mg Tab, 81 MG OR, TAB 12/04/22 Information Source: Patient, Emergency Med Personnel Mode of Arrival: EMS Severity: Moderate Timing: Days Duration: Since onset Prehospital treatment: 12 Lead EKG, ASA, None, Oxygen Location: Substernal Radiation: No Radiation Quality: Squeezing Onset: At Rest Cardiac Risk Factors: HTN, Diabetes Associated Signs and Symptoms: SOB Past Medical History PAST MEDICAL HISTORY: CHF, COPD, DM, ESRD, HTN Surgical History: Denies all surgeries Family History Family History: Reviewed,noncontributory to illness Social History Smoker: Non-Smoker Alcohol: Denies ETOH Use Drugs: Denies Drug Use Lives In: Home Constitutional: denies: chills, diaphoresis, fatigue, fever, malaise, sweats, weakness, others EENTM: denies: blurred vision, double vision, ear bleeding, ear discharge, ear drainage, ear pain, ear ringing, eye pain, eye redness, hearing loss, mouth pain, mouth swelling, nasal discharge, nose bleeding, nose congestion, nose pain, photophobia, tearing, throat pain, throat swelling, voice changes, others Respiratory: reports: shortness of breath; denies: cough, hemoptysis, orthopnea, SOB at rest, SOB with excertion, stridor, wheezing, others Cardiovascular: reports: chest pain; denies: dizzy spells, diaphoresis, Dyspnea on exertion, edema, irregular heart beat, left arm pain, lightheadedness, palpitations, PND, syncope, others Gastrointestinal: denies: abdomen distended, abdominal pain, blood streaked bowels, constipated, diarrhea, dysphagia, difficulty swallowing, hematemesis, melena, nausea, poor appetite, poor fluid intake, rectal bleeding, rectal pain, vomiting, others Genitourinary: denies: burning, dysuria, flank pain, frequency, hematuria, incontinence, penile discharge, penile sore, pain, testicle pain, testicle swelling, urgency, others Neurological: denies: dizziness, fainting, headache, left sided numbness, left sided weakness, numbness, paresthesia, pre-existing deficit, right sided numbness, right sided weakness, seizure, speech problems, tingling, tremors, weakness, others Musculoskeletal: denies: back pain, gout, joint pain, joint swelling, muscle pain, muscle stiffness, neck pain, others Integumetry: denies: bruises, change in color, change in hair/nails, dryness, laceration, lesions, lumps, rash, wounds, others Allergic/Immunocompromised: denies: Difficulty Healing, Frequent Infections, Hives, Itching, others Hematologic/Lymphatic: denies: anemia, blood clots, easy bleeding, easy bruising, swollen glands, others Endocrine: denies: excessive hunger, excessive sweating, excessive thirst, excessive urination, flushing, intolerance to cold, intolerance to heat, unexplained weight gain, unexplained weight loss, others Psychiatric: denies: anxiety, bipolar disorder, depression, hopeless, panic disorder, schizophrenia, sleepless, suicidal, others All Other Systems: Reviewed and Negative Physical Exam General Appearance: Moderate Distress HEENT: Pale Conjuntivae (L), Pale Conjuntivae (R), Pharynx Normal, TMs Normal Neck: Full Range of Motion, Non-Tender, Normal, Normal Inspection Respiratory: Chest Non-Tender, Lungs Clear, No Accessory Muscle Use, No Respiratory Distress, Normal Breath Sounds Cardiovascular: No Edema, No JVD, No Murmur, No Gallop, Normal Peripheral Pulses, Regular Rate/Rhythm Breast Exam: Deferred Gastrointestinal: No Organomegaly, Non Tender, No Pulsatile Mass, Normal Bowel Sounds, Soft Genitalia: Deferred Pelvic: Deferred Rectal: Deferred Extremities: No calf tenderness, Normal capillary refill, Pedal edema, Other (There is a fistula in the left upper extremity) Musculoskeletal : Apperance: Normal Neurologic: Alert, range operator II-XII nml as Tested, Motor Weakness, No Motor Deficits, Normal Affect, Normal Mood, No Sensory Deficits Cerebellar Function: Unable to Test Reflexes: Normal Skin: Dry, Normal Color, Warm Lymphatic: No Adenopathy EKG EKG : Pulse Rate (adult): 90 [place]: Normal Cardiac Rhythm: NSR Block: None Hypertrophy: LVH ST: Normal Was a procedure done? Was a procedure done?: No CP Differential Dx Differential Diagnosis: A-fib, MS Differential Diagnosis: CHF, HTN Encephalopathy Differential Diagnosis: Angina X-Ray, Labs, Meds, VS Vital Signs Date Time Temp Pulse Resp B/P (MAP) Pulse Ox O2 Delivery O2 Flow Rate FiO2 07/30/24 13:47 90 07/30/24 13:45 97.6 90 14 203/57 (105) 97 97.6 07/30/24 13:39 90 Lab Test 07/30/24 13:55 Range/Units White Blood Count 4.6 4.4-10.8 10^3/uL Red Blood Count 2.71 L 4.5-5.90 10^6/uL Hemoglobin 8.8 L 13.5-17.5 g/dL Hematocrit 25.8 L 41.0-53.0 % Mean Corpuscular Volume 95.3 80.0-100.0 fL Mean Corpuscular Hemoglobin 32.5 H 28.0-32.0 pg Mean Corpuscular Hemoglobin Concent 34.1 32.0-36.0 g/dL Red Cell Distribution Width 16.4 H 11.8-14.3 % Platelet Count 202 140-450 10^3/uL Mean Platelet Volume 7.0 6.9-10.8 fL Neutrophils (%) (Auto) 72.7 37.0-80.0 % Lymphocytes (%) (Auto) 11.6 10.0-50.0 % Monocytes (%) (Auto) 11.0 0.0-12.0 % Eosinophils (%) (Auto) 4.0 0.0-7.0 % Basophils (%) (Auto) 0.7 0.0-2.0 % Neutrophils # (Auto) 3.4 1.6-8.6 10 ^3/uL Lymphocytes # (Auto) 0.5 0.4-5.4 10 ^3/uL Monocytes # (Auto) 0.5 0-1.3 10 ^3/uL Eosinophils # (Auto) 0.2 0-0.8 10 ^3/uL Basophils # (Auto) 0 0-0.2 10 ^3/uL Nucleated Red Blood Cells 0.1 % D-Dimer, Quantitative 0.22 0.0-0.49 mg/L FEU Sodium Level 137 136-145 mmol/L Potassium Level 4.0 3.5-5.1 mmol/L Chloride Level 94 L 98-107 mmol/L Carbon Dioxide Level 31 20-31 mmol/L Anion Gap 12 5-15 Blood Urea Nitrogen 37 H 9-23 mg/dL Creatinine 4.12 H 0.700-1.30 mg/dL Glomerular Filtration Rate Calc 15 >90 mL/min BUN/Creatinine Ratio 9.0 L 10.0-20.0 Serum Glucose 192 H 74-106 mg/dL Calcium Level 9.2 8.7-10.4 mg/dL Troponin I High Sensitivity 149 *H </=54 ng/L B-Type Natriuretic Peptide 2805.95 0-100 pg/mL IV Hep-Lock was established The BNP is elevated at 2805.95 The 1st troponin came back at 149 indicating possible ischemia The BUN is 37 the creatinine is 4.12 The rest of the CBC shows anemia with a hemoglobin of 8.8 and hematocrit of 25.8 The white blood cell count is within normal limits We did contact Dr. Ring who is the tube filler on-call and he is going to continue to follow the patient The patient also would need dialysis so we did consult with Dr. Rose who is the satellite dish technician on-call The patient is being admitted at this time. Images Reviewed?: Images reviewed and evaluated by me Time of 1ST Reevaluation: 14:35 Reevaluation 1ST: Unchanged Patient Education/Counseling: Diagnosis, Treatment, Prognosis Family Education/Counseling: No Family Present Additional Information Reviewed patient's previous visit(s): 06/07/24 for CHF exacerbation The following tests were ordered, and results were reviewed by me: Chest XR, CBC, BMP, UA, Troponin, BNP, D-Dimer, EKG Additional information was gathered from interviewing the following independent historian: EMS I reviewed and agreed with the following test results read by other provider: Chest XR I discussed treatments and results with medical personnel and: PATIENT Comprehensive systems review obtained and negative except for what is stated in the HPI. SEPSIS Sepsis Screen Physician Orders Electrocardigram (07/30/24 13:43) Electrocardigram (07/30/24 14:43) Electrocardigram (07/30/24 16:43) Chest Portable (07/30/24 13:43) Heplock Iv (07/30/24 13:43) Medical Office Assistant (07/30/24 13:43) Blood Pressure (07/30/24 13:43) Pulse Oximetry (07/30/24 13:43) Urinalysis (07/30/24 13:43) Troponin-I Hs (07/30/24 14:43) Troponin-I Hs (07/30/24 16:43) *Dr. Rose Campos -Da Jessi (07/30/24 14:24) Vital Signs Date Time Temp Pulse Resp B/P (MAP) Pulse Ox O2 Delivery O2 Flow Rate FiO2 07/30/24 13:47 90 07/30/24 13:45 97.6 90 14 203/57 (105) 97 97.6 07/30/24 13:39 90 Laboratory Tests Test 07/30/24 13:55 White Blood Count 4.6 10^3/uL (4.4-10.8) Departure 1 Departure Time of Disposition: 14:35 Impression: Primary Impression: Acute myocardial ischemia Additional Impressions: Acute on chronic diastolic heart failure ESRD on dialysis Disposition: ADMITTED INPATIENT Admit to: Tele Condition: Fair Critical Care Note Critical Care Time?: Yes (45 min-critical care time only) Stability Stability form required: Yes Unstable for transfer: Telemetry monitoring (Telemetry monitoring required), ED Physician Assesment (Clinical assesment) Heart Score Heart Score: Heart Score Response (Comments) Value History Highly Suspicious 2 EKG Repolarization Disturb 1 Age 45-64 1 Risk Factors >3 or Hx ASHD 2 Troponin Normal limit 0 Total 6 I personally scribed for AWA FERNANDEZ MD ([email or web address]) on 07/30/24 at 13:47. El ectronically submitted by Neville Lyons ([email or web address]). I personally scribed for AWA FERNANDEZ MD ([employer]) on 07/30/24 at 13:48. E lectronically submitted by Neville Lyons ([email or web address]). AWA FERNANDEZ MD Jul 30, 2024 13:47
[2024-07-30 14:06] LABS: Hematocrit 25.8 % (41.0-53.0); Hemoglobin 8.8 g/dL (13.5-17.5); Mean Corpuscular Hemoglobin 32.5 pg (28.0-32.0); Mean Corpuscular Volume 95.3 fL (80.0-100.0); Nucleated Red Blood Cells % 0.1 %
[2024-07-30 14:13] LABS: Potassium 4.0 mmol/L (3.5-5.1); Sodium 137 mmol/L (136-145)
[2024-07-30 14:14] LABS: Anion Gap 12 (5-15); Calcium 9.2 mg/dL (8.7-10.4)
[2024-07-30 14:16] LABS: Carbon Dioxide 31 mmol/L (20-31); Chloride 94 mmol/L (98-107)
--- NOTE | 2024-07-30 14:16 | DVH ---
CHEST RADIOGRAPH Indication: chest pain Technique: Single frontal view of the chest was obtained COMPARISON: XY CHEST PORTABLE on DOS: 06/12/24, XY CHEST PORTABLE on DOS: 06/07/24, XY CHEST PORTABLE on DOS: 06/03/24, XY CHEST PORTABLE on DOS: 09/16/23, XY CHEST PORTABLE on DOS: 12/03/22 FINDINGS: Lines and Tubes: None Lungs: Increased interstitial prominence Pleura: No effusion. No pneumothorax. Cardiomediastinal contours: Cardiomegaly Bones: Unremarkable IMPRESSION: Cardiomegaly. Mild pulmonary vascular congestion.
[2024-07-30 14:19] LABS: BUN/Creatinine Ratio 9.0 (10.0-20.0)
[2024-07-30 14:20] LABS: Blood Urea Nitrogen 37 mg/dL (9-23); Glucose 192 mg/dL (74-106)
[2024-07-30 14:35] VITALS: PULSE 81; RESP 12; O2SAT 98
--- NOTE | 2024-07-30 17:50 | DVHINCON2 ---
Date of service: Jul 30, 2024 Referring Physician Reema Lopez Reason for Consultation 63 Y/O M with history of ESRD on HD via Lt arm AVF, DM, HTN presented with chief complaint of chest pain which started 2 days ago, and was worse during his dialysis treatment today. it is associated with SOB. at dialysis center his SBP was in 200s, which improved with clonidine and 1 L ultrafiltration, when he got home his SBP was 96 mmHg, and upon arrival of EMS it was 88 mmHg. troponin is mildly elevated and is staying flat. Nephrology consulted for dialysis Gen: NAD, AAOx3 Past Medical History ESRD DM HTN Anemia Past Surgical History AVF creation Allergies: Coded Allergies: Penicillins (Verified Allergy, Unknown, 01/01/20) Sulfa Antibiotics (Verified Allergy, Unknown, 09/16/23) Home Meds Active Scripts Azithromycin (Azithromycin) 500 Mg Tab, 1 TAB PO DAILY, #7 TAB Prov:JUANITO STEVENS MD 06/12/24 Nifedipine (Nifedipine Er) 60 Mg Tab, 1 TAB PO DAILY for 30 Days, #30 TAB 5 Refills Prov:ONELIA ROBERTSON RESIDENT 06/06/24 Carvedilol (Carvedilol) 6.25 Mg Tab, 1 TAB PO BID for 30 Days, #60 TAB 1 Refill Prov:ONELIA ROBERTSON RESIDENT 06/06/24 Hydralazine Hcl (Hydralazine Hcl) 10 Mg Tab, 10 MG PO Q6HR for 30 Days, #120 TAB Prov:PATO UNGER RESIDENT 09/18/23 Reported Medications Atorvastatin Calcium (ATORVASTATIN CALCIUM) 40 Mg Tab, 1 TAB PO DAILY 06/04/24 Bumetanide (Bumetanide) 2 Mg Tab, 1 TAB PO BID 06/04/24 Metformin Hydrochloride (Metformin Hcl) 500 Mg Tab, 1 TAB PO BID 06/04/24 Ergocalciferol (Vitamin D) 50,000 Unit Cap, 1 CAP PO QWEEKLY for 28 Days, #4 06/04/24 B-Complex W/ C & Folic Acid (Ani-Jaxson Rx) Tab, 1 TAB PO DAILY for 30 Days, #30 06/04/24 Patiromer Sorbitex Calcium (Veltassa) 8.4 Gm Pow, 1 PKT PO DAILY 06/04/24 Sodium Bicarbonate (Sodium Bicarbonate) 650 Mg Tab, 1 TAB PO TID for 30 Days, #90 06/04/24 Clopidogrel Bisulfate (CLOPIDOGREL) 75 Mg Tab, 1 TAB PO DAILY for 90 Days, #90 12/04/22 Aspirin (ASPIRIN 81) 81 Mg Tab, 81 MG OR, TAB 12/04/22 Family History: Cervical cancer G8 MOTHER, Onset:50's - 60 Diabetes mellitus G8 MOTHER G8 FATHER Hypertension G8 MOTHER Review of Systems As per HPI, all other systems were reviewed and are negative H&P Exam Vital Signs/I&O Vital Sign Date Time Temp Pulse Resp B/P (MAP) Pulse Ox O2 Delivery O2 Flow Rate FiO2 07/30/24 16:13 98.6 81 18 104/57 (73) 100 98.6 07/30/24 14:35 Nasal Cannula* 3 32 Physical Exam Gen: NAD, AAOx3 HEENT: NC,AT Lungs: CTA b/l Cardiac:RRR Abd: soft, no distention Ext: no edema Neuro: no focal deficits +Lt arm AVF Labs/Diagnostic Data Labs/Diagnostic Data Laboratory Tests Test 07/30/24 16:36 07/30/24 14:44 07/30/24 13:55 Range/Units Troponin I High Sensitivity 138 *H 140 *H 149 *H </=54 ng/L White Blood Count 4.6 4.4-10.8 10^3/uL Red Blood Count 2.71 L 4.5-5.90 10^6/uL Hemoglobin 8.8 L 13.5-17.5 g/dL Hematocrit 25.8 L 41.0-53.0 % Mean Corpuscular Volume 95.3 80.0-100.0 fL Mean Corpuscular Hemoglobin 32.5 H 28.0-32.0 pg Mean Corpuscular Hemoglobin Concent 34.1 32.0-36.0 g/dL Red Cell Distribution Width 16.4 H 11.8-14.3 % Platelet Count 202 140-450 10^3/uL Mean Platelet Volume 7.0 6.9-10.8 fL Neutrophils (%) (Auto) 72.7 37.0-80.0 % Lymphocytes (%) (Auto) 11.6 10.0-50.0 % Monocytes (%) (Auto) 11.0 0.0-12.0 % Eosinophils (%) (Auto) 4.0 0.0-7.0 % Basophils (%) (Auto) 0.7 0.0-2.0 % Neutrophils # (Auto) 3.4 1.6-8.6 10 ^3/uL Lymphocytes # (Auto) 0.5 0.4-5.4 10 ^3/uL Monocytes # (Auto) 0.5 0-1.3 10 ^3/uL Eosinophils # (Auto) 0.2 0-0.8 10 ^3/uL Basophils # (Auto) 0 0-0.2 10 ^3/uL Nucleated Red Blood Cells 0.1 % D-Dimer, Quantitative 0.22 0.0-0.49 mg/L FEU Sodium Level 137 136-145 mmol/L Potassium Level 4.0 3.5-5.1 mmol/L Chloride Level 94 L 98-107 mmol/L Carbon Dioxide Level 31 20-31 mmol/L Anion Gap 12 5-15 Blood Urea Nitrogen 37 H 9-23 mg/dL Creatinine 4.12 H 0.700-1.30 mg/dL Glomerular Filtration Rate Calc 15 >90 mL/min BUN/Creatinine Ratio 9.0 L 10.0-20.0 Serum Glucose 192 H 74-106 mg/dL Calcium Level 9.2 8.7-10.4 mg/dL B-Type Natriuretic Peptide 2805.95 0-100 pg/mL Assessment ESRD on HD via Lt arm AVF chest pain, mildly elevated troponin, r/o ACS DM HTN Metabolic acidosis Hyperphosphatemia Secondary hyperparathyroidism Plan: s/p HD this morning at [facility] Next HD on Sunday Continue HD on MWF schedule Cardiology consult BECKY post HD as needed , goal Hb: 10-11 g/dl Plan discussed with: Patient, Spouse, ABDELRAHMAN López MD Jul 30, 2024 17:50
[2024-07-30] MEDS ORDERED: ACETAMINOPHEN 325 MG TAB PO PRN (19:30)
[2024-07-30] MEDS ORDERED: DEXTROSE (50%) 50ML SYRG IV PRN (19:30)
[2024-07-30] MEDS ORDERED: ONDANSETRON HCL 4 MG/2 ML VIAL IV PRN (19:30)
[2024-07-30] MEDS: FUROSEMIDE 100 MG/10ML VIAL IV ONE (19:54)
[2024-07-30 20:00] VITALS: PULSE 87; RESP 22; O2SAT 90
[2024-07-30] MEDS: InsuLIN REG 1unit/0.01ml Soln (100units/ml) SC SCH (22:00)
[2024-07-30] MEDS: ACCU-CHEK COMFORT CURVE STRIP VI SCH (22:09)
[2024-07-30] MEDS: ATORVASTATIN 20 MG TAB PO SCH (22:19)
[2024-07-30] MEDS: CARVEDILOL 3.125 MG TAB PO SCH (22:19)
[2024-07-30] MEDS: SODIUM BICARBONATE 650 MG TAB PO SCH (22:19)
--- NOTE | 2024-07-30 22:37 | DVHHP2 ---
History of Present Illness Reason for Visit: Shortness for breath History of Present Illness 63-year-old male presents for evaluation of shortness for breath. Patient has a dialysis dependent patient and reports missing his dialysis session today. Developed shortness for breath with chest pressure. Also states having a nonproductive cough. No fever or chills. No other acute complaints. Past Medical History Diabetes mellitus, end-stage renal disease, hypertension, COPD, CHF Past Surgical History Dialysis access Family History Noncontributory Smoke: No ALCOHOL: none Drugs: None Lives: with Family Review of Systems Review of Systems Review of systems are currently negative otherwise addressed in HPI. Allergies: Coded Allergies: Penicillins (Verified Allergy, Unknown, 01/01/20) Sulfa Antibiotics (Verified Allergy, Unknown, 09/16/23) Medications Current Medications Medications Dose Ordered Sig/Herson Route Start Time Stop Time Status Last Admin Dose Admin Aspirin 162 mg DAILY PO 07/31/24 10:00 Atorvastatin Calcium 40 mg HS PO 07/30/24 22:00 07/30/24 22:19 40 MG Bumetanide 2 mg BIDD PO 07/31/24 06:00 Carvedilol 6.25 mg Q12HR PO 07/30/24 22:00 07/30/24 22:19 6.25 MG Clopidogrel Bisulfate 75 mg DAILY PO 07/31/24 10:00 Nifedipine 60 mg DAILY PO 07/31/24 10:00 Sodium Bicarbonate 650 mg TID PO 07/30/24 22:00 07/30/24 22:19 650 MG Diagnostic Test (Pha) 1 strip ACHS 07/30/24 22:00 07/30/24 22:09 1 STRIP Insulin Human Regular ACHS SC 07/30/24 22:00 Dextrose 50 ml UD PRN IV 07/30/24 19:30 Ondansetron HCl 4 mg Q4HP PRN IV 07/30/24 19:30 Acetaminophen 650 mg Q6HP PRN PO 07/30/24 19:30 Nitroglycerin 0.4 mg Q5MINP PRN SL 07/30/24 19:30 Morphine Sulfate 2 mg Q30M PRN IV 07/30/24 19:30 Exam Vital Signs Vital Signs Date Time Temp Pulse Resp B/P (MAP) Pulse Ox O2 Delivery O2 Flow Rate FiO2 07/30/24 22:19 95 146/71 07/30/24 20:00 22 90 Nasal Cannula* 3 32 07/30/24 18:00 98.6 98.6 Exam Gen: 63-year-old male in mild distress Skin: Warm, dry, normal color and texture, no rash. HEENT: Normocephalic atraumatic, mucous membranes moist and pink. Neck: Cervical and supraclavicular nodes normal without enlargement, trachea is midline, thyroid gland is normal without masses. Pulmonary: Clear to auscultation and percussion bilaterally. Cardiac: Regular rate and rhythm. No murmur Abdomen: Soft, nontender, nondistended, bowel sounds present all 4 quadrants, no guarding, no rigidity, no organomegaly. Extremities: No cyanosis, clubbing, no edema Neuro: Cranial nerves II through XII grossly intact, normal affect and speech, no focal motor deficits. Labs/Xrays ORDERING PHYSICIAN: ONELIA ROBERTSON RESIDENT PROCEDURE(s): ECIDC - ECHO 2D MODE CARDIAC DOP REASON: pulm edema likely vol overload, evaluate LVEF ORDER NUMBER(s): [id number], ACCESSION NUMBER(s): [id number] APPROVED REPORT EXAM: Two-dimensional and M-mode echocardiogram with Doppler and color Doppler. Blood Pressure: 145/62 mmHg INDICATION Pulmonary Edema RISK FACTORS Height: 5'10", Weight: 165 DIMENSIONS LVDd 5.5 (3.8-5.7cm) LA (2D) 4.2 (1.9-4.0cm) Aortic Root 3.5 (2.0- 3.7cm) LVDs 3.8 (2.5-4.0cm) LA (MM) (1.9-4.0cm) Aortic Cusp Exc 1.8 (1.5- 2.0cm) EF (%) 58.0 (55-70%) Rt. Atrium 4.0 (1.9-4.0cm) Asc. Aorta cm IVSd 1.4 (0.7-1.1cm) RV (D) (1.8-2.4cm) PWd 1.4 (0.7-1.1cm) Mitral Valve Mitral Mitral Stenosis E wave 1.60m/s MV Mean GR. mmHg A wave 0.80m/s MV Peak GR. mmHg E/A ratio 2.0 2D MVA cm2 Aortic Valve Aortic Valve Aortic Stenosis V1 1.00m/s AO Mean GR. 5mmHg V2 1.60m/s AO Peak GR. 10mmHg LVOT Diameter 2.2 (1.8-2.4cm) Doppler CHRISTOPHER 2.37cm2 Pulmonic Valve V2 0.80m/s Conclusion Sinus rhythm. Concentric LVH. Left atrial enlargement. Right atrial enlargement. Mild mitral annular calcification. Mild aortic sclerosis. Left ventricular systolic performance is mildly diminished. EF is about 45-50% with global hypokinesis and significantly impaired diastolic relaxation secondary to significant hypertrophy. Right ventricular function is preserved. There is impaired diastolic relaxation on Doppler. Trace mitral and tricuspid regurgitation. No pericardial effusion masses or vegetations discernible. ORDERING PHYSICIAN: AWA FERNANDEZ MD PROCEDURE(s): CXRP - CHEST PORTABLE REASON: chest pain ORDER NUMBER(s): [id number], ACCESSION NUMBER(s): [id number] CHEST RADIOGRAPH Indication: chest pain Technique: Single frontal view of the chest was obtained COMPARISON: XY CHEST PORTABLE on DOS: 06/12/24, XY CHEST PORTABLE on DOS: 06/07/24, XY CHEST PORTABLE on DOS: 06/03/24, XY CHEST PORTABLE on DOS: 09/16/23, XY CHEST PORTABLE on DOS: 12/03/22 FINDINGS: Lines and Tubes: None Lungs: Increased interstitial prominence Pleura: No effusion. No pneumothorax. Cardiomediastinal contours: Cardiomegaly Bones: Unremarkable IMPRESSION: Cardiomegaly. Mild pulmonary vascular congestion. Labs Test 07/30/24 22:07 07/30/24 16:36 07/30/24 13:55 Range/Units POC Glucose 144 H 70-106 mg/dl Troponin I High Sensitivity 138 *H </=54 ng/L White Blood Count 4.6 4.4-10.8 10^3/uL Red Blood Count 2.71 L 4.5-5.90 10^6/uL Hemoglobin 8.8 L 13.5-17.5 g/dL Hematocrit 25.8 L 41.0-53.0 % Mean Corpuscular Volume 95.3 80.0-100.0 fL Mean Corpuscular Hemoglobin 32.5 H 28.0-32.0 pg Mean Corpuscular Hemoglobin Concent 34.1 32.0-36.0 g/dL Red Cell Distribution Width 16.4 H 11.8-14.3 % Platelet Count 202 140-450 10^3/uL Mean Platelet Volume 7.0 6.9-10.8 fL Neutrophils (%) (Auto) 72.7 37.0-80.0 % Lymphocytes (%) (Auto) 11.6 10.0-50.0 % Monocytes (%) (Auto) 11.0 0.0-12.0 % Eosinophils (%) (Auto) 4.0 0.0-7.0 % Basophils (%) (Auto) 0.7 0.0-2.0 % Neutrophils # (Auto) 3.4 1.6-8.6 10 ^3/uL Lymphocytes # (Auto) 0.5 0.4-5.4 10 ^3/uL Monocytes # (Auto) 0.5 0-1.3 10 ^3/uL Eosinophils # (Auto) 0.2 0-0.8 10 ^3/uL Basophils # (Auto) 0 0-0.2 10 ^3/uL Nucleated Red Blood Cells 0.1 % D-Dimer, Quantitative 0.22 0.0-0.49 mg/L FEU Sodium Level 137 136-145 mmol/L Potassium Level 4.0 3.5-5.1 mmol/L Chloride Level 94 L 98-107 mmol/L Carbon Dioxide Level 31 20-31 mmol/L Anion Gap 12 5-15 Blood Urea Nitrogen 37 H 9-23 mg/dL Creatinine 4.12 H 0.700-1.30 mg/dL Glomerular Filtration Rate Calc 15 >90 mL/min BUN/Creatinine Ratio 9.0 L 10.0-20.0 Serum Glucose 192 H 74-106 mg/dL Calcium Level 9.2 8.7-10.4 mg/dL B-Type Natriuretic Peptide 2805.95 0-100 pg/mL Assessment/Plan Assessment/Plan Assessment Fluid overload Acute on chronic congestive heart failure secondary to the above Elevated troponin, demand ischemia Diabetes mellitus Hypertension Anemia of chronic disease Plan Admit the patient to telemetry to the hospitalist Nephrology consultation for dialysis Resume home medications Continue treatment per orders. Plan discussed with: Patient My Orders Orders - JOHNNIE LYNN Procedure Category Date Status Time Aspirin Tablet PHA 07/31/24 In Process 10:00 Atorvastatin (Lipitor) PHA 07/30/24 In Process 22:00 Bumetanide Tablet PHA 07/31/24 In Process (Bumex Tablet) 06:00 Carvedilol Tablet PHA 07/30/24 In Process (Coreg Tablet) 22:00 Clopidogrel Bisulfate PHA 07/31/24 In Process (Plavix) 10:00 Nifedipine Er PHA 07/31/24 In Process (Procardia Xl 10:00 Sodium Bicarb Tab PHA 07/30/24 In Process 22:00 Basic Metabolic Panel LAB 07/31/24 Verified 04:00 Glucose Blood PHA 07/30/24 In Process (Accu-Chek Comfort 22:00 Insulin R (Human) PHA 07/30/24 In Process (Insulin R) 22:00 Dextrose 50% Syringe PHA 07/30/24 In Process 19:30 Admit ADMIT 07/30/24 Transmitted 19:16 Ondansetron Hcl PHA 07/30/24 In Process (Zofran) 19:30 Condition: Fair ABELARDO 07/30/24 In Process 19:16 Acetaminophen Tablet PHA 07/30/24 In Process (Tylenol Tablet) 19:30 Bedrest With Bathroom ABELARDO 07/30/24 In Process Privileg 19:16 Nitroglycerin PHA 07/30/24 In Process Sublingual (Ntrostat 19:30 Morphine Sulfate PHA 07/30/24 In Process Injection 19:30 Stat Ekg For Chest ABELARDO 07/30/24 In Process Pain 19:16 Notify Md Of Changes ABELARDO 07/30/24 In Process From Base 19:16 Conductor Sleeping Car For ABELARDO 07/30/24 In Process 24 Hours 19:16 Emergency Dysrhythmia ABELARDO 07/30/24 In Process Protocol 19:16 Rhythm Strips Once ABELARDO 07/30/24 In Process Every Shift 19:16 Oxygen By Nasal RT 07/30/24 Transmitted Cannula 19:16 Date of Service: Jul 30, 2024 Billing Provider: JOHNNIE LYNN Common Visit Codes: [id number] INP/OBS CARE (HIGH) JOHNNIE LYNN Jul 30, 2024 22:37
--- NOTE | 2024-07-31 06:36 | DVHPN2 ---
Progress Note - Dictate Date Seen: Jul 31, 2024 Medical Necessity Reason Pt with a Central, PICC or Fol: No Subjective BP has improved no new symptoms vital signs Vital Sign Date Time Temp Pulse Resp B/P (MAP) Pulse Ox O2 Delivery O2 Flow Rate FiO2 07/31/24 04:00 82 07/30/24 23:00 148/79 07/30/24 22:30 19 96 07/30/24 20:00 Nasal Cannula* 3 32 07/30/24 18:00 98.6 98.6 medications Current Medications Medications Dose Ordered Sig/Herson Route Start Time Stop Time Status Last Admin Dose Admin Aspirin 162 mg DAILY PO 07/31/24 10:00 Atorvastatin Calcium 40 mg HS PO 07/30/24 22:00 07/30/24 22:19 40 MG Bumetanide 2 mg BIDD PO 07/31/24 06:00 Carvedilol 6.25 mg Q12HR PO 07/30/24 22:00 07/30/24 22:19 6.25 MG Clopidogrel Bisulfate 75 mg DAILY PO 07/31/24 10:00 Nifedipine 60 mg DAILY PO 07/31/24 10:00 Sodium Bicarbonate 650 mg TID PO 07/30/24 22:00 07/30/24 22:19 650 MG Diagnostic Test (Pha) 1 strip ACHS 07/30/24 22:00 07/30/24 22:09 1 STRIP Insulin Human Regular ACHS SC 07/30/24 22:00 Dextrose 50 ml UD PRN IV 07/30/24 19:30 Ondansetron HCl 4 mg Q4HP PRN IV 07/30/24 19:30 Acetaminophen 650 mg Q6HP PRN PO 07/30/24 19:30 Nitroglycerin 0.4 mg Q5MINP PRN SL 07/30/24 19:30 Morphine Sulfate 2 mg Q30M PRN IV 07/30/24 19:30 objective Gen: NAD, AAOx3 HEENT: NC,AT Lungs: CTA b/l Cardiac:RRR Abd: soft, no distention Ext: no edema Neuro: no focal deficits +Lt arm AVF laboratory and microbiology Laboratory Tests 07/30/24 13:55 Test 07/30/24 13:55 Range/Units Serum Glucose 192 H 74-106 mg/dL Assessment/Plan ESRD on HD via Lt arm AVF chest pain, mildly elevated troponin, r/o ACS DM HTN Metabolic acidosis Hyperphosphatemia Secondary hyperparathyroidism Plan: s/p HD Sunday Next HD on Sunday- goal 1-1.5 L UF Continue HD on schedule Cardiology consult BECKY post HD as needed , goal Hb: 10-11 g/dl Plan discussed with: Patient ABDELRAHMAN STATON MD Jul 31, 2024 06:36
[2024-07-31] MEDS: BUMETANIDE 1 MG TAB PO SCH (06:39)
[2024-07-31 07:54] LABS: Anion Gap 10 (5-15); Potassium 4.0 mmol/L (3.5-5.1); Sodium 138 mmol/L (136-145)
[2024-07-31 07:55] LABS: Carbon Dioxide 33 mmol/L (20-31); Chloride 95 mmol/L (98-107)
[2024-07-31 07:56] LABS: Calcium 10.1 mg/dL (8.7-10.4)
[2024-07-31 08:01] LABS: BUN/Creatinine Ratio 10.8 (10.0-20.0)
[2024-07-31 08:02] LABS: Blood Urea Nitrogen 64 mg/dL (9-23); Glucose 110 mg/dL (74-106)
[2024-07-31 08:30] VITALS: PULSE 85; RESP 18; O2SAT 98
--- NOTE | 2024-07-31 10:42 | ECG ---
[facility] Test Date: 2024-07-30 Test Time: 14:29:31 Pat Name: TIMO PELAEZ Department: ED Room: 0251T Gender: M [employer] Station Operator: : 1960 Requested By: AWA FERNANDEZ Order Number: [id number] Reading MD: Andrew Ring Measurements Intervals [place] Rate: 83 P: -22 IL: 150 QRS: 12 QRSD: 97 T: 216 QT: 403 QTc: 474 Interpretive Statements Sinus rhythm LVH with secondary repolarization abnormality Anterior Q waves, possibly due to LVH Electronically Signed On 08-02-2024 19:59:41 PDT by Andrew Ring Please click the below link to view image of tracing.
--- NOTE | 2024-07-31 10:43 | ECG ---
[facility] Test Date: 2024-07-30 Test Time: 13:39:02 Pat Name: TIMO PELAEZ Department: ED Room: 0251T Gender: M [employer] Management Specialist: : 1960 Requested By: AWA FERNANDEZ Order Number: [id number] Reading MD: Andrew Ring Measurements Intervals [place] Rate: 90 P: -19 NC: 151 QRS: -2 QRSD: 94 T: 203 QT: 386 QTc: 473 Interpretive Statements Sinus rhythm LVH with secondary repolarization abnormality Anterior Q waves, possibly due to LVH Electronically Signed On 08-02-2024 19:58:54 PDT by Andrew Ring Please click the below link to view image of tracing.
[2024-07-31] MEDS: CLOPIDOGREL BISULFATE 75 MG TAB PO SCH (11:21)
--- NOTE | 2024-07-31 12:28 | DVHPN2 ---
Subjective Patient denies any chest pain at this time Reviewed: Care Plan, H&P, Labs Changes from previous H/P or p: No Changes General: Per HPI Objective Vitals Vital Signs Date Time Temp Pulse Resp B/P (MAP) Pulse Ox O2 Delivery O2 Flow Rate FiO2 07/31/24 11:21 95 171/95 07/31/24 08:30 18 98 Nasal Cannula* 4 36 07/30/24 18:00 98.6 98.6 General Appearance: Alert, Oriented X3, Cooperative, No acute distress HEENT: Atraumatic, PERRLA, EOMI Cardiovascular: Normal S1, Normal S2 Abdomen: Normal bowel sounds, Soft, No tenderness Neuro: Normal speech Skin: Dry, Intact Psych/Mental Status: Mental status NL, Mood NL Medications Current Medications Medications Dose Ordered Sig/Herson Route Start Time Stop Time Status Last Admin Dose Admin Aspirin 162 mg DAILY PO 07/31/24 10:00 07/31/24 11:21 162 MG Atorvastatin Calcium 40 mg HS PO 07/30/24 22:00 07/30/24 22:19 40 MG Bumetanide 2 mg BIDD PO 07/31/24 06:00 Carvedilol 6.25 mg Q12HR PO 07/30/24 22:00 07/31/24 11:21 6.25 MG Clopidogrel Bisulfate 75 mg DAILY PO 07/31/24 10:00 07/31/24 11:21 75 MG Nifedipine 60 mg DAILY PO 07/31/24 10:00 Sodium Bicarbonate 650 mg TID PO 07/30/24 22:00 07/31/24 06:38 650 MG Diagnostic Test (Pha) 1 strip ACHS 07/30/24 22:00 07/31/24 11:56 1 STRIP Insulin Human Regular ACHS SC 07/30/24 22:00 Dextrose 50 ml UD PRN IV 07/30/24 19:30 Ondansetron HCl 4 mg Q4HP PRN IV 07/30/24 19:30 Acetaminophen 650 mg Q6HP PRN PO 07/30/24 19:30 Nitroglycerin 0.4 mg Q5MINP PRN SL 07/30/24 19:30 Morphine Sulfate 2 mg Q30M PRN IV 07/30/24 19:30 Laboratory Results Laboratory Tests 07/30/24 13:55 07/31/24 06:48 Chemistry Test 07/30/24 13:55 07/31/24 06:48 Calcium Level 9.2 mg/dL (8.7-10.4) 10.1 mg/dL (8.7-10.4) Coagulation Test 07/30/24 13:55 D-Dimer, Quantitative 0.22 mg/L FEU (0.0-0.49) Cardiac Markers Test 07/30/24 13:55 B-Type Natriuretic Peptide 2805.95 pg/mL (0-100) Labs and/or images reviewed: Labs reviewed by me, Image(s) reviewed by me Assessment/Plan Assessment/Plan Impression: -acute systolic heart failure with pulmonary vascular congestion -ESRD with hemodialysis -accelerated hypertension -anemia of chronic disease -elevated troponin, rule out ACS. -acute hypoxic respiratory failure Plan: -continue current antiplatelet therapy -nephrology consultation: Plans for HD tomorrow -cardiology consultation placed -serial troponin equivocal, elevated x3 -EKG reviewed: ST depression noted in inferior and lateral leads -O2 supplementation to keep saturation greater than 92% -repeat labs in a.m. Total time spent with patient discussing and formulating plan of care: 35 minutes. This medical document was created using an electronic medical record system with ClearAccess dictation system. Although this document has been carefully reviewed, there may still be some phonetic and typographical errors. These areas are purely typographical due to imperfections of the software programs, and do not reflect any compromise in the patient's medical care. Plan discussed with: Patient, Other (RN) My Orders Orders - KARLI LOZADA NP Procedure Category Date Status Time * Cardiology Consult CONS 07/31/24 Transmitted 12:23 Date of Service: Jul 31, 2024 Billing Provider: KARLI LOZADA NP Common Visit Codes: 07682-BFR/OBS DISCH DAY >30min KARLI LOZADA NP Jul 31, 2024 12:28
[2024-07-31 14:51] VITALS: BP 168/87; PULSE 89; RESP 18; TEMP 97.9; O2SAT 95
[2024-07-31 17:00] VITALS: BP 120/77; PULSE 93; RESP 18; TEMP 98.3; O2SAT 100
--- NOTE | 2024-07-31 17:42 | DVHINCON2 ---
Date Seen: Jul 31, 2024 Referring Physician BO Diana Reason for Consultation Chest pain, rule out ACS History of Present Illness This is a 63-year-old male patient who presents to the emergency room with chief complaint of shortness of breath and chest pain. The patient reports symptoms began yesterday approximately four days ago. The patient is primarily German speaking and a poor historian. Patient's at bedside is able to assist with past medical history. He describes the chest pain as unprovoked, intermittent, "squeezing" in nature, substernal and nonradiating. Associated symptoms include shortness of breath. Initial twelve lead electrocardiogram reveals normal sinus rhythm with ST segment changes to inferolateral leads and left ventricular hypertrophy. Initial troponin level of 149ng/L with flat trend thereafter. Significant past medical history includes hypertension, dyslipidemia, end-stage renal disease on hemodialysis, type 2 diabetes mellitus, COPD with home oxygen use as needed, and previous tobacco use. 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 He reports having a recent outpatient stress test with Dr. Moya which was positive, and states that he has been scheduled to undergo a coronary angiogram next week. Medication reconciliation reviewed and noted that patient takes Plavix. Patient denies any history of stroke but also denies any previous coronary artery disease with stent placement. Past Medical History Past medical history reviewed. No other significant than mentioned above. Past Surgical History Denies any previous surgeries Family History: Cervical cancer G8 MOTHER, Onset:50's - 60 Diabetes mellitus G8 MOTHER G8 FATHER Hypertension G8 MOTHER Family History Family history reviewed. Social History Patient has a 40 pack-year history, quit smoking approximately two years ago Patient denies any alcohol use Patient denies any drug use Allergies: Coded Allergies: Penicillins (Verified Allergy, Unknown, 01/01/20) Sulfa Antibiotics (Verified Allergy, Unknown, 09/16/23) Home Meds Active Scripts Azithromycin (Azithromycin) 500 Mg Tab, 1 TAB PO DAILY, #7 TAB Prov:JUANITO STEVENS MD 06/12/24 Nifedipine (Nifedipine Er) 60 Mg Tab, 1 TAB PO DAILY for 30 Days, #30 TAB 5 Refills Prov:ONELIA ROBERTSON 06/06/24 Carvedilol (Carvedilol) 6.25 Mg Tab, 1 TAB PO BID for 30 Days, #60 TAB 1 Refill Prov:HELLENONELIA DAWKINS RESIDENT 06/06/24 Hydralazine Hcl (Hydralazine Hcl) 10 Mg Tab, 10 MG PO Q6HR for 30 Days, #120 TAB Prov:PATRICIO GUZMANPATO RESIDENT 09/18/23 Reported Medications Atorvastatin Calcium (ATORVASTATIN CALCIUM) 40 Mg Tab, 1 TAB PO DAILY for 90 Days, #90 06/04/24 Bumetanide (Bumetanide) 2 Mg Tab, 1 TAB PO BID for 90 Days, #180 06/04/24 Metformin Hydrochloride (Metformin Hcl) 500 Mg Tab, 1 TAB PO BID for 90 Days, #180 06/04/24 Ergocalciferol (Vitamin D) 50,000 Unit Cap, 1 CAP PO QWEEKLY for 28 Days, #4 06/04/24 B-Complex W/ C & Folic Acid (Ani-Jaxson Rx) Tab, 1 TAB PO DAILY for 30 Days, #30 06/04/24 Patiromer Sorbitex Calcium (Veltassa) 8.4 Gm Pow, 1 PKT PO DAILY for 30 Days, #30 06/04/24 Sodium Bicarbonate (Sodium Bicarbonate) 650 Mg Tab, 1 TAB PO TID for 30 Days, #90 06/04/24 Clopidogrel Bisulfate (CLOPIDOGREL) 75 Mg Tab, 1 TAB PO DAILY for 90 Days, #90 12/04/22 Aspirin (ASPIRIN 81) 81 Mg Tab, 81 MG OR, TAB 12/04/22 Home Meds Home medications reviewed. Current Medications Current Medications Medications (Trade) Dose Ordered Sig/Herson Route PRN Reason Start Time Stop Time Status Last Admin Aspirin 162 mg DAILY PO 07/31/24 10:00 07/31/24 11:21 Atorvastatin Calcium (Lipitor) 40 mg HS PO 07/30/24 22:00 07/30/24 22:19 Bumetanide (Bumex Tablet) 2 mg BIDD PO 07/31/24 06:00 Carvedilol (Coreg Tablet) 6.25 mg Q12HR PO 07/30/24 22:00 07/31/24 11:21 Clopidogrel Bisulfate (Plavix) 75 mg DAILY PO 07/31/24 10:00 07/31/24 11:21 Nifedipine (Procardia Xl (Time-Release)) 60 mg DAILY PO 07/31/24 10:00 07/31/24 12:27 Sodium Bicarbonate 650 mg TID PO 07/30/24 22:00 07/31/24 14:20 Diagnostic Test (Pha) (Accu-Chek Comfort Curve T) 1 strip ACHS 07/30/24 22:00 07/31/24 16:52 Insulin Human Regular (InsuLIN R) ACHS SC 07/30/24 22:00 07/31/24 16:56 Dextrose 50 ml UD PRN IV Blood Sugar LESS THAN 60 07/30/24 19:30 Ondansetron HCl (Zofran) 4 mg Q4HP PRN IV NAUSEA / VOMITING 07/30/24 19:30 Acetaminophen (Tylenol Tablet) 650 mg Q6HP PRN PO PAIN SCALE 1-3 OR TEMP>100.4 07/30/24 19:30 Nitroglycerin (Ntrostat Sublingual) 0.4 mg Q5MINP PRN SL FOR CHEST PAIN 07/30/24 19:30 Morphine Sulfate 2 mg Q30M PRN IV FOR CHEST PAIN 07/30/24 19:30 Morphine Sulfate 1 mg Q6HP PRN IV SEVERE PAIN (7-10 PAIN SCALE) 07/31/24 14:15 Acetaminophen/ Hydrocodone Bitart ([place] 5/325MG Tab) 1 tab Q4HPRN PRN PO MODERATE PAIN (4-6 PAIN SCALE) 07/31/24 14:15 Review of Systems Constitutional: No symptom reported Ears, Nose, & Throat: No symptom reported Eyes: No symptom reported Neurological: No symptoms reported Pulmonary/Respiratory: Shortness of breath Cardiovascular: Chest pain Gastrointestinal: No symptom reported Genitourinary: No symptom reported Musculoskeletal: No symptom reported Skin: No symptom reported Psychiatric: No symptom reported Endocrine: No symptom reported Hematologic/Lymphatic: No symptom reported Vital Signs Vital Signs Date Time Temp Pulse Resp B/P (MAP) Pulse Ox O2 Delivery O2 Flow Rate FiO2 07/31/24 14:51 Nasal Cannula* 3 32 07/31/24 14:51 97.9 89 18 168/87 (114) 95 97.9 Physical Exam General Appearance: Cooperative. Well-developed. Well-nourished. Visible shortness of breath when speaking Pulmonary/Respiratory: Crackles throughout all lung robbins Cardiovascular/Chest: Regular rate and rhythm. Peripheral Pulses: 2+ Radial (R). 2+ Radial (L). 2+ Pedal (R). 2+ Pedal (L) Abdominal Exam: Normal bowel sounds. Ankle Exam: Negative ankle edema Lower extremities: Negative lower extremity edema Neuro/Mental Status: A/OX4, coherent. Thoughts/Psych: Normal thought pattern. Appropriate mood and affect. Good judgment and insight. Appearance: No acute distress. Skin Exam: Normal inspection. Normal color. Warm and dry. Labs/Diagnostic Data Labs Test 07/31/24 11:55 07/31/24 06:48 07/30/24 16:36 07/30/24 13:55 Range/Units POC Glucose 141 H 70-106 mg/dl Sodium Level 138 136-145 mmol/L Potassium Level 4.0 3.5-5.1 mmol/L Chloride Level 95 L 98-107 mmol/L Carbon Dioxide Level 33 H 20-31 mmol/L Anion Gap 10 5-15 Blood Urea Nitrogen 64 #H 9-23 mg/dL Creatinine 5.92 H 0.700-1.30 mg/dL Glomerular Filtration Rate Calc 10 >90 mL/min BUN/Creatinine Ratio 10.8 10.0-20.0 Serum Glucose 110 H 74-106 mg/dL Calcium Level 10.1 8.7-10.4 mg/dL Troponin I High Sensitivity 138 *H </=54 ng/L White Blood Count 4.6 4.4-10.8 10^3/uL Red Blood Count 2.71 L 4.5-5.90 10^6/uL Hemoglobin 8.8 L 13.5-17.5 g/dL Hematocrit 25.8 L 41.0-53.0 % Mean Corpuscular Volume 95.3 80.0-100.0 fL Mean Corpuscular Hemoglobin 32.5 H 28.0-32.0 pg Mean Corpuscular Hemoglobin Concent 34.1 32.0-36.0 g/dL Red Cell Distribution Width 16.4 H 11.8-14.3 % Platelet Count 202 140-450 10^3/uL Mean Platelet Volume 7.0 6.9-10.8 fL Neutrophils (%) (Auto) 72.7 37.0-80.0 % Lymphocytes (%) (Auto) 11.6 10.0-50.0 % Monocytes (%) (Auto) 11.0 0.0-12.0 % Eosinophils (%) (Auto) 4.0 0.0-7.0 % Basophils (%) (Auto) 0.7 0.0-2.0 % Neutrophils # (Auto) 3.4 1.6-8.6 10 ^3/uL Lymphocytes # (Auto) 0.5 0.4-5.4 10 ^3/uL Monocytes # (Auto) 0.5 0-1.3 10 ^3/uL Eosinophils # (Auto) 0.2 0-0.8 10 ^3/uL Basophils # (Auto) 0 0-0.2 10 ^3/uL Nucleated Red Blood Cells 0.1 % D-Dimer, Quantitative 0.22 0.0-0.49 mg/L FEU B-Type Natriuretic Peptide 2805.95 0-100 pg/mL Assessment NSTEMI, likely type 1 Acute on chronic decompensated HFmrEF, NYHA class IV Hypertensive urgency Dyslipidemia Acute hypoxic respiratory failure secondary to fluid volume overload COPD with home O2 End-stage renal disease on hemodialysis Acute on chronic anemia Type 2 diabetes mellitus History of tobacco use Plan/Recommendation We will continue with the following plan/recommendations (Dr. Ring): Case discussed with . Given the patient's clinical presentation, elevated troponin level, significant twelve lead electrocardiogram changes, and recent positive stress test, the patient may benefit from a coronary angiogram with left heart catheterization.The procedure was discussed with the patient in full detail including risks and benefits. Risks include but are not limited to bleeding, contrast-induced nephropathy, stroke, and even . Initially, the patient was reluctant to agree for the procedure and states that he only wants to perform the angiogram as he is already scheduled to undergo an angiogram with him next week. After long discussion with the patient and his , the patient is now agreeable for a coronary angiogram during this admission. At the time of assessment, the patient is still severely short of breath and is unable to lie flat at this time. We will recommend for urgent hemodialysis. Plans for coronary angiogram with improved respiratory status. In the meantime, continue with blood pressure control, single antiplatelet therapy and lipid-lowering agent. Thank you for allowing us to care for this patient. Please call with any questions or concerns. Critical care time spent: 44 minutes This medical document was created using an electronic medical record system with voice recognition software and computerized dictation system. Although this document has been carefully reviewed, there might still be some phonetic and typographical errors. Occasional wrong-word or ``sound-alike substitutions may have occurred due to the inherent limitations of voice recognition software. These areas are purely typographical due to imperfections of the software programs and do not reflect any compromise in the patient's medical care. Please read the chart carefully and recognize, using context, where these substitutions have occurred. Plan discussed with: Patient, Spouse, Other (Bedside RN) NYHA Physical activity limitations: Class4(Severe)discomfort (w any activit,symptoms at rest) Date of Service: Jul 31, 2024 Billing Provider: BRUCE LAFLEUR Cardiology Common Codes: [id number] INP/OBS CARE (High) Cardiology Consultation Codes: [id number] CONSULT <45MIN BRUCE LAFLEUR Jul 31, 2024 17:42
[2024-07-31 20:00] VITALS: PULSE 88; RESP 16
[2024-07-31 21:00] VITALS: BP 153/80; PULSE 92; RESP 20; TEMP 98.6; O2SAT 95
[2024-08-01] VITALS (8 sets, daily range): BP systolic 135–169; BP diastolic 73–88; PULSE 79–102; RESP 18–20; TEMP 97.9–98.9; O2SAT 97–100
[2024-08-01] MEDS: SODIUM CHL 0.9% 1000 ML BAG XX ONE (07:00)
[2024-08-01 10:46] LABS: Hematocrit 24.8 % (41.0-53.0); Hemoglobin 8.5 g/dL (13.5-17.5); Mean Corpuscular Hemoglobin 32.2 pg (28.0-32.0); Mean Corpuscular Volume 94.3 fL (80.0-100.0); Nucleated Red Blood Cells % 0.0 %
[2024-08-01 11:42] LABS: Chloride 98 mmol/L (98-107); Potassium 3.6 mmol/L (3.5-5.1); Sodium 138 mmol/L (136-145)
[2024-08-01 11:43] LABS: Anion Gap 11 (5-15); Calcium 9.8 mg/dL (8.7-10.4); Carbon Dioxide 29 mmol/L (20-31)
[2024-08-01 11:48] LABS: Glucose 105 mg/dL (74-106); Triglycerides 109 mg/dL (< 150)
[2024-08-01 11:49] LABS: BUN/Creatinine Ratio 11.7 (10.0-20.0); Blood Urea Nitrogen 54 mg/dL (9-23); Magnesium 2.0 mg/dL (1.6-2.6)
[2024-08-01 11:50] LABS: Cholesterol 117 mg/dL (< 200); HDL Cholesterol 42 mg/dL (40-59)
[2024-08-01 13:42] LABS: Potassium 4.0 mmol/L (3.5-5.1); Sodium 139 mmol/L (136-145)
[2024-08-01 13:43] LABS: Anion Gap 10 (5-15); Calcium 10.2 mg/dL (8.7-10.4); Carbon Dioxide 31 mmol/L (20-31); Chloride 98 mmol/L (98-107)
[2024-08-01 13:48] LABS: BUN/Creatinine Ratio 11.1 (10.0-20.0); Blood Urea Nitrogen 46 mg/dL (9-23); Glucose 118 mg/dL (74-106)
--- NOTE | 2024-08-01 13:48 | DVHPN2 ---
Reviewed: Care Plan, H&P, Labs Changes from previous H/P or p: No Changes General: Per HPI Objective Vitals Vital Signs Date Time Temp Pulse Resp B/P (MAP) Pulse Ox O2 Delivery O2 Flow Rate FiO2 08/01/24 12:10 161/80 08/01/24 12:09 80 08/01/24 08:08 Nasal Cannula* 3 32 08/01/24 05:00 97.9 18 100 97.9 Intake/Output Intake and Output 08/01/24 07:00 Intake Total 0 ml Balance 0 ml Intake Oral 0 ml # Voids 2 General Appearance: Alert, Oriented X3, Cooperative, No acute distress HEENT: Atraumatic, PERRLA, EOMI Cardiovascular: Normal S1, Normal S2 Abdomen: Normal bowel sounds, Soft, No tenderness Neuro: Normal speech Skin: Dry, Intact Psych/Mental Status: Mental status NL, Mood NL Medications Current Medications Medications Dose Ordered Sig/Herson Route Start Time Stop Time Status Last Admin Dose Admin Atorvastatin Calcium 40 mg HS PO 07/30/24 22:00 07/31/24 22:16 40 MG Bumetanide 2 mg BIDD PO 07/31/24 06:00 Carvedilol 6.25 mg Q12HR PO 07/30/24 22:00 08/01/24 12:09 6.25 MG Nifedipine 60 mg DAILY PO 07/31/24 10:00 08/01/24 12:10 60 MG Sodium Bicarbonate 650 mg TID PO 07/30/24 22:00 08/01/24 05:59 650 MG Diagnostic Test (Pha) 1 strip ACHS 07/30/24 22:00 08/01/24 12:13 1 STRIP Insulin Human Regular ACHS SC 07/30/24 22:00 07/31/24 16:56 3 UNITS Dextrose 50 ml UD PRN IV 07/30/24 19:30 Ondansetron HCl 4 mg Q4HP PRN IV 07/30/24 19:30 Acetaminophen 650 mg Q6HP PRN PO 07/30/24 19:30 Nitroglycerin 0.4 mg Q5MINP PRN SL 07/30/24 19:30 Morphine Sulfate 2 mg Q30M PRN IV 07/30/24 19:30 Morphine Sulfate 1 mg Q6HP PRN IV 07/31/24 14:15 Acetaminophen/ Hydrocodone Bitart 1 tab Q4HPRN PRN PO 07/31/24 14:15 Aspirin 81 mg DAILY PO 08/01/24 10:00 08/01/24 12:09 81 MG Laboratory Results Laboratory Tests 08/01/24 10:22 Chemistry Test 08/01/24 10:22 08/01/24 12:30 Calcium Level 9.8 mg/dL (8.7-10.4) Pending Magnesium Level 2.0 mg/dL (1.6-2.6) Lipid panel Test 08/01/24 10:22 Cholesterol Level 117 mg/dL (< 200) HDL Cholesterol 42 mg/dL (40-59) Triglycerides Level 109 mg/dL (< 150) HgA1c, TSH Test 08/01/24 10:22 Hemoglobin A1c 5.4 % A1C (<5.7) Thyroid Stimulating Hormone (TSH) 1.59 uIU/mL (0.55-4.78) Labs and/or images reviewed: Labs reviewed by me, Image(s) reviewed by me Assessment/Plan Assessment/Plan Covering for nurse practitioner Joshua Diana -acute systolic heart failure with pulmonary vascular congestion -ESRD with hemodialysis -accelerated hypertension cardiology consult appreciated planning for angiogram -anemia of chronic disease -elevated troponin, rule out ACS. -acute hypoxic respiratory failure Plan discussed with: Patient Date of Service: Aug 01, 2024 Billing Provider: JUANITO STEVENS MD Common Visit Codes: [id number] INP/OBS CARE(HIGH) JUANITO STEVENS MD Aug 01, 2024 13:48
--- NOTE | 2024-08-01 14:04 | DVHPN2 ---
Progress Note - Dictate Date Seen: Aug 01, 2024 Medical Necessity Reason Pt with a Central, PICC or Fol: No Subjective patient was SOB, arranged to have HD early this morning vital signs Vital Sign Date Time Temp Pulse Resp B/P (MAP) Pulse Ox O2 Delivery O2 Flow Rate FiO2 08/01/24 12:10 161/80 08/01/24 12:09 80 08/01/24 08:08 Nasal Cannula* 3 32 08/01/24 05:00 97.9 18 100 97.9 Total Intake and Output 07/31/24 07/31/24 08/01/24 15:00 23:00 07:00 Intake Total 0 ml 0 ml Balance 0 ml 0 ml medications Current Medications Medications Dose Ordered Sig/Herson Route Start Time Stop Time Status Last Admin Dose Admin Atorvastatin Calcium 40 mg HS PO 07/30/24 22:00 07/31/24 22:16 40 MG Bumetanide 2 mg BIDD PO 07/31/24 06:00 Carvedilol 6.25 mg Q12HR PO 07/30/24 22:00 08/01/24 12:09 6.25 MG Nifedipine 60 mg DAILY PO 07/31/24 10:00 08/01/24 12:10 60 MG Sodium Bicarbonate 650 mg TID PO 07/30/24 22:00 08/01/24 05:59 650 MG Diagnostic Test (Pha) 1 strip ACHS 07/30/24 22:00 08/01/24 12:13 1 STRIP Insulin Human Regular ACHS SC 07/30/24 22:00 07/31/24 16:56 3 UNITS Dextrose 50 ml UD PRN IV 07/30/24 19:30 Ondansetron HCl 4 mg Q4HP PRN IV 07/30/24 19:30 Acetaminophen 650 mg Q6HP PRN PO 07/30/24 19:30 Nitroglycerin 0.4 mg Q5MINP PRN SL 07/30/24 19:30 Morphine Sulfate 2 mg Q30M PRN IV 07/30/24 19:30 Morphine Sulfate 1 mg Q6HP PRN IV 07/31/24 14:15 Acetaminophen/ Hydrocodone Bitart 1 tab Q4HPRN PRN PO 07/31/24 14:15 Aspirin 81 mg DAILY PO 08/01/24 10:00 08/01/24 12:09 81 MG objective Gen: NAD, AAOx3 HEENT: NC,AT Lungs: CTA b/l Cardiac:RRR Abd: soft, no distention Ext: no edema Neuro: no focal deficits +Lt arm AVF laboratory and microbiology Laboratory Tests 08/01/24 12:30 08/01/24 10:22 Test 08/01/24 12:30 Range/Units Serum Glucose 118 H 74-106 mg/dL Assessment/Plan ESRD on HD via Lt arm AVF Acute hypoxic respiratory failure on supplemental oxygen pulmonary congestion chest pain, mildly elevated troponin, r/o ACS DM HTN Metabolic acidosis Hyperphosphatemia Secondary hyperparathyroidism Plan: s/p HD this morning- Sunday. net UF 2.5 L Next HD on Sunday vs Sunday Cardiology consult Continue Coreg, and Nifedipine BECKY post HD as needed , goal Hb: 10-11 g/dl Plan discussed with: Patient ABDELRAHMAN STATON MD Aug 01, 2024 14:04
--- NOTE | 2024-08-01 15:12 | DVHPN2 ---
Consult Progress Note Subjective Other Systems: Patient in normal sinus rhythm with depressed T-waves on secured entrance monitor Denies any cardiac symptoms at time of assessment Underwent hemodialysis today Objective vital signs Vital Sign Date Time Temp Pulse Resp B/P (MAP) Pulse Ox O2 Delivery O2 Flow Rate FiO2 08/01/24 13:09 79 153/76 08/01/24 08:08 Nasal Cannula* 3 32 08/01/24 05:00 97.9 18 100 97.9 Total Intake and Output 07/31/24 07/31/24 08/01/24 15:00 23:00 07:00 Intake Total 0 ml 0 ml Balance 0 ml 0 ml medications Current Medications Medications Dose Ordered Sig/Herson Route Start Time Stop Time Status Last Admin Dose Admin Atorvastatin Calcium 40 mg HS PO 07/30/24 22:00 07/31/24 22:16 40 MG Bumetanide 2 mg BIDD PO 07/31/24 06:00 Carvedilol 6.25 mg Q12HR PO 07/30/24 22:00 08/01/24 12:09 6.25 MG Nifedipine 60 mg DAILY PO 07/31/24 10:00 08/01/24 12:10 60 MG Sodium Bicarbonate 650 mg TID PO 07/30/24 22:00 08/01/24 14:57 650 MG Diagnostic Test (Pha) 1 strip ACHS 07/30/24 22:00 08/01/24 12:13 1 STRIP Insulin Human Regular ACHS SC 07/30/24 22:00 07/31/24 16:56 3 UNITS Dextrose 50 ml UD PRN IV 07/30/24 19:30 Ondansetron HCl 4 mg Q4HP PRN IV 07/30/24 19:30 Acetaminophen 650 mg Q6HP PRN PO 07/30/24 19:30 Nitroglycerin 0.4 mg Q5MINP PRN SL 07/30/24 19:30 Morphine Sulfate 2 mg Q30M PRN IV 07/30/24 19:30 Morphine Sulfate 1 mg Q6HP PRN IV 07/31/24 14:15 Acetaminophen/ Hydrocodone Bitart 1 tab Q4HPRN PRN PO 07/31/24 14:15 Aspirin 81 mg DAILY PO 08/01/24 10:00 08/01/24 12:09 81 MG Examination: GENERAL:Normal, LUNGS:Normal, CVS:Normal, NEURO:Normal laboratory and microbiology Laboratory Tests 08/01/24 12:30 08/01/24 10:22 Test 08/01/24 12:30 Range/Units Serum Glucose 118 H 74-106 mg/dL Problem List/Assessment/Plan Problem List/Assessment/Plan NSTEMI, likely type 1 Acute on chronic decompensated HFmrEF, NYHA class IV Hypertensive urgency Dyslipidemia Acute hypoxic respiratory failure secondary to fluid volume overload COPD with home O2 End-stage renal disease on hemodialysis Acute on chronic anemia Type 2 diabetes mellitus History of tobacco use Plan/Recommendations (Dr. Ring): Case discussed with . Given the patient's clinical presentation, elevated troponin level, significant twelve lead electrocardiogram changes, and recent positive (outpatient) stress test, the patient may benefit from a coronary angiogram with left heart catheterization.The procedure was discussed with the patient in full detail including risks and benefits. Risks include but are not limited to bleeding, contrast-induced nephropathy, stroke, and even . Initially, the patient was reluctant to agree for the procedure and states that he only wants to perform the angiogram as he is already scheduled to undergo an angiogram with him next week. After long discussion with the patient and his , the patient is now agreeable for a coronary angiogram during this admission. Today, the patient underwent hemodialysis and appears to be significantly less short of breath. Plans for coronary angiogram with stable respiratory status. Previous transthoracic echocardiogram on 05/08/2024 reveals an EF of 45-50% with global hypokinesis. In the meantime, continue with blood pressure control, single antiplatelet therapy, and lipid- lowering agent. Continue with close cardiac surveillance and notify cardiology team immediately for any ECG changes. Further recommendations per clinical course and progression. Thank you for allowing us to care for this patient. Please call with any questions or concerns. This medical document was created using an electronic medical record system with voice recognition software and computerized dictation system. Although this document has been carefully reviewed, there might still be some phonetic and typographical errors. Occasional wrong-word or ``sound-alike substitutions may have occurred due to the inherent limitations of voice recognition software. These areas are purely typographical due to imperfections of the software programs and do not reflect any compromise in the patient's medical care. Please read the chart carefully and recognize, using context, where these substitutions have occurred. Plan discussed with: Patient, Spouse Date of Service: Aug 01, 2024 Billing Provider: BRUCE LAFLEUR Common Visit Codes: [id number] INP/OBS CARE(HIGH) BRUCE LAFLEUR Aug 01, 2024 15:12
[2024-08-02] VITALS (8 sets, daily range): BP systolic 140–178; BP diastolic 68–90; PULSE 64–101; RESP 14–20; TEMP 97.2–98.5; O2SAT 92–100
[2024-08-02] MEDS: MORPHINE SULFATE INJ 2 MG/ml SYRG IV PRN (01:41)
[2024-08-02] MEDS: NITROGLYCERIN 0.4 MG SL TAB SL PRN (02:14)
[2024-08-02] MEDS: HYDROcodone-ACET 5/325MG TAB PO PRN (02:31)
[2024-08-02] MEDS: SODIUM CHL 0.9% 1000 ML BAG XX ONE (07:00)
--- NOTE | 2024-08-02 10:23 | DVHPN2 ---
Reviewed: Care Plan, H&P, Labs Changes from previous H/P or p: No Changes General: Per HPI Objective Vitals Vital Signs Date Time Temp Pulse Resp B/P (MAP) Pulse Ox O2 Delivery O2 Flow Rate FiO2 08/02/24 08:46 75 140/68 08/02/24 05:00 98.5 18 98 98.5 08/01/24 20:00 Nasal Cannula* 3 32 Intake/Output Intake and Output 08/02/24 07:00 Intake Total 600 ml Balance 600 ml Intake Oral 600 ml # Voids 4 # Bowel Movements 1 General Appearance: Alert, Oriented X3, Cooperative, No acute distress HEENT: Atraumatic, PERRLA, EOMI Cardiovascular: Normal S1, Normal S2 Abdomen: Normal bowel sounds, Soft, No tenderness Neuro: Normal speech Skin: Dry, Intact Psych/Mental Status: Mental status NL, Mood NL Medications Current Medications Medications Dose Ordered Sig/Herson Route Start Time Stop Time Status Last Admin Dose Admin Atorvastatin Calcium 40 mg HS PO 07/30/24 22:00 08/01/24 22:10 40 MG Bumetanide 2 mg BIDD PO 07/31/24 06:00 Carvedilol 6.25 mg Q12HR PO 07/30/24 22:00 08/02/24 08:46 6.25 MG Nifedipine 60 mg DAILY PO 07/31/24 10:00 08/02/24 08:45 60 MG Sodium Bicarbonate 650 mg TID PO 07/30/24 22:00 08/02/24 06:03 650 MG Diagnostic Test (Pha) 1 strip ACHS 07/30/24 22:00 08/02/24 05:57 1 STRIP Insulin Human Regular ACHS SC 07/30/24 22:00 08/02/24 06:14 2 UNITS Dextrose 50 ml UD PRN IV 07/30/24 19:30 Ondansetron HCl 4 mg Q4HP PRN IV 07/30/24 19:30 Acetaminophen 650 mg Q6HP PRN PO 07/30/24 19:30 Nitroglycerin 0.4 mg Q5MINP PRN SL 07/30/24 19:30 08/02/24 02:24 0.4 MG Morphine Sulfate 2 mg Q30M PRN IV 07/30/24 19:30 08/02/24 01:41 2 MG Morphine Sulfate 1 mg Q6HP PRN IV 07/31/24 14:15 Acetaminophen/ Hydrocodone Bitart 1 tab Q4HPRN PRN PO 07/31/24 14:15 08/02/24 02:31 1 TAB Aspirin 81 mg DAILY PO 08/01/24 10:00 08/02/24 08:45 81 MG Clonidine HCl 0.2 mg Q6HP PRN PO 08/02/24 02:00 08/02/24 03:10 0.2 MG Laboratory Results Laboratory Tests 08/01/24 10:22 08/01/24 12:30 Chemistry Test 08/01/24 10:22 08/01/24 12:30 Calcium Level 9.8 mg/dL (8.7-10.4) 10.2 mg/dL (8.7-10.4) Magnesium Level 2.0 mg/dL (1.6-2.6) Lipid panel Test 08/01/24 10:22 Cholesterol Level 117 mg/dL (< 200) HDL Cholesterol 42 mg/dL (40-59) Triglycerides Level 109 mg/dL (< 150) HgA1c, TSH Test 08/01/24 10:22 Hemoglobin A1c 5.4 % A1C (<5.7) Thyroid Stimulating Hormone (TSH) 1.59 uIU/mL (0.55-4.78) Labs and/or images reviewed: Labs reviewed by me, Image(s) reviewed by me Assessment/Plan Assessment/Plan Covering for nurse practitioner Joshua Diana -acute systolic heart failure with pulmonary vascular congestion -ESRD with hemodialysis -accelerated hypertension cardiology consult appreciated planning for left heart catheterization on Sunday -anemia of chronic disease -elevated troponin, rule out ACS. -acute hypoxic respiratory failure Plan discussed with: Patient My Orders Orders - JUANITO STEVENS MD Procedure Category Date Status Time Stat Ekg With Cp ABELARDO 08/02/24 In Process 01:40 Date of Service: Aug 02, 2024 Billing Provider: JUANITO STEVENS MD Common Visit Codes: [id number] INP/OBS CARE(HIGH) JUANITO STEVENS MD Aug 02, 2024 10:23
--- NOTE | 2024-08-02 13:44 | DVHPN2 ---
Consult Progress Note Subjective Patient reports: No new complaints Objective vital signs Vital Sign Date Time Temp Pulse Resp B/P (MAP) Pulse Ox O2 Delivery O2 Flow Rate FiO2 08/02/24 10:30 97.9 75 18 140/68 (92) 100 97.9 08/01/24 20:00 Nasal Cannula* 3 32 Total Intake and Output 08/01/24 08/01/24 08/02/24 15:00 23:00 07:00 Intake Total 200 ml 400 ml Balance 200 ml 400 ml medications Current Medications Medications Dose Ordered Sig/Herson Route Start Time Stop Time Status Last Admin Dose Admin Atorvastatin Calcium 40 mg HS PO 07/30/24 22:00 08/01/24 22:10 40 MG Bumetanide 2 mg BIDD PO 07/31/24 06:00 Carvedilol 6.25 mg Q12HR PO 07/30/24 22:00 08/02/24 08:46 6.25 MG Nifedipine 60 mg DAILY PO 07/31/24 10:00 08/02/24 08:45 60 MG Sodium Bicarbonate 650 mg TID PO 07/30/24 22:00 08/02/24 06:03 650 MG Diagnostic Test (Pha) 1 strip ACHS 07/30/24 22:00 08/02/24 11:30 1 STRIP Insulin Human Regular ACHS SC 07/30/24 22:00 08/02/24 11:30 2 UNITS Dextrose 50 ml UD PRN IV 07/30/24 19:30 Ondansetron HCl 4 mg Q4HP PRN IV 07/30/24 19:30 Acetaminophen 650 mg Q6HP PRN PO 07/30/24 19:30 Nitroglycerin 0.4 mg Q5MINP PRN SL 07/30/24 19:30 08/02/24 02:24 0.4 MG Morphine Sulfate 2 mg Q30M PRN IV 07/30/24 19:30 08/02/24 01:41 2 MG Morphine Sulfate 1 mg Q6HP PRN IV 07/31/24 14:15 Acetaminophen/ Hydrocodone Bitart 1 tab Q4HPRN PRN PO 07/31/24 14:15 08/02/24 02:31 1 TAB Aspirin 81 mg DAILY PO 08/01/24 10:00 08/02/24 08:45 81 MG Clonidine HCl 0.2 mg Q6HP PRN PO 08/02/24 02:00 08/02/24 03:10 0.2 MG Examination: CVS:Normal (Denies overnight cardiac symptoms of chest pain, palpitation, shortness of breath. Telemetry reviewed consistent with sinus rhythm at 87 beats per minute.) laboratory and microbiology Laboratory Tests 08/01/24 12:30 08/01/24 10:22 Test 08/01/24 12:30 Range/Units Serum Glucose 118 H 74-106 mg/dL Problem List/Assessment/Plan Problem List/Assessment/Plan Problem List/Assessment/Plan NSTEMI, likely type 1 Acute on chronic decompensated HFmrEF, NYHA class IV Hypertensive urgency Dyslipidemia Acute hypoxic respiratory failure secondary to fluid volume overload COPD with home O2 End-stage renal disease on hemodialysis Acute on chronic anemia Type 2 diabetes mellitus History of tobacco use Plan/Recommendations (Dr. Ring): Case discussed with . Recent positive (outpatient) stress test, the patient may benefit from a coronary angiogram with left heart catheterization.The procedure was discussed with the patient in full detail including risks and benefits. Risks include but are not limited to bleeding, contrast-induced nephropathy, stroke, and even . Initially, the patient was reluctant to agree for the procedure and states that he only wants to perform the angiogram as he is already scheduled to undergo an angiogram with him next week. After long discussion with the patient and his , the patient is now agreeable for a coronary angiogram during this admission. Today, the patient underwent hemodialysis and appears to be significantly less short of breath. Plan for coronary angiogram once respiratory status improves, plan for Sunday. Recent echo 05/08/2024 shows EF of 45-50% with global hypokinesis. In the meantime, continue with blood pressure control, single antiplatelet therapy, and lipid-lowering agent. Continue with close cardiac surveillance and notify cardiology team immediately for any ECG changes. Further recommendations per clinical course and progression. Thank you for allowing us to care for this patient. Please call with any questions or concerns. This medical document was created using an electronic medical record system with voice recognition software and computerized dictation system. Although this document has been carefully reviewed, there might still be some phonetic and typographical errors. Occasional wrong-word or ``sound-alike substitutions may have occurred due to the inherent limitations of voice recognition software. These areas are purely typographical due to imperfections of the software programs and do not reflect any compromise in the patient's medical care. Please read the chart carefully and recognize, using context, where these substitutions have occurred. Plan discussed with: Patient, Spouse Date of Service: Aug 02, 2024 Billing Provider: GARETH HERNÁNDEZ Common Visit Codes: [id number] INP/OBS CARE(HIGH) GARETH HERNÁNDEZ Aug 02, 2024 13:44
--- NOTE | 2024-08-02 15:01 | DVHPN2 ---
Progress Note - Dictate Date Seen: Aug 02, 2024 Medical Necessity Reason Pt with a Central, PICC or Fol: No Subjective patient was SOB, arranged to have HD early this morning vital signs Vital Sign Date Time Temp Pulse Resp B/P (MAP) Pulse Ox O2 Delivery O2 Flow Rate FiO2 08/02/24 10:30 97.9 75 18 140/68 (92) 100 97.9 08/01/24 20:00 Nasal Cannula* 3 32 Total Intake and Output 08/01/24 08/01/24 08/02/24 15:00 23:00 07:00 Intake Total 200 ml 400 ml Balance 200 ml 400 ml medications Current Medications Medications Dose Ordered Sig/Herson Route Start Time Stop Time Status Last Admin Dose Admin Atorvastatin Calcium 40 mg HS PO 07/30/24 22:00 08/01/24 22:10 40 MG Bumetanide 2 mg BIDD PO 07/31/24 06:00 Carvedilol 6.25 mg Q12HR PO 07/30/24 22:00 08/02/24 08:46 6.25 MG Nifedipine 60 mg DAILY PO 07/31/24 10:00 08/02/24 08:45 60 MG Sodium Bicarbonate 650 mg TID PO 07/30/24 22:00 08/02/24 06:03 650 MG Diagnostic Test (Pha) 1 strip ACHS 07/30/24 22:00 08/02/24 11:30 1 STRIP Insulin Human Regular ACHS SC 07/30/24 22:00 08/02/24 11:30 2 UNITS Dextrose 50 ml UD PRN IV 07/30/24 19:30 Ondansetron HCl 4 mg Q4HP PRN IV 07/30/24 19:30 Acetaminophen 650 mg Q6HP PRN PO 07/30/24 19:30 Nitroglycerin 0.4 mg Q5MINP PRN SL 07/30/24 19:30 08/02/24 02:24 0.4 MG Morphine Sulfate 2 mg Q30M PRN IV 07/30/24 19:30 08/02/24 01:41 2 MG Morphine Sulfate 1 mg Q6HP PRN IV 07/31/24 14:15 Acetaminophen/ Hydrocodone Bitart 1 tab Q4HPRN PRN PO 07/31/24 14:15 08/02/24 02:31 1 TAB Aspirin 81 mg DAILY PO 08/01/24 10:00 08/02/24 08:45 81 MG Clonidine HCl 0.2 mg Q6HP PRN PO 08/02/24 02:00 08/02/24 03:10 0.2 MG objective Gen: NAD, AAOx3 HEENT: NC,AT Lungs: CTA b/l Cardiac:RRR Abd: soft, no distention Ext: no edema Neuro: no focal deficits +Lt arm AVF laboratory and microbiology Laboratory Tests 08/01/24 12:30 08/01/24 10:22 Test 08/01/24 12:30 Range/Units Serum Glucose 118 H 74-106 mg/dL Assessment/Plan ESRD on HD via Lt arm AVF Acute hypoxic respiratory failure on supplemental oxygen pulmonary congestion chest pain, mildly elevated troponin, r/o ACS DM HTN Metabolic acidosis Hyperphosphatemia Secondary hyperparathyroidism Plan: Scheduled for HD for today-Sunday for ultrafiltration Previous HD was on Sunday Will then continue HD back on [facility] schedule Cardiology consult Continue Coreg, and Nifedipine BECKY post HD as needed , goal Hb: 10-11 g/dl Plan discussed with: Patient ABDELRAHMAN STATON MD Aug 02, 2024 15:01
[2024-08-03] VITALS (11 sets, daily range): BP systolic 139–166; BP diastolic 76–90; PULSE 71–99; RESP 16–20; TEMP 96.8–99.1; O2SAT 92–100
[2024-08-03] MEDS: MORPHINE SULFATE INJ 2 MG/ml SYRG IV PRN (02:52)
--- NOTE | 2024-08-03 10:18 | DVHPN2 ---
Reviewed: Care Plan, H&P, Labs Changes from previous H/P or p: No Changes General: Per HPI Objective Vitals Vital Signs Date Time Temp Pulse Resp B/P (MAP) Pulse Ox O2 Delivery O2 Flow Rate FiO2 08/03/24 08:39 79 150/82 08/03/24 05:00 98.4 20 92 98.4 08/02/24 20:00 Nasal Cannula* 3 32 Intake/Output Intake and Output 08/03/24 07:00 Intake Total 200 ml Balance 200 ml Intake Oral 200 ml # Voids 3 General Appearance: Alert, Oriented X3, Cooperative, No acute distress HEENT: Atraumatic, PERRLA, EOMI Cardiovascular: Normal S1, Normal S2 Abdomen: Normal bowel sounds, Soft, No tenderness Neuro: Normal speech Skin: Dry, Intact Psych/Mental Status: Mental status NL, Mood NL Medications Current Medications Medications Dose Ordered Sig/Herson Route Start Time Stop Time Status Last Admin Dose Admin Atorvastatin Calcium 40 mg HS PO 07/30/24 22:00 08/02/24 21:22 40 MG Bumetanide 2 mg BIDD PO 07/31/24 06:00 08/03/24 06:07 2 MG Carvedilol 6.25 mg Q12HR PO 07/30/24 22:00 08/03/24 08:39 6.25 MG Nifedipine 60 mg DAILY PO 07/31/24 10:00 08/03/24 08:38 60 MG Sodium Bicarbonate 650 mg TID PO 07/30/24 22:00 08/03/24 06:04 650 MG Diagnostic Test (Pha) 1 strip ACHS 07/30/24 22:00 08/03/24 06:07 1 STRIP Insulin Human Regular ACHS SC 07/30/24 22:00 08/02/24 21:22 8 UNITS Dextrose 50 ml UD PRN IV 07/30/24 19:30 Ondansetron HCl 4 mg Q4HP PRN IV 07/30/24 19:30 Acetaminophen 650 mg Q6HP PRN PO 07/30/24 19:30 Nitroglycerin 0.4 mg Q5MINP PRN SL 07/30/24 19:30 08/03/24 04:05 0.4 MG Morphine Sulfate 2 mg Q30M PRN IV 07/30/24 19:30 08/02/24 01:41 2 MG Morphine Sulfate 1 mg Q6HP PRN IV 07/31/24 14:15 08/03/24 02:52 1 MG Acetaminophen/ Hydrocodone Bitart 1 tab Q4HPRN PRN PO 07/31/24 14:15 08/03/24 03:15 1 TAB Aspirin 81 mg DAILY PO 08/01/24 10:00 08/03/24 08:38 81 MG Clonidine HCl 0.2 mg Q6HP PRN PO 08/02/24 02:00 08/02/24 03:10 0.2 MG Laboratory Results Laboratory Tests 08/01/24 10:22 08/01/24 12:30 Labs and/or images reviewed: Labs reviewed by me, Image(s) reviewed by me Assessment/Plan Assessment/Plan Covering for nurse practitioner Joshua Diana -acute systolic heart failure with pulmonary vascular congestion -ESRD with hemodialysis -accelerated hypertension cardiology consult appreciated planning for left heart catheterization on Sunday -anemia of chronic disease -elevated troponin, rule out ACS. -acute hypoxic respiratory failure Plan discussed with: Patient My Orders Orders - JUANITO STEVENS MD Procedure Category Date Status Time Dietary NOTICE 08/02/24 Transmitted Recommendations 16:22 Date of Service: Aug 03, 2024 Billing Provider: JUANITO STEVENS MD Common Visit Codes: [id number] INP/OBS CARE(HIGH) JUANITO STEVENS MD Aug 03, 2024 10:18
--- NOTE | 2024-08-03 12:10 | DVHPN2 ---
Consult Progress Note Objective vital signs Vital Sign Date Time Temp Pulse Resp B/P (MAP) Pulse Ox O2 Delivery O2 Flow Rate FiO2 08/03/24 08:39 79 150/82 08/03/24 08:30 98.5 16 100 98.5 08/02/24 20:00 Nasal Cannula* 3 32 Total Intake and Output 08/02/24 08/02/24 08/03/24 15:00 23:00 07:00 Intake Total 200 ml Balance 200 ml medications Current Medications Medications Dose Ordered Sig/Herson Route Start Time Stop Time Status Last Admin Dose Admin Atorvastatin Calcium 40 mg HS PO 07/30/24 22:00 08/02/24 21:22 40 MG Bumetanide 2 mg BIDD PO 07/31/24 06:00 08/03/24 06:07 2 MG Carvedilol 6.25 mg Q12HR PO 07/30/24 22:00 08/03/24 08:39 6.25 MG Nifedipine 60 mg DAILY PO 07/31/24 10:00 08/03/24 08:38 60 MG Sodium Bicarbonate 650 mg TID PO 07/30/24 22:00 08/03/24 06:04 650 MG Diagnostic Test (Pha) 1 strip ACHS 07/30/24 22:00 08/03/24 11:30 1 STRIP Insulin Human Regular ACHS SC 07/30/24 22:00 08/03/24 11:30 6 UNITS Dextrose 50 ml UD PRN IV 07/30/24 19:30 Ondansetron HCl 4 mg Q4HP PRN IV 07/30/24 19:30 Acetaminophen 650 mg Q6HP PRN PO 07/30/24 19:30 Nitroglycerin 0.4 mg Q5MINP PRN SL 07/30/24 19:30 08/03/24 04:05 0.4 MG Morphine Sulfate 2 mg Q30M PRN IV 07/30/24 19:30 08/02/24 01:41 2 MG Morphine Sulfate 1 mg Q6HP PRN IV 07/31/24 14:15 08/03/24 02:52 1 MG Acetaminophen/ Hydrocodone Bitart 1 tab Q4HPRN PRN PO 07/31/24 14:15 08/03/24 03:15 1 TAB Aspirin 81 mg DAILY PO 08/01/24 10:00 6/29/25 08:38 81 MG Clonidine HCl 0.2 mg Q6HP PRN PO 08/02/24 02:00 08/02/24 03:10 0.2 MG laboratory and microbiology Laboratory Tests 08/01/24 12:30 08/01/24 10:22 Test 08/01/24 12:30 Range/Units Serum Glucose 118 H 74-106 mg/dL Problem List/Assessment/Plan Problem List/Assessment/Plan Problem List/Assessment/Plan NSTEMI, likely type 1 Acute on chronic decompensated HFmrEF, NYHA class IV Hypertensive urgency Dyslipidemia Acute hypoxic respiratory failure secondary to fluid volume overload COPD with home O2 End-stage renal disease on hemodialysis Acute on chronic anemia Type 2 diabetes mellitus History of tobacco use Plan/Recommendations (Dr. Ring): Case discussed with . Recent positive (outpatient) stress test, the patient may benefit from a coronary angiogram with left heart catheterization.The procedure was discussed with the patient in full detail including risks and benefits. Risks include but are not limited to bleeding, contrast-induced nephropathy, stroke, and even . Plan for coronary angiogram tomorrow. Recent echo 05/08/2024 shows EF of 45-50% with global hypokinesis. In the meantime, continue with blood pressure control, single antiplatelet therapy, and lipid-lowering agent. Continue with close cardiac surveillance and notify cardiology team immediately for any ECG changes. Further recommendations per clinical course and progression. Thank you for allowing us to care for this patient. Please call with any questions or concerns. This medical document was created using an electronic medical record system with voice recognition software and computerized dictation system. Although this document has been carefully reviewed, there might still be some phonetic and typographical errors. Occasional wrong-word or ``sound-alike substitutions may have occurred due to the inherent limitations of voice recognition software. These areas are purely typographical due to imperfections of the software programs and do not reflect any compromise in the patient's medical care. Please read the chart carefully and recognize, using context, where these substitutions have occurred. Plan discussed with: Patient Dietary Evaluation Review Recommendations by RD: Protein Supplementation Comments: 1) Initiate Nepro CarbSteady qd 2) Encourage optimal PO intake 3) Follow-up with nephrology and cardiology 4) Continue to monitor I&O, labs, and skin integrity Expected Outcomes/Goals: 1) appetite and labs to improve 2) f/u in 3-5 days Date of Service: Aug 03, 2024 Billing Provider: GARETH HERNÁNDEZ Common Visit Codes: [id number] INP/OBS CARE(HIGH) GARETH HERNÁNDEZ Aug 03, 2024 12:10
--- NOTE | 2024-08-03 13:50 | DVHPN2 ---
Progress Note - Dictate Date Seen: Aug 03, 2024 Medical Necessity Reason Pt with a Central, PICC or Fol: No Subjective patient was SOB, arranged to have HD early this morning vital signs Vital Sign Date Time Temp Pulse Resp B/P (MAP) Pulse Ox O2 Delivery O2 Flow Rate FiO2 08/03/24 08:39 79 150/82 08/03/24 08:30 98.5 16 100 98.5 08/02/24 20:00 Nasal Cannula* 3 32 Total Intake and Output 08/02/24 08/02/24 08/03/24 15:00 23:00 07:00 Intake Total 200 ml Balance 200 ml medications Current Medications Medications Dose Ordered Sig/Herson Route Start Time Stop Time Status Last Admin Dose Admin Atorvastatin Calcium 40 mg HS PO 07/30/24 22:00 08/02/24 21:22 40 MG Bumetanide 2 mg BIDD PO 07/31/24 06:00 08/03/24 06:07 2 MG Carvedilol 6.25 mg Q12HR PO 07/30/24 22:00 08/03/24 08:39 6.25 MG Nifedipine 60 mg DAILY PO 07/31/24 10:00 08/03/24 08:38 60 MG Sodium Bicarbonate 650 mg TID PO 07/30/24 22:00 08/03/24 06:04 650 MG Diagnostic Test (Pha) 1 strip ACHS 07/30/24 22:00 08/03/24 11:30 1 STRIP Insulin Human Regular ACHS SC 07/30/24 22:00 08/03/24 11:30 6 UNITS Dextrose 50 ml UD PRN IV 07/30/24 19:30 Ondansetron HCl 4 mg Q4HP PRN IV 07/30/24 19:30 Acetaminophen 650 mg Q6HP PRN PO 07/30/24 19:30 Nitroglycerin 0.4 mg Q5MINP PRN SL 07/30/24 19:30 08/03/24 04:05 0.4 MG Morphine Sulfate 2 mg Q30M PRN IV 07/30/24 19:30 08/02/24 01:41 2 MG Morphine Sulfate 1 mg Q6HP PRN IV 07/31/24 14:15 08/03/24 02:52 1 MG Acetaminophen/ Hydrocodone Bitart 1 tab Q4HPRN PRN PO 07/31/24 14:15 08/03/24 03:15 1 TAB Aspirin 81 mg DAILY PO 08/01/24 10:00 08/03/24 08:38 81 MG Clonidine HCl 0.2 mg Q6HP PRN PO 08/02/24 02:00 08/02/24 03:10 0.2 MG objective Gen: NAD, AAOx3 HEENT: NC,AT Lungs: CTA b/l Cardiac:RRR Abd: soft, no distention Ext: no edema Neuro: no focal deficits +Lt arm AVF laboratory and microbiology Laboratory Tests 08/01/24 12:30 08/01/24 10:22 Test 08/01/24 12:30 Range/Units Serum Glucose 118 H 74-106 mg/dL Assessment/Plan ESRD on HD via Lt arm AVF Acute hypoxic respiratory failure on supplemental oxygen pulmonary congestion Acute on chronic systolic CHF (EF: 45- 50%) chest pain, mildly elevated troponin, r/o ACS DM HTN Metabolic acidosis Hyperphosphatemia Secondary hyperparathyroidism Plan: Next HD on Sunday. goal 2.5 L UF s/p HD on Sunday and Sunday Continue HD on MWF schedule coronary angiogram Sunday He has had a recent positive stress test Cardiology consult Continue Coreg, and Nifedipine BECKY post HD as needed , goal Hb: 10-11 g/dl Dietary Evaluation Review Recommendations by RD: Protein Supplementation Comments: 1) Initiate Nepro CarbSteady qd 2) Encourage optimal PO intake 3) Follow-up with nephrology and cardiology 4) Continue to monitor I&O, labs, and skin integrity Expected Outcomes/Goals: 1) appetite and labs to improve 2) f/u in 3-5 days Plan discussed with: Patient ABDELRAHMAN STATON MD Aug 03, 2024 13:50
[2024-08-03] MEDS: ALBUTEROL SULF 2.5 MG/0.5ML(0.5%) NEB SOLN NEB SCH (18:00)
[2024-08-04] VITALS (17 sets, daily range): BP systolic 136–154; BP diastolic 77–87; PULSE 69–92; RESP 16–20; TEMP 97.8–98.4; O2SAT 93–100
[2024-08-04] MEDS: SODIUM CHL 0.9% 1000 ML BAG XX ONE (07:00)
--- NOTE | 2024-08-04 07:21 | ECG ---
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
--- NOTE | 2024-08-04 07:40 | ECG ---
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
--- NOTE | 2024-08-04 11:09 | DVHPN2 ---
Subjective Patient denies any chest pain at this time Reviewed: Care Plan, H&P, Labs Changes from previous H/P or p: No Changes General: Per HPI Objective Vitals Vital Signs Date Time Temp Pulse Resp B/P (MAP) Pulse Ox O2 Delivery O2 Flow Rate FiO2 08/04/24 10:28 92 16 98 08/04/24 10:23 Nasal Cannula* 3 32 08/04/24 10:00 156/91 08/04/24 09:47 97.8 97.8 Intake/Output Intake and Output 08/04/24 07:00 Intake Total 420 ml Output Total 0 ml Balance 420 ml Intake Oral 420 ml Output Urine Total 0 ml Stool Total 0 ml General Appearance: Alert, Oriented X3, Cooperative, No acute distress HEENT: Atraumatic, PERRLA, EOMI Cardiovascular: Normal S1, Normal S2 Abdomen: Normal bowel sounds, Soft, No tenderness Neuro: Normal speech Skin: Dry, Intact Psych/Mental Status: Mental status NL, Mood NL Medications Current Medications Medications Dose Ordered Sig/Herson Route Start Time Stop Time Status Last Admin Dose Admin Atorvastatin Calcium 40 mg HS PO 07/30/24 22:00 08/03/24 22:27 40 MG Bumetanide 2 mg BIDD PO 07/31/24 06:00 08/04/24 06:34 2 MG Carvedilol 6.25 mg Q12HR PO 07/30/24 22:00 08/04/24 10:00 6.25 MG Nifedipine 60 mg DAILY PO 07/31/24 10:00 08/04/24 10:00 60 MG Sodium Bicarbonate 650 mg TID PO 07/30/24 22:00 08/04/24 06:34 650 MG Diagnostic Test (Pha) 1 strip ACHS 07/30/24 22:00 08/04/24 06:34 1 STRIP Insulin Human Regular ACHS SC 07/30/24 22:00 08/03/24 22:32 4 UNITS Dextrose 50 ml UD PRN IV 07/30/24 19:30 Ondansetron HCl 4 mg Q4HP PRN IV 07/30/24 19:30 Acetaminophen 650 mg Q6HP PRN PO 07/30/24 19:30 Nitroglycerin 0.4 mg Q5MINP PRN SL 07/30/24 19:30 08/03/24 21:32 0.4 MG Morphine Sulfate 2 mg Q30M PRN IV 07/30/24 19:30 08/02/24 01:41 2 MG Morphine Sulfate 1 mg Q6HP PRN IV 07/31/24 14:15 08/03/24 02:52 1 MG Acetaminophen/ Hydrocodone Bitart 1 tab Q4HPRN PRN PO 07/31/24 14:15 08/03/24 03:15 1 TAB Aspirin 81 mg DAILY PO 08/01/24 10:00 08/04/24 10:00 81 MG Clonidine HCl 0.2 mg Q6HP PRN PO 08/02/24 02:00 08/03/24 15:53 0.2 MG Albuterol 2.5 mg Q4HR NEB 08/03/24 18:00 08/04/24 10:23 2.5 MG Laboratory Results Laboratory Tests 08/01/24 10:22 08/01/24 12:30 Labs and/or images reviewed: Labs reviewed by me, Image(s) reviewed by me Assessment/Plan Assessment/Plan Impression: -acute systolic heart failure with pulmonary vascular congestion -ESRD with hemodialysis -accelerated hypertension -anemia of chronic disease -elevated troponin, rule out ACS. -acute hypoxic respiratory failure Plan: Events: Patient continues to report having shortness of breath. Intermittent chest pain. Plans for left heart catheterization today. -continue current antiplatelet therapy -nephrology consultation: HD per their recommendation -cardiology consultation placed -chest x-ray today -bronchodilators -continue antihypertensive -O2 supplementation to keep saturation greater than 92% -repeat labs in a.m. Total time spent with patient discussing and formulating plan of care: 35 minutes. This medical document was created using an electronic medical record system with [employer] dictation system. Although this document has been carefully reviewed, there may still be some phonetic and typographical errors. These areas are purely typographical due to imperfections of the software programs, and do not reflect any compromise in the patient's medical care. Plan discussed with: Patient, Other (RN) My Orders Orders - KARLI LOZADA NP Procedure Category Date Status Time Chest Xray 1 View XY 08/04/24 Verified 11:07 Date of Service: Aug 04, 2024 Billing Provider: KARLI LOZADA NP Common Visit Codes: [id number] INP/OBS CARE(HIGH) KARLI LOZADA NP Aug 04, 2024 11:09
--- NOTE | 2024-08-04 11:54 | DVH ---
CHEST RADIOGRAPH Indication: chf Technique: Single frontal view of the chest was obtained COMPARISON: 07/30/2024 FINDINGS: The cardiac silhouette is enlarged. The lungs demonstrate bilateral patchy airspace opacities. The pu lmonary vasculature is prominent. Small bilateral pleural effusions. There is no pneumothorax. Aortic atherosclerotic disease. IMPRESSION: As above
--- NOTE | 2024-08-04 13:17 | DVHPN2 ---
Consult Progress Note Date Seen: Aug 04, 2024 Subjective Review of Systems: CVS:Normal, RESPIRATORY:Normal, NEURO:Normal Objective vital signs Vital Sign Date Time Temp Pulse Resp B/P (MAP) Pulse Ox O2 Delivery O2 Flow Rate FiO2 08/04/24 11:39 69 17 133/76 08/04/24 10:28 98 08/04/24 10:23 Nasal Cannula* 3 32 08/04/24 09:47 97.8 97.8 Total Intake and Output 08/03/24 08/03/24 08/04/24 15:00 23:00 07:00 Intake Total 420 ml Output Total 0 ml Balance 0 ml 420 ml medications Current Medications Medications Dose Ordered Sig/Herson Route Start Time Stop Time Status Last Admin Dose Admin Atorvastatin Calcium 40 mg HS PO 07/30/24 22:00 08/03/24 22:27 40 MG Bumetanide 2 mg BIDD PO 07/31/24 06:00 08/04/24 06:34 2 MG Carvedilol 6.25 mg Q12HR PO 07/30/24 22:00 08/04/24 10:00 6.25 MG Nifedipine 60 mg DAILY PO 07/31/24 10:00 08/04/24 10:00 60 MG Sodium Bicarbonate 650 mg TID PO 07/30/24 22:00 08/04/24 06:34 650 MG Diagnostic Test (Pha) 1 strip ACHS 07/30/24 22:00 08/04/24 11:45 1 STRIP Insulin Human Regular ACHS SC 07/30/24 22:00 08/03/24 22:32 4 UNITS Dextrose 50 ml UD PRN IV 07/30/24 19:30 Ondansetron HCl 4 mg Q4HP PRN IV 07/30/24 19:30 Acetaminophen 650 mg Q6HP PRN PO 07/30/24 19:30 Nitroglycerin 0.4 mg Q5MINP PRN SL 07/30/24 19:30 08/03/24 21:32 0.4 MG Morphine Sulfate 2 mg Q30M PRN IV 07/30/24 19:30 08/04/24 11:09 2 MG Morphine Sulfate 1 mg Q6HP PRN IV 07/31/24 14:15 08/03/24 02:52 1 MG Acetaminophen/ Hydrocodone Bitart 1 tab Q4HPRN PRN PO 07/31/24 14:15 08/03/24 03:15 1 TAB Aspirin 81 mg DAILY PO 08/01/24 10:00 08/04/24 10:00 81 MG Clonidine HCl 0.2 mg Q6HP PRN PO 08/02/24 02:00 08/03/24 15:53 0.2 MG Albuterol 2.5 mg Q4HR NEB 08/03/24 18:00 08/04/24 10:23 2.5 MG Sacubitril/ Valsartan 1 tab BID PO 08/04/24 22:00 UNV Examination: GENERAL:Abnormal (Pale), LUNGS:Normal, CVS:Normal, NEURO:Normal laboratory and microbiology Laboratory Tests 08/01/24 12:30 08/01/24 10:22 Test 08/01/24 12:30 Range/Units Serum Glucose 118 H 74-106 mg/dL Problem List/Assessment/Plan Problem List/Assessment/Plan NSTEMI, likely type 1 Acute on chronic decompensated HFmrEF, NYHA class IV Acute hypoxic respiratory failure secondary to fluid volume overload Hypertensive urgency Dyslipidemia COPD with home O2 End-stage renal disease on hemodialysis Acute on chronic anemia Type 2 diabetes mellitus History of tobacco use Plan/Recommendations (Dr. Moya) Case discussed in full detail with Dr. Moya. The patient had an ischemic stress test at Dr. Moya's office and he is scheduled for a coronary angiogram with cardiac catheterization at [facility] on 07/08/2024 for which the patient is to proceed as scheduled. Given an LVEF of 45-50% continue GDMT for HFmrEF as renal function permits. Continue single-antiplatelet therapy and NTG SL PRN per chest pain protocol. Continue aggressive blood pressure control for a target SBP <140 mmHg. Continue renal team recommendations for HD. There is no further cardiac work-up indicated at this time. Kindly call if you have any questions or concerns. Thank you for allowing us to care for this patient. This medical document was created using an electronic medical record system with voice recognition software and computerized dictation system. Although this document has been carefully reviewed, there might still be some phonetic and typographical errors. Occasional wrong-word or ``sound-alike substitutions may have occurred due to the inherent limitations of voice recognition software. These areas are purely typographical due to imperfections of the software programs and do not reflect any compromise in the patient's medical care. Please read the chart carefully and recognize, using context, where these substitutions have occurred. Plan discussed with: Patient, Spouse, Other Dietary Evaluation Review Recommendations by RD: Protein Supplementation Comments: 1) Initiate Nepro CarbSteady qd 2) Encourage optimal PO intake 3) Follow-up with nephrology and cardiology 4) Continue to monitor I&O, labs, and skin integrity Expected Outcomes/Goals: 1) appetite and labs to improve 2) f/u in 3-5 days Date of Service: Aug 04, 2024 Billing Provider: JULIOCESAR NOWAK Cardiology Common Codes: [id number](High JULIOCESAR NOWAK Aug 04, 2024 13:17
--- NOTE | 2024-08-04 17:04 | DVHPN2 ---
Progress Note - Dictate Date Seen: Aug 04, 2024 Medical Necessity Reason Pt with a Central, PICC or Fol: No Subjective c/o shortnesss of breath . LHC postponed for Thurs . vital signs Vital Sign Date Time Temp Pulse Resp B/P (MAP) Pulse Ox O2 Delivery O2 Flow Rate FiO2 08/04/24 14:19 75 16 100 08/04/24 14:14 Nasal Cannula 3.0 08/04/24 14:14 32 08/04/24 11:39 133/76 08/04/24 09:47 97.8 97.8 Total Intake and Output 08/03/24 08/03/24 08/04/24 15:00 23:00 07:00 Intake Total 420 ml Output Total 0 ml Balance 0 ml 420 ml medications Current Medications Medications Dose Ordered Sig/Herson Route Start Time Stop Time Status Last Admin Dose Admin Atorvastatin Calcium 40 mg HS PO 07/30/24 22:00 08/03/24 22:27 40 MG Bumetanide 2 mg BIDD PO 07/31/24 06:00 08/04/24 06:34 2 MG Carvedilol 6.25 mg Q12HR PO 07/30/24 22:00 08/04/24 10:00 6.25 MG Nifedipine 60 mg DAILY PO 07/31/24 10:00 08/04/24 10:00 60 MG Sodium Bicarbonate 650 mg TID PO 07/30/24 22:00 08/04/24 13:22 650 MG Diagnostic Test (Pha) 1 strip ACHS 07/30/24 22:00 08/04/24 11:45 1 STRIP Insulin Human Regular ACHS SC 07/30/24 22:00 08/03/24 22:32 4 UNITS Dextrose 50 ml UD PRN IV 07/30/24 19:30 Ondansetron HCl 4 mg Q4HP PRN IV 07/30/24 19:30 Acetaminophen 650 mg Q6HP PRN PO 07/30/24 19:30 Nitroglycerin 0.4 mg Q5MINP PRN SL 07/30/24 19:30 08/03/24 21:32 0.4 MG Morphine Sulfate 2 mg Q30M PRN IV 07/30/24 19:30 08/04/24 11:09 2 MG Morphine Sulfate 1 mg Q6HP PRN IV 07/31/24 14:15 08/03/24 02:52 1 MG Acetaminophen/ Hydrocodone Bitart 1 tab Q4HPRN PRN PO 07/31/24 14:15 08/03/24 03:15 1 TAB Aspirin 81 mg DAILY PO 08/01/24 10:00 08/04/24 10:00 81 MG Clonidine HCl 0.2 mg Q6HP PRN PO 08/02/24 02:00 08/03/24 15:53 0.2 MG Albuterol 2.5 mg Q4HR NEB 08/03/24 18:00 08/04/24 14:14 2.5 MG Sacubitril/ Valsartan 1 tab BID PO 08/04/24 22:00 Future Hold objective Gen: NAD, AAOx3 HEENT: NC,AT Lungs: CTA b/l Cardiac:RRR Abd: soft, no distention Ext: no edema Neuro: no focal deficits +Lt arm AVF laboratory and microbiology Laboratory Tests 08/01/24 12:30 08/01/24 10:22 Test 08/01/24 12:30 Range/Units Serum Glucose 118 H 74-106 mg/dL Problem List ESRD on HD via Lt arm AVF Acute hypoxic respiratory failure on supplemental oxygen pulmonary congestion Acute on chronic systolic CHF (EF: 45- 50%) chest pain, mildly elevated troponin, r/o ACS DM HTN Metabolic acidosis Hyperphosphatemia Secondary hyperparathyroidism Assessment/Plan Plan: HD today . Stable for dc from renal standpoint after HD today . Dietary Evaluation Review Recommendations by RD: Protein Supplementation Comments: 1) Initiate Nepro CarbSteady qd 2) Encourage optimal PO intake 3) Follow-up with nephrology and cardiology 4) Continue to monitor I&O, labs, and skin integrity Expected Outcomes/Goals: 1) appetite and labs to improve 2) f/u in 3-5 days Plan discussed with: Patient DONNA PEREZ MD Aug 04, 2024 17:03
[2024-08-04] MEDS: EPOETIN ALFA-EPBX 10,000 UNIT/1ML VIAL SC ONE (21:51)
[2024-08-04] MEDS ORDERED: SACUBITRIL-VALSARTAN 24mg/26mg TAB PO SCH (22:00)
[2024-08-05] VITALS (7 sets, daily range): BP systolic 113–174; BP diastolic 79–95; PULSE 80–85; RESP 18–19; TEMP 97.8–99.8; O2SAT 95–100
--- NOTE | 2024-08-05 07:27 | ECG ---
[facility] Test Date: 2024-08-03 Test Time: 03:35:55 Pat Name: TIMO PELAEZ Department: Respiratoy Room: [facility]1T B Gender: M Supervisor Of Communications: [id number] : 1960 Requested By: JUANITO STEVENS Order Number: [id number] Reading MD: Measurements Intervals [place] Rate: 83 P: 31 WA: 149 QRS: 14 QRSD: 98 T: 197 QT: 384 QTc: 452 Interpretive Statements Sinus rhythm Probable left atrial enlargement Anteroseptal infarct, old Nonspecific T abnormalities, lateral leads Please click the below link to view image of tracing.
--- NOTE | 2024-08-05 07:29 | ECG ---
[facility] Test Date: 2024-08-02 Test Time: 01:51:57 Pat Name: TIMO PELAEZ Department: Room: 0251T B Gender: M Breakfast Attendant: YVONNE : 1960 Requested By: VINITA MOHAMUD Order Number: [id number] Reading MD: Measurements Intervals [place] Rate: 109 P: -38 UT: 138 QRS: 41 QRSD: 96 T: 0 QT: 359 QTc: 484 Interpretive Statements Sinus tachycardia Consider right ventricular hypertrophy Probable left ventricular hypertrophy Nonspecific T abnormalities, lateral leads Borderline prolonged QT interval Please click the below link to view image of tracing.
--- NOTE | 2024-08-05 14:07 | DVHDS2 ---
Discharge Summary Date of Admission Jul 30, 2024 at 19:15 Date of Discharge: Aug 05, 2024 Admitting Diagnosis Fluid overload Labs/Diagnostic Data: Laboratory Results Test 08/05/24 11:13 08/01/24 12:30 08/01/24 10:22 07/30/24 16:36 POC Glucose 164 mg/dl (70-106) Sodium Level 139 mmol/L (136-145) Potassium Level 4.0 mmol/L (3.5-5.1) Chloride Level 98 mmol/L (98-107) Carbon Dioxide Level 31 mmol/L (20-31) Anion Gap 10 (5-15) Blood Urea Nitrogen 46 mg/dL (9-23) Creatinine 4.14 mg/dL (0.700-1.30) Glomerular Filtration Rate Calc 15 mL/min (>90) BUN/Creatinine Ratio 11.1 (10.0-20.0) Serum Glucose 118 mg/dL (74-106) Calcium Level 10.2 mg/dL (8.7-10.4) White Blood Count 4.5 10^3/uL (4.4-10.8) Red Blood Count 2.63 10^6/uL (4.5-5.90) Hemoglobin 8.5 g/dL (13.5-17.5) Hematocrit 24.8 % (41.0-53.0) Mean Corpuscular Volume 94.3 fL (80.0-100.0) Mean Corpuscular Hemoglobin 32.2 pg (28.0-32.0) Mean Corpuscular Hemoglobin Concent 34.2 g/dL (32.0-36.0) Red Cell Distribution Width 16.2 % (11.8-14.3) Platelet Count 206 10^3/uL (140-450) Mean Platelet Volume 7.2 fL (6.9-10.8) Neutrophils (%) (Auto) 79.3 % (37.0-80.0) Lymphocytes (%) (Auto) 10.1 % (10.0-50.0) Monocytes (%) (Auto) 5.8 % (0.0-12.0) Eosinophils (%) (Auto) 4.3 % (0.0-7.0) Basophils (%) (Auto) 0.5 % (0.0-2.0) Neutrophils # (Auto) 3.5 10 ^3/uL (1.6-8.6) Lymphocytes # (Auto) 0.5 10 ^3/uL (0.4-5.4) Monocytes # (Auto) 0.3 10 ^3/uL (0-1.3) Eosinophils # (Auto) 0.2 10 ^3/uL (0-0.8) Basophils # (Auto) 0 10 ^3/uL (0-0.2) Nucleated Red Blood Cells 0.0 % Hemoglobin A1c 5.4 % A1C (<5.7) Magnesium Level 2.0 mg/dL (1.6-2.6) Triglycerides Level 109 mg/dL (< 150) Cholesterol Level 117 mg/dL (< 200) LDL Cholesterol 49 mg/dL (< 100) HDL Cholesterol 42 mg/dL (40-59) Thyroid Stimulating Hormone (TSH) 1.59 uIU/mL (0.55-4.78) Hepatitis B Surface Antigen Negative (Negative) Troponin I High Sensitivity 138 ng/L (</=54) Test 07/30/24 13:55 D-Dimer, Quantitative 0.22 mg/L FEU (0.0-0.49) B-Type Natriuretic Peptide 2805.95 pg/mL (0-100) Other Laboratory Tests 08/01/24 12:30 08/01/24 10:22 Brief Hx & Hospital Course: History of Present Illness 63-year-old male presents for evaluation of shortness for breath. Patient has a dialysis dependent patient and reports missing his dialysis session today. Developed shortness for breath with chest pressure. Also states having a nonproductive cough. No fever or chills. No other acute complaints. Course of hospitalization: Patient did report having some chest discomfort. Twelve lead ECG was reviewed with ST depression noted in precordial leads. Patient also had elevated troponin, equivocal x3. Cardiology consultation was obtained. After discussion with Dr. Moya, patient has an established outpatient left heart catheterization this at [facility]. Patient was dialyzed multiple occasions, now euvolemic. Patient was respiratory status improved. Patient was will continue all previous home medications and follow up with his PCP, established hemodialysis chair time, as well as outpatient left heart catheterization as previously mentioned. With the patient and are agreeable with discharge plan. All questions answered. Physical examination General: Alert and Oriented x3. No acute distress. Well-nourished. Eyes: EOMI. Anicteric. HENT: Moist mucous membranes. Lungs: Clear to auscultation bilaterally. No accessory muscle use. Cardiovascular: Regular rate and rhythm. No murmur. No JVD. Abdomen: Soft, non-tender and non-distended. No palpable masses. Extremities: No edema. Non-tender. Skin: No rashes or lesions. Warm. Neurologic: No focal neurological deficits. CN II-XII grossly intact, but not individually tested. Psychiatric: Cooperative. Appropriate mood and affect. Total time spent with patient discussing and formulating plan of care: 35 minutes. This medical document was created using an electronic medical record system with Gorsh dictation system. Although this document has been carefully reviewed, there may still be some phonetic and typographical errors. These areas are purely typographical due to imperfections of the software programs, and do not reflect any compromise in the patient's medical care. Consults/Reason for consult Cardiology: NSTEMI, probable type 2 Nephrology: Hemodialysis Condition at Discharge: Poor Final Diagnosis/Problems List Acute on chronic hypoxic respiratory failure Secondary diagnosis: -acute systolic heart failure with pulmonary vascular congestion -ESRD with hemodialysis -accelerated hypertension -anemia of chronic disease -elevated troponin, rule out ACS. -acute hypoxic respiratory failure Discharge Disposition: Home Discharge Instruct/Medications Diet: Consistent carbohydrate, Cardiac 2g Na,low cholest, Renal Activity: No Restrictions, As Tolerated Follow Up/Referral: Outpatient scheduled Left heart catheterization this Continue with HD chair time PCP in 1-2 weeks Medications: Continue home medications Scheduled Atorvastatin Calcium (Atorvastatin Calcium), 1 TAB PO DAILY, (Reported) Azithromycin (Azithromycin), 1 TAB PO DAILY B-Complex W/ C & Folic Acid ([facility] Rx), 1 TAB PO DAILY, (Reported) Bumetanide (Bumetanide), 1 TAB PO BID, (Reported) Carvedilol (Carvedilol), 1 TAB PO BID Clopidogrel Bisulfate (Clopidogrel), 1 TAB PO DAILY, (Reported) Ergocalciferol (Vitamin D), 1 CAP PO QWEEKLY, (Reported) Hydralazine Hcl (Hydralazine Hcl), 10 MG PO Q6HR Metformin Hydrochloride (Metformin Hcl), 1 TAB PO BID, (Reported) Nifedipine (Nifedipine Er), 1 TAB PO DAILY Patiromer Sorbitex Calcium (Veltassa), 1 PKT PO DAILY, (Reported) Sodium Bicarbonate (Sodium Bicarbonate), 1 TAB PO TID, (Reported) Miscellaneous Medications Aspirin (Aspirin 81), 81 MG OR, (Reported) 36 Discharge Statement: "Patient was advised to return to the ER or call 911 if any headaches, dizziness, shortness of breath, chest pain, abdominal pain, bleeding, fevers, or worsening of medical condition. Patient was counseled about treatment plan, medications, possible side effects, patientverbalized understanding. All questions were answered to the best of my ability. This discharge took greater then 30 minutes in planning, reviewing documentation, counseling the patient, and discussing with other team members." ASSESSMENT ASSESSMENT Assessment fluid overload Date of Service: Aug 05, 2024 Billing Provider: KARLI LOZADA NP Common Visit Codes: 29146-AHW/OBS DISCH DAY >30min KARLI LOZADA NP Aug 05, 2024 14:07
== END 2024-08-05 13:45 | disposition home or self-care (01) | DRG 280 ==
LOC: ER 13:37 → EDBD 13:37 → OVERFLOW 19:15 → TELE-EAST 07-31 14:48
PROVIDERS: ADMIT Nurse Practitioner Acute Care; ATTEND Nurse Practitioner Acute Care
PROC: 5A1D70Z Performance of Urinary Filtration, Intermittent, Less than 6 Hours Per Day (ICD-10-PCS; principal; 2024-08-01)
PROC: 5A1D70Z Performance of Urinary Filtration, Intermittent, Less than 6 Hours Per Day (ICD-10-PCS; 2024-08-02)
PROC: 5A1D70Z Performance of Urinary Filtration, Intermittent, Less than 6 Hours Per Day (ICD-10-PCS; 2024-08-04)
DX: I13.2 Hypertensive heart and chronic kidney disease with heart failure and with stage 5 chronic kidney disease, or end stage renal disease (principal); I50.21 Acute systolic (congestive) heart failure; I21.A1 Myocardial infarction type 2; N18.6 End stage renal disease; J96.21 Acute and chronic respiratory failure with hypoxia; E87.20 Acidosis, unspecified; N25.81 Secondary hyperparathyroidism of renal origin; D63.1 Anemia in chronic kidney disease; I16.0 Hypertensive urgency; E11.22 Type 2 diabetes mellitus with diabetic chronic kidney disease; J44.9 Chronic obstructive pulmonary disease, unspecified; E83.39 Other disorders of phosphorus metabolism; E78.5 Hyperlipidemia, unspecified; Z87.891 Personal history of nicotine dependence; Z88.0 Allergy status to penicillin; Z79.2 Long term (current) use of antibiotics; Z88.1 Allergy status to other antibiotic agents; Z79.82 Long term (current) use of aspirin; Z79.899 Other long term (current) drug therapy; Z79.84 Long term (current) use of oral hypoglycemic drugs; Z83.3 Family history of diabetes mellitus; Z82.49 Family history of ischemic heart disease and other diseases of the circulatory system; Z99.2 Dependence on renal dialysis
CPT/HCPCS: 36415; 71045; 80048; 80061; 82962; 83036; 83735; 83880; 84443; 84484; 85025; 85379; 87340; 90935; 93005; 94640; 99291; G0378; J1815

== ENCOUNTER 2024-10-09 10:27 | Inpatient (IN) | payer MEDICARE, MEDICAID ==
[~2024-10-09] VITALS: Ht 172.7 cm; Wt 74.1 kg
--- NOTE | 2024-10-09 10:50 | ED.PDOC ---
HPI Comments This is a 64 year old male JETHRO presenting to the ED with chief complaint of chest pain. EMS reports that the patient was seen at his PCP's office today due to his complaint of chest pain, having 911 called for assistance. EMS relays patient has associated SOB. EMS states the patient's pain was a 6/10, however after providing 324mg of ASA and 0.4mg of NTG, pain has completely resolved at a 0/10. Patient states he had dialysis yesterday. Patient denies any N/V, abdominal pain, cough, dizziness, or headache. Chief Complaint: Chest Pain Time Seen by MD: 10:48 Primary Care Provider: Jona / Hanane Rose Reviewed Notes: Nurses Notes, Medications, Allergies Allergies: Coded Allergies: Penicillins (Verified Allergy, Unknown, 01/01/20) Sulfa Antibiotics (Verified Allergy, Unknown, 09/16/23) Home Meds Active Scripts Azithromycin (Azithromycin) 500 Mg Tab, 1 TAB PO DAILY, #7 TAB Prov:JUANITO STEVENS MD 06/12/24 Nifedipine (Nifedipine Er) 60 Mg Tab, 1 TAB PO DAILY for 30 Days, #30 TAB 5 Refills Prov:ONELIA ROBERTSON RESIDENT 06/06/24 Carvedilol (Carvedilol) 6.25 Mg Tab, 1 TAB PO BID for 30 Days, #60 TAB 1 Refill Prov:ONELIA ROBERTSON RESIDENT 06/06/24 Hydralazine Hcl (Hydralazine Hcl) 10 Mg Tab, 10 MG PO Q6HR for 30 Days, #120 TAB Prov:PATO UNGER RESIDENT 09/18/23 Reported Medications Atorvastatin Calcium (ATORVASTATIN CALCIUM) 40 Mg Tab, 1 TAB PO DAILY for 90 Days, #90 06/04/24 Bumetanide (Bumetanide) 2 Mg Tab, 1 TAB PO BID for 90 Days, #180 06/04/24 Metformin Hydrochloride (Metformin Hcl) 500 Mg Tab, 1 TAB PO BID for 90 Days, #180 06/04/24 Ergocalciferol (Vitamin D) 50,000 Unit Cap, 1 CAP PO QWEEKLY for 28 Days, #4 06/04/24 B-Complex W/ C & Folic Acid (Ani-Jaxson Rx) Tab, 1 TAB PO DAILY for 30 Days, #30 06/04/24 Patiromer Sorbitex Calcium (Veltassa) 8.4 Gm Pow, 1 PKT PO DAILY for 30 Days, #30 06/04/24 Sodium Bicarbonate (Sodium Bicarbonate) 650 Mg Tab, 1 TAB PO TID for 30 Days, #90 06/04/24 Clopidogrel Bisulfate (CLOPIDOGREL) 75 Mg Tab, 1 TAB PO DAILY for 90 Days, #90 12/04/22 Aspirin (ASPIRIN 81) 81 Mg Tab, 81 MG OR, TAB 12/04/22 Information Source: Patient Mode of Arrival: Ambulatory Severity: Moderate Timing: Days Duration: Since onset Prehospital treatment: None Location: Substernal Radiation: No Radiation Quality: Sharp Onset: At Rest Cardiac Risk Factors: HTN, Diabetes History of: None Associated Signs and Symptoms: SOB Past Medical History PAST MEDICAL HISTORY: CHF, COPD, DM, ESRD, HTN Surgical History: Denies all surgeries Family History Family History: Reviewed,noncontributory to illness Social History Smoker: Non-Smoker Alcohol: Denies ETOH Use Drugs: Denies Drug Use Lives In: Home Constitutional: denies: chills, diaphoresis, fatigue, fever, malaise, sweats, weakness, others EENTM: denies: blurred vision, double vision, ear bleeding, ear discharge, ear drainage, ear pain, ear ringing, eye pain, eye redness, hearing loss, mouth pain, mouth swelling, nasal discharge, nose bleeding, nose congestion, nose pain, photophobia, tearing, throat pain, throat swelling, voice changes, others Respiratory: reports: shortness of breath; denies: cough, hemoptysis, orthopnea, SOB at rest, SOB with excertion, stridor, wheezing, others Cardiovascular: reports: chest pain; denies: dizzy spells, diaphoresis, Dyspnea on exertion, edema, irregular heart beat, left arm pain, lightheadedness, palpitations, PND, syncope, others Gastrointestinal: denies: abdomen distended, abdominal pain, blood streaked bowels, constipated, diarrhea, dysphagia, difficulty swallowing, hematemesis, melena, nausea, poor appetite, poor fluid intake, rectal bleeding, rectal pain, vomiting, others Genitourinary: denies: burning, dysuria, flank pain, frequency, hematuria, incontinence, penile discharge, penile sore, pain, testicle pain, testicle swelling, urgency, others Neurological: denies: dizziness, fainting, headache, left sided numbness, left sided weakness, numbness, paresthesia, pre-existing deficit, right sided numbness, right sided weakness, seizure, speech problems, tingling, tremors, weakness, others Musculoskeletal: denies: back pain, gout, joint pain, joint swelling, muscle pain, muscle stiffness, neck pain, others Integumetry: denies: bruises, change in color, change in hair/nails, dryness, laceration, lesions, lumps, rash, wounds, others Allergic/Immunocompromised: denies: Difficulty Healing, Frequent Infections, Hives, Itching, others Hematologic/Lymphatic: denies: anemia, blood clots, easy bleeding, easy bruising, swollen glands, others Endocrine: denies: excessive hunger, excessive sweating, excessive thirst, excessive urination, flushing, intolerance to cold, intolerance to heat, unexplained weight gain, unexplained weight loss, others Psychiatric: denies: anxiety, bipolar disorder, depression, hopeless, panic disorder, schizophrenia, sleepless, suicidal, others All Other Systems: Reviewed and Negative Physical Exam General Appearance: No Apparent Distress, Normal HEENT: Normal ENT Inspection, Pharynx Normal, TMs Normal Neck: Full Range of Motion, Non-Tender, Normal, Normal Inspection Respiratory: Chest Non-Tender, Lungs Clear, No Accessory Muscle Use, No Respiratory Distress, Normal Breath Sounds Cardiovascular: No Edema, No JVD, No Murmur, No Gallop, Normal Peripheral Pulses, Regular Rate/Rhythm Breast Exam: Deferred Gastrointestinal: No Organomegaly, Non Tender, No Pulsatile Mass, Normal Bowel Sounds, Soft Genitalia: Deferred Pelvic: Deferred Rectal: Deferred Extremities: No calf tenderness, Normal capillary refill, Normal inspection, Normal range of motion, Non-tender, No pedal edema Musculoskeletal : Apperance: Normal Neurologic: Alert, roof promenade tile setter II-XII nml as Tested, No Motor Deficits, Normal Affect, Normal Mood, No Sensory Deficits Cerebellar Function: Normal Reflexes: Normal Skin: Dry, Normal Color, Warm Lymphatic: No Adenopathy Was a procedure done? Was a procedure done?: No CP Differential Dx Differential Diagnosis: MAT Differential Diagnosis: HTN Essential, HTN Accelerated Differential Diagnosis: Gastritis, Myocardial Infarction, Pericarditis X-Ray, Labs, Meds, VS Vital Signs Date Time Temp Pulse Resp B/P (MAP) Pulse Ox O2 Delivery O2 Flow Rate FiO2 10/09/24 10:33 98.5 88 24 183/85 98 98.5 Lab Test 10/09/24 10:37 Range/Units White Blood Count 7.1 4.4-10.8 10^3/uL Red Blood Count 3.25 L 4.5-5.90 10^6/uL Hemoglobin 9.8 L 13.5-17.5 g/dL Hematocrit 29.4 L 41.0-53.0 % Mean Corpuscular Volume 90.5 80.0-100.0 fL Mean Corpuscular Hemoglobin 30.3 28.0-32.0 pg Mean Corpuscular Hemoglobin Concent 33.5 32.0-36.0 g/dL Red Cell Distribution Width 16.9 H 11.8-14.3 % Platelet Count 275 140-450 10^3/uL Mean Platelet Volume 7.3 6.9-10.8 fL Neutrophils (%) (Auto) 86.0 H 37.0-80.0 % Lymphocytes (%) (Auto) 5.5 L 10.0-50.0 % Monocytes (%) (Auto) 6.0 0.0-12.0 % Eosinophils (%) (Auto) 1.9 0.0-7.0 % Basophils (%) (Auto) 0.6 0.0-2.0 % Neutrophils # (Auto) 6.1 1.6-8.6 10 ^3/uL Lymphocytes # (Auto) 0.4 0.4-5.4 10 ^3/uL Monocytes # (Auto) 0.4 0-1.3 10 ^3/uL Eosinophils # (Auto) 0.1 0-0.8 10 ^3/uL Basophils # (Auto) 0 0-0.2 10 ^3/uL Nucleated Red Blood Cells 0.1 % Sodium Level 136 136-145 mmol/L Potassium Level 4.1 3.5-5.1 mmol/L Chloride Level 94 L 98-107 mmol/L Carbon Dioxide Level 32 H 20-31 mmol/L Anion Gap 10 5-15 Blood Urea Nitrogen 41 H 9-23 mg/dL Creatinine 4.86 H 0.700-1.30 mg/dL Glomerular Filtration Rate Calc 13 >90 mL/min BUN/Creatinine Ratio 8.4 L 10.0-20.0 Serum Glucose 171 H 74-106 mg/dL Calcium Level 9.9 8.7-10.4 mg/dL Troponin I High Sensitivity 111 *H </=54 ng/L Time of 1ST Reevaluation: 11:47 Reevaluation 1ST: Unchanged Patient Education/Counseling: Diagnosis, Treatment Family Education/Counseling: No Family Present SEPSIS Sepsis Screen Date sepsis recognized/suspect: Oct 09, 2024 Time Sepsis recognized/suspect: 1034 Recent Procedure: No On Antibiotic Therapy: No Respiratory Rate >20: Yes Heart Rate >90: No Temp<36 C (96.8 F) or >38.3 C: No SBP <90 or MAP <65 mmHG: No New Acute Mental Status Change: No Is the patient on CPAP, BIPAP,: No Physician Orders Electrocardigram (10/09/24 10:32) Troponin-I Hs (10/09/24 11:32) Troponin-I Hs (10/09/24 13:32) Electrocardigram (10/09/24 11:32) Electrocardigram (10/09/24 13:32) Chest Portable (10/09/24 10:34) Vital Signs Date Time Temp Pulse Resp B/P (MAP) Pulse Ox O2 Delivery O2 Flow Rate FiO2 10/09/24 10:33 98.5 88 24 183/85 98 98.5 Laboratory Tests Test 10/09/24 10:37 White Blood Count 7.1 10^3/uL (4.4-10.8) Departure 1 Departure Time of Disposition: 11:50 (Patient presented with chest pain that was concerning for possible STEMI, ACS, PE, Pneumonia, Muscle Strain, COPD, Dissec tion. Data: 1. I ordered and reviewed the result of at least 3 labs including a CBC, BMP, and Troponin. 2. I independently interpreted the following tests: EKG which shows sinus arrhythmia and Chest X-ray which shows benign chest.Risk:This patient has a high risk of morbidity due to further diagnostic testing or treatment and may suffer from an acute cardiac or respiratory disorder. Workup reveals concern for ACS and patient should be admitted for further workup and possible expert consultation. ) Impression: Primary Impression: Acute chest pain Additional Impression: Shortness of breath Disposition: ADMITTED INPATIENT Admit to: Tele Condition: Guarded Critical Care Note Critical Care Time?: Yes Critical care comment: Acute chest pain Authorized and Performed by: Chele Head MD Total critical care time: Approximately 39 minutes Due to a high probability of clinically significant, life threatening deterioration, the patient required my highest level of preparedness to intervene emergently and I personally spent this critical care time directly and personally managing the patient. This critical care time included obtaining a history; examining the patient; pulse oximetry; ordering and review of studies; arranging urgent treatment with development of a management plan; evaluation of patient's response to treatment; frequent reassessment; and, discussions with other providers. This critical care time was performed to assess and manage the high probability of imminent, life-threatening deterioration that could result in multi-organ failure. It was exclusive of separately billable procedures and treating other patients and teaching time. Please see my other sections and the rest of the note for further information on patient assessment and treatment. Stability Stability form required: No Heart Score Heart Score: Heart Score Response (Comments) Value History Moderate Suspicious 1 EKG Normal 0 Age >65 2 Risk Factors >3 or Hx ASHD 2 Troponin >3 x's Normal limit 2 Total 7 I personally scribed for CHELE HEAD MD ([email or web address]) on 10/09/24 at 10:50. Electronically submitted by Neville Lyons ([email or web address]). CHELE HEAD MD Oct 09, 2024 10:50
[2024-10-09 10:56] LABS: Hematocrit 29.4 % (41.0-53.0); Hemoglobin 9.8 g/dL (13.5-17.5); Mean Corpuscular Hemoglobin 30.3 pg (28.0-32.0); Mean Corpuscular Volume 90.5 fL (80.0-100.0); Nucleated Red Blood Cells % 0.1 %
[2024-10-09 11:04] LABS: Potassium 4.1 mmol/L (3.5-5.1); Sodium 136 mmol/L (136-145)
[2024-10-09 11:05] LABS: Anion Gap 10 (5-15); Calcium 9.9 mg/dL (8.7-10.4)
[2024-10-09 11:06] LABS: Carbon Dioxide 32 mmol/L (20-31); Chloride 94 mmol/L (98-107)
--- NOTE | 2024-10-09 11:08 | DVH ---
CHEST RADIOGRAPH Indication: chest pain Technique: Single frontal view of the chest was obtained COMPARISON: XY CHEST XRAY 1 VIEW on DOS: 08/04/24, XY CHEST PORTABLE on DOS: 07/30/24, XY CHEST PORTABL E on DOS: 06/12/24, XY CHEST PORTABLE on DOS: 06/07/24, XY CHEST PORTABLE on DOS: 06/03/24 FINDINGS: Lines and Tubes: None Lungs: Multifocal airspace disease Pleura: No effusion. No pneumothorax. Cardiomediastinal contours: Unremarkable Bones: Unremarkable IMPRESSION: Multifocal airspace disease
[2024-10-09 11:10] LABS: BUN/Creatinine Ratio 8.4 (10.0-20.0)
[2024-10-09 11:11] LABS: Blood Urea Nitrogen 41 mg/dL (9-23); Glucose 171 mg/dL (74-106)
--- NOTE | 2024-10-09 12:41 | DVHHP2 ---
History of Present Illness Reason for Visit: Chest pain with shortness of breath History of Present Illness Sanju Bearden is a 64-year-old male with past medical history of ESRD on HD with left arm AV fistula, hypertension, diabetes, and oxygen dependence 3 L nasal cannula continuously at home who presents to the ED with chest pain and shortness of breath that began when he was at his primary care physician's office. Patient reports that when he came in the pain was 6/10 tight and constant. Patient reports that there are no triggering or alleviating factors. Patient denies any recent trauma or injury, recent sick contacts, recent travels, recent ingestion of spoiled food, fever, chills, lightheadedness, w eakness, dizziness, abdominal pain, nausea, vomiting, diarrhea, or urinary symptoms. Patient also reports that he is compliant with his medications and lives at home with his . Cardiovascular: HTN Endocrine: Diabetes Past Surgical History: None Family History: None Smoke: No ALCOHOL: none Drugs: None Lives: with Family Domestic Violence: Neg Review of Systems Respiratory: Shortness of breath Cardiovascular: Chest Pain Allergies: Coded Allergies: Penicillins (Verified Allergy, Unknown, 01/01/20) Sulfa Antibiotics (Verified Allergy, Unknown, 09/16/23) Medications Current Medications Medications Dose Ordered Sig/Herson Route Start Time Stop Time Status Last Admin Dose Admin Aspirin 81 mg DAILY PO 10/10/24 10:00 UNV Atorvastatin Calcium 40 mg HS PO 10/09/24 22:00 UNV Morphine Sulfate 2 mg Q30MP PRN IV 10/09/24 12:45 UNV Acetaminophen 650 mg Q6HP PRN PO 10/09/24 12:45 UNV Nitroglycerin 0.4 mg Q5MINP PRN SL 10/09/24 12:45 UNV Ondansetron HCl 4 mg Q4HP PRN IV 10/09/24 12:45 UNV Nitroglycerin 0.4 mg Q5MINP PRN SL 10/09/24 12:45 UNV Morphine Sulfate 2 mg Q30M PRN IV 10/09/24 12:45 UNV Exam Vital Signs Vital Signs Date Time Temp Pulse Resp B/P (MAP) Pulse Ox O2 Delivery O2 Flow Rate FiO2 10/09/24 10:33 98.5 88 24 183/85 98 98.5 General Appearance: Alert, Oriented X3, Cooperative, No acute distress HEENT: Atraumatic, PERRLA, EOMI, Mucous membr. moist/pink Respiratory: Normal air movement Cardiovascular: Normal S1, Normal S2 Abdominal: Normal bowel sounds, Soft Extremities: No clubbing, No cyanosis, Normal pulses Skin: No significant lesion Neuro: Normal tone, Sensation intact Psych/Mental Status: Mental status NL, Mood NL Labs/Xrays Labs Test 10/09/24 11:58 10/09/24 10:37 Range/Units White Blood Count 7.1 4.4-10.8 10^3/uL Red Blood Count 3.25 L 4.5-5.90 10^6/uL Hemoglobin 9.8 L 13.5-17.5 g/dL Hematocrit 29.4 L 41.0-53.0 % Mean Corpuscular Volume 90.5 80.0-100.0 fL Mean Corpuscular Hemoglobin 30.3 28.0-32.0 pg Mean Corpuscular Hemoglobin Concent 33.5 32.0-36.0 g/dL Red Cell Distribution Width 16.9 H 11.8-14.3 % Platelet Count 275 140-450 10^3/uL Mean Platelet Volume 7.3 6.9-10.8 fL Neutrophils (%) (Auto) 86.0 H 37.0-80.0 % Lymphocytes (%) (Auto) 5.5 L 10.0-50.0 % Monocytes (%) (Auto) 6.0 0.0-12.0 % Eosinophils (%) (Auto) 1.9 0.0-7.0 % Basophils (%) (Auto) 0.6 0.0-2.0 % Neutrophils # (Auto) 6.1 1.6-8.6 10 ^3/uL Lymphocytes # (Auto) 0.4 0.4-5.4 10 ^3/uL Monocytes # (Auto) 0.4 0-1.3 10 ^3/uL Eosinophils # (Auto) 0.1 0-0.8 10 ^3/uL Basophils # (Auto) 0 0-0.2 10 ^3/uL Nucleated Red Blood Cells 0.1 % Sodium Level 136 136-145 mmol/L Potassium Level 4.1 3.5-5.1 mmol/L Chloride Level 94 L 98-107 mmol/L Carbon Dioxide Level 32 H 20-31 mmol/L Anion Gap 10 5-15 Blood Urea Nitrogen 41 H 9-23 mg/dL Creatinine 4.86 H 0.700-1.30 mg/dL Glomerular Filtration Rate Calc 13 >90 mL/min BUN/Creatinine Ratio 8.4 L 10.0-20.0 Serum Glucose 171 H 74-106 mg/dL Calcium Level 9.9 8.7-10.4 mg/dL CHEST RADIOGRAPH Indication: chest pain Technique: Single frontal view of the chest was obtained COMPARISON: XY CHEST XRAY 1 VIEW on DOS: 08/04/24, XY CHEST PORTABLE on DOS: 07/30/24, XY CHEST PORTABLE on DOS: 06/12/24, XY CHEST PORTABLE on DOS: 06/07/24, XY CHEST PORTABLE on DOS: 06/03/24 FINDINGS: Lines and Tubes: None Lungs: Multifocal airspace disease Pleura: No effusion. No pneumothorax. Cardiomediastinal contours: Unremarkable Bones: Unremarkable IMPRESSION: Multifocal airspace disease SEPSIS Sepsis Screen Date sepsis recognized/suspect: Oct 09, 2024 Time Sepsis recognized/suspect: 1034 Recent Procedure: No On Antibiotic Therapy: No Respiratory Rate >20: Yes Heart Rate >90: No Temp<36 C (96.8 F) or >38.3 C: No SBP <90 or MAP <65 mmHG: No New Acute Mental Status Change: No Is the patient on CPAP, BIPAP,: No Physician Orders Electrocardigram (10/09/24 10:32) Troponin-I Hs (10/09/24 11:32) Troponin-I Hs (10/09/24 13:32) Electrocardigram (10/09/24 11:32) Electrocardigram (10/09/24 13:32) Chest Portable (10/09/24 10:34) Admit (10/09/24 12:32) Code Status (10/09/24 12:32) Vital Signs .PER UNIT PROTOCOL (10/09/24 12:32) Lead Assistant Manager (10/09/24 12:32) Cardiac Diet-2gna,Lofat,Lochol (10/09/24 Lunch) Aspirin Tablet (10/10/24 10:00) Atorvastatin (Lipitor) (10/09/24 22:00) Morphine Sulfate Injection (10/09/24 12:45) Acetaminophen Tablet (Tylenol Tablet) (10/09/24 12:45) Complete Blood Count (10/10/24 04:00) Basic Metabolic Panel (10/10/24 04:00) Magnesium (10/10/24 04:00) Lipid Panel (10/10/24 04:00) Echo 2d Mode Cardiac Dop (10/09/24 12:32) Nitroglycerin Sublingual (Ntrostat Subli (10/09/24 12:45) Ondansetron Hcl (Zofran) (10/09/24 12:45) Electrocardigram (10/10/24 04:00) Troponin-I Hs (10/10/24 04:00) Cardiac Rehabilitation - Outpa (10/09/24 ) Nitroglycerin Sublingual (Ntrostat Subli (10/09/24 12:45) Morphine Sulfate Injection (10/09/24 12:45) Stat Ekg For Chest Pain (10/09/24 12:32) Notify Md Of Changes From Base (10/09/24 12:32) Brass Wind Instrument Maker For 24 Hours (10/09/24 12:32) Emergency Dysrhythmia Protocol (10/09/24 12:32) Rhythm Strips Once Every Shift (10/09/24 12:32) Oxygen By Nasal Cannula (10/09/24 12:32) Glucose Blood (Accu-Chek Comfort Curve T (10/09/24 12:45) Mild Insulin Ss Achs (10/09/24 12:45) Dextrose 50% Syringe (10/09/24 12:45) Hemoglobin A1c (10/09/24 12:32) Urinalysis (10/09/24 12:32) Drug Screen (10/09/24 12:32) Thyroid Stimulating Hormone (10/09/24 12:32) Free T4 (Free Thyroxine) (10/09/24 12:32) B-Complex W/ C & Folic Tablet (Nephro-Vi (10/10/24 10:00) Clopidogrel Bisulfate (Plavix) (10/10/24 10:00) Ergocalciferol (Vitamin D 50,000 Unit) (10/09/24 12:45) (Nf) Carvedilol (10/09/24 22:00) (Nf) Nifedipine (Nifedipine Er) (10/10/24 10:00) (Nf) Sodium Bicarbonate (10/09/24 14:00) Vital Signs Date Time Temp Pulse Resp B/P (MAP) Pulse Ox O2 Delivery O2 Flow Rate FiO2 10/09/24 10:33 98.5 88 24 183/85 98 98.5 Laboratory Tests Test 10/09/24 10:37 White Blood Count 7.1 10^3/uL (4.4-10.8) Assessment/Plan Assessment/Plan Assessment Chest pain rule out ACS Anemia Hypertensive urgency ESRD on HD with left arm AV fistula Acute hypoxic respiratory failure and supplemental O2 History of hypertension History of diabetes Plan Admit to tele Supplementary O2 Antiemetics Pain management Antihypertensives Troponin noted Chest x-ray noted EKG Echo ordered Last echo on 06/04/2024 EF 45-50% Hemoglobin A1c ISS and Accu-Cheks UA UDS TSH Free T4 Lipid panel Diet Home medications reconciled DVT prophylaxis-SCDs PUD prophylaxis-PPIs Discussed plan of care with patient and nurse Nephro consult [id number] Preventive counseling healthy eating habits, physical activity, and regular checkups Plan discussed with: Patient My Orders Orders - ANABELLE ORTEGA PROMOTIONS PRODUCER Procedure Category Date Status Time Admit ADMIT 10/09/24 Transmitted 12:32 Code Status CODE 10/09/24 Transmitted 12:32 Vital Signs ABELARDO 10/09/24 In Process 12:32 Lead Assistant Manager ABELARDO 10/09/24 In Process 12:32 Cardiac DIET 10/09/24 Transmitted Diet-2gna,Lofat,Lochol Lunch Aspirin Tablet PHA 10/10/24 Logged 10:00 Atorvastatin (Lipitor) PHA 10/09/24 Logged 22:00 Morphine Sulfate PHA 10/09/24 Logged Injection 12:45 Acetaminophen Tablet PHA 10/09/24 Logged (Tylenol Tablet) 12:45 Complete Blood Count LAB 10/10/24 Verified 04:00 Basic Metabolic Panel LAB 10/10/24 Verified 04:00 Magnesium LAB 10/10/24 Verified 04:00 Lipid Panel LAB 10/10/24 Verified 04:00 Echo 2d Mode Cardiac US 10/09/24 Logged DOP 12:32 Nitroglycerin PHA 10/09/24 Logged Sublingual (Ntrostat 12:45 Ondansetron Hcl PHA 10/09/24 Logged (Zofran) 12:45 Electrocardigram EKG 10/10/24 Logged 04:00 Troponin-I Hs LAB 10/10/24 Verified 04:00 Cardiac ABELARDO 10/09/24 In Process Rehabilitation - Outpa Nitroglycerin PHA 10/09/24 Logged Sublingual (Ntrostat 12:45 Morphine Sulfate PHA 10/09/24 Logged Injection 12:45 Stat Ekg For Chest [facility] 10/09/24 In Process Pain 12:32 Notify Of Changes [facility] 10/09/24 In Process From Base 12:32 Brass Wind Instrument Maker For [facility] 10/09/24 In Process 24 Hours 12:32 Emergency Dysrhythmia [facility] 10/09/24 In Process Protocol 12:32 Rhythm Strips Once [facility] 10/09/24 In Process Every Shift 12:32 Oxygen By Nasal RT 10/09/24 Transmitted Cannula 12:32 Glucose Blood PHA 10/09/24 Logged (Accu-Chek Comfort 12:45 Mild Insulin Ss Achs PHA 10/09/24 Transmitted 12:45 Dextrose 50% Syringe PHA 10/09/24 Transmitted 12:45 Hemoglobin A1c LAB 10/09/24 Logged 12:32 Urinalysis LAB 10/09/24 Logged 12:32 Drug Screen LAB 10/09/24 Logged 12:32 Thyroid Stimulating LAB 10/09/24 Logged Hormone 12:32 Free T4 (Free LAB 10/09/24 Logged Thyroxine) 12:32 B-Complex W/ C & PHA 10/10/24 Verified Folic Tablet 10:00 Clopidogrel Bisulfate PHA 10/10/24 Verified (Plavix) 10:00 Ergocalciferol PHA 10/09/24 Verified (Vitamin D 50,000 12:45 (Nf) Carvedilol PHA 10/09/24 Verified 22:00 (Nf) Nifedipine PHA 10/10/24 Verified (Nifedipine Er) 10:00 (Nf) Sodium PHA 10/09/24 Verified Bicarbonate 14:00 Date of Service: Oct 09, 2024 Billing Provider: ANABELLE ORTEGA Common Visit Codes: 20650-[id number] INP/OBS CARE (HIGH) Secondary Visit Codes: [id number] COUNSELING IND ANABELLE ORTEGA Oct 09, 2024 12:41
[2024-10-09] MEDS ORDERED: ERGOCALCIFEROL 50,000 UNIT(1.25MG) CAP PO SCH (12:45)
[2024-10-09] MEDS ORDERED: MORPHINE SULFATE 4 MG/ML SYR/VIAL IV PRN (12:45)
[2024-10-09] MEDS: ACCU-CHEK COMFORT CURVE STRIP VI ONE (12:45)
[2024-10-09] MEDS ORDERED: ACETAMINOPHEN 325 MG TAB PO PRN (12:45)
[2024-10-09] MEDS ORDERED: NITROGLYCERIN 0.4 MG SL TAB SL PRN ×2 (12:45)
[2024-10-09] MEDS ORDERED: ONDANSETRON HCL 4 MG/2 ML VIAL IV PRN (12:45)
[2024-10-09] MEDS: DEXTROSE (50%) 50ML SYRG IV ONE (12:45)
[2024-10-09] MEDS ORDERED: MORPHINE SULFATE INJ 2 MG/ml SYRG IV PRN (12:45)
[2024-10-09] MEDS: InsuLIN REG 1unit/0.01ml Soln (100units/ml) SC ONE (14:19)
[2024-10-09] MEDS: SODIUM BICARBONATE 650 MG TAB PO SCH (14:31)
[2024-10-09 14:49] VITALS: BP 189/88; PULSE 83; RESP 19; TEMP 98.5; O2SAT 100
[2024-10-09 16:49] VITALS: BP 189/88; PULSE 83; RESP 19; TEMP 98.5; O2SAT 100
[2024-10-09] MEDS: hydrALAZINE HCL 20 MG/ML VL IV PRN (17:37)
--- NOTE | 2024-10-09 18:46 | ECG ---
[facility] Test Date: 2024-10-09 Test Time: 10:30:09 Pat Name: TIMO PELAEZ Department: Room: 0283T Gender: M Fibre Technologist: GEORGIE : 1960 Requested By: CHELE SARAH Order Number: [id number] Reading MD: Andrew Ring Measurements Intervals [place] Rate: 87 P: 38 WV: 149 QRS: 25 QRSD: 100 T: 209 QT: 404 QTc: 486 Interpretive Statements Sinus rhythm Probable left atrial enlargement RSR' in V1 or V2, right VCD or RVH Left ventricular hypertrophy Nonspecific T abnormalities, inferior leads Borderline prolonged QT interval Electronically Signed On 10-13-2024 10:19:00 PDT by Andrew Ring Please click the below link to view image of tracing.
--- NOTE | 2024-10-09 18:47 | ECG ---
[facility] Test Date: 2024-10-09 Test Time: 11:25:45 Pat Name: TIMO PELAEZ Department: Room: 0283T Gender: M Supplemental Manager: GEORGIE : 1960 Requested By: CHELE SARAH Order Number: [id number] Reading MD: Andrew Ring Measurements Intervals [place] Rate: 81 P: 28 ID: [id number] QRS: 21 QRSD: 101 T: 209 QT: 396 QTc: 460 Interpretive Statements Sinus rhythm Atrial premature complex Probable left atrial enlargement RSR' in V1 or V2, right VCD or RVH LVH with secondary repolarization abnormality Electronically Signed On 10-13-2024 10:19:08 PDT by Andrew Ring Please click the below link to view image of tracing.
[2024-10-09 20:00] VITALS: PULSE 82; PULSE 87; RESP 20; O2SAT 98
[2024-10-09 21:00] VITALS: BP 170/87; PULSE 85; RESP 19; TEMP 98.1; O2SAT 99
[2024-10-09] MEDS: ATORVASTATIN 20 MG TAB PO SCH (22:03)
[2024-10-09] MEDS: CARVEDILOL 3.125 MG TAB PO SCH (22:04)
[2024-10-09] MEDS: MELATONIN 5 MG TAB PO SCH (23:08)
[2024-10-10] VITALS (9 sets, daily range): BP systolic 146–176; BP diastolic 76–89; PULSE 67–93; RESP 14–19; TEMP 97.7–98.6; O2SAT 98–100
[2024-10-10 07:38] LABS: Anion Gap 11 (5-15); Potassium 4.4 mmol/L (3.5-5.1)
[2024-10-10 07:39] LABS: Calcium 9.6 mg/dL (8.7-10.4)
[2024-10-10 07:41] LABS: Hematocrit 26.2 % (41.0-53.0); Hemoglobin 9.1 g/dL (13.5-17.5); Mean Corpuscular Hemoglobin 31.1 pg (28.0-32.0); Mean Corpuscular Volume 89.2 fL (80.0-100.0); Nucleated Red Blood Cells % 0.1 %
[2024-10-10 07:42] LABS: Carbon Dioxide 31 mmol/L (20-31); Chloride 93 mmol/L (98-107); Sodium 135 mmol/L (136-145)
[2024-10-10 07:44] LABS: BUN/Creatinine Ratio 9.8 (10.0-20.0); Magnesium 2.0 mg/dL (1.6-2.6); Triglycerides 87 mg/dL (< 150)
[2024-10-10 07:45] LABS: Cholesterol 117 mg/dL (< 200)
[2024-10-10 07:46] LABS: HDL Cholesterol 46 mg/dL (40-59)
[2024-10-10 07:56] LABS: Blood Urea Nitrogen 63 mg/dL (9-23); Glucose 134 mg/dL (74-106)
[2024-10-10] MEDS: B-COMPLEX W/ C & FOLIC ACID(NEPHROVITE TAB) PO SCH (10:00)
[2024-10-10] MEDS: CLOPIDOGREL BISULFATE 75 MG TAB PO SCH (10:00)
--- NOTE | 2024-10-10 10:03 | DVHINCON2 ---
Date of service: Oct 10, 2024 Referring Physician Chente Felix NP Reason for Consultation ESKD on HD History of Present Illness Monisha Bills is a 64-year-old male with past medical history of ESRD on HD with left arm AV fistula, hypertension, diabetes, and oxygen dependence 3 L nasal cannula continuously at home who presents to the ED with chest pain and shortness of breath that began when he was at his primary care physician's office. Patient reports that when he came in the pain was 6/10 tight and constant. Admitted for Cardiology evaluation. Nephrology consulted for continuation of dialysis. His last dialysis was on Sunday. Past Medical History HTN ,Diabetes Past Surgical History Dialysis access Family History: Cervical cancer G8 MOTHER, Onset:50's - 60 Diabetes mellitus G8 MOTHER G8 FATHER Hypertension G8 MOTHER Family History denies Social History No active history of smoking, alcohol or drug abuse Allergies: Coded Allergies: Penicillins (Verified Allergy, Unknown, 01/01/20) Sulfa Antibiotics (Verified Allergy, Unknown, 09/16/23) Home Meds Active Scripts Azithromycin (Azithromycin) 500 Mg Tab, 1 TAB PO DAILY, #7 TAB Prov:JUANITO STEVENS MD 06/12/24 Nifedipine (Nifedipine Er) 60 Mg Tab, 1 TAB PO DAILY for 30 Days, #30 TAB 5 Refills Prov:ONELIA ROBERTSON RESIDENT 06/06/24 Carvedilol (Carvedilol) 6.25 Mg Tab, 1 TAB PO BID for 30 Days, #60 TAB 1 Refill Prov:ONELIA ROBERTSON RESIDENT 06/06/24 Hydralazine Hcl (Hydralazine Hcl) 10 Mg Tab, 10 MG PO Q6HR for 30 Days, #120 TAB Prov:PATO UNGER RESIDENT 09/18/23 Reported Medications Atorvastatin Calcium (ATORVASTATIN CALCIUM) 40 Mg Tab, 1 TAB PO DAILY for 90 Days, #90 06/04/24 Bumetanide (Bumetanide) 2 Mg Tab, 1 TAB PO BID for 90 Days, #180 06/04/24 Metformin Hydrochloride (Metformin Hcl) 500 Mg Tab, 1 TAB PO BID for 90 Days, #180 06/04/24 Ergocalciferol (Vitamin D) 50,000 Unit Cap, 1 CAP PO QWEEKLY for 28 Days, #4 06/04/24 B-Complex W/ C & Folic Acid (Ani-Jaxson Rx) Tab, 1 TAB PO DAILY for 30 Days, #30 06/04/24 Patiromer Sorbitex Calcium (Veltassa) 8.4 Gm Pow, 1 PKT PO DAILY for 30 Days, #30 06/04/24 Sodium Bicarbonate (Sodium Bicarbonate) 650 Mg Tab, 1 TAB PO TID for 30 Days, #90 06/04/24 Clopidogrel Bisulfate (CLOPIDOGREL) 75 Mg Tab, 1 TAB PO DAILY for 90 Days, #90 12/04/22 Aspirin (ASPIRIN 81) 81 Mg Tab, 81 MG OR, TAB 12/04/22 Current Medications Current Medications Medications (Trade) Dose Ordered Sig/Herson Route PRN Reason Start Time Stop Time Status Last Admin Aspirin 81 mg DAILY PO 10/10/24 10:00 Atorvastatin Calcium (Lipitor) 40 mg HS PO 10/09/24 22:00 10/09/24 22:03 Morphine Sulfate 2 mg Q30MP PRN IV FOR CHEST PAIN 10/09/24 12:45 UNV Acetaminophen (Tylenol Tablet) 650 mg Q6HP PRN PO MILD PAIN (1-3 PAIN SCALE) 10/09/24 12:45 Nitroglycerin (Ntrostat Sublingual) 0.4 mg Q5MINP PRN SL FOR CHEST PAIN 10/09/24 12:45 UNV Ondansetron HCl (Zofran) 4 mg Q4HP PRN IV NAUSEA / VOMITING 10/09/24 12:45 Nitroglycerin (Ntrostat Sublingual) 0.4 mg Q5MINP PRN SL FOR CHEST PAIN 10/09/24 12:45 Morphine Sulfate 2 mg Q30M PRN IV FOR CHEST PAIN 10/09/24 12:45 Multivit/Ca Carb/ B Cmplx/FA/Prenat (Nephro-Jaxson Tablet) 1 tab DAILY PO 10/10/24 10:00 Clopidogrel Bisulfate (Plavix) 75 mg DAILY PO 10/10/24 10:00 Ergocalciferol (Vitamin D 50,000 Unit) 50,000 unit QWEEKLY PO 10/09/24 12:45 Hold Carvedilol (Coreg Tablet) 6.25 mg BID PO 10/09/24 22:00 10/09/24 22:04 Nifedipine (Procardia Xl (Time-Release)) 60 mg DAILY PO 10/10/24 10:00 Sodium Bicarbonate 650 mg TID PO 10/09/24 14:31 10/10/24 06:04 Hydralazine HCl (Apresoline Injection) 10 mg Q6HP PRN IV SBP>150 10/09/24 17:00 10/10/24 00:47 Clonidine HCl (Catapres Tablet) 0.1 mg Q4HP PRN PO SBP>150 10/09/24 23:00 10/09/24 23:08 Melatonin (Melatonin) 5 mg HS PO 10/09/24 23:00 10/09/24 23:08 Review of Systems 12 point review of system negative except as stated in the HPI Vital Signs Vital Signs Date Time Temp Pulse Resp B/P (MAP) Pulse Ox O2 Delivery O2 Flow Rate FiO2 10/10/24 05:00 98.3 86 19 148/80 (102) 100 98.3 10/09/24 20:00 Nasal Cannula* 3 32 Physical Exam General Appearance: Alert, Oriented X3, Cooperative, No acute distress HEENT: Atraumatic, PERRLA, EOMI, Mucous membr. moist/pink Respiratory: Normal air movement Cardiovascular: Normal S1, Normal S2 Abdominal: Normal bowel sounds, Soft Extremities: No clubbing, No cyanosis, Normal pulses Skin: No significant lesion Neuro: Normal tone, Sensation intact Psych/Mental Status: Mental status NL, Mood NL Labs/Diagnostic Data Labs Test 10/10/24 06:14 10/09/24 14:09 10/09/24 10:37 Range/Units White Blood Count 5.5 4.4-10.8 10^3/uL Red Blood Count 2.94 L 4.5-5.90 10^6/uL Hemoglobin 9.1 L 13.5-17.5 g/dL Hematocrit 26.2 #L 41.0-53.0 % Mean Corpuscular Volume 89.2 80.0-100.0 fL Mean Corpuscular Hemoglobin 31.1 28.0-32.0 pg Mean Corpuscular Hemoglobin Concent 34.9 32.0-36.0 g/dL Red Cell Distribution Width 16.8 H 11.8-14.3 % Platelet Count 235 140-450 10^3/uL Mean Platelet Volume 7.3 6.9-10.8 fL Neutrophils (%) (Auto) 78.4 37.0-80.0 % Lymphocytes (%) (Auto) 10.0 10.0-50.0 % Monocytes (%) (Auto) 6.3 0.0-12.0 % Eosinophils (%) (Auto) 4.6 0.0-7.0 % Basophils (%) (Auto) 0.7 0.0-2.0 % Neutrophils # (Auto) 4.3 1.6-8.6 10 ^3/uL Lymphocytes # (Auto) 0.5 0.4-5.4 10 ^3/uL Monocytes # (Auto) 0.3 0-1.3 10 ^3/uL Eosinophils # (Auto) 0.3 0-0.8 10 ^3/uL Basophils # (Auto) 0 0-0.2 10 ^3/uL Nucleated Red Blood Cells 0.1 % Sodium Level 135 L 136-145 mmol/L Potassium Level 4.4 3.5-5.1 mmol/L Chloride Level 93 L 98-107 mmol/L Carbon Dioxide Level 31 20-31 mmol/L Anion Gap 11 5-15 Blood Urea Nitrogen 63 #H 9-23 mg/dL Creatinine 6.43 H 0.700-1.30 mg/dL Glomerular Filtration Rate Calc 9 >90 mL/min BUN/Creatinine Ratio 9.8 L 10.0-20.0 Serum Glucose 134 H 74-106 mg/dL Calcium Level 9.6 8.7-10.4 mg/dL Magnesium Level 2.0 1.6-2.6 mg/dL Troponin I High Sensitivity 142 *H </=54 ng/L Triglycerides Level 87 < 150 mg/dL Cholesterol Level 117 < 200 mg/dL LDL Cholesterol 51 < 100 mg/dL HDL Cholesterol 46 40-59 mg/dL POC Glucose 177 H 70-106 mg/dl Hemoglobin A1c 6.5 H <5.7 % A1C Thyroid Stimulating Hormone (TSH) 3.40 0.55-4.78 uIU/mL Free Thyroxine (T4) Calculated 1.37 0.89-1.76 ng/dL Assessment End-stage kidney disease on hemodialysis Non ST-elevation [place] History of Coronary artery disease Hypertension Anemia in Chronic kidney disease Failure to thrive Plan/Recommendation Cardiology evaluation. Hemodialysis today. Epogen with dialysis. Blood pressure control Plan discussed with: Patient DONNA PEREZ MD Oct 10, 2024 10:03
--- NOTE | 2024-10-10 11:05 | DVHPN2 ---
Reviewed: Care Plan, H&P, Labs, Medications, Previous Orders, Radiology Changes from previous H/P or p: No Changes Cardiovascular: Chest Pain Respiratory: Shortness of breath Objective Vitals Vital Signs Date Time Temp Pulse Resp B/P (MAP) Pulse Ox O2 Delivery O2 Flow Rate FiO2 10/10/24 09:00 98.1 81 14 159/89 (112) 98 98.1 10/09/24 20:00 Nasal Cannula* 3 32 Intake/Output Intake and Output 10/10/24 07:00 Intake Total 670 ml Balance 670 ml Intake Oral 670 ml # Voids 2 Medications Current Medications Medications Dose Ordered Sig/Herson Route Start Time Stop Time Status Last Admin Dose Admin Aspirin 81 mg DAILY PO 10/10/24 10:00 Atorvastatin Calcium 40 mg HS PO 10/09/24 22:00 10/09/24 22:03 40 MG Morphine Sulfate 2 mg Q30MP PRN IV 10/09/24 12:45 UNV Acetaminophen 650 mg Q6HP PRN PO 10/09/24 12:45 Nitroglycerin 0.4 mg Q5MINP PRN SL 10/09/24 12:45 UNV Ondansetron HCl 4 mg Q4HP PRN IV 10/09/24 12:45 Nitroglycerin 0.4 mg Q5MINP PRN SL 10/09/24 12:45 Morphine Sulfate 2 mg Q30M PRN IV 10/09/24 12:45 Multivit/Ca Carb/ B Cmplx/FA/Prenat 1 tab DAILY PO 10/10/24 10:00 Clopidogrel Bisulfate 75 mg DAILY PO 10/10/24 10:00 Ergocalciferol 50,000 unit QWEEKLY PO 10/09/24 12:45 Hold Carvedilol 6.25 mg BID PO 10/09/24 22:00 10/09/24 22:04 6.25 MG Nifedipine 60 mg DAILY PO 10/10/24 10:00 Sodium Bicarbonate 650 mg TID PO 10/09/24 14:31 10/10/24 06:04 650 MG Hydralazine HCl 10 mg Q6HP PRN IV 10/09/24 17:00 10/10/24 00:47 10 MG Clonidine HCl 0.1 mg Q4HP PRN PO 10/09/24 23:00 10/09/24 23:08 0.1 MG Melatonin 5 mg HS PO 10/09/24 23:00 10/09/24 23:08 5 MG Laboratory Results Laboratory Tests 10/10/24 06:14 Chemistry Test 10/10/24 06:14 Calcium Level 9.6 mg/dL (8.7-10.4) Magnesium Level 2.0 mg/dL (1.6-2.6) Lipid panel Test 10/10/24 06:14 Cholesterol Level 117 mg/dL (< 200) HDL Cholesterol 46 mg/dL (40-59) Triglycerides Level 87 mg/dL (< 150) Labs and/or images reviewed: Labs reviewed by me, Image(s) reviewed by me Assessment/Plan Assessment/Plan Chest pain rule out ACS one more four, cardiology consultfor Dr Brito Anemia Hypertensive urgency ESRD on HD with left arm AV fistula: Consult for Nephrology Acute hypoxic respiratory failure and supplemental O2 History of hypertension History of diabetes Critical care time 65 minutes Advanced care planning time 20 minutes Patient is full code Plan discussed with: Patient My Orders Orders - JUANITO STEVENS MD Procedure Category Date Status Time *Consult CONS 10/10/[address]Mukeshchandra Terry 10:17 Electrocardigram EKG 10/10/24 Logged 10:19 Date of Service: Oct 10, 2024 Billing Provider: JUANITO STEVENS MD Common Visit Codes: [id number] CARE 30-74 MIN JUANITO STEVENS MD Oct 10, 2024 11:05
--- NOTE | 2024-10-10 11:32 | ECG ---
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
[2024-10-10] MEDS: EPOETIN ALFA-EPBX 4,000 UNIT/ML VIAL SC ONE (21:42)
--- NOTE | 2024-10-10 23:31 | DVHINCON2 ---
Date of service: Oct 10, 2024 Referring Physician Chaim Reason for Consultation Elevated troponin History of Present Illness This is a 64 year old male with a PMH of CHF, COPD, DM, ESRD, HTN presented to the ED with a complaint of chest pain. EMS reports that the patient was seen at his PCP's office due to his complaint of chest pain, having 911 called for assistance. EMS states that the patient has associated SOB. EMS notes the patient's pain was a 6/10, however after providing 324mg of Aspirin and 0.4mg of Nitroglycerin, patient's pain has completely resolved at a 0/10. Patient states he had dialysis 10/08. HGB 9.1, HCT 26.2, BUN 63, ASSURANCE ASSOCIATE 6.43, TROP 114 >103 > 142. Chest x-ray shows multifocal airspace disease. Patient was admitted to the hospital. I am asked to consult on this patient. Family History: Cervical cancer G8 MOTHER, Onset:50's - 60 Diabetes mellitus G8 MOTHER G8 FATHER Hypertension G8 MOTHER Allergies: Coded Allergies: Penicillins (Verified Allergy, Unknown, 01/01/20) Sulfa Antibiotics (Verified Allergy, Unknown, 09/16/23) Home Meds Active Scripts Azithromycin (Azithromycin) 500 Mg Tab, 1 TAB PO DAILY, #7 TAB Prov:JUANITO STEVENS MD 06/12/24 Nifedipine (Nifedipine Er) 60 Mg Tab, 1 TAB PO DAILY for 30 Days, #30 TAB 5 Refills Prov:ONELIA ROBERTSON RESIDENT 06/06/24 Carvedilol (Carvedilol) 6.25 Mg Tab, 1 TAB PO BID for 30 Days, #60 TAB 1 Refill Prov:ONELIA ROBERTSON RESIDENT 06/06/24 Hydralazine Hcl (Hydralazine Hcl) 10 Mg Tab, 10 MG PO Q6HR for 30 Days, #120 TAB Prov:PATO UNGER RESIDENT 09/18/23 Reported Medications Atorvastatin Calcium (ATORVASTATIN CALCIUM) 40 Mg Tab, 1 TAB PO DAILY for 90 Days, #90 06/04/24 Bumetanide (Bumetanide) 2 Mg Tab, 1 TAB PO BID for 90 Days, #180 06/04/24 Metformin Hydrochloride (Metformin Hcl) 500 Mg Tab, 1 TAB PO BID for 90 Days, #180 4/30/25 Ergocalciferol (Vitamin D) 50,000 Unit Cap, 1 CAP PO QWEEKLY for 28 Days, #4 06/04/24 B-Complex W/ C & Folic Acid (Ani-Jaxson Rx) Tab, 1 TAB PO DAILY for 30 Days, #30 06/04/24 Patiromer Sorbitex Calcium (Veltassa) 8.4 Gm Pow, 1 PKT PO DAILY for 30 Days, #30 06/04/24 Sodium Bicarbonate (Sodium Bicarbonate) 650 Mg Tab, 1 TAB PO TID for 30 Days, #90 06/04/24 Clopidogrel Bisulfate (CLOPIDOGREL) 75 Mg Tab, 1 TAB PO DAILY for 90 Days, #90 12/04/22 Aspirin (ASPIRIN 81) 81 Mg Tab, 81 MG OR, TAB 12/04/22 Current Medications Current Medications Medications (Trade) Dose Ordered Sig/Herson Route PRN Reason Start Time Stop Time Status Last Admin Aspirin 81 mg DAILY PO 10/10/24 10:00 Atorvastatin Calcium (Lipitor) 40 mg HS PO 10/09/24 22:00 10/09/24 22:03 Multivit/Ca Carb/ B Cmplx/FA/Prenat (Nephro-Jaxson Tablet) 1 tab DAILY PO 10/10/24 10:00 Clopidogrel Bisulfate (Plavix) 75 mg DAILY PO 10/10/24 10:00 Carvedilol (Coreg Tablet) 6.25 mg BID PO 10/09/24 22:00 10/09/24 22:04 Nifedipine (Procardia Xl (Time-Release)) 60 mg DAILY PO 10/10/24 10:00 10/10/24 11:34 Clonidine HCl (Catapres Tablet) 0.1 mg Q4HP PRN PO SBP>150 10/09/24 23:00 10/09/24 23:08 Melatonin (Melatonin) 5 mg HS PO 10/09/24 23:00 10/09/24 23:08 Hydralazine HCl (Apresoline Injection) 10 mg Q6HP PRN IV SBP>150 10/10/24 11:00 Review of Systems Constitutional: denies: chills, diaphoresis, fatigue, fever, malaise, sweats, weakness, others EENTM: denies: blurred vision, double vision, ear bleeding, ear discharge, ear drainage, ear pain, ear ringing, eye pain, eye redness, hearing loss, mouth pain, mouth swelling, nasal discharge, nose bleeding, nose congestion, nose pain, photophobia, tearing, throat pain, throat swelling, voice changes, others Respiratory: reports: shortness of breath; denies: cough, hemoptysis, orthopnea, SOB at rest, SOB with excertion, stridor, wheezing, others Cardiovascular: reports: chest pain; denies: dizzy spells, diaphoresis, Dyspnea on exertion, edema, irregular heart beat, left arm pain, lightheadedness, palpitations, PND, syncope, others Gastrointestinal: denies: abdomen distended, abdominal pain, blood streaked bowels, constipated, diarrhea, dysphagia, difficulty swallowing, hematemesis, melena, nausea, poor appetite, poor fluid intake, rectal bleeding, rectal pain, vomiting, others Genitourinary: denies: burning, dysuria, flank pain, frequency, hematuria, incontinence, penile discharge, penile sore, pain, testicle pain, testicle swelling, urgency, others Neurological: denies: dizziness, fainting, headache, left sided numbness, left sided weakness, numbness, paresthesia, pre-existing deficit, right sided numbness, right sided weakness, seizure, speech problems, tingling, tremors, weakness, others Musculoskeletal: denies: back pain, gout, joint pain, joint swelling, muscle pain, muscle stiffness, neck pain, others Integumetry: denies: bruises, change in color, change in hair/nails, dryness, laceration, lesions, lumps, rash, wounds, others Allergic/Immunocompromised: denies: Difficulty Healing, Frequent Infections, Hives, Itching, others Hematologic/Lymphatic: denies: anemia, blood clots, easy bleeding, easy bruising, swollen glands, others Endocrine: denies: excessive hunger, excessive sweating, excessive thirst, excessive urination, flushing, intolerance to cold, intolerance to heat, unexplained weight gain, unexplained weight loss, others Psychiatric: denies: anxiety, bipolar disorder, depression, hopeless, panic disorder, schizophrenia, sleepless, suicidal, others All Other Systems: Reviewed and Negative Vital Signs Vital Signs Date Time Temp Pulse Resp B/P (MAP) Pulse Ox O2 Delivery O2 Flow Rate FiO2 10/10/24 16:10 97.7 67 16 172/79 (110) 99 97.7 10/10/24 08:00 Nasal Cannula* 3 32 Physical Exam GENERAL: Alert and oriented x 3. No acute distress. EYES: PERRL, EOMI. Anicteric. HENT: Moist mucous membranes. LUNGS: Clear to auscultation bilaterally. CARDIOVASCULAR: Regular rate and rhythm. ABDOMEN: Soft, nontender and nondistended. EXTREMITIES: No edema. NEUROLOGIC: No focal neurological deficits. SKIN: Warm, dry. Labs/Diagnostic Data Labs Test 10/10/24 06:14 10/09/24 14:09 10/09/24 10:37 Range/Units White Blood Count 5.5 4.4-10.8 10^3/uL Red Blood Count 2.94 L 4.5-5.90 10^6/uL Hemoglobin 9.1 L 13.5-17.5 g/dL Hematocrit 26.2 #L 41.0-53.0 % Mean Corpuscular Volume 89.2 80.0-100.0 fL Mean Corpuscular Hemoglobin 31.1 28.0-32.0 pg Mean Corpuscular Hemoglobin Concent 34.9 32.0-36.0 g/dL Red Cell Distribution Width 16.8 H 11.8-14.3 % Platelet Count 235 140-450 10^3/uL Mean Platelet Volume 7.3 6.9-10.8 fL Neutrophils (%) (Auto) 78.4 37.0-80.0 % Lymphocytes (%) (Auto) 10.0 10.0-50.0 % Monocytes (%) (Auto) 6.3 0.0-12.0 % Eosinophils (%) (Auto) 4.6 0.0-7.0 % Basophils (%) (Auto) 0.7 0.0-2.0 % Neutrophils # (Auto) 4.3 1.6-8.6 10 ^3/uL Lymphocytes # (Auto) 0.5 0.4-5.4 10 ^3/uL Monocytes # (Auto) 0.3 0-1.3 10 ^3/uL Eosinophils # (Auto) 0.3 0-0.8 10 ^3/uL Basophils # (Auto) 0 0-0.2 10 ^3/uL Nucleated Red Blood Cells 0.1 % Sodium Level 135 L 136-145 mmol/L Potassium Level 4.4 3.5-5.1 mmol/L Chloride Level 93 L 98-107 mmol/L Carbon Dioxide Level 31 20-31 mmol/L Anion Gap 11 5-15 Blood Urea Nitrogen 63 #H 9-23 mg/dL Creatinine 6.43 H 0.700-1.30 mg/dL Glomerular Filtration Rate Calc 9 >90 mL/min BUN/Creatinine Ratio 9.8 L 10.0-20.0 Serum Glucose 134 H 74-106 mg/dL Calcium Level 9.6 8.7-10.4 mg/dL Magnesium Level 2.0 1.6-2.6 mg/dL Troponin I High Sensitivity 142 *H </=54 ng/L Triglycerides Level 87 < 150 mg/dL Cholesterol Level 117 < 200 mg/dL LDL Cholesterol 51 < 100 mg/dL HDL Cholesterol 46 40-59 mg/dL POC Glucose 177 H 70-106 mg/dl Hemoglobin A1c 6.5 H <5.7 % A1C Thyroid Stimulating Hormone (TSH) 3.40 0.55-4.78 uIU/mL Free Thyroxine (T4) Calculated 1.37 0.89-1.76 ng/dL Assessment Chest pain. Anemia. Hypertensive urgency. ESRD on HD. Acute hypoxic respiratory failure. Hypertension. Diabetes. Plan/Recommendation I agree with your ongoing assessment and care of plan. Telemetry reviewed. Echocardiogram. Aspirin, Lipitor, Plavix. Coreg, Clonidine, Nifedipine. IV Hydralazine for SBP > 150. Morphine for pain management. Additional plan as per the hospital course. A total of 45 minutes was spent reviewing the patient record, examining the patient, making a diagnostic and therapeutic plan, discussing this plan with medical personnel, following up on diagnostic studies and following the patient for clinical stability excluding any and all procedures. At least 50% of this time was spent in direct, [id number] contact. Plan discussed with: Patient NERY AVILA MD Oct 10, 2024 19:12
[2024-10-11] VITALS (9 sets, daily range): BP systolic 142–187; BP diastolic 72–95; PULSE 47–91; RESP 16–18; TEMP 97.6–98.4; O2SAT 95–100
[2024-10-11] MEDS: SODIUM CHL 0.9% 1000 ML BAG XX ONE (08:00)
--- NOTE | 2024-10-11 09:47 | DVHPN2 ---
Progress Note - Dictate Date Seen: Oct 11, 2024 Medical Necessity Reason Pt with a Central, PICC or Fol: No Subjective No acute issues overnight. Underwent dialysis yesterday. Cardiology evaluation noted. vital signs Vital Sign Date Time Temp Pulse Resp B/P (MAP) Pulse Ox O2 Delivery O2 Flow Rate FiO2 10/11/24 09:01 98.4 75 18 164/74 (104) 100 98.4 10/11/24 08:15 Nasal Cannula* 3 32 Total Intake and Output 10/10/24 10/10/24 10/11/24 15:00 23:00 07:00 Intake Total 820 ml Output Total 1 ml Balance 819 ml medications Current Medications Medications Dose Ordered Sig/Herson Route Start Time Stop Time Status Last Admin Dose Admin Aspirin 81 mg DAILY PO 10/10/24 10:00 Atorvastatin Calcium 40 mg HS PO 10/09/24 22:00 10/10/24 21:42 40 MG Morphine Sulfate 2 mg Q30MP PRN IV 10/09/24 12:45 UNV Acetaminophen 650 mg Q6HP PRN PO 10/09/24 12:45 Nitroglycerin 0.4 mg Q5MINP PRN SL 10/09/24 12:45 UNV Ondansetron HCl 4 mg Q4HP PRN IV 10/09/24 12:45 Nitroglycerin 0.4 mg Q5MINP PRN SL 10/09/24 12:45 Morphine Sulfate 2 mg Q30M PRN IV 10/09/24 12:45 Multivit/Ca Carb/ B Cmplx/FA/Prenat 1 tab DAILY PO 10/10/24 10:00 Clopidogrel Bisulfate 75 mg DAILY PO 10/10/24 10:00 Ergocalciferol 50,000 unit QWEEKLY PO 10/09/24 12:45 Hold Carvedilol 6.25 mg BID PO 10/09/24 22:00 10/10/24 21:43 6.25 MG Nifedipine 60 mg DAILY PO 10/10/24 10:00 10/10/24 11:34 60 MG Sodium Bicarbonate 650 mg TID PO 10/09/24 14:31 10/10/24 21:43 650 MG Clonidine HCl 0.1 mg Q4HP PRN PO 10/09/24 23:00 10/09/24 23:08 0.1 MG Melatonin 5 mg HS PO 10/09/24 23:00 10/10/24 21:42 5 MG Hydralazine HCl 10 mg Q6HP PRN IV 10/10/24 11:00 objective General Appearance: Alert, Oriented X3, Cooperative, No acute distress HEENT: Atraumatic, PERRLA, EOMI, Mucous membr. moist/pink Respiratory: Normal air movement Cardiovascular: Normal S1, Normal S2 Abdominal: Normal bowel sounds, Soft Extremities: No clubbing, No cyanosis, Normal pulses Skin: No significant lesion Neuro: Normal tone, Sensation intact Psych/Mental Status: Mental status NL, Mood NL laboratory and microbiology Laboratory Tests 10/10/24 06:14 Test 10/10/24 06:14 Range/Units Serum Glucose 134 H 74-106 mg/dL Problem List End-stage kidney disease on hemodialysis Non ST-elevation [place] History of Coronary artery disease Hypertension Anemia in Chronic kidney disease Failure to thrive Assessment/Plan HD on MWF schedule . Stable from renal standpoint . 2D echocardiogram. Next dialysis on Sunday. Plan discussed with: Patient DONNA PEREZ MD Oct 11, 2024 09:47
--- NOTE | 2024-10-11 11:06 | DVHPN2 ---
Reviewed: Care Plan, H&P, Labs, Medications, Previous Orders, Radiology Changes from previous H/P or p: No Changes Cardiovascular: Chest Pain Respiratory: Shortness of breath Objective Vitals Vital Signs Date Time Temp Pulse Resp B/P (MAP) Pulse Ox O2 Delivery O2 Flow Rate FiO2 10/11/24 10:08 164/74 10/11/24 10:07 75 10/11/24 09:01 98.4 18 100 98.4 10/11/24 08:15 Nasal Cannula* 3 32 Intake/Output Intake and Output 10/11/24 07:00 Intake Total 820 ml Output Total 1 ml Balance 819 ml Intake Oral 820 ml Output Stool Total 1 ml # Voids 5 # Bowel Movements 1 Medications Current Medications Medications Dose Ordered Sig/Herson Route Start Time Stop Time Status Last Admin Dose Admin Aspirin 81 mg DAILY PO 10/10/24 10:00 10/11/24 10:07 81 MG Atorvastatin Calcium 40 mg HS PO 10/09/24 22:00 10/10/24 21:42 40 MG Morphine Sulfate 2 mg Q30MP PRN IV 10/09/24 12:45 UNV Acetaminophen 650 mg Q6HP PRN PO 10/09/24 12:45 Nitroglycerin 0.4 mg Q5MINP PRN SL 10/09/24 12:45 UNV Ondansetron HCl 4 mg Q4HP PRN IV 10/09/24 12:45 Nitroglycerin 0.4 mg Q5MINP PRN SL 10/09/24 12:45 Morphine Sulfate 2 mg Q30M PRN IV 10/09/24 12:45 Multivit/Ca Carb/ B Cmplx/FA/Prenat 1 tab DAILY PO 10/10/24 10:00 10/11/24 10:07 1 TAB Clopidogrel Bisulfate 75 mg DAILY PO 10/10/24 10:00 10/11/24 10:06 75 MG Ergocalciferol 50,000 unit QWEEKLY PO 10/09/24 12:45 Hold Carvedilol 6.25 mg BID PO 10/09/24 22:00 10/11/24 10:07 6.25 MG Nifedipine 60 mg DAILY PO 10/10/24 10:00 10/11/24 10:08 60 MG Sodium Bicarbonate 650 mg TID PO 10/09/24 14:31 10/10/24 21:43 650 MG Clonidine HCl 0.1 mg Q4HP PRN PO 10/09/24 23:00 10/09/24 23:08 0.1 MG Melatonin 5 mg HS PO 10/09/24 23:00 10/10/24 21:42 5 MG Hydralazine HCl 10 mg Q6HP PRN IV 10/10/24 11:00 Laboratory Results Laboratory Tests 10/10/24 06:14 Labs and/or images reviewed: Labs reviewed by me, Image(s) reviewed by me Assessment/Plan Assessment/Plan Chest pain rule out ACS cardiology consult for Dr Brito appreciated Anemia of chronic disease Hypertensive urgency ESRD on HD with left arm AV fistula: Consult for Nephrology Dr Dowling appreciated Acute hypoxic respiratory failure and supplemental O2 History of hypertension History of diabetes Critical care time 55 minutes Advanced care planning time 20 minutes Patient is full code at bedside Plan discussed with: Patient My Orders Orders - JUANITO STEVENS MD Procedure Category Date Status Time Hydralazine Injection PHA 10/10/24 In Process (Apresoline Inject 11:00 Date of Service: Oct 11, 2024 Billing Provider: JUANITO STEVENS MD Common Visit Codes: [id number] INP/OBS CARE(HIGH) JUANITO STEVENS MD Oct 11, 2024 11:06
[2024-10-11] MEDS: MUPIROCIN 2% OINT 15gm or 22gm FOR MRSA NARES EACHNOSTRI SCH (22:23)
--- NOTE | 2024-10-11 22:49 | DVHPN2 ---
Progress Note - Dictate Date Seen: Oct 11, 2024 Medical Necessity Reason Pt with a Central, PICC or Fol: No Subjective Patient was seen and evaluated in follow up. Patient is complaining of chest discomfort. Patient's is present at bedside. HGB 9.1, HCT 26.2, BUN 63, INFORMATICS CONSULTANT 6.43. Echocardiogram is ordered/pending. Telemetry reviewed. vital signs Vital Sign Date Time Temp Pulse Resp B/P (MAP) Pulse Ox O2 Delivery O2 Flow Rate FiO2 10/11/24 10:08 164/74 10/11/24 10:07 75 10/11/24 09:01 98.4 18 100 98.4 10/11/24 08:15 Nasal Cannula* 3 32 Total Intake and Output 10/10/24 10/10/24 10/11/24 15:00 23:00 07:00 Intake Total 820 ml Output Total 1 ml Balance 819 ml medications Current Medications Medications Dose Ordered Sig/Herson Route Start Time Stop Time Status Last Admin Dose Admin Aspirin 81 mg DAILY PO 10/10/24 10:00 10/11/24 10:07 81 MG Atorvastatin Calcium 40 mg HS PO 10/09/24 22:00 10/10/24 21:42 40 MG Morphine Sulfate 2 mg Q30MP PRN IV 10/09/24 12:45 UNV Acetaminophen 650 mg Q6HP PRN PO 10/09/24 12:45 Nitroglycerin 0.4 mg Q5MINP PRN SL 10/09/24 12:45 UNV Ondansetron HCl 4 mg Q4HP PRN IV 10/09/24 12:45 Nitroglycerin 0.4 mg Q5MINP PRN SL 10/09/24 12:45 Morphine Sulfate 2 mg Q30M PRN IV 10/09/24 12:45 Multivit/Ca Carb/ B Cmplx/FA/Prenat 1 tab DAILY PO 10/10/24 10:00 10/11/24 10:07 1 TAB Clopidogrel Bisulfate 75 mg DAILY PO 10/10/24 10:00 10/11/24 10:06 75 MG Ergocalciferol 50,000 unit QWEEKLY PO 10/09/24 12:45 Hold Carvedilol 6.25 mg BID PO 10/09/24 22:00 10/11/24 10:07 6.25 MG Nifedipine 60 mg DAILY PO 10/10/24 10:00 10/11/24 10:08 60 MG Sodium Bicarbonate 650 mg TID PO 10/09/24 14:31 10/10/24 21:43 650 MG Clonidine HCl 0.1 mg Q4HP PRN PO 10/09/24 23:00 10/09/24 23:08 0.1 MG Melatonin 5 mg HS PO 10/09/24 23:00 10/10/24 21:42 5 MG Hydralazine HCl 10 mg Q6HP PRN IV 10/10/24 11:00 objective GENERAL: Alert and oriented x 3. No acute distress. EYES: PERRL, EOMI. Anicteric. HENT: Moist mucous membranes. LUNGS: Clear to auscultation bilaterally. CARDIOVASCULAR: Regular rate and rhythm. ABDOMEN: Soft, nontender and nondistended. EXTREMITIES: No edema. NEUROLOGIC: No focal neurological deficits. SKIN: Warm, dry. laboratory and microbiology Laboratory Tests 10/10/24 06:14 Test 10/10/24 06:14 Range/Units Serum Glucose 134 H 74-106 mg/dL Problem List Chest pain. Anemia. Hypertensive urgency. ESRD on HD. Acute hypoxic respiratory failure. Hypertension. Diabetes. Assessment/Plan Continued all current supportive medical care. Echocardiogram. Aspirin, Plavix. Coreg, Nifedipine. IV Hydralazine for SBP > 150. Morphine for pain management. Additional plan as per the hospital course. Plan discussed with: Patient NERY AVILA MD Oct 11, 2024 12:51
[2024-10-12 01:00] VITALS: BP 143/83; PULSE 74; RESP 18; TEMP 97.8; O2SAT 97
[2024-10-12 05:00] VITALS: BP 158/85; PULSE 69; RESP 18; TEMP 98.3; O2SAT 100
[2024-10-12] MEDS: hydrALAZINE HCL 20 MG/ML VL IV PRN (05:02)
[2024-10-12 08:00] VITALS: PULSE 78
[2024-10-12 09:00] VITALS: BP 171/85; PULSE 85; RESP 18; TEMP 98.2; O2SAT 100
--- NOTE | 2024-10-12 12:41 | DVHPN2 ---
Reviewed: Care Plan, H&P, Labs, Medications, Previous Orders, Radiology Changes from previous H/P or p: No Changes Cardiovascular: Chest Pain Respiratory: Shortness of breath Objective Vitals Vital Signs Date Time Temp Pulse Resp B/P (MAP) Pulse Ox O2 Delivery O2 Flow Rate FiO2 10/12/24 11:13 89 170/68 10/12/24 09:00 98.2 18 100 98.2 10/12/24 08:10 Nasal Cannula* 3 32 Intake/Output Intake and Output 10/12/24 07:00 Intake Total 1810 ml Balance 1810 ml Intake Oral 1810 ml # Voids 2 Medications Current Medications Medications Dose Ordered Sig/Herson Route Start Time Stop Time Status Last Admin Dose Admin Aspirin 81 mg DAILY PO 10/10/24 10:00 10/12/24 10:14 81 MG Atorvastatin Calcium 40 mg HS PO 10/09/24 22:00 10/11/24 21:26 40 MG Morphine Sulfate 2 mg Q30MP PRN IV 10/09/24 12:45 UNV Acetaminophen 650 mg Q6HP PRN PO 10/09/24 12:45 Nitroglycerin 0.4 mg Q5MINP PRN SL 10/09/24 12:45 UNV Ondansetron HCl 4 mg Q4HP PRN IV 10/09/24 12:45 Nitroglycerin 0.4 mg Q5MINP PRN SL 10/09/24 12:45 Morphine Sulfate 2 mg Q30M PRN IV 10/09/24 12:45 Multivit/Ca Carb/ B Cmplx/FA/Prenat 1 tab DAILY PO 10/10/24 10:00 10/12/24 10:14 1 TAB Clopidogrel Bisulfate 75 mg DAILY PO 10/10/24 10:00 10/12/24 10:14 75 MG Ergocalciferol 50,000 unit QWEEKLY PO 10/09/24 12:45 Hold Carvedilol 6.25 mg BID PO 10/09/24 22:00 10/12/24 10:13 6.25 MG Nifedipine 60 mg DAILY PO 10/10/24 10:00 10/12/24 10:14 60 MG Sodium Bicarbonate 650 mg TID PO 10/09/24 14:31 10/12/24 05:02 650 MG Clonidine HCl 0.1 mg Q4HP PRN PO 10/09/24 23:00 10/11/24 16:49 0.1 MG Melatonin 5 mg HS PO 10/09/24 23:00 10/11/24 21:26 5 MG Hydralazine HCl 10 mg Q6HP PRN IV 10/10/24 11:00 10/12/24 05:02 10 MG Mupirocin 1 applic BID EACHNOSTRI 10/11/24 22:00 10/16/24 21:59 10/12/24 10:16 1 APPLIC Laboratory Results Laboratory Tests 10/10/24 06:14 Microbiology Microbiology Date/Time Source Procedure Growth Status 10/10/24 04:40 Nose MRSA Screen - Final Methicillin Resistant S.aureus Complete Labs and/or images reviewed: Labs reviewed by me, Image(s) reviewed by me Assessment/Plan Assessment/Plan Chest pain coronary artery disease ruled out cardiology consult by Dr Brito appreciated Anemia of chronic disease Hypertensive urgency ESRD on HD with left arm AV fistula: Consult for Nephrology Dr Dowling appreciated Acute hypoxic respiratory failure and supplemental O2 History of hypertension History of diabetes Critical care time 58 minutes Advanced care planning time 20 minutes Patient is full code at bedside requesting patient to be discharged today Plan discussed with: Patient My Orders Orders - JUANITO STEVENS MD Procedure Category Date Status Time Mupirocin 2% Oint PHA 10/11/24 In Process Mrsa Nares (Bactroban 22:00 Date of Service: Oct 12, 2024 Billing Provider: JUANITO STEVENS MD Common Visit Codes: [id number] INP/OBS CARE(HIGH) JUANITO STEVENS MD Oct 12, 2024 12:41
--- NOTE | 2024-10-12 12:49 | DVHDS2 ---
Discharge Summary Date of Admission Oct 09, 2024 at 12:32 Date of Discharge: Oct 12, 2024 Admitting Diagnosis Chest pain Wounds: None Labs/Diagnostic Data: Laboratory Results Test 10/10/24 06:14 10/09/24 14:09 10/09/24 10:37 White Blood Count 5.5 10^3/uL (4.4-10.8) Red Blood Count 2.94 10^6/uL (4.5-5.90) Hemoglobin 9.1 g/dL (13.5-17.5) Hematocrit 26.2 % (41.0-53.0) Mean Corpuscular Volume 89.2 fL (80.0-100.0) Mean Corpuscular Hemoglobin 31.1 pg (28.0-32.0) Mean Corpuscular Hemoglobin Concent 34.9 g/dL (32.0-36.0) Red Cell Distribution Width 16.8 % (11.8-14.3) Platelet Count 235 10^3/uL (140-450) Mean Platelet Volume 7.3 fL (6.9-10.8) Neutrophils (%) (Auto) 78.4 % (37.0-80.0) Lymphocytes (%) (Auto) 10.0 % (10.0-50.0) Monocytes (%) (Auto) 6.3 % (0.0-12.0) Eosinophils (%) (Auto) 4.6 % (0.0-7.0) Basophils (%) (Auto) 0.7 % (0.0-2.0) Neutrophils # (Auto) 4.3 10 ^3/uL (1.6-8.6) Lymphocytes # (Auto) 0.5 10 ^3/uL (0.4-5.4) Monocytes # (Auto) 0.3 10 ^3/uL (0-1.3) Eosinophils # (Auto) 0.3 10 ^3/uL (0-0.8) Basophils # (Auto) 0 10 ^3/uL (0-0.2) Nucleated Red Blood Cells 0.1 % Sodium Level 135 mmol/L (136-145) Potassium Level 4.4 mmol/L (3.5-5.1) Chloride Level 93 mmol/L (98-107) Carbon Dioxide Level 31 mmol/L (20-31) Anion Gap 11 (5-15) Blood Urea Nitrogen 63 mg/dL (9-23) Creatinine 6.43 mg/dL (0.700-1.30) Glomerular Filtration Rate Calc 9 mL/min (>90) BUN/Creatinine Ratio 9.8 (10.0-20.0) Serum Glucose 134 mg/dL (74-106) Calcium Level 9.6 mg/dL (8.7-10.4) Magnesium Level 2.0 mg/dL (1.6-2.6) Troponin I High Sensitivity 142 ng/L (</=54) Triglycerides Level 87 mg/dL (< 150) Cholesterol Level 117 mg/dL (< 200) LDL Cholesterol 51 mg/dL (< 100) HDL Cholesterol 46 mg/dL (40-59) POC Glucose 177 mg/dl (70-106) Hemoglobin A1c 6.5 % A1C (<5.7) Thyroid Stimulating Hormone (TSH) 3.40 uIU/mL (0.55-4.78) Free Thyroxine (T4) Calculated 1.37 ng/dL (0.89-1.76) Other Laboratory Tests 10/10/24 06:14 Brief Hx & Hospital Course: 64-year-old male with a history of ESRD on hemodialysis hypertension chronic respiratory failure on home oxygen came in for chest pain troponin negative seen by Cardiology Dr. Brito advised no further cardiac workup received hemodialysis by Dr. Rose cannon. at the bedside and patient is discharged back home on home health Consults/Reason for consult Cardiology Dr. Brito Operations or Procedures None Condition at Discharge: Fair Final Diagnosis/Problems List Chest pain coronary artery disease ruled out cardiology consult by Dr Brito appreciated Anemia of chronic disease Hypertensive urgency ESRD on HD with left arm AV fistula: Consult for Nephrology Dr Dowling appreciated Acute hypoxic respiratory failure and supplemental O2 History of hypertension History of diabetes Discharge Disposition: Home Discharge Instruct/Medications Diet: Cardiac 2g Na,low cholest Activity: Light activity Follow Up/Referral: Resume All your previous home medications Follow up with your primary Dr Medications: None Scheduled Atorvastatin Calcium (Atorvastatin Calcium), 1 TAB PO DAILY, (Reported) Azithromycin (Azithromycin), 1 TAB PO DAILY B-Complex W/ C & Folic Acid (Ani-Jaxson Rx), 1 TAB PO DAILY, (Reported) Bumetanide (Bumetanide), 1 TAB PO BID, (Reported) Carvedilol (Carvedilol), 1 TAB PO BID Clopidogrel Bisulfate (Clopidogrel), 1 TAB PO DAILY, (Reported) Ergocalciferol (Vitamin D), 1 CAP PO QWEEKLY, (Reported) Hydralazine Hcl (Hydralazine Hcl), 10 MG PO Q6HR Metformin Hydrochloride (Metformin Hcl), 1 TAB PO BID, (Reported) Nifedipine (Nifedipine Er), 1 TAB PO DAILY Patiromer Sorbitex Calcium (Veltassa), 1 PKT PO DAILY, (Reported) Sodium Bicarbonate (Sodium Bicarbonate), 1 TAB PO TID, (Reported) Miscellaneous Medications Aspirin (Aspirin 81), 81 MG OR, (Reported) 39 (Time taken for discharge summary 39 minutes) Discharge Statement: "Patient was advised to return to the ER or call 911 if any headaches, dizziness, shortness of breath, chest pain, abdominal pain, bleeding, fevers, or worsening of medical condition. Patient was counseled about treatment plan, medications, possible side effects, patientverbalized understanding. All questions were answered to the best of my ability. This discharge took greater then 30 minutes in planning, reviewing documentation, counseling the patient, and discussing with other team members." ASSESSMENT ASSESSMENT Hospital Course Improved Assessment Chest pain coronary artery disease ruled out cardiology consult by Dr Brito appreciated Anemia of chronic disease Hypertensive urgency ESRD on HD with left arm AV fistula: Consult for Nephrology Dr Dowling appreciated Acute hypoxic respiratory failure and supplemental O2 History of hypertension History of diabetes Date of Service: Oct 12, 2024 Billing Provider: JUANITO STEVENS MD Common Visit Codes: [id number]-DTD/[id number] DISCH DAY >30min JUANITO STEVENS MD Oct 12, 2024 12:49
[2024-10-12 13:28] VITALS: BP 170/68; PULSE 89; TEMP 36.8
--- NOTE | 2024-10-12 22:35 | DVHPN2 ---
Progress Note - Dictate Date Seen: Oct 12, 2024 Medical Necessity Reason Pt with a Central, PICC or Fol: No Subjective Patient was seen and evaluated in follow up. Patient has no new complaints at this time. Patient denies any cardiac symptoms. Patient is cardiac stable for discharge. Telemetry reviewed. vital signs Vital Sign Date Time Temp Pulse Resp B/P (MAP) Pulse Ox O2 Delivery O2 Flow Rate FiO2 10/12/24 13:28 36.8 89 10/12/24 11:13 170/68 10/12/24 09:00 18 100 10/12/24 08:10 Nasal Cannula* 3 32 Total Intake and Output 10/11/24 10/11/24 10/12/24 15:00 23:00 07:00 Intake Total 1210 ml 600 ml Balance 1210 ml 600 ml medications Current Medications Medications Dose Ordered Sig/Herson Route Start Time Stop Time Status Last Admin Dose Admin Aspirin 81 mg DAILY PO 10/10/24 10:00 10/12/24 10:14 81 MG Atorvastatin Calcium 40 mg HS PO 10/09/24 22:00 10/11/24 21:26 40 MG Morphine Sulfate 2 mg Q30MP PRN IV 10/09/24 12:45 UNV Acetaminophen 650 mg Q6HP PRN PO 10/09/24 12:45 Nitroglycerin 0.4 mg Q5MINP PRN SL 10/09/24 12:45 UNV Ondansetron HCl 4 mg Q4HP PRN IV 10/09/24 12:45 Nitroglycerin 0.4 mg Q5MINP PRN SL 10/09/24 12:45 Morphine Sulfate 2 mg Q30M PRN IV 10/09/24 12:45 Multivit/Ca Carb/ B Cmplx/FA/Prenat 1 tab DAILY PO 10/10/24 10:00 10/12/24 10:14 1 TAB Clopidogrel Bisulfate 75 mg DAILY PO 10/10/24 10:00 10/12/24 10:14 75 MG Ergocalciferol 50,000 unit QWEEKLY PO 10/09/24 12:45 Hold Carvedilol 6.25 mg BID PO 10/09/24 22:00 10/12/24 10:13 6.25 MG Nifedipine 60 mg DAILY PO 10/10/24 10:00 10/12/24 10:14 60 MG Sodium Bicarbonate 650 mg TID PO 10/09/24 14:31 10/12/24 14:04 650 MG Clonidine HCl 0.1 mg Q4HP PRN PO 10/09/24 23:00 10/11/24 16:49 0.1 MG Melatonin 5 mg HS PO 10/09/24 23:00 10/11/24 21:26 5 MG Hydralazine HCl 10 mg Q6HP PRN IV 10/10/24 11:00 10/12/24 05:02 10 MG Mupirocin 1 applic BID EACHNOSTRI 10/11/24 22:00 10/16/24 21:59 10/12/24 10:16 1 APPLIC objective GENERAL: Alert and oriented x 3. No acute distress. EYES: PERRL, EOMI. Anicteric. HENT: Moist mucous membranes. LUNGS: Clear to auscultation bilaterally. CARDIOVASCULAR: Regular rate and rhythm. ABDOMEN: Soft, nontender and nondistended. EXTREMITIES: No edema. NEUROLOGIC: No focal neurological deficits. SKIN: Warm, dry. laboratory and microbiology Laboratory Tests 10/10/24 06:14 Test 10/10/24 06:14 Range/Units Serum Glucose 134 H 74-106 mg/dL Problem List Chest pain. Anemia. Hypertensive urgency. ESRD on HD. Acute hypoxic respiratory failure. Hypertension. Diabetes. Assessment/Plan Continued all current supportive medical care. Aspirin, Plavix. Coreg, Nifedipine. IV Hydralazine for SBP > 150. Morphine for pain management. Additional plan as per the hospital course. Plan discussed with: Patient NERY AVILA MD Oct 12, 2024 14:42
--- NOTE | 2024-10-13 08:24 | ECG ---
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
== END 2024-10-12 15:23 | disposition home health service (06) | DRG 280 ==
LOC: EDBD 10:27 → ER 10:27 → OVERFLOW 12:32 → TELE-WESTW 16:04
PROVIDERS: ADMIT Family Medicine; ATTEND Family Medicine
PROC: 5A1D70Z Performance of Urinary Filtration, Intermittent, Less than 6 Hours Per Day (ICD-10-PCS; principal; 2024-10-10)
DX: I13.2 Hypertensive heart and chronic kidney disease with heart failure and with stage 5 chronic kidney disease, or end stage renal disease (principal); J96.21 Acute and chronic respiratory failure with hypoxia; I21.A1 Myocardial infarction type 2; N18.6 End stage renal disease; I16.0 Hypertensive urgency; D63.1 Anemia in chronic kidney disease; R62.7 Adult failure to thrive; J44.9 Chronic obstructive pulmonary disease, unspecified; I50.9 Heart failure, unspecified; E11.22 Type 2 diabetes mellitus with diabetic chronic kidney disease; Z68.24 Body mass index [BMI] 24.0-24.9, adult; Z88.0 Allergy status to penicillin; Z88.2 Allergy status to sulfonamides; Z99.81 Dependence on supplemental oxygen; Z99.2 Dependence on renal dialysis; Z82.49 Family history of ischemic heart disease and other diseases of the circulatory system; Z83.3 Family history of diabetes mellitus; Z80.8 Family history of malignant neoplasm of other organs or systems
CPT/HCPCS: 36415; 71045; 80048; 80061; 82962; 83036; 83735; 84439; 84443; 84484; 85025; 87081; 90935; 93005; 96374; 99291; G0378; J1815

== ENCOUNTER 2024-10-20 12:54 | Inpatient (IN) | payer MEDICARE, MEDICAID ==
[~2024-10-20] VITALS: Ht 167.6 cm; Wt 70.7 kg
[~2024-10-20 12:54] MED LIST changes: +CLON0.1D7 TOP; +EMPA1TAB PO; +HYDR50TA47 PO; +TRAZ-227 PO
--- NOTE | 2024-10-20 13:06 | ED.PDOC ---
History of Present Illness HPI Comments 64-year-old male who presents to the ED via EMS with a chief complaint of generalized weakness onset 1 hour. Per EMS, patient went to dialysis this morning, finished at 08:00, goes to dialysis Sunday, Sunday, Sunday. Family noticed patient was experiencing increased weakness. He is on home O2. PMHx ESRD , HTN, CHF, COPD, DM. Denies chest pain, shortness of breath, dizziness, nausea, vomiting, diarrhea, fever, chills, cough, cold, congestion. No other symptoms or modifying factors present at this time. Time Seen by MD: 12:55 Primary Care Provider: Jona / Hanane Rose Reviewed Notes: Medications, Allergies Allergies: Coded Allergies: Penicillins (Verified Allergy, Unknown, 01/01/20) Sulfa Antibiotics (Verified Allergy, Unknown, 09/16/23) Home Meds Active Scripts Azithromycin (Azithromycin) 500 Mg Tab, 1 TAB PO DAILY, #7 TAB Prov:JUANITO STEVENS MD 06/12/24 Nifedipine (Nifedipine Er) 60 Mg Tab, 1 TAB PO DAILY for 30 Days, #30 TAB 5 Refills Prov:ONELIA ROBERTSON RESIDENT 06/06/24 Carvedilol (Carvedilol) 6.25 Mg Tab, 1 TAB PO BID for 30 Days, #60 TAB 1 Refill Prov:ONELIA ROBERTSON RESIDENT 06/06/24 Hydralazine Hcl (Hydralazine Hcl) 10 Mg Tab, 10 MG PO Q6HR for 30 Days, #120 TAB Prov:PATO UNGER RESIDENT 09/18/23 Reported Medications Atorvastatin Calcium (ATORVASTATIN CALCIUM) 40 Mg Tab, 1 TAB PO DAILY for 90 Days, #90 06/04/24 Bumetanide (Bumetanide) 2 Mg Tab, 1 TAB PO BID for 90 Days, #180 06/04/24 Metformin Hydrochloride (Metformin Hcl) 500 Mg Tab, 1 TAB PO BID for 90 Days, #180 06/04/24 Ergocalciferol (Vitamin D) 50,000 Unit Cap, 1 CAP PO QWEEKLY for 28 Days, #4 06/04/24 B-Complex W/ C & Folic Acid (Ani-Jaxson Rx) Tab, 1 TAB PO DAILY for 30 Days, #30 06/04/24 Patiromer Sorbitex Calcium (Veltassa) 8.4 Gm Pow, 1 PKT PO DAILY for 30 Days, #30 06/04/24 Sodium Bicarbonate (Sodium Bicarbonate) 650 Mg Tab, 1 TAB PO TID for 30 Days, #90 06/04/24 Clopidogrel Bisulfate (CLOPIDOGREL) 75 Mg Tab, 1 TAB PO DAILY for 90 Days, #90 12/04/22 Aspirin (ASPIRIN 81) 81 Mg Tab, 81 MG OR, TAB 12/04/22 Information Source: Patient, Emergency Med Personnel Mode of Arrival: EMS Severity: Moderate Timing: Hours Duration: Since onset Prehospital treatment: None Past Medical History PAST MEDICAL HISTORY: CHF, COPD, DM, ESRD, HTN Surgical History: Denies all surgeries Family History Family History: Reviewed,noncontributory to illness Social History Smoker: Non-Smoker Alcohol: Denies ETOH Use Drugs: Denies Drug Use Lives In: Home Constitutional: reports: weakness; denies: chills, diaphoresis, fatigue, fever, malaise, sweats, others EENTM: denies: blurred vision, double vision, ear bleeding, ear discharge, ear drainage, ear pain, ear ringing, eye pain, eye redness, hearing loss, mouth pain, mouth swelling, nasal discharge, nose bleeding, nose congestion, nose pain, photophobia, tearing, throat pain, throat swelling, voice changes, others Respiratory: denies: cough, hemoptysis, orthopnea, SOB at rest, shortness of breath, SOB with excertion, stridor, wheezing, others Cardiovascular: denies: chest pain, dizzy spells, diaphoresis, Dyspnea on exer tion, edema, irregular heart beat, left arm pain, lightheadedness, palpitations, PND, syncope, others Gastrointestinal: denies: abdomen distended, abdominal pain, blood streaked bowels, constipated, diarrhea, dysphagia, difficulty swallowing, hematemesis, melena, nausea, poor appetite, poor fluid intake, rectal bleeding, rectal pain, vomiting, others Genitourinary: denies: burning, dysuria, flank pain, frequency, hematuria, incontinence, penile discharge, penile sore, pain, testicle pain, testicle swelling, urgency, others Neurological: reports: weakness; denies: dizziness, fainting, headache, left sided numbness, left sided weakness, numbness, paresthesia, pre-existing de ficit, right sided numbness, right sided weakness, seizure, speech problems, tingling, tremors, others Musculoskeletal: denies: back pain, gout, joint pain, joint swelling, muscle pain, muscle stiffness, neck pain, others Integumetry: denies: bruises, change in color, change in hair/nails, dryness, laceration, lesions, lumps, rash, wounds, others Allergic/Immunocompromised: denies: Difficulty Healing, Frequent Infections, Hives, Itching, others Hematologic/Lymphatic: denies: anemia, blood clots, easy bleeding, easy bruising, swollen glands, others Endocrine: denies: excessive hunger, excessive sweating, excessive thirst, excessive urination, flushing, intolerance to cold, intolerance to heat, unexplained weight gain, unexplained weight loss, others Psychiatric: denies: anxiety, bipolar disorder, depression, hopeless, panic disorder, schizophrenia, sleepless, suicidal, others All Other Systems: Reviewed and Negative Physical Exam General Appearance: Moderate Distress, Normal HEENT: Normal ENT Inspection, Pharynx Normal, TMs Normal Neck: Full Range of Motion, Non-Tender, Normal, Normal Inspection Respiratory: Chest Non-Tender, Lungs Clear, No Accessory Muscle Use, No Respiratory Distress, Normal Breath Sounds Cardiovascular: No Edema, No JVD, No Murmur, No Gallop, Normal Peripheral Pulses, Regular Rate/Rhythm Breast Exam: Deferred Gastrointestinal: No Organomegaly, Non Tender, No Pulsatile Mass, Normal Bowel Sounds, Soft Genitalia: Deferred Pelvic: Deferred Rectal: Deferred Extremities: No calf tenderness, Normal capillary refill, Normal range of motion, Non-tender, No pedal edema Musculoskeletal : Apperance: Normal Neurologic: Alert, rn coronary care unit II-XII nml as Tested, No Motor Deficits, Normal Affect, Normal Mood, No Sensory Deficits Cerebellar Function: NOT DONE Reflexes: NOT DONE Skin: Dry, Normal Color, Warm Lymphatic: No Adenopathy Was a procedure done? Was a procedure done?: No Differential Dx Considerations may include: Anemia Electrolyte imbalance X-Ray, Labs, Meds, VS Vital Signs Date Time Temp Pulse Resp B/P (MAP) Pulse Ox O2 Delivery O2 Flow Rate FiO2 10/20/24 16:00 94 10/20/24 13:40 83 12 98 Room Air* 0 21 10/20/24 13:40 99.4 83 16 178/77 (110) 98 99.4 10/20/24 13:09 98.3 86 20 178/81 98 98.3 10/20/24 13:06 87 Lab Test 10/20/24 14:06 10/20/24 13:25 Range/Units POC Glucose 219 H 70-106 mg/dl White Blood Count 5.1 4.4-10.8 10^3/uL Red Blood Count 3.17 L 4.5-5.90 10^6/uL Hemoglobin 9.4 L 13.5-17.5 g/dL Hematocrit 27.7 L 41.0-53.0 % Mean Corpuscular Volume 87.1 80.0-100.0 fL Mean Corpuscular Hemoglobin 29.5 28.0-32.0 pg Mean Corpuscular Hemoglobin Concent 33.8 32.0-36.0 g/dL Red Cell Distribution Width 17.2 H 11.8-14.3 % Platelet Count 260 140-450 10^3/uL Mean Platelet Volume 7.1 6.9-10.8 fL Neutrophils (%) (Auto) 70.9 37.0-80.0 % Lymphocytes (%) (Auto) 9.3 L 10.0-50.0 % Monocytes (%) (Auto) 9.8 0.0-12.0 % Eosinophils (%) (Auto) 9.0 H 0.0-7.0 % Basophils (%) (Auto) 1.0 0.0-2.0 % Neutrophils # (Auto) 3.6 1.6-8.6 10 ^3/uL Lymphocytes # (Auto) 0.5 0.4-5.4 10 ^3/uL Monocytes # (Auto) 0.5 0-1.3 10 ^3/uL Eosinophils # (Auto) 0.5 0-0.8 10 ^3/uL Basophils # (Auto) 0.1 0-0.2 10 ^3/uL Nucleated Red Blood Cells 0.0 % Urine Color Pending Urine Clarity Pending Urine pH Pending Urine Specific [place] Pending Urine Protein Pending Urine Ketones Pending Urine Blood Pending Urine Nitrite Pending Urine Bilirubin Pending Urine Urobilinogen Pending Urine Leukocyte Esterase Pending Urine RBC 0 - 3 /hpf Urine Microscopic WBC Pending Urine Squamous Epithelial Cells <5 /hpf Urine Bacteria None Seen /hpf Urine Glucose Pending Sodium Level 134 L 136-145 mmol/L Potassium Level 4.0 3.5-5.1 mmol/L Chloride Level 92 L 98-107 mmol/L Carbon Dioxide Level 33 H 20-31 mmol/L Anion Gap 9 5-15 Blood Urea Nitrogen 44 H 9-23 mg/dL Creatinine 4.43 H 0.700-1.30 mg/dL Glomerular Filtration Rate Calc 14 >90 mL/min BUN/Creatinine Ratio 9.9 L 10.0-20.0 Serum Glucose 234 H 74-106 mg/dL Calcium Level 9.5 8.7-10.4 mg/dL Troponin I High Sensitivity 123 *H </=54 ng/L Patient came in from dialysis center. Generalized weakness. Cardiac marker elevated. WBC within normal limits. Blood sugar elevated. He is mentating. Continue to monitor. Time of 1ST Reevaluation: 13:25 Reevaluation 1ST: Unchanged Patient Education/Counseling: Diagnosis, Treatment, Prognosis Family Education/Counseling: No Family Present SEPSIS Sepsis Screen Physician Orders Urinalysis (10/20/24 13:24) Chest Portable (10/20/24 13:40) Vital Signs Date Time Temp Pulse Resp B/P (MAP) Pulse Ox O2 Delivery O2 Flow Rate FiO2 10/20/24 16:00 94 10/20/24 13:40 83 12 98 Room Air* 0 21 10/20/24 13:40 99.4 83 16 178/77 (110) 98 99.4 10/20/24 13:09 98.3 86 20 178/81 98 98.3 10/20/24 13:06 87 Laboratory Tests Test 10/20/24 13:25 White Blood Count 5.1 10^3/uL (4.4-10.8) Departure 1 Departure Time of Disposition: 17:21 Impression: Primary Impression: Non-insulin dependent diabetes mellitus Additional Impressions: Generalized weakness ESRD on dialysis Disposition: ADMITTED INPATIENT Admit to: Med Surg Condition: Guarded Critical Care Note Critical Care Time?: Yes (90 min-critical care time only) Stability Stability form required: No Heart Score Heart Score: Heart Score Response (Comments) Value History Slightly Suspicious 0 EKG Normal 0 Age >65 2 Risk Factors >3 or Hx ASHD 2 Troponin Normal limit 0 Total 4 I personally scribed for EDDIE QUIÑONES MD ([email or web address]) on 10/20/24 at 13:06. Electronically submitted by Janine Schofield ([email or web address]). EDDIE QUIÑONES MD Oct 20, 2024 13:06
--- NOTE | 2024-10-20 13:15 | ECG ---
[facility] Test Date: 2024-10-20 Test Time: 13:06:49 Pat Name: TIMO PELAEZ Department: Room: 0297 Gender: M [employer] Docent: JOHANNA : 1960 Requested By: EDDIE QUIÑONES Order Number: [id number] Reading MD: Andrew Ring Measurements Intervals [place] Rate: 87 P: 22 MA: 146 QRS: 6 QRSD: 102 T: 180 QT: 373 QTc: 449 Interpretive Statements Sinus rhythm Atrial premature complex LVH with secondary repolarization abnormality Anterior Q waves, possibly due to LVH Electronically Signed On 10-22-2024 9:54:07 PDT by Andrew Ring Please click the below link to view image of tracing.
[2024-10-20 13:40] VITALS: PULSE 83; RESP 12; O2SAT 98
--- NOTE | 2024-10-20 14:18 | DVH ---
CHEST RADIOGRAPH Indication: sob Technique: Single frontal view of the chest was obtained Comparison: XY CHEST PORTABLE on DOS: 10/09/24, XY CHEST XRAY 1 VIEW on DOS: 08/04/24, XY CHEST PORTABLE on DOS: 07/30/24 FINDINGS: Lines and Tubes: None Lungs: No focal consolidation. Diffuse interstitial prominence. Pleura: No effusion. No pneumothorax. Cardiomediastinal contours: Mild cardiomegaly with moderate atherosclerotic calcification and uncoili ng of the aorta. Bones: No acute osseous abnormality. IMPRESSION: Cardiomegaly with findings suggestive of congestive heart failure. Underlying infectious process can not be excluded.
[2024-10-20 14:34] LABS: Hematocrit 27.7 % (41.0-53.0); Hemoglobin 9.4 g/dL (13.5-17.5); Mean Corpuscular Hemoglobin 29.5 pg (28.0-32.0); Mean Corpuscular Volume 87.1 fL (80.0-100.0); Nucleated Red Blood Cells % 0.0 %
[2024-10-20 14:41] LABS: Potassium 4.0 mmol/L (3.5-5.1)
[2024-10-20 14:42] LABS: Anion Gap 9 (5-15); Calcium 9.5 mg/dL (8.7-10.4)
[2024-10-20 14:46] LABS: Carbon Dioxide 33 mmol/L (20-31); Chloride 92 mmol/L (98-107); Sodium 134 mmol/L (136-145)
[2024-10-20 14:47] LABS: BUN/Creatinine Ratio 9.9 (10.0-20.0)
[2024-10-20 14:49] LABS: Blood Urea Nitrogen 44 mg/dL (9-23); Glucose 234 mg/dL (74-106)
[2024-10-20] MEDS: ENOXAPARIN SOD 60 MG/0.6 ML SYRINGE SC ONE (18:19)
[2024-10-20 19:30] VITALS: PULSE 81; RESP 14; O2SAT 99
--- NOTE | 2024-10-20 20:08 | DVHHPRES ---
History of Present Illness Resident Creating Document: HEATHER VIDAL RESIDENT History of Present Illness 64-year-old male with previous history of ESRD, hypertension, systolic heart failure with ejection fraction 40% (06/09/2024), clx-[id number] diabetes mellitus, on Jardiance presented to the ER with the complaints of generalized weakness for 1 day and several episodes of high blood pressure on measurements. The patient is a poor historian, is nonverbal, oriented to place and person but not to time. However, he denies any chest pain, shortness of breath, fever, abdominal pain or any other complaints today. The was present at bedside who provided most of the relevant history. The reports the patient used to have MWF dialysis, currently he is having Sunday dialysis for the past three months. The patient to discontinued insulin 4 years ago due to episodes of hypoglycemia according to the . Now he uses Jardiance for glycemic control. Past medical history: ESRD on dialysis MWF, hypertension, systolic heart failure with EF 40%, diabetes mellitus, hypertension,obstructive uropathy Past surgical history: None Allergies: No known allergies Home medications: Aspirin, atorvastatin, carvedilol, Jardiance, trazodone 50 mg one tablet daily Smoking history: Quit two years ago. Sixty pack-year. Alcohol history: Quit two years ago. Previously used to drink 2-3 glasses weekly. Drugs: Never Family history: Noncontributory Lives with family with home health. PCP: Dr. Oracio La Code status: DNR, DNI Review of Systems Review of Systems As per HPI Allergies: Coded Allergies: Penicillins (Verified Allergy, Unknown, 01/01/20) Sulfa Antibiotics (Verified Allergy, Unknown, 09/16/23) Medications Current Medications Medications Dose Ordered Sig/Herson Route Start Time Stop Time Status Last Admin Dose Admin Furosemide 40 mg BIDD IV 10/21/24 06:00 UNV Aspirin 81 mg DAILY PO 10/21/24 10:00 UNV Atorvastatin Calcium 40 mg HS PO 10/20/24 22:00 UNV Carvedilol 6.25 mg Q12HR PO 10/20/24 22:00 UNV Ergocalciferol 50,000 unit Q7D PO 10/20/24 20:00 UNV Exam Vital Signs Vital Signs Date Time Temp Pulse Resp B/P (MAP) Pulse Ox O2 Delivery O2 Flow Rate FiO2 10/20/24 19:48 82 10/20/24 18:32 97.8 16 99 97.8 10/20/24 13:40 Room Air* 0 21 10/20/24 13:40 178/77 (110) Exam Pt is lying on bed General Appearance: Alert, Oriented X3, Cooperative, Mild distress HEENT: Atraumatic, Mucous membranes moist/pink Respiratory: Clear to auscultation, Normal air movement, No added sounds Cardiovascular: Regular rate, Normal S1, Normal S2, No murmurs Abdominal/ : Active bowel sounds, Soft, no distention, no tenderness Extremities: No edema, Normal pulses, No tenderness/swelling Skin: Left upper arm fistula for dialysis, No significant rash, except past surgical scars Neuro: Normal speech, sensorimotor deficits none Psych/Mental Status: Mental status NL, Mood NL Nurse was there as illuminator during examination Labs/Xrays Labs Test 10/20/24 14:06 10/20/24 13:25 Range/Units POC Glucose 219 H 70-106 mg/dl White Blood Count 5.1 4.4-10.8 10^3/uL Red Blood Count 3.17 L 4.5-5.90 10^6/uL Hemoglobin 9.4 L 13.5-17.5 g/dL Hematocrit 27.7 L 41.0-53.0 % Mean Corpuscular Volume 87.1 80.0-100.0 fL Mean Corpuscular Hemoglobin 29.5 28.0-32.0 pg Mean Corpuscular Hemoglobin Concent 33.8 32.0-36.0 g/dL Red Cell Distribution Width 17.2 H 11.8-14.3 % Platelet Count 260 140-450 10^3/uL Mean Platelet Volume 7.1 6.9-10.8 fL Neutrophils (%) (Auto) 70.9 37.0-80.0 % Lymphocytes (%) (Auto) 9.3 L 10.0-50.0 % Monocytes (%) (Auto) 9.8 0.0-12.0 % Eosinophils (%) (Auto) 9.0 H 0.0-7.0 % Basophils (%) (Auto) 1.0 0.0-2.0 % Neutrophils # (Auto) 3.6 1.6-8.6 10 ^3/uL Lymphocytes # (Auto) 0.5 0.4-5.4 10 ^3/uL Monocytes # (Auto) 0.5 0-1.3 10 ^3/uL Eosinophils # (Auto) 0.5 0-0.8 10 ^3/uL Basophils # (Auto) 0.1 0-0.2 10 ^3/uL Nucleated Red Blood Cells 0.0 % Urine RBC 0 - 3 /hpf Urine Squamous Epithelial Cells <5 /hpf Urine Bacteria None Seen /hpf Sodium Level 134 L 136-145 mmol/L Potassium Level 4.0 3.5-5.1 mmol/L Chloride Level 92 L 98-107 mmol/L Carbon Dioxide Level 33 H 20-31 mmol/L Anion Gap 9 5-15 Blood Urea Nitrogen 44 H 9-23 mg/dL Creatinine 4.43 H 0.700-1.30 mg/dL Glomerular Filtration Rate Calc 14 >90 mL/min BUN/Creatinine Ratio 9.9 L 10.0-20.0 Serum Glucose 234 H 74-106 mg/dL Calcium Level 9.5 8.7-10.4 mg/dL Troponin I High Sensitivity 123 *H </=54 ng/L SEPSIS Sepsis Screen Date sepsis recognized/suspect: Oct 20, 2024 Time Sepsis recognized/suspect: 1339 Recent Procedure: No On Antibiotic Therapy: No Respiratory Rate >20: No Heart Rate >90: No Temp<36 C (96.8 F) or >38.3 C: No SBP <90 or MAP <65 mmHG: No New Acute Mental Status Change: No Is the patient on CPAP, BIPAP,: No Physician Orders Urinalysis (10/20/24 13:24) Chest Portable (10/20/24 13:40) Admit (10/20/24 18:56) Allergies (10/20/24 18:56) Code Status (10/20/24 18:56) Oxygen Per Hour (10/20/24 18:56) Complete Blood Count (10/21/24 04:00) Comprehensive Metabolic Panel (10/21/24 04:00) Npo (Nothing By Mouth) Diet (10/21/24 Breakfast) Notify Of Changes From Base (10/20/24 18:56) District Sales Coordinator For 24 Hours (10/20/24 18:56) Lactic Acid W/ Reflex Order (10/20/24 19:38) Magnesium (10/20/24 19:38) PTPTT (10/20/24 19:38) Vitamin B12 (10/20/24 19:38) Urinalysis (10/20/24 19:38) Vitamin D, 25-Hydroxy (10/20/24 19:38) Folate (Folic Acid) (10/20/24 19:38) Drug Screen (10/20/24 19:38) D-Dimer (10/20/24 19:38) B-Type Natriuretic Peptide (10/20/24 19:38) *[facility] (10/20/24 19:39) Furosemide Injection (Lasix Injection) (10/20/24 20:00) Furosemide Injection (Lasix Injection) (10/21/24 06:00) Aspirin Tablet (10/20/24 20:00) Aspirin Tablet (10/21/24 10:00) Atorvastatin (Lipitor) (10/20/24 20:00) Atorvastatin (Lipitor) (10/20/24 22:00) Carvedilol Tablet (Coreg Tablet) (10/20/24 20:00) Carvedilol Tablet (Coreg Tablet) (10/20/24 22:00) Ergocalciferol (Vitamin D 50,000 Unit) (10/20/24 20:00) Vital Signs Date Time Temp Pulse Resp B/P (MAP) Pulse Ox O2 Delivery O2 Flow Rate FiO2 10/20/24 19:48 82 10/20/24 18:32 97.8 90 16 99 97.8 10/20/24 16:00 94 10/20/24 13:40 83 12 98 Room Air* 0 21 10/20/24 13:40 99.4 83 16 178/77 (110) 98 99.4 10/20/24 13:09 98.3 86 20 178/81 98 98.3 10/20/24 13:06 87 Laboratory Tests Test 10/20/24 13:25 Lactic Acid Level Pending White Blood Count 5.1 10^3/uL (4.4-10.8) Medications Medications Dose Ordered Sig/Herson Route Start Time Stop Time Status Last Admin Dose Admin Enoxaparin Sodium 60 mg ONCE ONCE SC 10/20/24 17:45 10/20/24 17:46 DC 10/20/24 18:19 60 MG Assessment/Plan Assessment/Plan Acute on chronic hypoxic respiratory failure Systolic heart failure ejection fraction 40% Oxygen 3 L by nasal cannula IV furosemide 40 mg b.i.d. CXR: Cardiomegaly with findings of congestive heart failure, infectious process. EKG: No ischemic findings. Continue home medications atorvastatin and aspirin. NSTEMI type 2 most likely due to demand ischemia Monitor labs, treatment of the underlying conditions ESRD on dialysis (GFR 14 ) and Sunday dialysis. Nephrology consulted for continuation of dialysis Uncontrolled diabetes mellitus: Serum glucose: 234 HbA1c ordered, results pending Uncontrolled hypertension Carvedilol GI prophylaxis: Pantoprazole DVT prophylaxis: Heparin Diet: Renal Goals of care discussed with the patient for more than 27 minutes: Full code status Case discussed with Dr. Deal, patient and RN Plan discussed with: Patient, Other (RN) My Orders Orders - HEATHER VIDAL RESIDENT Procedure Category Date Status Time Admit ADMIT 10/20/24 Transmitted 18:56 Allergies ABELARDO 10/20/24 In Process 18:56 Code Status CODE 10/20/24 Transmitted 18:56 Oxygen Per Hour RT 10/20/24 Transmitted 18:56 Complete Blood Count LAB 10/21/24 Verified 04:00 Comprehensive LAB 10/21/24 Verified Metabolic Panel 04:00 Npo (Nothing By DIET 10/21/24 Transmitted Mouth) Diet Breakfast Notify Md Of Changes ABELARDO 10/20/24 In Process From Base 18:56 District Sales Coordinator For ABELARDO 10/20/24 In Process 24 Hours 18:56 Lactic Acid W/ Reflex LAB 10/20/24 In Process Order 19:38 Magnesium LAB 10/20/24 In Process 19:38 PTPTT LAB 10/20/24 In Process 19:38 Vitamin B12 LAB 10/20/24 In Process 19:38 Urinalysis LAB 10/20/24 Logged 19:38 Vitamin D, 25-Hydroxy LAB 10/20/24 In Process 19:38 Folate (Folic Acid) LAB 10/20/24 In Process 19:38 Drug Screen LAB 10/20/24 Logged 19:38 D-Dimer LAB 10/20/24 In Process 19:38 B-Type Natriuretic LAB 10/20/24 In Process Peptide 19:38 *[facility] CONS 10/20/24 Transmitted -[place] 19:39 Furosemide Injection PHA 10/20/24 Logged (Lasix Injection) 20:00 Furosemide Injection PHA 10/21/24 Logged (Lasix Injection) 06:00 Aspirin Tablet PHA 10/20/24 Logged 20:00 Aspirin Tablet PHA 10/21/24 Logged 10:00 Atorvastatin (Lipitor) PHA 10/20/24 Logged 20:00 Atorvastatin (Lipitor) PHA 10/20/24 Logged 22:00 Carvedilol Tablet PHA 10/20/24 Logged (Coreg Tablet) 20:00 Carvedilol Tablet PHA 10/20/24 Logged (Coreg Tablet) 22:00 Ergocalciferol PHA 10/20/24 Logged (Vitamin D 50,000 20:00 Date of Service: Oct 21, 2024 Billing Provider: BREANNA DEAL MD Common Visit Codes: [id number] INP/OBS CARE (HIGH) HEATHER VIDAL Oct 20, 2024 20:08 BREANNA DEAL MD Oct 23, 2024 15:42
[2024-10-20 20:30] LABS: INR 1.07 (0.9-1.15); Partial Thromboplastin Time 38.4 SEC (24.5-34.5); Prothrombin Time 11.3 sec (9.3-11.8)
[2024-10-20] MEDS: FUROSEMIDE 40 MG/4 ML VIAL IV ONE (21:00)
[2024-10-20] MEDS: CARVEDILOL 3.125 MG TAB PO ONE (22:10)
[2024-10-20] MEDS: ATORVASTATIN 20 MG TAB PO ONE (22:10)
[2024-10-20] MEDS: HEPARIN SODIUM (PORCINE) 5000 UNITS/ML 1ML VIAL SC SCH (22:15)
[2024-10-21 05:30] VITALS: BP 175/86; PULSE 83; O2SAT 96
[2024-10-21] MEDS: FUROSEMIDE 40 MG/4 ML VIAL IV SCH (05:53)
[2024-10-21 06:13] LABS: Hematocrit 26.2 % (41.0-53.0); Hemoglobin 9.0 g/dL (13.5-17.5); Mean Corpuscular Hemoglobin 29.5 pg (28.0-32.0); Mean Corpuscular Volume 85.8 fL (80.0-100.0); Nucleated Red Blood Cells % 0.1 %
[2024-10-21 06:29] LABS: Alanine Aminotransferase 28 U/L (7-40); Albumin 3.7 g/dL (3.2-4.8); Alkaline Phosphatase 47 U/L (46-116); Anion Gap 14 (5-15); BUN/Creatinine Ratio 10.6 (10.0-20.0); Bilirubin, Total 0.6 mg/dL (0.2-1.0); Calcium 9.2 mg/dL (8.7-10.4); Carbon Dioxide 29 mmol/L (20-31); Chloride 93 mmol/L (98-107); Glucose 136 mg/dL (74-106); Potassium 3.9 mmol/L (3.5-5.1); Sodium 136 mmol/L (136-145); Total Protein 6.4 g/dL (5.7-8.2)
[2024-10-21 06:30] LABS: Blood Urea Nitrogen 64 mg/dL (9-23)
[2024-10-21 08:00] VITALS: PULSE 81; RESP 14; RESP 16; O2SAT 99
[2024-10-21] MEDS: ERGOCALCIFEROL 50,000 UNIT(1.25MG) CAP PO SCH (08:00)
[2024-10-21] MEDS: CARVEDILOL 3.125 MG TAB PO SCH (09:36)
--- NOTE | 2024-10-21 10:40 | DVHPNRES ---
Progress Note Date Seen: Oct 21, 2024 Resident Creating Document: HEATHER VIDAL RESIDENT Objective vital signs Vital Sign Date Time Temp Pulse Resp B/P (MAP) Pulse Ox O2 Delivery O2 Flow Rate FiO2 10/21/24 09:36 87 160/88 10/21/24 08:00 16 99 Nasal Cannula* 3 32 10/21/24 07:30 98.0 98.0 medications Current Medications Medications Dose Ordered Sig/Herson Route Start Time Stop Time Status Last Admin Dose Admin Furosemide 40 mg BIDD IV 10/21/24 06:00 10/21/24 05:53 40 MG Aspirin 81 mg DAILY PO 10/21/24 10:00 10/21/24 09:35 81 MG Atorvastatin Calcium 40 mg HS PO 10/21/24 22:00 Carvedilol 6.25 mg Q12HR PO 10/21/24 10:00 10/21/24 09:36 6.25 MG Ergocalciferol 50,000 unit Q7D PO 10/20/24 20:00 Hold Heparin Sodium (Porcine) 5,000 units Q12HR SC 10/20/24 22:00 10/21/24 09:38 5,000 UNITS laboratory and microbiology Laboratory Tests 10/21/24 05:24 Test 10/21/24 05:24 Range/Units Serum Glucose 136 H 74-106 mg/dL My Orders My Orders Orders - HEATHER VIDAL Procedure Category Date Status Time Admit ADMIT 10/20/24 Transmitted 18:56 Allergies ABELARDO 10/20/24 In Process 18:56 Oxygen Per Hour RT 10/20/24 Transmitted 18:56 Npo (Nothing By DIET 10/21/24 Transmitted Mouth) Diet Breakfast Notify Of Changes ABELARDO 10/20/24 In Process From Base 18:56 Slate Worker For ABELARDO 10/20/24 In Process 24 Hours 18:56 Urinalysis LAB 10/20/24 Logged 19:38 Drug Screen LAB 10/20/24 Logged 19:38 *[facility] CONS 10/20/24 Transmitted -[place] 19:39 Furosemide Injection PHA 10/21/24 In Process (Lasix Injection) 06:00 Aspirin Tablet PHA 10/21/24 In Process 10:00 Ergocalciferol PHA 10/20/24 In Process (Vitamin D 50,000 20:00 Code Status CODE 10/20/24 Transmitted 19:56 Carvedilol Tablet PHA 10/21/24 In Process (Coreg Tablet) 10:00 Atorvastatin (Lipitor) PHA 10/21/24 In Process 22:00 HEATHER VIDAL Oct 21, 2024 10:40
--- NOTE | 2024-10-21 13:12 | DVHPN2 ---
Reviewed: Care Plan, H&P, Labs, Medications, Previous Orders, Radiology Changes from previous H/P or p: No Changes Objective Vitals Vital Signs Date Time Temp Pulse Resp B/P (MAP) Pulse Ox O2 Delivery O2 Flow Rate FiO2 10/21/24 13:00 82 20 170/89 (116) 98 10/21/24 08:00 Nasal Cannula* 3 32 10/21/24 07:30 98.0 98.0 Medications Current Medications Medications Dose Ordered Sig/Herson Route Start Time Stop Time Status Last Admin Dose Admin Furosemide 40 mg BIDD IV 10/21/24 06:00 10/21/24 05:53 40 MG Aspirin 81 mg DAILY PO 10/21/24 10:00 10/21/24 09:35 81 MG Atorvastatin Calcium 40 mg HS PO 10/21/24 22:00 Carvedilol 6.25 mg Q12HR PO 10/21/24 10:00 10/21/24 09:36 6.25 MG Ergocalciferol 50,000 unit Q7D PO 10/20/24 20:00 Hold Heparin Sodium (Porcine) 5,000 units Q12HR SC 10/20/24 22:00 10/21/24 09:38 5,000 UNITS Hydralazine HCl 10 mg Q8HR PO 10/21/24 14:00 Laboratory Results Laboratory Tests 10/21/24 05:24 Chemistry Test 10/20/24 13:25 10/21/24 05:24 Calcium Level 9.5 mg/dL (8.7-10.4) 9.2 mg/dL (8.7-10.4) Magnesium Level 2.0 mg/dL (1.6-2.6) Albumin 3.7 g/dL (3.2-4.8) Total Protein 6.4 g/dL (5.7-8.2) Coagulation Test 10/20/24 19:59 Prothrombin Time 11.3 sec (9.3-11.8) Prothrombin Time INR 1.07 (0.9-1.15) Activated Partial Thromboplast Time 38.4 SEC (24.5-34.5) H D-Dimer, Quantitative 0.26 mg/L FEU (0.0-0.49) Cardiac Markers Test 10/20/24 13:25 B-Type Natriuretic Peptide 2500.38 pg/mL (0-100) LFT Test 10/21/24 05:24 Alanine Aminotransferase (ALT) 28 U/L (7-40) Alkaline Phosphatase 47 U/L (46-116) Aspartate Amino Transferase (AST) 20 U/L (13-40) Total Bilirubin 0.6 mg/dL (0.2-1.0) Labs and/or images reviewed: Labs reviewed by me, Image(s) reviewed by me Assessment/Plan Assessment/Plan Acute on chronic hypoxic respiratory failure: Oxygen by nasal cannula Acute systolic congestive heart failure exacerbation EF 40 percent NSTEMI type 2 most likely due to demand ischemia ESRD on hemodialysis : Consult Dr. Rose Uncontrolled diabetes Uncontrolled hypertension Time spent 70 minutes Advanced care planning time 20 minutes Patient is DNR Plan discussed with: Patient Date of Service: Oct 21, 2024 Billing Provider: JUANITO STEVENS MD Common Visit Codes: [id number] INP/OBS CARE(HIGH) JUANITO STEVENS MD Oct 21, 2024 13:12
--- NOTE | 2024-10-21 15:46 | DVHINCON2 ---
DATE OF CONSULTATION: 10/21/2024 CONSULTING PHYSICIAN: Dr. Jimenez. REASON FOR CONSULTATION: Management of dialysis. HISTORY OF PRESENT ILLNESS: The patient is a 64-year-old gentleman who is one of our chronic dialysis patients who was brought to the hospital with complaints of mental status change. He has a longstanding history of diabetes, hypertension, end-stage renal disease, congestive heart failure, dementia. He came to the hospital by ambulance, sent by family complaining of generalized weakness, high blood pressure, and some mental status changes. When he came to the emergency room, he was a very poor historian, mostly lethargic. Review of systems, stated that he did not have any chest pain or shortness of breath. No other specific symptoms. The patient received his last dialysis at the clinic on Sunday. He was also coming for an extra treatment over the weekend. He denies any other symptoms or complaints at this time. In the emergency room, he was found to have laboratory findings consistent with his end-stage renal disease. No electrolyte imbalances. He is being admitted for further management and being consulted to handle his renal replacement therapy. REVIEW OF SYSTEMS: Otherwise, not obtainable. PAST MEDICAL HISTORY: As stated above, significant for longstanding hypertension, diabetes, congestive heart failure, end-stage renal disease, ejection fraction of 40%, anemia, hyperparathyroidism. SOCIAL HISTORY: He did not smoke cigarettes recently. In the past, he used to smoke up to a pack or 2 a day. He did this for over 60 years, denied drinking alcohol or using illicit drugs. FAMILY HISTORY: Negative for chronic conditions. MEDICATIONS: In the hospital, he has been put on atorvastatin, hydralazine, carvedilol, aspirin, furosemide, and heparin. PHYSICAL EXAMINATION: VITAL SIGNS: Blood pressure 150/69, heart rate 82, respirations 20, temperature 98. GENERAL: The patient is an elderly gentleman who appears to be chronically ill. Currently, he is lethargic, arousable, disoriented. HEENT: Exam is otherwise unremarkable. LUNGS: Clear to auscultation. CARDIOVASCULAR: Shows regular rate, systolic murmur. ABDOMEN: soft, nontender. No organomegaly. EXTREMITIES: Show no clubbing, cyanosis or edema. NEUROLOGIC: Exam is nonfocal. LABORATORY FINDINGS: Sodium 136, potassium 3.9, BUN 64, creatinine 6. Hemoglobin 9, white blood cell count 6.5. Chest x-ray did not show pneumonia or consolidation, mild increase in interstitial markings. ASSESSMENT AND PLAN: * Stable end-stage renal disease. * Blood pressure is better controlled. * No electrolyte imbalances. * Anemia of renal disease. * Encephalopathy. * Rule out CVA. The patient will be scheduled to have dialysis within the next 24 hours. We will remove 2-2.5 L of fluid. Follow up blood cultures. Start empiric intravenous antibiotics. Follow up with Neurology and CT of the head. Thank you for the consultation. Bruno Winn MD EVT/SILVINO TID: [id number] RECEIPT: [id number]
[2024-10-21 16:30] VITALS: BP 173/92; PULSE 88; RESP 20; TEMP 98; O2SAT 100
[2024-10-21 20:00] VITALS: PULSE 89; RESP 18; O2SAT 98
[2024-10-21 21:00] VITALS: BP 174/92; PULSE 89; RESP 18; TEMP 98.1; O2SAT 98
[2024-10-21] MEDS: ATORVASTATIN 20 MG TAB PO SCH (21:48)
[2024-10-22 01:00] VITALS: BP 190/105; PULSE 98; RESP 20; TEMP 98.1; O2SAT 100
[2024-10-22 05:00] VITALS: BP 177/96; PULSE 95; RESP 20; TEMP 97.9; O2SAT 99
[2024-10-22 09:00] VITALS: BP 165/94; PULSE 105; RESP 22; TEMP 97.6; O2SAT 92
--- NOTE | 2024-10-22 11:35 | DVHPN2 ---
Reviewed: Care Plan, H&P, Labs, Medications, Previous Orders, Radiology Changes from previous H/P or p: No Changes Objective Vitals Vital Signs Date Time Temp Pulse Resp B/P (MAP) Pulse Ox O2 Delivery O2 Flow Rate FiO2 10/22/24 09:00 97.6 105 22 165/94 (117) 92 97.6 10/22/24 08:08 Nasal Cannula* 2 28 Intake/Output Intake and Output 10/22/24 06:59 Intake Total 2800 ml Balance 2800 ml Intake Oral 2800 ml # Voids 4 # Bowel Movements 1 Medications Current Medications Medications Dose Ordered Sig/Herson Route Start Time Stop Time Status Last Admin Dose Admin Furosemide 40 mg BIDD IV 10/21/24 06:00 10/22/24 06:20 40 MG Aspirin 81 mg DAILY PO 10/21/24 10:00 10/21/24 09:35 81 MG Atorvastatin Calcium 40 mg HS PO 10/21/24 22:00 10/21/24 21:48 40 MG Carvedilol 6.25 mg Q12HR PO 10/21/24 10:00 10/21/24 21:49 6.25 MG Ergocalciferol 50,000 unit Q7D PO 10/20/24 20:00 Hold Heparin Sodium (Porcine) 5,000 units Q12HR SC 10/20/24 22:00 10/21/24 21:54 5,000 UNITS Hydralazine HCl 10 mg Q8HR PO 10/21/24 14:00 10/22/24 06:20 10 MG Laboratory Results Laboratory Tests 10/21/24 05:24 Labs and/or images reviewed: Labs reviewed by me, Image(s) reviewed by me Assessment/Plan Assessment/Plan Acute on chronic hypoxic respiratory failure: Oxygen by nasal cannula Acute systolic congestive heart failure exacerbation EF 40 percent NSTEMI type 2 most likely due to demand ischemia ESRD on hemodialysis : Consult Dr. Rose, patient getting dialysis today Uncontrolled diabetes Uncontrolled hypertension Time spent 55 minutes Advanced care planning time 20 minutes Patient is DNR Plan discussed with: Patient My Orders Orders - JUANITO STEVENS MD Procedure Category Date Status Time Mrsa Screen MARIBELL 10/21/24 In Process 18:49 Date of Service: Oct 22, 2024 Billing Provider: JUANITO STEVENS MD Common Visit Codes: [id number] INP/OBS CARE(HIGH) JUANITO STEVENS MD Oct 22, 2024 11:34
--- NOTE | 2024-10-22 12:30 | DVHPN2 ---
Progress Note - Dictate Date Seen: Oct 22, 2024 Has the PT tested + for MRSA If YES, has PT been informed?: No Medical Necessity Reason Pt with a Central, PICC or Fol: No Subjective Just finished dialysis, no complaints vital signs Vital Sign Date Time Temp Pulse Resp B/P (MAP) Pulse Ox O2 Delivery O2 Flow Rate FiO2 10/22/24 09:00 97.6 105 22 165/94 (117) 92 97.6 10/22/24 08:08 Nasal Cannula* 2 28 Total Intake and Output 10/21/24 10/21/24 10/22/24 15:00 23:00 07:00 Intake Total 2500 ml 300 ml Balance 2500 ml 300 ml medications Current Medications Medications Dose Ordered Sig/Herson Route Start Time Stop Time Status Last Admin Dose Admin Furosemide 40 mg BIDD IV 10/21/24 06:00 10/22/24 06:20 40 MG Aspirin 81 mg DAILY PO 10/21/24 10:00 10/21/24 09:35 81 MG Atorvastatin Calcium 40 mg HS PO 10/21/24 22:00 10/21/24 21:48 40 MG Carvedilol 6.25 mg Q12HR PO 10/21/24 10:00 10/21/24 21:49 6.25 MG Ergocalciferol 50,000 unit Q7D PO 10/20/24 20:00 Hold Heparin Sodium (Porcine) 5,000 units Q12HR SC 10/20/24 22:00 10/21/24 21:54 5,000 UNITS Hydralazine HCl 10 mg Q8HR PO 10/21/24 14:00 10/22/24 06:20 10 MG objective GENERAL: The patient is an elderly gentleman who appears to be chronically ill. Currently, he is lethargic, arousable, disoriented. HEENT: Exam is otherwise unremarkable. LUNGS: Clear to auscultation. CARDIOVASCULAR: Shows regular rate, systolic murmur. ABDOMEN: soft, nontender. No organomegaly. EXTREMITIES: Show no clubbing, cyanosis or edema. NEUROLOGIC: Exam is nonfocal. laboratory and microbiology Laboratory Tests 10/21/24 05:24 Test 10/21/24 05:24 Range/Units Serum Glucose 136 H 74-106 mg/dL Assessment/Plan ASSESSMENT AND PLAN: * Stable end-stage renal disease. * Blood pressure is better controlled. * No electrolyte imbalances. * Anemia of renal disease. * Encephalopathy. * Rule out CVA. The patient had dialysis today. Follow up blood cultures. Start empiric intravenous antibiotics. Follow up with Neurology and CT of the head. Plan discussed with: Patient MYRNA SHAW MD Oct 22, 2024 12:29
[2024-10-22 14:25] LABS: Amphetamine Screen, Urine Neg (NEGATIVE); Barbiturate Scree,Urine Neg (NEGATIVE); Benzodiazephine Screen, Urine Neg (NEGATIVE); Cannabinoid Screen, Urine Neg (NEGATIVE); Cocaine Screen, Urine Neg (NEGATIVE); Opiate Scree,Urine Neg (NEGATIVE); Phencyclidine Screen, Urine Neg (NEGATIVE)
[2024-10-22 14:37] LABS: Urine Protein, UAD 2+ (Negative)
[2024-10-22 20:51] VITALS: BP 168/82; PULSE 88; RESP 17; TEMP 97.7; O2SAT 91
[2024-10-22] MEDS: EPOETIN ALFA-EPBX 10,000 UNIT/1ML VIAL SC ONE (21:30)
[2024-10-23] VITALS (7 sets, daily range): BP systolic 147–182; BP diastolic 78–93; PULSE 77–101; RESP 16–19; TEMP 97.7–98.6; O2SAT 96–100
--- NOTE | 2024-10-23 12:23 | DVHDS2 ---
Discharge Summary Date of Admission Oct 20, 2024 at 18:56 Date of Discharge: Oct 23, 2024 Admitting Diagnosis Shortness of breath Wounds: none Labs/Diagnostic Data: Laboratory Results Test 10/21/24 05:24 10/20/24 21:33 10/20/24 19:59 10/20/24 19:38 White Blood Count 6.2 10^3/uL (4.4-10.8) Red Blood Count 3.06 10^6/uL (4.5-5.90) Hemoglobin 9.0 g/dL (13.5-17.5) Hematocrit 26.2 % (41.0-53.0) Mean Corpuscular Volume 85.8 fL (80.0-100.0) Mean Corpuscular Hemoglobin 29.5 pg (28.0-32.0) Mean Corpuscular Hemoglobin Concent 34.4 g/dL (32.0-36.0) Red Cell Distribution Width 16.8 % (11.8-14.3) Platelet Count 234 10^3/uL (140-450) Mean Platelet Volume 7.1 fL (6.9-10.8) Neutrophils (%) (Auto) 68.4 % (37.0-80.0) Lymphocytes (%) (Auto) 13.3 % (10.0-50.0) Monocytes (%) (Auto) 8.7 % (0.0-12.0) Eosinophils (%) (Auto) 9.0 % (0.0-7.0) Basophils (%) (Auto) 0.6 % (0.0-2.0) Neutrophils # (Auto) 4.2 10 ^3/uL (1.6-8.6) Lymphocytes # (Auto) 0.8 10 ^3/uL (0.4-5.4) Monocytes # (Auto) 0.5 10 ^3/uL (0-1.3) Eosinophils # (Auto) 0.6 10 ^3/uL (0-0.8) Basophils # (Auto) 0 10 ^3/uL (0-0.2) Nucleated Red Blood Cells 0.1 % Sodium Level 136 mmol/L (136-145) Potassium Level 3.9 mmol/L (3.5-5.1) Chloride Level 93 mmol/L (98-107) Carbon Dioxide Level 29 mmol/L (20-31) Anion Gap 14 (5-15) Blood Urea Nitrogen 64 mg/dL (9-23) Creatinine 6.03 mg/dL (0.700-1.30) Glomerular Filtration Rate Calc 10 mL/min (>90) BUN/Creatinine Ratio 10.6 (10.0-20.0) Serum Glucose 136 mg/dL (74-106) Calcium Level 9.2 mg/dL (8.7-10.4) Total Bilirubin 0.6 mg/dL (0.2-1.0) Aspartate Amino Transferase (AST) 20 U/L (13-40) Alanine Aminotransferase (ALT) 28 U/L (7-40) Alkaline Phosphatase 47 U/L (46-116) Total Protein 6.4 g/dL (5.7-8.2) Albumin 3.7 g/dL (3.2-4.8) Troponin I High Sensitivity 154 ng/L (</=54) Prothrombin Time 11.3 sec (9.3-11.8) Prothrombin Time INR 1.07 (0.9-1.15) Activated Partial Thromboplast Time 38.4 SEC (24.5-34.5) D-Dimer, Quantitative 0.26 mg/L FEU (0.0-0.49) Urine Color Light-yellow (Yellow) Urine Clarity Clear (Clear) Urine pH 8.0 (5.0-9.0) Urine Specific [place] 1.008 (1.001-1.035) Urine Protein 2+ (Negative) Urine Ketones Negative (Negative) Urine Blood Trace /uL (Negative) Urine Nitrite Negative (Negative) Urine Bilirubin Negative (Negative) Urine Urobilinogen Normal mg/dL (Negative) Urine Leukocyte Esterase 1+ /uL (Negative) Urine RBC 5 /hpf (0 - 3) Urine Microscopic WBC 22 /HPF (0-3) Urine Squamous Epithelial Cells Few /hpf (<5) Urine Bacteria None seen /hpf (None Seen) Urine Glucose 3+ mg/dL (Normal) Urine Opiates Screen Neg (NEGATIVE) Urine Fentanyl Screen Neg (NEGATIVE) Urine Barbiturates Screen Neg (NEGATIVE) Urine Phencyclidine Screen Neg (NEGATIVE) Urine Amphetamines Screen Neg (NEGATIVE) Urine Benzodiazepines Screen Neg (NEGATIVE) Urine Cocaine Screen Neg (NEGATIVE) Urine Cannabinoids Screen Neg (NEGATIVE) Test 10/20/24 14:06 10/20/24 13:25 POC Glucose 219 mg/dl (70-106) Lactic Acid Level 1.2 mmol/L (0.4-2.0) Magnesium Level 2.0 mg/dL (1.6-2.6) B-Type Natriuretic Peptide 2500.38 pg/mL (0-100) Vitamin B12 Level 763 pg/mL (211-911) Vitamin D 25-Hydroxy 78.7 ng/mL (30.0-100) Folic Acid 21.58 ng/mL (>5.38) Hepatitis B Surface Antigen Negative (Negative) Other Laboratory Tests 10/21/24 05:24 Brief Hx & Hospital Course: 64-year-old male with a history of ESRD on hemodialysis diabetes hypertension congestive heart failure chronic respiratory failure on home oxygen burden by for shortness of breaths found to have fluid overload secondary to ESRD. Received hemodialysis by Dr. Rose with a which has improved slightly elevated troponin possibly type 2 PR. Ejection fraction 40 percent. The is insisting the patient to be discharged home today. Discharged home today to resume previous home health on to follow up with Dr. Rose for dialysis heel. He will continue all his previous home medications. Consults/Reason for consult Nephrology Dr. Rose Operations or Procedures Hemodialysis Condition at Discharge: Fair Final Diagnosis/Problems List Acute on chronic hypoxic respiratory failure: Oxygen by nasal cannula Acute systolic congestive heart failure exacerbation EF 40 percent NSTEMI type 2 most likely due to demand ischemia ESRD on hemodialysis : Consult Dr. Rose, patient getting dialysis today Uncontrolled diabetes Uncontrolled hypertension Discharge Disposition: Home with Health Services Discharge Instruct/Medications Diet: Renal Activity: Light activity Follow Up/Referral: Keep your appointment with Dr. Rose for dialysis Resume all previous home meds Scheduled Atorvastatin Calcium (Atorvastatin Calcium), 1 TAB PO DAILY, (Reported) B-Complex W/ C & Folic Acid (Ani-Jaxson Rx), 1 TAB PO DAILY, (Reported) Bumetanide (Bumetanide), 1 TAB PO BID, (Reported) Carvedilol (Carvedilol), 1 TAB PO BID, (Reported) Clonidine Hydrochloride (Clonidine Hcl), 1 PATCH TOP QWEEKLY, (Reported) Clopidogrel Bisulfate (Clopidogrel), 1 TAB PO DAILY, (Reported) Empagliflozin (Jardiance), 1 TAB PO DAILY, (Reported) Ergocalciferol (Vitamin D), 1 CAP PO QWEEKLY, (Reported) Hydralazine Hcl (Hydralazine Hcl), 1 TAB PO BID, (Reported) Metformin Hydrochloride (Metformin Hcl), 1 TAB PO BID, (Reported) Nifedipine (Nifedipine Er), 1 TAB PO DAILY, (Reported) Patiromer Sorbitex Calcium (Veltassa), 1 PKT PO DAILY, (Reported) Sodium Bicarbonate (Sodium Bicarbonate), 1 TAB PO TID, (Reported) Trazodone Hcl (Trazodone Hcl), 1 TAB PO DAILY, (Reported) Miscellaneous Medications Aspirin (Aspirin 81), 81 MG OR, (Reported) 39 (Time taken for discharge summary 39 mts) Discharge Statement: "Patient was advised to return to the ER or call 911 if any headaches, dizziness, shortness of breath, chest pain, abdominal pain, bleeding, fevers, or worsening of medical condition. Patient was counseled about treatment plan, medications, possible side effects, patientverbalized understanding. All questions were answered to the best of my ability. This discharge took greater then 30 minutes in planning, reviewing documentation, counseling the patient, and discussing with other team members." ASSESSMENT ASSESSMENT Hospital Course Improved Assessment Acute on chronic hypoxic respiratory failure: Oxygen by nasal cannula Acute systolic congestive heart failure exacerbation EF 40 percent NSTEMI type 2 most likely due to demand ischemia ESRD on hemodialysis : Consult Dr. Rose, patient getting dialysis today Uncontrolled diabetes Uncontrolled hypertension Date of Service: Oct 23, 2024 Billing Provider: JUANITO STEVENS MD Common Visit Codes: 01155-FDL/OBS DISCH DAY >30min JUANITO STEVENS MD Oct 23, 2024 12:23
--- NOTE | 2024-10-23 15:19 | DVHPN2 ---
Progress Note - Dictate Date Seen: Oct 23, 2024 Has the PT tested + for MRSA If YES, has PT been informed?: No Medical Necessity Reason Pt with a Central, PICC or Fol: No Subjective Feels better vital signs Vital Sign Date Time Temp Pulse Resp B/P (MAP) Pulse Ox O2 Delivery O2 Flow Rate FiO2 10/23/24 14:16 170/92 10/23/24 13:00 98.3 101 16 100 98.3 10/23/24 08:15 Nasal Cannula* 2 28 Total Intake and Output 10/22/24 10/22/24 10/23/24 15:00 23:00 07:00 Intake Total 450 ml 100 ml Balance 450 ml 100 ml medications Current Medications Medications Dose Ordered Sig/Herson Route Start Time Stop Time Status Last Admin Dose Admin Furosemide 40 mg BIDD IV 10/21/24 06:00 10/23/24 05:18 40 MG Aspirin 81 mg DAILY PO 10/21/24 10:00 10/23/24 10:31 81 MG Atorvastatin Calcium 40 mg HS PO 10/21/24 22:00 10/22/24 21:30 40 MG Carvedilol 6.25 mg Q12HR PO 10/21/24 10:00 10/23/24 10:29 6.25 MG Ergocalciferol 50,000 unit Q7D PO 10/20/24 20:00 Hold Heparin Sodium (Porcine) 5,000 units Q12HR SC 10/20/24 22:00 10/23/24 10:32 5,000 UNITS Hydralazine HCl 10 mg Q8HR PO 10/21/24 14:00 10/23/24 14:16 10 MG objective GENERAL: The patient is an elderly gentleman who appears to be chronically ill. Currently, he is lethargic, arousable, disoriented. HEENT: Exam is otherwise unremarkable. LUNGS: Clear to auscultation. CARDIOVASCULAR: Shows regular rate, systolic murmur. ABDOMEN: soft, nontender. No organomegaly. EXTREMITIES: Show no clubbing, cyanosis or edema. NEUROLOGIC: Exam is nonfocal. laboratory and microbiology Laboratory Tests 10/21/24 05:24 Test 10/21/24 05:24 Range/Units Serum Glucose 136 H 74-106 mg/dL Assessment/Plan * Stable end-stage renal disease. * Blood pressure is better controlled. * No electrolyte imbalances. * Anemia of renal disease. * Encephalopathy. * Rule out CVA. HD tomorrow Intravenous antibiotics. Follow up with Neurology and CT of the head. Plan discussed with: Patient MYRNA SHAW MD Oct 23, 2024 15:19
[2024-10-24 01:00] VITALS: BP 169/87; PULSE 87; RESP 19; TEMP 98; O2SAT 95
[2024-10-24 05:00] VITALS: BP 160/88; PULSE 74; RESP 18; TEMP 98; O2SAT 99
[2024-10-24] MEDS ORDERED: MORPHINE SULFATE 4 MG/ML SYR/VIAL IV PRN (06:45)
--- NOTE | 2024-10-24 06:51 | ECG ---
[facility] Test Date: 2024-10-24 Test Time: 06:23:19 Pat Name: TIMO PELAEZ Department: Room: 0275 A Gender: M Water Use Inspector: KENDELL : 1960 Requested By: VINITA MOHAMUD Order Number: [id number] Reading MD: Measurements Intervals [place] Rate: 92 P: 17 TX: 160 QRS: 4 QRSD: 95 T: 243 QT: 422 QTc: 523 Interpretive Statements Sinus rhythm Atrial premature complexes Probable left atrial enlargement Left ventricular hypertrophy Nonspecific T abnormalities, lateral leads Prolonged QT interval Please click the below link to view image of tracing.
[2024-10-24] MEDS: NITROGLYCERIN 0.4 MG SL TAB SL PRN (07:12)
[2024-10-24] MEDS: METOPROLOL TARTRATE 1MG/1ML-5ML VIAL IV ONE (07:22)
[2024-10-24 08:02] VITALS: O2SAT 100
[2024-10-24 08:41] VITALS: BP 165/86; PULSE 80; RESP 16; TEMP 97.8; O2SAT 100
--- NOTE | 2024-10-24 10:30 | DVHPN2 ---
Reviewed: Care Plan, H&P, Labs, Medications, Previous Orders, Radiology Changes from previous H/P or p: No Changes Objective Vitals Vital Signs Date Time Temp Pulse Resp B/P (MAP) Pulse Ox O2 Delivery O2 Flow Rate FiO2 10/24/24 08:41 97.8 80 16 165/86 (112) 100 97.8 10/23/24 20:00 Nasal Cannula* 2 28 Intake/Output Intake and Output 10/24/24 07:00 Intake Total 1430 ml Balance 1430 ml Intake Oral 1430 ml # Voids 5 # Bowel Movements 1 Medications Current Medications Medications Dose Ordered Sig/Herson Route Start Time Stop Time Status Last Admin Dose Admin Furosemide 40 mg BIDD IV 10/21/24 06:00 10/24/24 06:04 40 MG Aspirin 81 mg DAILY PO 10/21/24 10:00 10/23/24 10:31 81 MG Atorvastatin Calcium 40 mg HS PO 10/21/24 22:00 10/23/24 22:20 40 MG Ergocalciferol 50,000 unit Q7D PO 10/20/24 20:00 Hold Heparin Sodium (Porcine) 5,000 units Q12HR SC 10/20/24 22:00 10/23/24 22:26 5,000 UNITS Hydralazine HCl 10 mg Q8HR PO 10/21/24 14:00 10/24/24 06:03 10 MG Morphine Sulfate 2 mg Q30MP PRN IV 10/24/24 06:45 Nitroglycerin 0.4 mg Q5MINP PRN SL 10/24/24 06:45 10/24/24 07:37 0.4 MG Carvedilol 12.5 mg Q12HR PO 10/24/24 10:00 Laboratory Results Laboratory Tests 10/21/24 05:24 Urinalysis Test 10/20/24 19:38 Urine Color Light-yellow (Yellow) Urine Clarity Clear (Clear) Urine pH 8.0 (5.0-9.0) Urine Specific [place] 1.008 (1.001-1.035) Urine Protein 2+ (Negative) H Urine Ketones Negative (Negative) Urine Blood Trace /uL (Negative) H Urine Nitrite Negative (Negative) Urine Bilirubin Negative (Negative) Urine Urobilinogen Normal mg/dL (Negative) Urine Leukocyte Esterase 1+ /uL (Negative) Urine RBC 5 /hpf (0 - 3) Urine Microscopic WBC 22 /HPF (0-3) H Urine Squamous Epithelial Cells Few /hpf (<5) Urine Bacteria None seen /hpf (None Seen) Urine Glucose 3+ mg/dL (Normal) H Microbiology Microbiology Date/Time Source Procedure Growth Status 10/21/24 18:49 Nose MRSA Screen - Final Complete Labs and/or images reviewed: Labs reviewed by me, Image(s) reviewed by me Assessment/Plan Assessment/Plan Acute on chronic hypoxic respiratory failure: Oxygen by nasal cannula Acute systolic congestive heart failure exacerbation EF 40 percent NSTEMI type 2 most likely due to demand ischemia ESRD on hemodialysis : Consult Dr. Rose, patient getting dialysis today Uncontrolled diabetes Uncontrolled hypertension Time spent 55 minutes Advanced care planning time 20 minutes Patient is DNR Discharged home on home health on 10/23/2024, awaiting arrangement by oncology social work Plan discussed with: Patient My Orders Orders - JUANITO STEVENS MD Procedure Category Date Status Time Discharge DISCHARGE 10/23/24 Transmitted 12:17 Refer To Home Health [facility] 10/23/24 In Process 12:24 * Video Surveillance Technician CONS 10/23/24 Transmitted Consult Date of Service: Oct 24, 2024 Billing Provider: JUANITO STEVENS MD Common Visit Codes: [id number] INP/OBS CARE(HIGH) JUANITO STEVENS MD Oct 24, 2024 10:30
[2024-10-24] MEDS: CARVEDILOL 12.5 MG TAB PO SCH (10:32)
[2024-10-24] MEDS: SODIUM CHL 0.9% 1000 ML BAG XX ONE (10:36)
[2024-10-24 11:27] VITALS: BP 165/86; PULSE 80; TEMP 36.6
== END 2024-10-24 12:00 | disposition home health service (06) | DRG 280 ==
LOC: ER 12:54 → EDBD 12:54 → OVERFLOW 18:56 → WEST WING 10-21 15:12
PROVIDERS: ADMIT Family Medicine; ATTEND Family Medicine
PROC: 5A1D70Z Performance of Urinary Filtration, Intermittent, Less than 6 Hours Per Day (ICD-10-PCS; principal; 2024-10-22)
DX: I13.2 Hypertensive heart and chronic kidney disease with heart failure and with stage 5 chronic kidney disease, or end stage renal disease (principal); I50.23 Acute on chronic systolic (congestive) heart failure; I21.A1 Myocardial infarction type 2; J96.21 Acute and chronic respiratory failure with hypoxia; N18.6 End stage renal disease; G93.49 Other encephalopathy; D63.1 Anemia in chronic kidney disease; Z66 Do not resuscitate; Z99.2 Dependence on renal dialysis; Z99.81 Dependence on supplemental oxygen; E11.22 Type 2 diabetes mellitus with diabetic chronic kidney disease; J44.9 Chronic obstructive pulmonary disease, unspecified; F03.90 Unspecified dementia, unspecified severity, without behavioral disturbance, psychotic disturbance, mood disturbance, and anxiety; Z88.0 Allergy status to penicillin; Z88.2 Allergy status to sulfonamides; Z87.891 Personal history of nicotine dependence; Z79.84 Long term (current) use of oral hypoglycemic drugs
CPT/HCPCS: 36415; 71045; 80048; 80053; 80307; 81001; 82306; 82607; 82746; 82962; 83605; 83735; 83880; 84484; 85025; 85379; 85610; 85730; 87081; 87340; 90935; 93005; 99291; 99292; G0378